=== PATIENT | female | born 1945 | race Caucasian/White ===

== ENCOUNTER → 2016-10-13 | Outpatient (CLI) | payer MEDICARE ==
[~2016-10-13] MED LIST: DENOSUMAB 60 MG/ML 1 ML SYRINGE SQ ONE
[2016-10-13 09:06] VITALS: BP 151/72; PULSE 72; RESP 16; TEMP 97.8
== END ==
LOC: PROCWHC3 08:51
PROVIDERS: ATTEND Family Medicine
DX: M81.0 Age-related osteoporosis without current pathological fracture (principal)
CPT/HCPCS: 96372; J0897

== ENCOUNTER → 2017-01-26 | Outpatient (CLI) | payer MEDICARE ==
--- NOTE | 2017-01-26 11:29 | US ---
EXAMINATION TYPE: US venous doppler duplex LE RT DATE OF EXAM: 01/26/2017 11:09 AM COMPARISON: Previous study dated 07/07/2016 CLINICAL HISTORY: M79.604 Pain. Pain lower anterior lower leg and swelling here after using stool for gardening; spinal stenosis per patient SIDE PERFORMED: Right TECHNIQUE: The lower extremity deep venous system is examined utilizing real time linear array sonog reanna with graded compression, Doppler sonography and color-flow sonography. VESSELS IMAGED: Common Femoral Vein Deep Femoral Vein Greater Saphenous Vein * Femoral Vein Popliteal Vein Small Saphenous Vein * Proximal Calf Veins (* superficial vessels) No popliteal fossa lesion is identified. Right Leg: Negative for acute DVT, however, wall echoes are noted at valves in one of two upper calf veins, but veins compress here. IMPRESSION: 1. THIS EXAMINATION IS NEGATIVE FOR ACUTE DVT WITHIN THE RIGHT LEG. 2. THERE IS EVIDENCE OF PREVIOUS THROMBUS.
== END | disposition home or self-care (01) ==
LOC: RADUSWWP 10:43
PROVIDERS: ATTEND Family Medicine
DX: M79.604 Pain in right leg (principal)

== ENCOUNTER → 2017-04-07 | Outpatient (CLI) | payer MEDICARE ==
--- NOTE | 2017-04-07 13:46 | BD ---
EXAMINATION TYPE: MG DEXA axial skeleton. DATE OF EXAM: 04/07/2017 COMPARISON: DEXA bone scan March 20, 2016. CLINICAL HISTORY: C50.919 BREAST CANCER, M85.8 OSTEOPENIA Height: 64 Weight: 198 FRAX RISK QUESTIONS: Alcohol (3 or more units per day): NO Family History (Parent hip fracture): YES Glucocorticoids (More than 3mos): NO (Ex: prednisone, prednisolone, methylprednisolone, dexamethasone, and hydrocortisone). History of Fracture in Adulthood: NO Secondary Osteoporosis: NO 1. Type 1 Diabetes: NO 2. Hyperthyroidism: NO 3. Menopause before 45: NO 4. Malnutrition: NO 5. Chronic liver disease: NO Rheumatoid Arthritis: NO Current Tobacco Use: NO RISK FACTORS HISTORY OF: Family History of Osteoporosis: YES, HER MOTHER, WITH BROKEN AND REPLACED HIPS Active: NOT MUCH ANYMORE Diet low in dairy products/other sources of calcium: NO Postmenopausal woman: LATE 40'S Take estrogen and/or progesterone medications: IN THE PAST.... How lon-7 YRS Lost more than 2 inches in height since high school: YES Hyperparathyroidism: NO Adrenal Insufficiency: NO MEDICATIONS: Osteoporosis Medications: FOSAMAX IN THE PAST....STOPPED 15 YRS Additional Medications: ANASTROZOLE, PAIN MEDS, VIT D, VIT A, MULTI VITAMIN, B12, HEART MEDS, MELOXIC AM, Additional History: HX OF RT BREAST CANCER, SPINAL STENOSIS, GALL BLADDER REMOVAL, IBD, A-FIB EXAM MEASUREMENTS: Bone mineral densitometry was performed using the RABBL System. Bone mineral density as measured about the Lumbar spine is: ----- L1-L4(G/cm2): 1.262 T Score Values are as follows: ----- L1: -0.8 ----- L2: -0.3 ----- L3: 1.2 ----- L4: 2.1 ----- L1-L4: 0.7 Bone mineral density has: Increased 0.1% since study of: 03.20.2016 Bone mineral density about the R hip (g/cm2): 0.878 Bone mineral density about the L hip (g/cm2): 0.858 T Score values are as follows: -----R Neck: -1.7 -----L Neck: -1.4 -----R Total: -1.0 -----L Total: -1.2 Bone mineral density has: Increased 2.5% since study of: 03.20.2016 FRAX %'S: THERE IS A 20.2% CHANCE OF A MAJOR OSTEOPOROTIC FX AND A 4.6% CHANCE OF A HIP FX.....PRO BABILITY IN 10 YRS TIME IMPRESSION: Osteopenia (T Score between -2.5 and -1 as noted by T score values remains present in both hips. Ther e remains slightly increased risk of fracture and the patient may be considered for treatment. Re-Scr een 2-5 years NOTE: T-SCORE=SD OF THE YOUNG ADULT MEAN.
== END | disposition home or self-care (01) ==
LOC: RADBDWWP 10:31
PROVIDERS: ATTEND Internal Medicine Hematology & Oncology
DX: C50.919 Malignant neoplasm of unspecified site of unspecified female breast (principal); M85.88 Other specified disorders of bone density and structure, other site
CPT/HCPCS: 77080

== ENCOUNTER 2017-07-15 16:27 | Inpatient (IN) | payer MEDICARE ==
[2017-07-15] MEDS ORDERED: MORPHINE SULFATE 2 MG/ML SYRINGE IV STA (17:09)
[2017-07-15] MEDS ORDERED: ONDANSETRON 4 MG/2 ML VIAL IVP STA (17:09)
[2017-07-15] MEDS ORDERED: SODIUM CHLORIDE 0.9% 1,000 ML IV STA ×2 (17:09)
[2017-07-15] MEDS ORDERED: ACETAMINOPHEN TAB 500 MG TAB PO STA (17:19)
--- NOTE | 2017-07-15 17:36 | ED ---
Abdominal Pain HPI <ParagStephane - Last Filed: 07/15/17 21:56> - General Source: patient, RN notes reviewed, old records reviewed Mode of arrival: ambulatory Limitations: no limitations <Varsha Ledesma - Last Filed: 07/15/17 22:08> - General Chief Complaint: Abdominal Pain Stated Complaint: Abd Pain Time Seen by Provider: 07/15/17 16:58 - History of Present Illness Initial Comments: Is a 72-year-old female presents emergency Department chief complaint of 2 days of upper respiratory congestion, severe nausea, and intractable hiccups. She reports that she thinks this is related to taking Benadryl due to an ALLERGIC reaction. She was treated for hives proximally 5 days ago and after she finished steroids her hives returned. She took Benadryl starting Thursday night into Thursday and thinks that these symptoms are related to her taking Benadryl. Patient states that she feels very chilled. Patient reports that whenever she moves, she feels like she has a spasm in her diaphragm which starts to cause her cups. She reports that the many cups will not cause her to feel he seems to vomit. Patient reports she's had a history of cholecystectomy and appendectomy, mastectomy. She states that she feels extremely nauseated. She states that she's not taking any Motrin Tylenol or any [id number] remedies. (Varsha Ledesma) - Related Data Home Medications Medication Instructions Recorded Confirmed Anastrozole [Anastrozole] 1 mg PO DAILY 07/21/14 07/15/17 Meloxicam [Mobic] 7.5 mg PO DAILY 07/21/14 07/15/17 Metoprolol Tartrate [Lopressor] 50 mg PO QAM 07/21/14 07/15/17 Aspirin EC [Ecotrin] 325 mg PO DAILY 06/22/17 07/15/17 Cholecalciferol [Vitamin D3] 1,000 unit PO DAILY 06/22/17 07/15/17 Cyanocobalamin (Vitamin B-12) 1,000 mcg PO Q48H 06/22/17 07/15/17 [Vitamin B-12] L.acidoph,Paracasei, B.lactis 1 cap PO DAILY 06/22/17 07/15/17 [Probiotic] Metoprolol Tartrate [Lopressor] 25 mg PO HS 06/22/17 07/15/17 Multivitamins, Thera [Multivitamin 1 tab PO DAILY 06/22/17 07/15/17 (formulary)] Vitamin A W/D3 1 tab PO DAILY 06/22/17 07/15/17 Allergies Allergy/AdvReac Type Severity Reaction Status Date / Time metronidazole [From Flagyl] Allergy Rash/Hives Verified 07/15/17 17:05 Penicillins Allergy Anaphylaxis Verified 07/15/17 17:05 Sulfa (Sulfonamide Allergy Unknown Verified 07/15/17 17:05 Antibiotics) Childhood acetaminophen AdvReac Elevates Verified 07/15/17 17:05 Liver Enzymes codeine AdvReac Nausea & Verified 07/15/17 17:05 Vomiting gluten AdvReac Inflames Verified 07/15/17 17:05 Colitis sulfamethoxazole AdvReac Diarrhea, Verified 07/15/17 17:05 [From Bactrim] C-Diff trimethoprim [From Bactrim] AdvReac Diarrhea, Verified 07/15/17 17:05 C-Diff Review of Systems ROS Other: All systems not noted in ROS Statement are negative. <Stephane Tuttle - Last Filed: 07/15/17 21:56> ROS Other: All systems not noted in ROS Statement are negative. <Varsha Ledesma - Last Filed: 07/15/17 22:08> ROS Statement: Those systems with pertinent positive or pertinent negative responses have been documented in the HPI. Past Medical History Past Medical History: Atrial Fibrillation, Cancer, Eye Disorder, Osteoarthritis (OA), Renal Disease Additional Past Medical History / Comment(s): DRY EYE, CORNEAL DYSTROPHY. HX RT BREAST CA. HYPOGLYCEMIA. N/T FEET, RT HAND. EDEMA LOWER LEGS OCC. History of Any Multi-Drug Resistant Organisms: C-DIFF Past Surgical History: Adenoidectomy, Breast Surgery, Cholecystectomy, Hernia Repair, Hysterectomy Additional Past Surgical History / Comment(s): RT BREAST MASTECTOMY, W/ TISSUE [employer]; RT BREAST BIOPSY. LT ING HERNIA REPAIR. FATTY TUMORE EXC LT ARM. NEPHROLITHOTOMY TUBE W/ STONE REMOVAL. Past Anesthesia/Blood Transfusion Reactions: Previous Problems w/ Anesthesia, Postoperative Nausea & Vomiting (PONV) Additional Past Anesthesia/Blood Transfusion Reaction / Comment(s): TOOK VERY LONG TIME TO AWAKEN AFTER SURGERY IN 2012. Past Psychological History: Depression Smoking Status: Former smoker Past Alcohol Use History: Occasional Past Drug Use History: None Reported - Past Family History Mother Family Medical History: Deep Vein Thrombosis (DVT) <Varsha Ledesma - Last Filed: 07/15/17 22:08> General Exam <Stephane Tuttle - Last Filed: 07/15/17 21:56> Limitations: no limitations General appearance: alert, in no apparent distress Head exam: Present: atraumatic, normocephalic, normal inspection Eye exam: Present: normal appearance, PERRL, EOMI. Absent: scleral icterus, conjunctival injection, periorbital swelling ENT exam: Present: normal exam, mucous membranes moist Neck exam: Present: normal inspection. Absent: tenderness, meningismus, lymphadenopathy Respiratory exam: Present: normal lung sounds bilaterally. Absent: respiratory distress, wheezes, rales, rhonchi, stridor Cardiovascular Exam: Present: regular rate, normal rhythm, normal heart sounds. Absent: systolic murmur, diastolic murmur, rubs, gallop, clicks GI/Abdominal exam: Present: soft, tenderness (epigastric tenderness, hiccupping ), normal bowel sounds. Absent: distended, guarding, rebound, rigid Extremities exam: Present: normal inspection, full ROM, normal capillary refill. Absent: tenderness, pedal edema, joint swelling, calf tenderness Back exam: Present: normal inspection Neurological exam: Present: alert, oriented X3, CN II-XII intact Psychiatric exam: Present: normal affect, normal mood Skin exam: Present: warm, dry, intact, normal color. Absent: rash <Varsha Ledesma - Last Filed: 07/15/17 22:08> - General Exam Comments Initial Comments: This is a 72-year-old female. Patient does appear to be in moderate discomfort. (Varsha Ledesma) Vital Signs 07/15/17 07/15/17 07/15/17 16:35 20:22 21:35 Temperature 98.2 F 97.0 F L Pulse Rate 85 75 69 Respiratory 20 16 18 Rate Blood Pressure 168/87 148/66 161/73 O2 Sat by Pulse 99 92 L 93 L Oximetry Medical Decision Making - Lab Data Result diagrams: 07/15/17 17:26 07/15/17 17:26 <Stephane Tuttle - Last Filed: 07/15/17 21:56> - Lab Data Result diagrams: 07/15/17 17:26 07/15/17 17:26 - Radiology Data Radiology results: report reviewed <BaltazarVarsha - Last Filed: 07/15/17 22:08> - Medical Decision Making Advised the patient at bedside with a history of nausea and vomiting for approximately 23 hours. Unable to keep any fluids down. The patient complains of epigastric area discomfort. Last bowel movement was earlier this afternoon pass gas earlier this afternoon. The patient's past medical problems are significant for breast cancer. She's also had a duodenal ulcer many years ago. Labs today showed elevated white count of 14.4 hemoglobin 13 hematocrit of 40. BNP is 400. Amylase lipase normal limits. Troponin less than 0.012 plasma lactic acid is 2.1. Patient's BUN 17 creatinine 0.7 GFR greater than 60. Glucose 3.6. Urine shows 60 range 6 whites. 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 Surgeries include appendectomy, hernia, breast surgery and cholecystectomy. She also the left angle hernia repair. CT of the abdomen pointed out gastric distention with collapsed duodenum suggestive of a duodenal ulcer. I discussed the case with Dr. Meier patient be admitted to his partner's service with consultation from Dr. Mcneil. Dr. Tuttle (Stephane Tuttle) 72-year-old female since medicine department with epigastric abdominal pain. Patient has had multiple episodes of vomiting while in the emergency department. Patient continues also have diaphragm spasms with hiccuping. Patient was given IV fluids and lab work was reviewed. Patient was have mildly elevated lactic acid 2.1. Repeat the lactic obtained. Patient was given 2 L of fluids, start on maintenance rate, the patient does not have a slightly elevated white blood cell count 14.1. Patient case discussed with Dr. Tuttle. [place] the patient for IV fluids, and Protonix. (Varsha Ledesma) - Lab Data Lab Results 07/15/17 07/15/17 07/15/17 Range/Units 17:26 17:26 17:26 WBC 14.4 H (3.8-10.6) k/uL RBC 4.70 (3.80-5.40) m/uL Hgb 13.3 (11.4-16.0) gm/dL Hct 40.7 (34.0-46.0) % MCV 86.6 (80.0-100.0) fL MCH 28.2 (25.0-35.0) pg MCHC 32.6 (31.0-37.0) g/dL RDW 14.3 (11.5-15.5) % Plt Count 283 (150-450) k/uL Neutrophils % 75 % Lymphocytes % 18 % Monocytes % 4 % Eosinophils % 1 % Basophils % 0 % Neutrophils # 10.8 H (1.3-7.7) k/uL Lymphocytes # 2.6 (1.0-4.8) k/uL Monocytes # 0.6 (0-1.0) k/uL Eosinophils # 0.2 (0-0.7) k/uL Basophils # 0.0 (0-0.2) k/uL PT (9.0-12.0) sec INR (<1.2) APTT (22.0-30.0) sec Sodium 139 (137-145) mmol/L Potassium 3.6 (3.5-5.1) mmol/L Chloride 102 (98-107) mmol/L Carbon Dioxide 23 (22-30) mmol/L Anion Gap 14 mmol/L BUN 17 (7-17) mg/dL Creatinine 0.70 (0.52-1.04) mg/dL Est GFR (MDRD) Af Amer >60 (>60 ml/min/1.73 sqM) Est GFR (MDRD) Non-Af >60 (>60 ml/min/1.73 sqM) Glucose 127 H (74-99) mg/dL Lactic Ac Sepsis Rflx Plasma Lactic Acid Maurilio 2.1 H* (0.7-2.0) mmol/L Calcium 9.6 (8.4-10.2) mg/dL Total Bilirubin 0.8 (0.2-1.3) mg/dL AST 28 (14-36) U/L ALT 44 (9-52) U/L Alkaline Phosphatase 95 (38-126) U/L Troponin I (0.000-0.034) ng/mL NT-Pro-B Natriuret Pep pg/mL Total Protein 7.4 (6.3-8.2) g/dL Albumin 4.3 (3.5-5.0) g/dL Amylase <30 L (30-110) U/L Lipase 88 (23-300) U/L Urine Color Urine Appearance (Clear) Urine pH (5.0-8.0) Ur Specific Brooks (1.001-1.035) Urine Protein (Negative) Urine Glucose (UA) (Negative) Urine Ketones (Negative) Urine Blood (Negative) Urine Nitrite (Negative) Urine Bilirubin (Negative) Urine Urobilinogen (<2.0) mg/dL Ur Leukocyte Esterase (Negative) Urine RBC (0-5) /hpf Urine WBC (0-5) /hpf Ur Squamous Epith Cells (0-4) /hpf Urine Bacteria (None) /hpf Influenza Type A RNA (Not Detectd) Influenza Type B (PCR) (Not Detectd) 07/15/17 07/15/17 07/15/17 Range/Units 17:26 17:26 17:26 WBC (3.8-10.6) k/uL RBC (3.80-5.40) m/uL Hgb (11.4-16.0) gm/dL Hct (34.0-46.0) % MCV (80.0-100.0) fL MCH (25.0-35.0) pg MCHC (31.0-37.0) g/dL RDW (11.5-15.5) % Plt Count (150-450) k/uL Neutrophils % % Lymphocytes % % Monocytes % % Eosinophils % % Basophils % % Neutrophils # (1.3-7.7) k/uL Lymphocytes # (1.0-4.8) k/uL Monocytes # (0-1.0) k/uL Eosinophils # (0-0.7) k/uL Basophils # (0-0.2) k/uL PT 10.7 (9.0-12.0) sec INR 1.1 (<1.2) APTT 22.3 (22.0-30.0) sec Sodium (137-145) mmol/L Potassium (3.5-5.1) mmol/L Chloride (98-107) mmol/L Carbon Dioxide (22-30) mmol/L Anion Gap mmol/L BUN (7-17) mg/dL Creatinine (0.52-1.04) mg/dL Est GFR (MDRD) Af Amer (>60 ml/min/1.73 sqM) Est GFR (MDRD) Non-Af (>60 ml/min/1.73 sqM) Glucose (74-99) mg/dL Lactic Ac Sepsis Rflx Plasma Lactic Acid Maurilio (0.7-2.0) mmol/L Calcium (8.4-10.2) mg/dL Total Bilirubin (0.2-1.3) mg/dL AST (14-36) U/L ALT (9-52) U/L Alkaline Phosphatase (38-126) U/L Troponin I <0.012 (0.000-0.034) ng/mL NT-Pro-B Natriuret Pep 400 pg/mL Total Protein (6.3-8.2) g/dL Albumin (3.5-5.0) g/dL Amylase (30-110) U/L Lipase (23-300) U/L Urine Color Urine Appearance (Clear) Urine pH (5.0-8.0) Ur Specific Brooks (1.001-1.035) Urine Protein (Negative) Urine Glucose (UA) (Negative) Urine Ketones (Negative) Urine Blood (Negative) Urine Nitrite (Negative) Urine Bilirubin (Negative) Urine Urobilinogen (<2.0) mg/dL Ur Leukocyte Esterase (Negative) Urine RBC (0-5) /hpf Urine WBC (0-5) /hpf Ur Squamous Epith Cells (0-4) /hpf Urine Bacteria (None) /hpf Influenza Type A RNA (Not Detectd) Influenza Type B (PCR) (Not Detectd) 07/15/17 07/15/17 07/15/17 Range/Units 17:45 18:02 18:35 WBC (3.8-10.6) k/uL RBC (3.80-5.40) m/uL Hgb (11.4-16.0) gm/dL Hct (34.0-46.0) % MCV (80.0-100.0) fL MCH (25.0-35.0) pg MCHC (31.0-37.0) g/dL RDW (11.5-15.5) % Plt Count (150-450) k/uL Neutrophils % % Lymphocytes % % Monocytes % % Eosinophils % % Basophils % % Neutrophils # (1.3-7.7) k/uL Lymphocytes # (1.0-4.8) k/uL Monocytes # (0-1.0) k/uL Eosinophils # (0-0.7) k/uL Basophils # (0-0.2) k/uL PT (9.0-12.0) sec INR (<1.2) APTT (22.0-30.0) sec Sodium (137-145) mmol/L Potassium (3.5-5.1) mmol/L Chloride (98-107) mmol/L Carbon Dioxide (22-30) mmol/L Anion Gap mmol/L BUN (7-17) mg/dL Creatinine (0.52-1.04) mg/dL Est GFR (MDRD) Af Amer (>60 ml/min/1.73 sqM) Est GFR (MDRD) Non-Af (>60 ml/min/1.73 sqM) Glucose (74-99) mg/dL Lactic Ac Sepsis Rflx Y Plasma Lactic Acid Maurilio (0.7-2.0) mmol/L Calcium (8.4-10.2) mg/dL Total Bilirubin (0.2-1.3) mg/dL AST (14-36) U/L ALT (9-52) U/L Alkaline Phosphatase (38-126) U/L Troponin I (0.000-0.034) ng/mL NT-Pro-B Natriuret Pep pg/mL Total Protein (6.3-8.2) g/dL Albumin (3.5-5.0) g/dL Amylase (30-110) U/L Lipase (23-300) U/L Urine Color Yellow Urine Appearance Clear (Clear) Urine pH 8.5 H (5.0-8.0) Ur Specific Brooks 1.008 (1.001-1.035) Urine Protein Trace H (Negative) Urine Glucose (UA) Negative (Negative) Urine Ketones 2+ H (Negative) Urine Blood Moderate H (Negative) Urine Nitrite Negative (Negative) Urine Bilirubin Negative (Negative) Urine Urobilinogen <2.0 (<2.0) mg/dL Ur Leukocyte Esterase Trace H (Negative) Urine RBC 60 H (0-5) /hpf Urine WBC 6 H (0-5) /hpf Ur Squamous Epith Cells 1 (0-4) /hpf Urine Bacteria Rare H (None) /hpf Influenza Type A RNA Not Detected (Not Detectd) Influenza Type B (PCR) Not Detected (Not Detectd) - Radiology Data KUB shows 1 cm subcu centimeter renal calcifications noted, similar to prior study. asians over her expected course of the ureters. Bowel gas pattern is normal. No ptosis. No pneumoperitoneum. No radiographic to correlate for patient's symptoms. Patient's chest x-ray shows mild pulmonary reticular pattern described, or clinical confirmation. This noted that there is 5 reticular pattern of increased density throughout the lung parenchyma bilaterally scaring the pulmonary vascular jerks symmetrically. The pattern is more prominent than the prior study, or did not see the pulmonary vessels. Pattern suggests mild interstitial face pulmonary edema versus chronic interstitial lung changes. No focal pulmonary consolidation. Spaces are negative. Cardiomediastinal silhouette bones are soft and unremarkable. Except for 1 cm calcific patient's in the left upper renal shadow. CT shows no definite acute process, abdominal pelvic CT however there is mild gastric distention as discussed above. Mild to moderate urinary bladder distention. There is a collapsed duodenum, there is nonspecific finding of one moment time they're persistent and peptic ulcer disease can be considered, there is no direct CT findings of peptic ulcer disease with CT is insensitive for 9, K to peptic ulcer disease. (Varsha Ledesma) Disposition <Stephane Tuttle - Last Filed: 07/15/17 21:56> Time of Disposition: 22:04 <Varsha Ledesma - Last Filed: 07/15/17 22:08> Clinical Impression: Gastric ulcer, Intractable abdominal pain, Intractable vomiting Disposition: ADMITTED IP TO THIS HOSP Condition: Stable Referrals: Shantel Thomas MD [Primary Care Provider] - 1-2 days
[2017-07-15 17:46] LABS: Basophils % (A) 0 %; CH 29.1; CHCM 33.8; Eosinophils # (A) 0.2 k/uL (0-0.7); Eosinophils % (A) 1 %; HCT 40.7 % (34.0-46.0); HDW 2.45; HGB 13.3 gm/dL (11.4-16.0); Luc # (Auto) 0.13; Luc % (Auto) 1; Lymphocytes # (A) 2.6 k/uL (1.0-4.8); Lymphocytes % (A) 18 %; MCH 28.2 pg (25.0-35.0); MCHC 32.6 g/dL (31.0-37.0); MCV 86.6 fL (80.0-100.0); Mean Platelet Volume 8.1; Monocytes # (A) 0.6 k/uL (0-1.0); Monocytes % (A) 4 %; Neutrophils # (A) 10.8 k/uL (1.3-7.7); Neutrophils % (A) 75 %; RDW 14.3 % (11.5-15.5); WBC 14.4 k/uL (3.8-10.6)
[2017-07-15 17:57] LABS: ALT 44 U/L (9-52); AST 28 U/L (14-36); Alkaline Phosphatase 95 U/L (38-126); Amylase <30 U/L (30-110); Anion Gap 14 mmol/L; Blood Urea Nitrogen 17 mg/dL (7-17); Calcium 9.6 mg/dL (8.4-10.2); Carbon Dioxide 23 mmol/L (22-30); Chloride 102 mmol/L (98-107); Glucose 127 mg/dL (74-99); Non-African American GFR(MDRD) >60 (>60 ml/min/1.73 sqM); Potassium 3.6 mmol/L (3.5-5.1); Sodium 139 mmol/L (137-145); Total Bilirubin 0.8 mg/dL (0.2-1.3); Total Protein 7.4 g/dL (6.3-8.2)
[2017-07-15 18:04] LABS: INR 1.1 (<1.2); Partial Thromboplastin Time 22.3 sec (22.0-30.0); Prothrombin Time 10.7 sec (9.0-12.0)
[2017-07-15 18:53] LABS: Appearance,Urine Clear (Clear); Bacteria,Urine Rare /hpf; Bilirubin,Urine Negative (Negative); Glucose,Urine (UA) Negative (Negative); Ketones,Urine 2+ (Negative); Leukocyte Esterase,Urine Trace (Negative); Nitrite,Urine Negative (Negative); PH, Urine 8.5 (5.0-8.0); Particle Count 4073; Protein,Urine Trace (Negative); RBC,Urine 60 /hpf (0-5); Specific Gravity,Urine 1.008 (1.001-1.035); Squamous Epithelial Cell,Urine 1 /hpf (0-4); UA Billing (MACRO vs. MICRO) MICRO; Urobilinogen,Urine <2.0 mg/dL (<2.0); WBC,Urine 6 /hpf (0-5)
--- NOTE | 2017-07-15 19:08 | XR ---
EXAMINATION TYPE: XR chest 2V DATE OF EXAM: 07/15/2017 COMPARISON: 08/12/2013 HISTORY: Nausea and vomiting since yesterday, abdominal pain TECHNIQUE: Frontal and lateral views of the chest are obtained. FINDINGS: Surgical clips are noted in the right axilla, and also in the expected position of the gall bladder fossa. There is a fine reticular pattern of increased density throughout the lung parenchyma bilaterally obs curing the pulmonary vasculature symmetrically. The pattern is more prominent than the prior study, w here it did not obscure the pulmonary vasculature. The pattern suggests mild interstitial phase pulmo nary edema versus chronic interstitial lung change. There is no focal pulmonary consolidation. Pleural spaces are negative. The cardiomediastinal silhouette and bones and soft tissues are unremark able - except for rounded 1 cm diameter calcifications over the visualized upper left renal shadow. IMPRESSION: MILD PULMONARY RETICULAR PATTERN DESCRIBED, REQUIRING CLINICAL CONFIRMATION.
--- NOTE | 2017-07-15 19:09 | XR ---
EXAMINATION TYPE: XR KUB DATE OF EXAM: 07/15/2017 COMPARISON: 12/16/2011 HISTORY: Pain, nausea and vomiting TECHNIQUE: 2 upright views FINDINGS: Bilateral 1 cm and subcentimeter renal calcifications are noted, similar to the prior study . No calcifications over the expected course of the ureters. The bowel gas pattern is normal. There is no pneumatosis and no pneumoperitoneum. IMPRESSION: NO RADIOGRAPHIC CORRELATE FOR THE PATIENT'S SYMPTOMS.
[2017-07-15] MEDS ORDERED: RX INFO: IV CONTRAST WAS GIVEN 1 EACH MISC MISCELLANE PRN (19:53)
[2017-07-15] MEDS ORDERED: HYDROmorphone 1 MG/ML 1 ML SYRINGE IVP STA (19:55)
--- NOTE | 2017-07-15 20:39 | CT ---
EXAMINATION TYPE: CT abdomen pelvis w con DATE OF EXAM: 07/15/2017 COMPARISON: NONE HISTORY: abdominal pain with nausea and vomiting CT DLP: 1048.2 mGycm Automated exposure control for dose reduction was used. TECHNIQUE: Helical acquisition of images was performed from the lung bases through the pelvis. CONTRAST: Performed without Oral Contrast and with IV Contrast, patient injected with 100 mL of Omnip aque 300. FINDINGS: LUNG BASES: No significant abnormality is appreciated. LIVER/GB: No significant abnormality is appreciated. PANCREAS: No significant abnormality is seen. SPLEEN: No significant abnormality is seen. ADRENALS: No significant abnormality is seen. KIDNEYS: There are bilateral staghorn type nonobstructing calcifications, mostly measuring 1 cm each, in the upper, mid and lower poles of both kidneys. FREE AIR: No free air is visualized. RETROPERITONEAL ADENOPATHY: None visualized REPRODUCTIVE ORGANS: No significant abnormality is seen URINARY BLADDER: The urinary bladder is mild moderately distended. PELVIC ADENOPATHY: None visualized. OSSEOUS STRUCTURES: No significant abnormality is seen. BOWEL: There is moderate gastric distention, with collapsed duodenum. This is a nonspecific finding at one moment in time. If persistent then peptic ulcer disease could be considered. There are no dire ct CT findings of peptic ulcer disease, but CT is insensitive for noncomplicated peptic ulcer disease . OTHER: The vasculature is unremarkable. IMPRESSION: 1. NO DEFINITE ACUTE PROCESS, ABDOMINOPELVIC CT. HOWEVER, MODERATE GASTRIC DISTENTION DISCUSSED ABOV E. 2. MILD/MODERATE URINARY BLADDER DISTENTION.
[2017-07-15] MEDS ORDERED: NALOXONE 0.4 MG/ML 1 ML VIAL IV PRN (22:04)
[2017-07-15] MEDS ORDERED: LORazepam 2 MG/ML INJ IV PRN (22:04)
[2017-07-15] MEDS ORDERED: ONDANSETRON 4 MG/2 ML VIAL IVP PRN (22:04)
[2017-07-15 23:16] VITALS: BMI 30.2
[2017-07-15] MEDS: SODIUM CHLORIDE 0.9% 1,000 ML IV SCH (23:45)
[2017-07-16] MEDS ORDERED: SCOPOLAMINE 1.5MG/72HR PATCH TRANSDERM STA (00:15)
[2017-07-16] MEDS: HYDROmorphone 1 MG/ML 1 ML SYRINGE IVP PRN ×3 (05:31→14:25)
[2017-07-16] MEDS ORDERED: PANTOPRAZOLE 40 MG/10 ML VIAL IV SCH (09:00)
[2017-07-16] MEDS: SODIUM CHLORIDE 0.9% 1,000 ML IV SCH (09:33)
[2017-07-16] MEDS ORDERED: MAG HYDROX/AL HYDROX/SIMETH 30 ML, HYOSCYAMINE ELIXIR 10 ML, CIMETIDINE HCL 300 MG, LID... PO PRN ×4 (09:56)
[2017-07-16] MEDS: METOCLOPRAMIDE 5 MG/ML 2 ML VIAL IVP SCH ×2 (11:17→17:46)
[2017-07-16] MEDS: DEXTROSE 5%-0.45% NACL 1,000 ML IV SCH ×2 (12:47→20:31)
--- NOTE | 2017-07-16 13:02 | P.HPIM ---
History of Present Illness H&P Date: 07/16/17 Chief Complaint: nausea and vomiting 72 year old female patient of Dr. Thomas, with past medical history of paroxysmal atrial fibrillation, history of breast cancer status post mastectomy in 2013, osteoarthritis presented to the emergency with chief complaints of 2 days of severe nausea associated with epigastric pain that started yesterday morning. Patient states that she has been feeling unwell for the past few months and is experiencing subtle abdominal pain which she ignored. Patient was seen few days ago in the emergency department for hives after she was treated for Flagyl for preventative treatment for C. diff while she was on antibiotic for a dog bite . She was treated with steroids, Benadryl and Pepcid for hives. She completed the steroid treatment on Thursday and started experiencing the symptoms on Thursday. She has a dull epigastric pain with intermittent crampy pain in the epigastric region. Patient endorses intractable vomiting multiple episodes in the day not associated with hematemesis and is majorly food particles and bile. Patient denies any shortness of breath but does experience some congestion. She denies any history of alcohol abuse, had cholecystectomy multiple years ago.patient denies undergoing EGD in the past but does have gastric ulcer which was treated medically 40 years ago. Patient is kept nothing by mouth, IV Protonix was given , and was started on fluid at 1 25 mL/h. Gastroenterology evaluation is pending Review of Systems Constitutional: Reports anorexia, Reports chills, Reports malaise, Denies fever , Denies weight gain, Denies weight loss Eyes: denies discharge, denies dry eye, denies irritation, denies itching, denies pain Ears: deny: decreased hearing Ears, nose, mouth and throat: Denies ant. neck pain, Denies headache, Denies hoarseness, Denies swelling in mouth, Denies sore throat, Denies vertigo Cardiovascular: Denies chest pain, Denies decreased exercise tolerance, Denies edema, Denies irregular heart beat, Denies leg edema, Denies syncope Respiratory: Denies cough, Denies cough with sputum, Denies dyspnea, Denies hemoptysis Gastrointestinal: Reports dyspepsia, Reports heartburn, Reports loss of appetite , Reports nausea, Reports vomiting, Denies BRBPR, Denies change in bowel habits , Denies constipation, Denies diarrhea, Denies early satiety, Denies hematemesis Genitourinary: Denies dysuria, Denies incomplete emptying, Denies urgency, Denies urinary frequency Musculoskeletal: Denies arm numbness/tingling, Denies leg numbness/tingling, Denies morning stiffness, Denies muscle cramps, Denies muscle weakness Musculoskeletal: absent: ankle stiffness, ankle swelling, elbow stiffness, elbow swelling, foot stiffness Integumentary: Denies pruritus, Denies rash, Denies sores Neurological: Denies change in speech, Denies confusion, Denies convulsions, Denies double vision, Denies gait dysfunction, Denies numbness, Denies paralysis , Denies paresthesias, Denies seizures, Denies transient paralysis, Denies vertigo, Denies weakness, Denies visual changes Psychiatric: Reports change in appetite, Denies change in sleep habits, Denies insomnia Endocrine: Reports fatigue, Reports recent glucocorticoid use, Denies heat intolerance, Denies high blood sugars Past Medical History Past Medical History: Atrial Fibrillation, Cancer, Eye Disorder, Osteoarthritis (OA), Renal Disease Additional Past Medical History / Comment(s): DRY EYE, CORNEAL DYSTROPHY. HX RT BREAST CA.no blood draws on righ side no blood pressures on right side HYPOGLYCEMIA. N/T FEET, RT HAND. EDEMA LOWER LEGS OCC. 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 LT ING HERNIA REPAIR. FATTY TUMORE EXC LT ARM. NEPHROLITHOTOMY TUBE W/ STONE REMOVAL. Past Anesthesia/Blood Transfusion Reactions: Previous Problems w/ Anesthesia, Postoperative Nausea & Vomiting (PONV) Additional Past Anesthesia/Blood Transfusion Reaction / Comment(s): TOOK VERY LONG TIME TO AWAKEN AFTER SURGERY IN 2013. Past Psychological History: Depression Additional Psychological History / Comment(s): IN EARLY 20'S Smoking Status: Former smoker (Quit in 1999, use 1 pack a day) Past Alcohol Use History: Occasional Past Drug Use History: None Reported Additional Drug Use History / Comment(s): Patient does not have any kids, - Past Family History Mother Family Medical History: AFIB, Deep Vein Thrombosis (DVT) Father Family Medical History: Congestive Heart Failure (CHF), Coronary Artery Disease (CAD), Diabetes Mellitus, Hypertension Sister(s) Family Medical History: Diabetes Mellitus Brother(s) Family Medical History: AFIB Medications and Allergies Home Medications Medication Instructions Recorded Confirmed Type Anastrozole [Anastrozole] 1 mg PO DAILY 07/21/14 07/15/17 History Meloxicam [Mobic] 7.5 mg PO DAILY 07/21/14 07/15/17 History Metoprolol Tartrate [Lopressor] 50 mg PO QAM 07/21/14 07/15/17 History Aspirin EC [Ecotrin] 325 mg PO DAILY 06/22/17 07/15/17 History Cholecalciferol [Vitamin D3] 1,000 unit PO DAILY 06/22/17 07/15/17 History Cyanocobalamin (Vitamin B-12) 1,000 mcg PO Q48H 06/22/17 07/15/17 History [Vitamin B-12] L.acidoph,Paracasei, B.lactis 1 cap PO DAILY 06/22/17 07/15/17 History [Probiotic] Metoprolol Tartrate [Lopressor] 25 mg PO HS 06/22/17 07/15/17 History Multivitamins, Thera [Multivitamin 1 tab PO DAILY 06/22/17 07/15/17 History (formulary)] Vitamin A W/D3 1 tab PO DAILY 06/22/17 07/15/17 History Allergies Allergy/AdvReac Type Severity Reaction Status Date / Time metronidazole [From Flagyl] Allergy Rash/Hives Verified 07/15/17 23:05 Penicillins Allergy Anaphylaxis Verified 07/15/17 23:05 Sulfa (Sulfonamide Allergy Unknown Verified 07/15/17 23:05 Antibiotics) Childhood acetaminophen AdvReac Elevates Verified 07/15/17 23:05 Liver Enzymes codeine AdvReac Nausea & Verified 07/15/17 23:05 Vomiting gluten AdvReac Inflames Verified 07/15/17 23:05 Colitis sulfamethoxazole AdvReac Diarrhea, Verified 07/15/17 23:05 [From Bactrim] C-Diff trimethoprim [From Bactrim] AdvReac Diarrhea, Verified 07/15/17 23:05 C-Diff Physical Exam Vitals: Vital Signs Temp Pulse Pulse Resp BP BP Pulse Ox 07/16/17 08:00 68 16 10/19/17 07:00 97.5 F L 68 16 121/58 89 L 07/15/17 23:00 158/76 07/15/17 22:58 97.3 F L 77 16 176/85 97 07/15/17 21:35 69 18 161/73 93 L 07/15/17 20:22 97.0 F L 75 16 148/66 92 L 07/15/17 16:35 98.2 F 85 20 168/87 99 Intake and Output 07/15/17 07/16/17 07/16/17 22:59 06:59 14:59 Intake Total 480 Balance 480 Intake: IV 480 Sodium Chloride 0.9% 1, 480 000 ml @ 120 mls/hr IV . Q8H20M [facility] Rx#:[id number] Other: Voiding Method Toilet Toilet # Voids 1 2 Weight 87.543 kg - Constitutional General appearance: cooperative, in acute distress, obese - EENT Eyes: anicteric sclerae, PERRLA, normal appearance ENT: hearing grossly normal - Neck Neck: no lymphadenopathy, normal ROM, no other, no rigidity, no stridor, no thyromegaly - Respiratory Respiratory: bilateral: CTA, negative: diminished, dullness, rales, rhonchi - Cardiovascular Rhythm: regular Heart sounds: normal: S1, S2 Abnormal Heart Sounds: no systolic murmur, no diastolic murmur, no rub, no S3 Gallop, no S4 Gallop, no click, no other - Gastrointestinal General gastrointestinal: normal bowel sounds, soft, nondistended diffuse tenderness, most prominent in the epigastric region, bowel sounds are sluggish - Integumentary Integumentary: no rash - Neurologic Neurologic: CNII-XII intact - Musculoskeletal Musculoskeletal: gait normal, strength equal bilaterally - Psychiatric Psychiatric: A&O x's 3, appropriate affect Results CBC & Chem 7: 07/15/17 17:26 07/15/17 17:26 Labs: Abnormal Lab Results - Last 24 Hours (Table) 07/15/17 07/15/17 07/15/17 Range/Units 17:26 17:26 17:26 WBC 14.4 H (3.8-10.6) k/uL Neutrophils # 10.8 H (1.3-7.7) k/uL Glucose 127 H (74-99) mg/dL Plasma Lactic Acid Maurilio 2.1 H* (0.7-2.0) mmol/L Amylase <30 L (30-110) U/L Urine pH (5.0-8.0) Urine Protein (Negative) Urine Ketones (Negative) Urine Blood (Negative) Ur Leukocyte Esterase (Negative) Urine RBC (0-5) /hpf Urine WBC (0-5) /hpf Urine Bacteria (None) /hpf 07/15/17 Range/Units 18:35 WBC (3.8-10.6) k/uL Neutrophils # (1.3-7.7) k/uL Glucose (74-99) mg/dL Plasma Lactic Acid Maurilio (0.7-2.0) mmol/L Amylase (30-110) U/L Urine pH 8.5 H (5.0-8.0) Urine Protein Trace H (Negative) Urine Ketones 2+ H (Negative) Urine Blood Moderate H (Negative) Ur Leukocyte Esterase Trace H (Negative) Urine RBC 60 H (0-5) /hpf Urine WBC 6 H (0-5) /hpf Urine Bacteria Rare H (None) /hpf Thrombosis Risk Factor Assmnt - Choose All That Apply Any of the Below Risk Factors Present?: Yes Each Factor Represents 1 point: Obesity (BMI >25) Other Risk Factors: Yes Each Risk Factor Represents 2 Points: Age 61-74 years, Malignancy Other congenital or acquired thrombophilia - If yes, enter type in comment: No Thrombosis Risk Factor Assessment Total Risk Factor Score: 5 Thrombosis Risk Factor Assessment Level: High Risk Assessment and Plan Plan: #1 intractable nausea vomiting associated with abdominal pain likely secondary to duodenal ulcer/stenosis - - Remote history of gastric ulcer present, aggravated by recent steroid use and meloxicam intake for his osteoarthritis likely - CT abdomen suggestive of gastric distention with collapsed duodenum - Continue protonix 40 mg IV twice a day - Keep patient nothing by mouth - Gastroenterology consulted - IV Reglan 10 mg 3 times a day - GI cocktail for symptom control - Dilaudid 1 mg every 3 hours as needed for pain with Zofran 4 mg every 6 hours and scopolamine patch for nausea control - Patient requires endoscopy to evaluate for duodenum ulcers or strictures #2 paroxysmal atrial fibrillation- continue metoprolol 25 mg at night and 50 mg in the morning, aspirin 325 mg held #3 history of breast cancer status post mastectomy, stable #4 osteoarthritis- hold meloxicam #5 lactic acidosis likely secondary to dehydration- continue D5 half NS 1 25 mL per hour, monitor every 6 hours #6 hematuria- patient has a history of hematuria, and was switched from Coumadin to aspirin for her atrial fibrillation. Likely secondary to nonobstructive bilateral staghorn type calcification in the kidneys, patient denies any abdominal pain, or signs of urinary tract infection #7 bacteriuria with leukocytosis. Patient denies any dysuria, urinary retention or urgency but does have intractable nausea vomiting associated with leukocytosis, we will start patient on levofloxacin 500 mg every 24 hours for 3 days, pending urine cultures #8 DVT prophylaxis- heparin 5000 every 12 with SCDs #9 GI prophylaxis continue Protonix 40 mg IV every 12 #10 full code Disposition- patient would need 1-2 days inpatient care until symptom improves
--- NOTE | 2017-07-16 13:47 | P.CONS ---
History of Present Illness - Reason for Consult Consult date: 07/16/17 Nausea vomiting Requesting physician: Tarsha Walton - History of Present Illness 72-year-old female PMH atrial fibrillation, breast carcinoma, Clostridium difficile colitis, depression, osteoarthritis, admitted with intractable nausea vomiting and midepigastric discomfort. Patient has been experiencing over the summer early satiety without weight loss. Intermittent nausea bloatedness mild midepigastric discomfort however on Thursday she developed nonbloody emesis. She has a history of remote peptic ulcer disease 40 years ago not requiring surgery. Denies excessive NSAID aspirin alcohol. Denies hematemesis hematochezia melena. Afebrile. Home medications include Mobic and full strength aspirin area no GI prophylaxis. CT abdomen reported moderate gastric distention with collapsed duodenum. Review of Systems Constitutional: Denies fever, chills, sweats, weight gain, or loss. HEENT: Negative for migraines, blurred vision or loss, earaches, drainage, tinnitus, oral mucosal lesions, dysphagia, or odynophagia. CARDIAC: Atrial fibrillation. Negative for chest pain, arrhythmias, or palpitation. RESPIRATORY: Negative for shortness of breath, hemoptysis, cough, or sputum production. GI: See HPI for pertinent findings. : Negative for hematuria, urgency, frequency, polyuria, or dysuria. GYNc: Breast carcinoma. Negative vaginal discharge. MUSCULOSKELETAL: Osteoarthritis. Negative for muscle aches, swelling, arthritis , and arthralgias. NEUROLOGIC: Negative for stroke or TIA. ENDOCRINE: Negative for thyroid problems. SKIN: Negative for rash or itching. PSYCHIATRIC: Negative history for depression and anxiety All systems: negative (See HPI) Past Medical History Past Medical History: Atrial Fibrillation, Cancer, Eye Disorder, Osteoarthritis (OA), Renal Disease Additional Past Medical History / Comment(s): DRY EYE, CORNEAL DYSTROPHY. HX RT BREAST CA.no blood draws on righ side no blood pressures on right side HYPOGLYCEMIA. N/T FEET, RT HAND. EDEMA LOWER LEGS OCC. 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 LT ING HERNIA REPAIR. FATTY TUMORE EXC LT ARM. NEPHROLITHOTOMY TUBE W/ STONE REMOVAL. Past Anesthesia/Blood Transfusion Reactions: Previous Problems w/ Anesthesia, Postoperative Nausea & Vomiting (PONV) Additional Past Anesthesia/Blood Transfusion Reaction / Comm: TOOK VERY LONG TIME TO AWAKEN AFTER SURGERY IN 2012. Past Psychological History: Depression Additional Psychological History / Comment(s): IN EARLY Smoking Status: Former smoker Past Alcohol Use History: Occasional Past Drug Use History: None Reported - Past Family History Mother Family Medical History: Deep Vein Thrombosis (DVT) Father Family Medical History: Congestive Heart Failure (CHF), Coronary Artery Disease (CAD), Diabetes Mellitus, Hypertension Sister(s) Family Medical History: Diabetes Mellitus Brother(s) Family Medical History: AFIB Medications and Allergies Home Medications Medication Instructions Recorded Confirmed Type Anastrozole [Anastrozole] 1 mg PO DAILY 07/21/14 07/15/17 History Meloxicam [Mobic] 7.5 mg PO DAILY 07/21/14 07/15/17 History Metoprolol Tartrate [Lopressor] 50 mg PO QAM 07/21/14 07/15/17 History Aspirin EC [Ecotrin] 325 mg PO DAILY 06/22/17 07/15/17 History Cholecalciferol [Vitamin D3] 1,000 unit PO DAILY 06/22/17 07/15/17 History Cyanocobalamin (Vitamin B-12) 1,000 mcg PO Q48H 06/22/17 07/15/17 History [Vitamin B-12] L.acidoph,Paracasei, B.lactis 1 cap PO DAILY 06/22/17 07/15/17 History [Probiotic] Metoprolol Tartrate [Lopressor] 25 mg PO HS 06/22/17 07/15/17 History Multivitamins, Thera [Multivitamin 1 tab PO DAILY 06/22/17 07/15/17 History (formulary)] Vitamin A W/D3 1 tab PO DAILY 06/22/17 07/15/17 History Allergies Allergy/AdvReac Type Severity Reaction Status Date / Time metronidazole [From Flagyl] Allergy Rash/Hives Verified 07/15/17 23:05 Penicillins Allergy Anaphylaxis Verified 07/15/17 23:05 Sulfa (Sulfonamide Allergy Unknown Verified 07/15/17 23:05 Antibiotics) Childhood acetaminophen AdvReac Elevates Verified 07/15/17 23:05 Liver Enzymes codeine AdvReac Nausea & Verified 07/15/17 23:05 Vomiting gluten AdvReac Inflames Verified 07/15/17 23:05 Colitis sulfamethoxazole AdvReac Diarrhea, Verified 07/15/17 23:05 [From Bactrim] C-Diff trimethoprim [From Bactrim] AdvReac Diarrhea, Verified 07/15/17 23:05 C-Diff Physical Exam Vitals: Vital Signs Temp Pulse Pulse Resp BP BP Pulse Ox 07/16/17 08:00 68 16 07/16/17 07:00 97.5 F L 68 16 121/58 89 L 07/15/17 23:00 158/76 07/15/17 22:58 97.3 F L 77 16 176/85 97 07/15/17 21:35 69 18 161/73 93 L 07/15/17 20:22 97.0 F L 75 16 148/66 92 L 07/15/17 16:35 98.2 F 85 20 168/87 99 Intake and Output 07/15/17 07/16/17 07/16/17 22:59 06:59 14:59 Intake Total 480 Balance 480 Intake: IV 480 Sodium Chloride 0.9% 1, 480 000 ml @ 120 mls/hr IV . Q8H20M [facility] Rx#:[id number] Other: Voiding Method Toilet Toilet # Voids 1 2 Weight 87.543 kg General appearance: The patient is alert, oriented, in no acute distress. HET: Head is normocephalic and atraumatic. Pupils are equal and reactive. Oropharynx is clear without lesions. Neck: Supple without lymphadenopathy. Trachea midline. Heart: S1 S2. Lungs: No crackles or wheezes are heard. Abdomen: Soft, mild tenderness midepigastrum, nondistended with bowel sounds. No peritoneal signs. No palpable organomegaly or masses. Extremities: Normal skin color and turgor. No cyanosis, rash, ulceration, clubbing, or edema. Radial and pedal pulses are 2/4 bilaterally. Neurological: No focal deficits. Strength and sensation are grossly intact. Results CBC & Chem 7: 07/15/17 17:26 07/15/17 17:26 Labs: Abnormal Lab Results - Last 24 Hours (Table) 07/15/17 07/15/17 07/15/17 Range/Units 17:26 17:26 17:26 WBC 14.4 H (3.8-10.6) k/uL Neutrophils # 10.8 H (1.3-7.7) k/uL Glucose 127 H (74-99) mg/dL Plasma Lactic Acid Maurilio 2.1 H* (0.7-2.0) mmol/L Amylase <30 L (30-110) U/L Urine pH (5.0-8.0) Urine Protein (Negative) Urine Ketones (Negative) Urine Blood (Negative) Ur Leukocyte Esterase (Negative) Urine RBC (0-5) /hpf Urine WBC (0-5) /hpf Urine Bacteria (None) /hpf 07/15/17 Range/Units 18:35 WBC (3.8-10.6) k/uL Neutrophils # (1.3-7.7) k/uL Glucose (74-99) mg/dL Plasma Lactic Acid Maurilio (0.7-2.0) mmol/L Amylase (30-110) U/L Urine pH 8.5 H (5.0-8.0) Urine Protein Trace H (Negative) Urine Ketones 2+ H (Negative) Urine Blood Moderate H (Negative) Ur Leukocyte Esterase Trace H (Negative) Urine RBC 60 H (0-5) /hpf Urine WBC 6 H (0-5) /hpf Urine Bacteria Rare H (None) /hpf CT scan - abdomen: report reviewed (See HPI) Assessment and Plan (1) Intractable abdominal pain Narrative/Plan: possible peptic ulcer disease collapsed duodenum with gastric distention per Ct possible stricture disease possible gastric outlet obstruction Current Visit: Yes Status: Acute Code(s): R10.9 - UNSPECIFIED ABDOMINAL PAIN SNOMED Code(s): 98222662 (2) Intractable vomiting Current Visit: Yes Status: Acute Code(s): R11.10 - VOMITING, UNSPECIFIED SNOMED Code(s): 408691089 Plan: 1. EGD. 2. PPI therapy Protonix 40 mg IV daily hold NSAIDs. The counterintelligence agent has discussed the risks, benefits and alternative therapies for the above-mentioned procedure and for both sedation/analgesia as well as necessary blood product administration, if indicated, as they pertain to this patient. The patient has indicated understanding and acceptance of the risks and procedures discussed. Thank you for this kind referral and the opportunity to participate in the care of your patient. This consultation was discussed with Dr. Hicks. The impression and plan of care have been directed as dictated.
--- NOTE | 2017-07-16 13:56 | XR ---
EXAMINATION TYPE: XR abdomen 1V DATE OF EXAM: 07/16/2017 COMPARISON: 07/15/2017 HISTORY: Abdominal pain TECHNIQUE: One view abdominal series FINDINGS: The osseous structures are intact. The bowel gas pattern is nonspecific. There are multiple bilatera l calcifications seen within both kidneys. The largest is on the left measures 1.2 cm and on the righ t measures 1 cm. At least 15 are noted on the left and at least 10 are noted on the right. Scoliosis and severe degenerative changes spine. Postoperative change right upper quadrant. Calcifica tions in the pelvis may be vascular. Arthropathy of the hips. IMPRESSION: 1. Nonspecific abdomen. No diagnostic evidence of obstruction. 2. Numerous bilateral renal calculi correlate for medullary sponge kidney.
[2017-07-16] MEDS: LEVOFLOXACIN 500MG-D5W PMX 500 MG in DEXTROSE/WATER 1 100ML.BAG IVPB SCH (14:16)
[2017-07-16] MEDS: CYANOCOBALAMIN 500 MCG TAB PO SCH (16:19)
[2017-07-16] MEDS ORDERED: PROPOFOL 10 MG/ML 20 ML VIAL IV ONE (16:22)
[2017-07-16] MEDS ORDERED: LIDOCAINE 1% INJ 10MG/ML (20 ML MDV) ONE (16:22)
[2017-07-16] MEDS ORDERED: IV FLUID CONTINUATION 1,000 ML IV ONE (16:34)
--- NOTE | 2017-07-16 17:15 | P.PCN ---
Date of Procedure: 07/16/17 Procedure(s) Performed: Procedure: Esophagogastro duodenoscopy with biopsy. Preoperative diagnosis: Nausea and vomiting. Postoperative diagnosis: 1. Pyloric channel/duodenal bulb ulcer with partial gastric outlet obstruction. 2. Esophagitis consistent with regurgitation of stomach contents and pointing to the chronicity of the gastric outlet issue. 3. Biopsies obtained from the antrum and pyloric channel. Preparation sedation: Was provided by anesthesia. Brief clinical history: The patient is a 72 year old female with past medical history of paroxysmal atrial fibrillation, history of breast cancer status post mastectomy in 2013 and osteoarthritis presented to the emergency with complaints of 2 days of severe nausea associated with epigastric pain. Patient states that she has not been feeling well for few months and has been experiencing nausea and abdominal pain. She was seen few days ago in the emergency department for hives after she was treated with Flagyl for preventative treatment for C. diff while she was on antibiotic for a dog bite . She was treated with steroids, Benadryl and Pepcid for hives. She completed the steroid treatment early this week and started experiencing the above symptoms a day later. She has a dull epigastric pain with intermittent crampy pain in the epigastric region. Patient reported vomiting multiple episodes in the day not associated with hematemesis. There is history of peptic ulcer disease more than [address] of the abdomen showed moderate distention of the stomach and collapsed duodenum. She has been started on IV fluids and IV Protonix. The details are summarized in the history and physical and dictated consultation. This evaluation is to assess for peptic ulcer disease or other pathology. Procedure: With the patient on her left lateral decubitus position and after informed consent and adequate sedation, I passed the Olympus-GIF 160 video upper endoscope through the cricopharyngeus down the esophagus. The esophagus showed broad erosions covered with white exudates consistent with regurgitation of stomach contents but no bleeding or strictures. The endoscope was then passed into the stomach which was insufflated with air and inspected in detail including the retroflex view in the cardia. There was some thick gastric secretions and partially digested gastric contents and some degree of mottling and erythema in the mucosa. The prepyloric area/pyloric channel was somewhat indurated and I was only able to pass the endoscope partially into the duodenal bulb. It appears that there is a large ulcer filling the bulb and stradling into the pyloric channel causing partial obstruction. There was no spontaneous bleeding. I made no attempt to pass the endoscope further and I felt this cannot be accomplished safely at this point. Instead, I obtained biopsies from the antrum and pyloric channel then the endoscope was withdrawn. The patient tolerated the procedure well and did not have any immediate complications. Plan: Will await biopsy results. The patient will be allowed clear liquids if tolerated. We will continue Protonix. Surgical evaluation to be considered.
[2017-07-16] MEDS: HEPARIN SODIUM,PORCINE 5,000 UNIT/ML 1 ML VIAL SQ SCH ×2 (20:26→20:31)
[2017-07-16] MEDS: PANTOPRAZOLE 40 MG/10 ML VIAL IVP SCH (20:26)
[2017-07-16] MEDS: METOPROLOL TARTRATE 25 MG TAB PO SCH (22:24)
[2017-07-17] MEDS: METOCLOPRAMIDE 5 MG/ML 2 ML VIAL IVP SCH ×4 (00:02→17:01)
[2017-07-17] MEDS: DEXTROSE 5%-0.45% NACL 1,000 ML IV SCH ×3 (05:56→17:06)
[2017-07-17 06:16] LABS: Glucose,Whole Blood 93 mg/dL (75-99)
[2017-07-17] MEDS: METOPROLOL TARTRATE 50 MG TAB PO SCH (08:04)
[2017-07-17] MEDS: HEPARIN SODIUM,PORCINE 5,000 UNIT/ML 1 ML VIAL SQ SCH ×3 (08:04→22:15)
[2017-07-17] MEDS: PANTOPRAZOLE 40 MG/10 ML VIAL IVP SCH ×2 (08:04→22:16)
[2017-07-17] MEDS: CHOLECALCIFEROL 1,000 UNIT TAB PO SCH (08:04)
[2017-07-17] MEDS: ANASTROZOLE 1 MG TAB PO SCH (08:04)
[2017-07-17] MEDS ORDERED: VITAMIN A PO SCH (09:00)
[2017-07-17] MEDS ORDERED: CHOLECALCIFEROL PO SCH (09:00)
[2017-07-17 10:10] LABS: Basophils % (A) 0 %; CHCM 31.8; Eosinophils # (A) 0.4 k/uL (0-0.7); Eosinophils % (A) 4 %; HCT 36.7 % (34.0-46.0); HDW 2.43; HGB 11.5 gm/dL (11.4-16.0); Luc # (Auto) 0.06; Luc % (Auto) 1; Lymphocytes % (A) 20 %; MCH 27.7 pg (25.0-35.0); MCHC 31.4 g/dL (31.0-37.0); MCV 88.5 fL (80.0-100.0); Mean Platelet Volume 8.3; Monocytes # (A) 0.6 k/uL (0-1.0); Monocytes % (A) 6 %; Neutrophils # (A) 7.1 k/uL (1.3-7.7); Neutrophils % (A) 70 %; RBC 4.15 m/uL (3.80-5.40); RDW 13.4 % (11.5-15.5); WBC 10.1 k/uL (3.8-10.6); WBC (Perox) 10.38
[2017-07-17] MEDS: MULTIVITAMINS, THERA 1 EACH TAB PO SCH (12:31)
[2017-07-17] MEDS: LEVOFLOXACIN 500MG-D5W PMX 500 MG in DEXTROSE/WATER 1 100ML.BAG IVPB SCH (12:35)
--- NOTE | 2017-07-17 12:44 | XR ---
EXAMINATION TYPE: XR chest 2V DATE OF EXAM: 07/17/2017 COMPARISON: Prior chest x-ray 07/15/2017 HISTORY: Aspiration, ulcer TECHNIQUE: Frontal and lateral views of the chest are obtained. FINDINGS: Minimal blunting of the posterior costophrenic angles is noted. Cardiac mediastinal silhou ette, pulmonary vascularity and cata are stable. Interstitium is mildly increased. Postop change note d to the right axilla, right upper quadrant. No pneumothorax. IMPRESSION: Correlate to exclude pulmonary venous hypertension and interstitial edema, there is inte rstitial lung disease. Similar findings to prior exam. Postop changes. Difficult to exclude small eff usion versus basilar atelectasis.
--- NOTE | 2017-07-17 13:14 | P.PN ---
Subjective Progress Note Date: 07/17/17 72 year old female patient of Dr. Thomas, with past medical history of paroxysmal atrial fibrillation, history of breast cancer status post mastectomy in 2012, osteoarthritis presented to the emergency with chief complaints of 2 days of severe nausea associated with epigastric pain that started yesterday morning. Patient states that she has been feeling unwell for the past few months and is experiencing subtle abdominal pain which she ignored. Patient was seen few days ago in the emergency department for hives after she was treated for Flagyl for preventative treatment for C. diff while she was on antibiotic for a dog bite . She was treated with steroids, Benadryl and Pepcid for hives. She completed the steroid treatment on Thursday and started experiencing the symptoms on Thursday. She has a dull epigastric pain with intermittent crampy pain in the epigastric region. Patient endorses intractable vomiting multiple episodes in the day not associated with hematemesis and is majorly food particles and bile. Patient denies any shortness of breath but does experience some congestion. She denies any history of alcohol abuse, had cholecystectomy multiple years ago.patient denies undergoing EGD in the past but does have gastric ulcer which was treated medically 40 years ago. Patient is kept nothing by mouth, IV Protonix was given , and was started on fluid at 1 25 mL/h. Gastroenterology evaluation is pending 07/17: Patient underwent EGD with biopsy that showed a pyloric channel/duodenal bulb ulcer with partial gastric outlet obstruction. Esophagitis consistent with regurgitation of stomach contents and planning to the chronicity of the gastric outlet issue. Biopsies obtained from the antrum and pyloric channel. Patient was started on a clear liquid diet and continue Protonix. Surgical evaluation may be considered. We have added in a consult for Dr. Johnson for Dr. Kramer. Abdominal x-ray showed nonspecific abdomen. No diagnostic evidence of obstruction. Numerous bilateral renal calculi correlate for medullary sponge kidney. Patient does have medullary sponge kidney. She denies having any dysuria. She is complaining of epigastric pain as well as pain in the left shoulder blade that's tender and increases with deep breathing. She is currently on Levaquin for possible UTI and aspiration. Patient encouraged to use Maalox. Nebulizer treatments scheduled, incentive spirometry added and chest x-ray requested. Patient is complaining of green sputum production. Objective - Vital Signs Vital signs: Vital Signs Temp 98.3 F 07/17/17 07:00 Pulse 62 07/17/17 08:00 Resp 16 07/17/17 08:00 BP 160/75 07/17/17 07:00 Pulse Ox 95 07/17/17 07:00 Intake & Output 07/16/17 07/17/17 07/17/17 18:59 06:59 18:59 Intake Total 250 1000 Balance 250 1000 Weight 87.543 kg Intake: IV 250 Intake, IV Titration 1000 Amount Dextrose 5%-0.45% NaCl 1, 1000 000 ml @ 125 mls/hr IV . Q8H [facility] Rx#:[id number] Oral 0 Other: Voiding Method Toilet Toilet Toilet # Voids 3 3 3 - Exam General appearance: cooperative, in acute distress, obese - EENT Eyes: anicteric sclerae, PERRLA, normal appearance ENT: hearing grossly normal - Neck Neck: no lymphadenopathy, normal ROM, no other, no rigidity, no stridor, no thyromegaly - Respiratory Respiratory: bilateral: CTA, negative: diminished, dullness, rales, rhonchi - Cardiovascular Rhythm: regular Heart sounds: normal: S1, S2 Abnormal Heart Sounds: no systolic murmur, no diastolic murmur, no rub, no S3 Gallop, no S4 Gallop, no click, no other - Gastrointestinal General gastrointestinal: normal bowel sounds, soft, nondistended diffuse tenderness, most prominent in the epigastric region, bowel sounds are sluggish - Integumentary Integumentary: no rash - Neurologic Neurologic: CNII-XII intact - Musculoskeletal Musculoskeletal: gait normal, strength equal bilaterally - Psychiatric Psychiatric: A&O x's 3, appropriate affect - Labs CBC & Chem 7: 07/17/17 09:07 07/15/17 17:26 Labs: Microbiology - Last 24 Hours (Table) 07/15/17 17:26 Blood Culture - Preliminary Blood No Growth after 24 hours Assessment and Plan Plan: #1 intractable nausea vomiting associated with abdominal pain likely secondary to duodenal ulcer/stenosis - - Remote history of gastric ulcer present, aggravated by recent steroid use and meloxicam intake for his osteoarthritis likely - CT abdomen suggestive of gastric distention with collapsed duodenum - Continue protonix 40 mg IV twice a day - Clear liquid diet - Gastroenterology status post EGD as above - IV Reglan 10 mg 3 times a day - GI cocktail for symptom control - Dilaudid 1 mg every 3 hours as needed for pain with Zofran 4 mg every 6 hours and scopolamine patch for nausea control #2 paroxysmal atrial fibrillation- continue metoprolol 25 mg at night and 50 mg in the morning, aspirin 325 mg held #3 history of breast cancer status post mastectomy, stable #4 osteoarthritis- hold meloxicam #5 lactic acidosis likely secondary to dehydration- continue D5 half NS 1 25 mL per hour, monitor every 6 hours #6 medullary sponge kidney with hematuria- patient has a history of hematuria, and was switched from Coumadin to aspirin for her atrial fibrillation. Likely secondary to nonobstructive bilateral staghorn type calcification in the kidneys , patient denies any abdominal pain, or signs of urinary tract infection #7 bacteriuria with leukocytosis. Patient denies any dysuria, urinary retention or urgency but does have intractable nausea vomiting associated with leukocytosis, we will start patient on levofloxacin 500 mg every 24 hours for 3 days, pending urine cultures #8 DVT prophylaxis- heparin 5000 every 12 with SCDs #9 GI prophylaxis continue Protonix 40 mg IV every 12 #10 full code Discharge plan: Return home Impression and plan of care have been directed as dictated by the signing physician. Kalyani Bowman nurse practitioner acting as scribe for signing physician.
[2017-07-17] MEDS: IPRATROPIUM-ALBUTEROL 3 ML NEB INHALATION SCH ×2 (13:24→20:09)
--- NOTE | 2017-07-17 16:22 | P.GSCN ---
History of Present Illness Consult date: 07/17/17 Reason for Consult: Gastric outlet obstruction History of present illness: 72-year-old female presented to the emergency department complaining of 1 day of nausea, bleeding and epigastric pain. She states that she was not able to tolerate any oral intake. She states that she has been having epigastric pain since January of this year. On workup, the GI team took the patient for an endoscopy and found a partially obstructing duodenal ulcer. This was not actively bleeding. The scope was unable to pass the site of the ulcer. She currently is on a clear liquid diet and states that she is able to tolerate it however she does feel fullness in her epigastrium with intake. She denies any fevers, chills, chest pain or shortness of breath. She denies any change in bowel function. Review of Systems - Constitutional Denies chills, Denies fever - EENT Ears, nose, mouth and throat: Denies ant. neck pain, Denies mouth pain - Cardiovascular Denies chest pain, Denies irregular heart beat, Denies lightheadedness, Denies palpitations - Respiratory Denies cough, Denies dyspnea - Gastrointestinal Reports abdominal pain, Reports nausea, Reports vomiting - Genitourinary Genitourinary: Reports dysuria, Denies flank pain, Denies hematuria - Musculoskeletal Denies atrophy, Denies frequent falls - Integumentary Denies pruritus, Denies unusual bruising, Denies wounds - Psychiatric Denies anxiety, Denies depression, Denies memory loss - Hematologic/Lymphatic Denies easy bleeding, Denies easy bruising Past Medical History Past Medical History: Atrial Fibrillation, Cancer, Eye Disorder, Osteoarthritis (OA), Renal Disease Additional Past Medical History / Comment(s): DRY EYE, CORNEAL DYSTROPHY. HX RT BREAST CA.no blood draws on righ side no blood pressures on right side HYPOGLYCEMIA. N/T FEET, RT HAND. EDEMA LOWER LEGS OCC. History of Any Multi-Drug Resistant Organisms: C-DIFF Year Discovered:: 2004 MDRO Source:: stool Past Surgical History: Adenoidectomy, Breast Surgery, Cholecystectomy, Hernia Repair, Hysterectomy Additional Past Surgical History / Comment(s): RT BREAST MASTECTOMY, W/ TISSUE HOSPITALIST; RT BREAST BIOPSY. LT ING HERNIA REPAIR. FATTY TUMORE EXC LT ARM. NEPHROLITHOTOMY TUBE W/ STONE REMOVAL. Past Anesthesia/Blood Transfusion Reactions: Previous Problems w/ Anesthesia, Postoperative Nausea & Vomiting (PONV) Additional Past Anesthesia/Blood Transfusion Reaction / Comm: TOOK VERY LONG TIME TO AWAKEN AFTER SURGERY IN 2012. Past Psychological History: Depression Additional Psychological History / Comment(s): IN EARLY Smoking Status: Former smoker Past Alcohol Use History: Occasional Past Drug Use History: None Reported - Past Family History Father Family Medical History: Congestive Heart Failure (CHF), Coronary Artery Disease (CAD), Diabetes Mellitus, Hypertension Sister(s) Family Medical History: Diabetes Mellitus Brother(s) Family Medical History: AFIB Mother Family Medical History: Deep Vein Thrombosis (DVT) Medications and Allergies Home Medications Medication Instructions Recorded Confirmed Type Anastrozole [Anastrozole] 1 mg PO DAILY 07/21/14 07/15/17 History Meloxicam [Mobic] 7.5 mg PO DAILY 07/21/14 07/15/17 History Metoprolol Tartrate [Lopressor] 50 mg PO QAM 07/21/14 07/15/17 History Aspirin EC [Ecotrin] 325 mg PO DAILY 06/22/17 07/15/17 History Cholecalciferol [Vitamin D3] 1,000 unit PO DAILY 06/22/17 07/15/17 History Cyanocobalamin (Vitamin B-12) 1,000 mcg PO Q48H 06/22/17 07/15/17 History [Vitamin B-12] L.acidoph,Paracasei, B.lactis 1 cap PO DAILY 06/22/17 07/15/17 History [Probiotic] Metoprolol Tartrate [Lopressor] 25 mg PO HS 06/22/17 07/15/17 History Multivitamins, Thera [Multivitamin 1 tab PO DAILY 06/22/17 07/15/17 History (formulary)] Vitamin A W/D3 1 tab PO DAILY 06/22/17 07/15/17 History Allergies Allergy/AdvReac Type Severity Reaction Status Date / Time metronidazole [From Flagyl] Allergy Rash/Hives Verified 07/15/17 23:05 Penicillins Allergy Anaphylaxis Verified 07/15/17 23:05 Sulfa (Sulfonamide Allergy Unknown Verified 07/15/17 23:05 Antibiotics) Childhood acetaminophen AdvReac Elevates Verified 07/15/17 23:05 Liver Enzymes codeine AdvReac Nausea & Verified 07/15/17 23:05 Vomiting gluten AdvReac Inflames Verified 07/15/17 23:05 Colitis sulfamethoxazole AdvReac Diarrhea, Verified 07/15/17 23:05 [From Bactrim] C-Diff trimethoprim [From Bactrim] AdvReac Diarrhea, Verified 07/15/17 23:05 C-Diff Surgical - Exam Osteopathic Statement: *. No significant issues noted on an osteopathic structural exam other than those noted in the History and Physical/Consult. Vital Signs Temp Pulse Resp BP Pulse Ox 98.2 F 85 20 168/87 99 07/15/17 16:35 07/15/17 16:35 07/15/17 16:35 07/15/17 16:35 07/15/17 16:35 - General well developed, well nourished, no distress - Eyes PERRL, normal ocular movement - Neck no masses, no bruits, no lymphadectomy - Respiratory No difficulty with respiration - Cardiovascular Rhythm: regular Heart Sounds: normal: S1, S2 - Abdomen Abdomen: soft, non tender, no guarding, no rigid, no rebound, no distended - Integumentary no rash, no growths, no abnormal pigmentation - Neurologic normal coordination, normal sensation - Psychiatric oriented to time, oriented to person, oriented to place, speech is normal Results - Labs 07/17/17 09:07 07/15/17 17:26 Microbiology - Last 24 Hours (Table) 07/15/17 17:26 Blood Culture - Preliminary Blood No Growth after 24 hours Assessment and Plan (1) Partial gastric outlet obstruction Current Visit: Yes Status: Acute Code(s): K31.1 - ADULT HYPERTROPHIC PYLORIC STENOSIS SNOMED Code(s): 545903551 Plan: 72-year-old female with partial gastric outlet obstruction Continue clear liquid diet as the patient tolerates Continue Protonix Continue antiemetics I had a discussion with the patient on possible surgical options, she would like to also consult with her previous surgeon who will see her on Thursday Further recommendations to follow
[2017-07-17] MEDS: METOPROLOL TARTRATE 25 MG TAB PO SCH (22:15)
[2017-07-18] MEDS: METOCLOPRAMIDE 5 MG/ML 2 ML VIAL IVP SCH ×4 (00:27→18:25)
[2017-07-18] MEDS: DEXTROSE 5%-0.45% NACL 1,000 ML IV SCH ×3 (04:53→19:50)
[2017-07-18] MEDS: IPRATROPIUM-ALBUTEROL 3 ML NEB INHALATION SCH ×3 (06:59→20:17)
[2017-07-18 07:24] LABS: ALT 33 U/L (9-52); AST 19 U/L (14-36); Alkaline Phosphatase 52 U/L (38-126); Anion Gap 9 mmol/L; Blood Urea Nitrogen 3 mg/dL (7-17); Calcium 8.6 mg/dL (8.4-10.2); Carbon Dioxide 23 mmol/L (22-30); Chloride 110 mmol/L (98-107); Glucose 100 mg/dL (74-99); Non-African American GFR(MDRD) >60 (>60 ml/min/1.73 sqM); Potassium 3.2 mmol/L (3.5-5.1); Sodium 142 mmol/L (137-145); Total Bilirubin 0.2 mg/dL (0.2-1.3); Total Protein 5.6 g/dL (6.3-8.2)
[2017-07-18 07:55] LABS: Basophils % (A) 0 %; CH 27.8; CHCM 31.7; Eosinophils # (A) 0.4 k/uL (0-0.7); Eosinophils % (A) 5 %; HCT 34.6 % (34.0-46.0); HDW 2.44; HGB 10.9 gm/dL (11.4-16.0); Luc # (Auto) 0.07; Luc % (Auto) 1; Lymphocytes # (A) 2.1 k/uL (1.0-4.8); Lymphocytes % (A) 26 %; MCH 27.9 pg (25.0-35.0); MCHC 31.6 g/dL (31.0-37.0); MCV 88.2 fL (80.0-100.0); Mean Platelet Volume 7.5; Monocytes # (A) 0.5 k/uL (0-1.0); Monocytes % (A) 7 %; Neutrophils % (A) 62 %; RBC 3.92 m/uL (3.80-5.40); RDW 13.3 % (11.5-15.5); WBC 8.1 k/uL (3.8-10.6); WBC (Perox) 8.16
[2017-07-18] MEDS: METOPROLOL TARTRATE 50 MG TAB PO SCH (09:19)
[2017-07-18] MEDS: ANASTROZOLE 1 MG TAB PO SCH (09:20)
[2017-07-18] MEDS: CHOLECALCIFEROL 1,000 UNIT TAB PO SCH (09:20)
[2017-07-18] MEDS: PANTOPRAZOLE 40 MG/10 ML VIAL IVP SCH ×2 (10:58→20:50)
[2017-07-18] MEDS: HEPARIN SODIUM,PORCINE 5,000 UNIT/ML 1 ML VIAL SQ SCH ×2 (11:01→20:50)
--- NOTE | 2017-07-18 12:19 | P.PN ---
Subjective Progress Note Date: 07/18/17 Patient seen and examined at bedside. She states that she is tolerating her clear liquid diet a little better today. She states she tried hot T and that irritated her epigastrium area. She states overall she feels better. She denies any emesis episodes. She denies any nausea. She states that she is having bowel function. Objective - Vital Signs Vital signs: Vital Signs Temp 98.4 F 07/18/17 08:26 Pulse 97 07/18/17 10:45 Resp 18 07/18/17 10:45 BP 141/68 07/18/17 08:26 Pulse Ox 98 07/17/17 20:58 Intake & Output 07/17/17 07/18/17 07/18/17 18:59 06:59 18:59 Intake Total 1350 1000 120 Balance 1350 1000 120 Weight 87.543 kg Intake: Intake, IV Titration 950 Amount Dextrose 5%-0.45% NaCl 1, 850 000 ml @ 125 mls/hr IV . Q8H [facility] Rx#:[id number] Levofloxacin 500Mg-D5w 100 Pmx 500 mg In Dextrose/ Water 1 100ml.bag @ 100 mls/hr IVPB Q24H [facility] Rx#: [id number] Oral 400 1000 120 Other: Voiding Method Toilet Toilet Toilet # Voids 3 2 2 - Constitutional General appearance: Present: average body habitus, cooperative, no acute distress - EENT Eyes: Present: EOMI, PERRLA ENT: Present: hearing grossly normal - Neck Neck: Present: normal ROM - Respiratory Details: No difficulty with respiration - Cardiovascular Rhythm: regular Heart sounds: normal: S1, S2 - Gastrointestinal Gastrointestinal Comment(s): Soft, nontender, nondistended, no rebound, no guarding - Integumentary Integumentary: Present: normal turgor - Musculoskeletal Musculoskeletal: Present: gait normal - Psychiatric Psychiatric: Present: A&O x's 3, appropriate affect, intact judgment & insight - Labs CBC & Chem 7: 07/18/17 06:04 07/18/17 06:04 Labs: Abnormal Lab Results - Last 24 Hours (Table) 07/18/17 07/18/17 Range/Units 06:04 06:04 Hgb 10.9 L (11.4-16.0) gm/dL Potassium 3.2 L (3.5-5.1) mmol/L Chloride 110 H (98-107) mmol/L BUN 3 L (7-17) mg/dL Glucose 100 H (74-99) mg/dL Total Protein 5.6 L (6.3-8.2) g/dL Albumin 3.0 L (3.5-5.0) g/dL Microbiology - Last 24 Hours (Table) 07/15/17 17:26 Blood Culture - Preliminary Blood No Growth after 48 hours Assessment and Plan (1) Partial gastric outlet obstruction Current Visit: Yes Status: Acute Code(s): K31.1 - ADULT HYPERTROPHIC PYLORIC STENOSIS SNOMED Code(s): 997485719 Plan: 72-year-old female with partial gastric outlet obstruction Continue clear liquid diet as the patient tolerates, I recommend no hot liquids - I discussed this with the patient Continue Protonix Continue antiemetics Plan for evaluation by Dr. Kramer on Thursday Patient is slowly progressing Further recommendations to follow
[2017-07-18] MEDS: MULTIVITAMINS, THERA 1 EACH TAB PO SCH (12:40)
[2017-07-18] MEDS: CYANOCOBALAMIN 500 MCG TAB PO SCH (12:40)
[2017-07-18] MEDS: cycloSPORINE 0.05% OPHTH 0.4 ML DROPERETTE BOTH EYES SCH ×2 (12:40→20:49)
[2017-07-18] MEDS: LEVOFLOXACIN 500MG-D5W PMX 500 MG in DEXTROSE/WATER 1 100ML.BAG IVPB SCH (15:30)
[2017-07-18] MEDS ORDERED: Potassium Replacement Protocol 1 EACH MISC MISCELLANE PRN (18:47)
[2017-07-18] MEDS: POTASSIUM CHLORIDE 10 MEQ, LIDOCAINE 2% INJ 10 MG in SODIUM CHLORIDE 0.9% 100 ML IV SCH ×2 (20:38→22:50)
[2017-07-18] MEDS: METOPROLOL TARTRATE 25 MG TAB PO SCH (20:50)
--- NOTE | 2017-07-18 21:34 | PN ---
PROGRESS NOTE INTERVAL HISTORY: Patient continued to be hemodynamically stable. No major events reported overnight. Patient was tolerating clear liquid diet this morning without difficulty. The patient states that she is still complaining of some epigastric pain with nausea, but no vomiting reported over the last 12 hours. Patient still waiting on Dr. Kramer evaluation. PHYSICAL EXAMINATION: Vital signs reviewed and stable over the last 24 hours. LUNGS: Clear to auscultation bilaterally. NECK: Supple Heart: S1, S2. ABDOMEN: Soft. Positive for mild tenderness and generalized abdomen. No guarding or rebound appreciated. Bowel sounds positive. Skin no rash. Psych: Alert and oriented times. IMAGING AND LABS: This morning, hemoglobin stable at 10.9, normal CBC. Otherwise, potassium slightly low at 3.2, normal kidney function. Liver function tests showed normal finding. ASSESSMENT AND PLAN: 1. Intractable nausea and vomiting. Seems to be resolving. Will continue as needed medication. Would continue current recommended clear liquid diet and await on Dr. Kramer's evaluation on Thursday. 2. Gastric outlet obstruction with history of peptic ulcer disease. We will follow up with General surgery recommendation. The patient was seen by Gastroenterology on prior days. 3. Paroxysmal atrial fibrillation. Heart rate is controlled. We will continue metoprolol. Aspirin was placed on hold until seen by surgery. 4. Osteoarthritis. Pain under fair control. We will continue pain medication. Hold any NSAIDs at this point. 5. Hypokalemia. We will replace and repeat electrolytes in the morning and repeat the magnesium. 6. Urinary tract infection. Will continue with Levaquin. 7. Deep vein thrombosis prophylaxis. Patient on heparin. 8. Discharge planning based on clinical progress. MMODL / IJN: [id number] /
[2017-07-19] MEDS: METOCLOPRAMIDE 5 MG/ML 2 ML VIAL IVP SCH ×5 (00:26→23:11)
[2017-07-19] MEDS: DEXTROSE 5%-0.45% NACL 1,000 ML IV SCH ×3 (04:15→17:53)
[2017-07-19] MEDS: IPRATROPIUM-ALBUTEROL 3 ML NEB INHALATION SCH ×3 (07:26→20:53)
[2017-07-19 07:29] LABS: Basophils # (A) 0.1 k/uL (0-0.2); Basophils % (A) 1 %; CHCM 31.7; Eosinophils # (A) 0.6 k/uL (0-0.7); Eosinophils % (A) 7 %; HCT 35.7 % (34.0-46.0); HDW 2.52; HGB 11.1 gm/dL (11.4-16.0); Luc # (Auto) 0.09; Luc % (Auto) 1; Lymphocytes # (A) 2.3 k/uL (1.0-4.8); Lymphocytes % (A) 29 %; MCH 27.6 pg (25.0-35.0); MCHC 31.2 g/dL (31.0-37.0); MCV 88.6 fL (80.0-100.0); Mean Platelet Volume 7.2; Monocytes # (A) 0.4 k/uL (0-1.0); Monocytes % (A) 6 %; Neutrophils # (A) 4.5 k/uL (1.3-7.7); Neutrophils % (A) 56 %; RBC 4.03 m/uL (3.80-5.40); RDW 13.6 % (11.5-15.5); WBC 7.9 k/uL (3.8-10.6); WBC (Perox) 7.82
[2017-07-19 07:47] LABS: ALT 34 U/L (9-52); AST 17 U/L (14-36); Alkaline Phosphatase 60 U/L (38-126); Anion Gap 9 mmol/L; Blood Urea Nitrogen <2 mg/dL (7-17); Calcium 8.7 mg/dL (8.4-10.2); Carbon Dioxide 25 mmol/L (22-30); Chloride 109 mmol/L (98-107); Glucose 83 mg/dL (74-99); Magnesium 1.7 mg/dL (1.6-2.3); Non-African American GFR(MDRD) >60 (>60 ml/min/1.73 sqM); Potassium 3.3 mmol/L (3.5-5.1); Sodium 143 mmol/L (137-145); Total Bilirubin 0.3 mg/dL (0.2-1.3); Total Protein 5.7 g/dL (6.3-8.2)
[2017-07-19] MEDS: PANTOPRAZOLE 40 MG/10 ML VIAL IVP SCH ×2 (08:58→20:07)
[2017-07-19] MEDS: cycloSPORINE 0.05% OPHTH 0.4 ML DROPERETTE BOTH EYES SCH ×2 (08:59→20:07)
[2017-07-19] MEDS: ANASTROZOLE 1 MG TAB PO SCH (08:59)
[2017-07-19] MEDS: CHOLECALCIFEROL 1,000 UNIT TAB PO SCH (09:00)
[2017-07-19] MEDS: METOPROLOL TARTRATE 50 MG TAB PO SCH (09:01)
[2017-07-19] MEDS: HEPARIN SODIUM,PORCINE 5,000 UNIT/ML 1 ML VIAL SQ SCH ×2 (09:02→20:07)
--- NOTE | 2017-07-19 10:12 | P.PN ---
Subjective Progress Note Date: 07/19/17 Patient continued to tolerate clear liquid diet without difficulty, still complaining of generalized abdominal tenderness stated that that's mild to moderate. Patient had frequent bowel movements C diet was loose to watery with the greenish material no blood. Patient reported history of C. diff colitis in the past back in 2005 after taking course of Bactrim for her tooth infection. Patient still interested then seen general surgery for evaluation for her current condition. Objective - Vital Signs Vital signs: Vital Signs Temp 96.3 F L 07/19/17 07:47 Pulse 98 07/19/17 08:00 Resp 18 07/19/17 08:00 BP 139/68 07/19/17 07:47 Pulse Ox 95 07/19/17 07:47 Intake & Output 07/18/17 07/19/17 07/19/17 18:59 06:59 18:59 Intake Total 120 360 Balance 120 360 Intake: Oral 120 360 Other: Voiding Method Toilet Toilet Toilet # Voids 2 3 - EENT Eyes: Present: PERRLA - Neck Neck: Present: normal ROM - Respiratory Respiratory: bilateral: CTA - Cardiovascular Rhythm: regular Heart sounds: normal: S1, S2 - Gastrointestinal General gastrointestinal: Present: distended, normal bowel sounds, soft Localized gastrointestinal: tender: diffuse (Course in the epigastric area and periumbilical) - Neurologic Neurologic: Present: CNII-XII intact - Psychiatric Psychiatric: Present: A&O x's 3 - Labs CBC & Chem 7: 07/19/17 06:27 07/19/17 06:27 Labs: Abnormal Lab Results - Last 24 Hours (Table) 07/19/17 07/19/17 Range/Units 06:27 06:27 Hgb 11.1 L (11.4-16.0) gm/dL Potassium 3.3 L (3.5-5.1) mmol/L Chloride 109 H (98-107) mmol/L BUN <2 L (7-17) mg/dL Total Protein 5.7 L (6.3-8.2) g/dL Albumin 3.1 L (3.5-5.0) g/dL Microbiology - Last 24 Hours (Table) 07/15/17 17:26 Blood Culture - Preliminary Blood No Growth after 72 hours Assessment and Plan Plan: 1. Gastric outlet obstruction. Awaiting on Dr. Kramer's evaluation. Will continue with clear liquid diet and repeat blood work in the morning. 2. Intractable nausea and vomiting. Seems to be controlled with current medication regimen. 3. Abdominal pain. Mild likely related to #1 patient would like to wait on general surgery for recommendation. 4. Hypokalemia. We'll replace and repeat blood work in the morning along with magnesium. 5. New onset diarrhea with history of C. diff. Patient currently on antibiotics for urinary tract infection I'd like to order stool for C. diff and place patient in isolation. 6. Urinary tract infection. Patient on Levaquin. 7. Atrial fibrillation. Patient used to be on aspirin 325 daily and currently off aspirin because of possibility of surgery. Heart rate is controlled. Discharge planning based on surgery recommendation in the morning.
--- NOTE | 2017-07-19 10:55 | P.PN ---
Subjective Progress Note Date: 07/19/17 Patient seen and examined at bedside. She states she is feeling better today. She is having liquid stool. She denies any nausea and denies any vomiting. She states that her clear liquid diet has been going smoothly. She has no additional complaints at this time. Objective - Vital Signs Vital signs: Vital Signs Temp 96.3 F L 07/19/17 07:47 Pulse 68 07/19/17 09:45 Resp 18 07/19/17 09:45 BP 139/68 07/19/17 07:47 Pulse Ox 95 07/19/17 07:47 Intake & Output 07/18/17 07/19/17 07/19/17 18:59 06:59 18:59 Intake Total 120 360 480 Balance 120 360 480 Intake: Oral 120 360 480 Other: Voiding Method Toilet Toilet Toilet # Voids 2 3 - Constitutional General appearance: Present: cooperative, no acute distress - EENT Eyes: Present: EOMI, PERRLA ENT: Present: hearing grossly normal - Neck Neck: Present: normal ROM. Absent: lymphadenopathy, stridor - Respiratory Details: No difficulty with respiration - Cardiovascular Rhythm: regular Heart sounds: normal: S1, S2 - Gastrointestinal Gastrointestinal Comment(s): Soft, nontender, nondistended, no rebound, no guarding - Integumentary Integumentary: Present: normal turgor - Psychiatric Psychiatric: Present: A&O x's 3, appropriate affect, intact judgment & insight - Labs CBC & Chem 7: 07/19/17 06:27 07/19/17 06:27 Labs: Abnormal Lab Results - Last 24 Hours (Table) 07/19/17 07/19/17 Range/Units 06:27 06:27 Hgb 11.1 L (11.4-16.0) gm/dL Potassium 3.3 L (3.5-5.1) mmol/L Chloride 109 H (98-107) mmol/L BUN <2 L (7-17) mg/dL Total Protein 5.7 L (6.3-8.2) g/dL Albumin 3.1 L (3.5-5.0) g/dL Microbiology - Last 24 Hours (Table) 07/15/17 17:26 Blood Culture - Preliminary Blood No Growth after 72 hours Assessment and Plan (1) Partial gastric outlet obstruction Current Visit: Yes Status: Acute Code(s): K31.1 - ADULT HYPERTROPHIC PYLORIC STENOSIS SNOMED Code(s): 514629589 Plan: 72-year-old female with partial gastric outlet obstruction Will attempt a trial of full liquid diet secondary to the patient having improved tolerance of a clear liquid diet Continue Protonix Continue antiemetics Plan for evaluation by Dr. Kramer on Thursday Patient is slowly progressing Further recommendations to follow
[2017-07-19] MEDS: MAG HYDROX/AL HYDROX/SIMETH 30 ML, LIDOCAINE VISCOUS 30 ML, diphenhydrAMINE ELIXIR 75 M... PO SCH ×16 (11:13→21:16)
[2017-07-19] MEDS: MULTIVITAMINS, THERA 1 EACH TAB PO SCH (12:14)
[2017-07-19] MEDS: LEVOFLOXACIN 500MG-D5W PMX 500 MG in DEXTROSE/WATER 1 100ML.BAG IVPB SCH (13:43)
[2017-07-19] MEDS ORDERED: Potassium Replacement Protocol 1 EACH MISC MISCELLANE PRN (16:19)
[2017-07-19] MEDS: POTASSIUM CHLORIDE 10 MEQ, LIDOCAINE 2% INJ 10 MG in SODIUM CHLORIDE 0.9% 100 ML IV SCH ×2 (17:14→19:23)
[2017-07-19] MEDS: METOPROLOL TARTRATE 25 MG TAB PO SCH (20:07)
[2017-07-19] MEDS ORDERED: POTASSIUM CHLORIDE ER 20 MEQ TAB.ER PO STA (23:54)
[2017-07-20] MEDS: DEXTROSE 5%-0.45% NACL 1,000 ML IV SCH ×2 (03:00→08:48)
[2017-07-20] MEDS: ACETAMINOPHEN TAB 325 MG TAB PO PRN ×2 (03:00→10:03)
[2017-07-20] MEDS: METOCLOPRAMIDE 5 MG/ML 2 ML VIAL IVP SCH ×2 (05:20→11:23)
[2017-07-20] MEDS: IPRATROPIUM-ALBUTEROL 3 ML NEB INHALATION SCH ×2 (07:14→14:03)
[2017-07-20 07:27] LABS: Basophils # (A) 0.1 k/uL (0-0.2); Basophils % (A) 1 %; CH 27.9; CHCM 32.3; Eosinophils # (A) 0.5 k/uL (0-0.7); Eosinophils % (A) 6 %; HCT 33.5 % (34.0-46.0); HDW 2.58; HGB 10.7 gm/dL (11.4-16.0); Luc # (Auto) 0.09; Luc % (Auto) 1; Lymphocytes # (A) 2.1 k/uL (1.0-4.8); Lymphocytes % (A) 25 %; MCH 27.8 pg (25.0-35.0); MCV 86.8 fL (80.0-100.0); Mean Platelet Volume 7.8; Monocytes # (A) 0.5 k/uL (0-1.0); Monocytes % (A) 6 %; Neutrophils # (A) 5.2 k/uL (1.3-7.7); Neutrophils % (A) 62 %; RBC 3.86 m/uL (3.80-5.40); RDW 13.4 % (11.5-15.5); WBC 8.3 k/uL (3.8-10.6); WBC (Perox) 8.38
[2017-07-20] MEDS: MAG HYDROX/AL HYDROX/SIMETH 30 ML, LIDOCAINE VISCOUS 30 ML, diphenhydrAMINE ELIXIR 75 M... PO SCH ×4 (07:41)
[2017-07-20] MEDS: ANASTROZOLE 1 MG TAB PO SCH (07:43)
[2017-07-20] MEDS: HEPARIN SODIUM,PORCINE 5,000 UNIT/ML 1 ML VIAL SQ SCH (07:44)
[2017-07-20] MEDS: METOPROLOL TARTRATE 50 MG TAB PO SCH (07:44)
[2017-07-20] MEDS: PANTOPRAZOLE 40 MG/10 ML VIAL IVP SCH (07:44)
[2017-07-20 07:45] VITALS: BP 138/71; PULSE 62; RESP 16; TEMP 98
[2017-07-20] MEDS: cycloSPORINE 0.05% OPHTH 0.4 ML DROPERETTE BOTH EYES SCH (07:45)
[2017-07-20 07:52] LABS: ALT 31 U/L (9-52); AST 17 U/L (14-36); Alkaline Phosphatase 52 U/L (38-126); Anion Gap 7 mmol/L; Blood Urea Nitrogen 2 mg/dL (7-17); Calcium 8.7 mg/dL (8.4-10.2); Carbon Dioxide 24 mmol/L (22-30); Chloride 111 mmol/L (98-107); Glucose 105 mg/dL (74-99); Non-African American GFR(MDRD) >60 (>60 ml/min/1.73 sqM); Potassium 3.9 mmol/L (3.5-5.1); Sodium 142 mmol/L (137-145); Total Bilirubin 0.3 mg/dL (0.2-1.3); Total Protein 5.3 g/dL (6.3-8.2)
[2017-07-20] MEDS: CHOLECALCIFEROL 1,000 UNIT TAB PO SCH (08:47)
[2017-07-20] MEDS ORDERED: LOPERAMIDE 2 MG CAP PO ONE (11:46)
[2017-07-20] MEDS: CYANOCOBALAMIN 500 MCG TAB PO SCH (13:24)
[2017-07-20] MEDS: MULTIVITAMINS, THERA 1 EACH TAB PO SCH (13:25)
--- NOTE | 2017-07-20 13:50 | P.PN ---
<Tangela Bailey Mikki - Last Filed: 07/20/17 13:38> Subjective Progress Note Date: 07/20/17 72-year-old female known to Dr. Kramer service seen and examined at bedside patient is denying any nausea vomiting. Currently is tolerating full liquid diet. Patient has been seen by GI service patient did undergo an EGD by Dr. Pardo did show a partially obstructive duodenal ulcer not actively bleeding. Patient has been initiated on a PPI protonix. There is no indication for an acute surgical intervention at this time. From a surgical perspective patient could be discharged and can follow-up with Dr. Kramer in the office this week Objective - Vital Signs Vital signs: Vital Signs Temp 98.0 F 07/20/17 07:00 Pulse 62 07/20/17 07:00 Resp 16 07/20/17 07:00 BP 138/71 07/20/17 07:00 Pulse Ox 98 07/20/17 07:12 Intake & Output 07/19/17 07/20/17 07/20/17 18:59 06:59 18:59 Intake Total 1648 590 480 Output Total 1 2 Balance 1647 588 480 Intake: Oral 1648 590 480 Output: Stool 1 2 Other: Voiding Method Toilet Toilet # Voids 1 2 - Exam Physical exam Pleasant 72-year-old female sitting up in bed taking a diet appears in no acute distress Lungs essentially clear with adequate air movement on room Heart S1-S2 audible and regular denying chest pain Abdomen soft nondistended nontender no reports of nausea vomiting patient does report that she did have a loose stool this morning epigastric pain resolved Extremities no edema noted - Labs CBC & Chem 7: 07/20/17 06:58 07/20/17 06:58 Labs: Abnormal Lab Results - Last 24 Hours (Table) 07/20/17 07/20/17 Range/Units 06:58 06:58 Hgb 10.7 L (11.4-16.0) gm/dL Hct 33.5 L (34.0-46.0) % Chloride 111 H (98-107) mmol/L BUN 2 L (7-17) mg/dL Glucose 105 H (74-99) mg/dL Total Protein 5.3 L (6.3-8.2) g/dL Albumin 2.7 L (3.5-5.0) g/dL Microbiology - Last 24 Hours (Table) 07/15/17 17:26 Blood Culture - Preliminary Blood No Growth after 96 hours Assessment and Plan Assessment: Impression Present on admission intractable nausea vomiting with abdominal pain suspect due to partial gastric outlet obstruction Status post EGD with biopsy done on 16 of July showed pyloric channel/ duodenal bulb ulcer with partial gastric outlet obstruction, with esophagitis History of right breast cancer 2012 Plan From a surgical perspective patient is felt to be appropriate to be discharged can follow-up in the outpatient setting with Dr. Kramer Defer to the timing of the discharge to the attending Follow-up with Dr. Pardo for biopsy report path pending Continue protonix 40mg daily The above impression and plan of care have been discussed and directed by signing physician. Tangela Bailey nurse practitioner acting as scribe for signing physician. <Aly Kramer - Last Filed: 07/20/17 18:14> Objective - Vital Signs Vital signs: Vital Signs Temp 98.0 F 07/20/17 07:00 Pulse 62 07/20/17 07:00 Resp 16 07/20/17 07:00 BP 138/71 07/20/17 07:00 Pulse Ox 98 07/20/17 07:12 Intake & Output 07/19/17 07/20/17 07/20/17 18:59 06:59 18:59 Intake Total 2255 270 4757 Output Total 1 2 Balance 9555 905 8601 Weight 87.543 kg Intake: Intake, IV Titration 975 Amount Dextrose 5%-0.45% NaCl 1, 875 000 ml @ 125 mls/hr IV . Q8H VAISHNAVI Rx#:[id number] Levofloxacin 500Mg-D5w 100 Pmx 500 mg In Dextrose/ Water 1 100ml.bag @ 100 mls/hr IVPB Q24H VAISHNAVI Rx#: [id number] Oral [id number] Output: Stool 1 2 Other: Voiding Method Toilet Toilet # Voids 1 2 2 - Labs CBC & Chem 7: 07/20/17 06:58 07/20/17 06:58 Labs: Abnormal Lab Results - Last 24 Hours (Table) 07/20/17 07/20/17 Range/Units 06:58 06:58 Hgb 10.7 L (11.4-16.0) gm/dL Hct 33.5 L (34.0-46.0) % Chloride 111 H (98-107) mmol/L BUN 2 L (7-17) mg/dL Glucose 105 H (74-99) mg/dL Total Protein 5.3 L (6.3-8.2) g/dL Albumin 2.7 L (3.5-5.0) g/dL Microbiology - Last 24 Hours (Table) 07/15/17 17:26 Blood Culture - Preliminary Blood No Growth after 96 hours Assessment and Plan Assessment: As above. Patient was discharged prior to my evaluation today. History was reviewed with the nursing staff and Tangela. Patient will follow-up with me post discharge.
--- NOTE | 2017-07-21 06:34 | DS ---
DISCHARGE SUMMARY ADMISSION DIAGNOSES: 1. Abdominal pain. 2. Intractable nausea and vomiting. DISCHARGE DIAGNOSES: Abdominal pain and nausea and vomiting, resolved. PROCEDURE: EGD. CONSULTATIONS: 1. Gastroenterology. 2. General surgery. HOSPITAL COURSE: This is a 72 -year-old female who presented to the hospital with abdominal pain, nausea and vomiting, which felt to be related to gastric outlet obstruction. Patient was evaluated by the GI and recommended General surgery evaluation. Dr. Kramer evaluated the patient and recommended increasing her diet slowly and gradually. Patient tolerated diet over the weekend for 3 days in a row without intractable nausea and vomiting. Abdominal pain subsided and decision was to monitor conservatively and consider further workup on outpatient basis. Patient discussed with her general surgeon and determined to proceed with outpatient follow up. The patient felt stable from the medical standpoint and was discharged in stable condition. MMODL / IJN: [id number] /
== END 2017-07-20 14:35 | disposition home or self-care (01) | DRG 381 ==
LOC: EC 16:27 → 5MS5E 21:59
PROVIDERS: ADMIT Internal Medicine; ATTEND Internal Medicine
PROC: 0DB78ZX Excision of Stomach, Pylorus, Via Natural or Artificial Opening Endoscopic, Diagnostic (ICD-10-PCS; 2017-07-16)
PROC: 0DB68ZX Excision of Stomach, Via Natural or Artificial Opening Endoscopic, Diagnostic (ICD-10-PCS; principal; 2017-07-16 07:55)
DX: K31.1 Adult hypertrophic pyloric stenosis (principal); E87.2 Acidosis; Q61.5 Medullary cystic kidney; N39.0 Urinary tract infection, site not specified; I48.0 Paroxysmal atrial fibrillation; K26.9 Duodenal ulcer, unspecified as acute or chronic, without hemorrhage or perforation; E86.0 Dehydration; K25.9 Gastric ulcer, unspecified as acute or chronic, without hemorrhage or perforation; F32.9 Major depressive disorder, single episode, unspecified; N20.0 Calculus of kidney; E87.6 Hypokalemia; M19.90 Unspecified osteoarthritis, unspecified site; R06.6 Hiccough; K21.0 Gastro-esophageal reflux disease with esophagitis; D72.829 Elevated white blood cell count, unspecified; R31.9 Hematuria, unspecified; E66.9 Obesity, unspecified; Z79.82 Long term (current) use of aspirin; Z79.899 Other long term (current) drug therapy; Z88.1 Allergy status to other antibiotic agents; Z88.5 Allergy status to narcotic agent; Z88.0 Allergy status to penicillin; Z88.2 Allergy status to sulfonamides; Z88.8 Allergy status to other drugs, medicaments and biological substances; Z85.3 Personal history of malignant neoplasm of breast; Z87.891 Personal history of nicotine dependence; Z82.49 Family history of ischemic heart disease and other diseases of the circulatory system
CPT/HCPCS: 36415; 43239; 71020; 74000; 74177; 80053; 81001; 82150; 83605; 83690; 83735; 83880; 84132; 84484; 85025; 85610; 85730; 87040; 87324; 87502; 88305; 88342; 94640; 94760; 96361; 96374; 96375; 99285

== ENCOUNTER 2017-11-19 09:10 | Day surgery (SDC) | payer MEDICARE ==
[2017-11-17 12:21] VITALS: BMI 28.5
[~2017-11-19 09:10] MED LIST changes: -DENOSUMAB 60 MG/ML 1 ML SYRINGE SQ ONE; +LACTATED RINGERS 1,000 ML IV SCH
[2017-11-19] MEDS ORDERED: LIDOCAINE 1% 20 ML VIAL (10MG/ML) FOR IV START INTRADERMA ONE (09:36)
[2017-11-19 09:49] VITALS: RESP 18; TEMP 97.1
[2017-11-19] MEDS ORDERED: PROPOFOL 10 MG/ML 20 ML VIAL IV ONE (10:18)
--- NOTE | 2017-11-19 10:52 | P.PCN ---
Date of Procedure: 11/19/17 Procedure(s) Performed: Procedure: Esophagogastro duodenoscopy and dilation of the pyloric channel up to 10 mm using pyloric channel balloon dilator. Preoperative diagnosis: History of peptic ulcer disease and gastric outlet obstruction. Postoperative diagnosis: 1. Sliding hiatal hernia with no obvious esophagitis or complicated reflux disease. 2. Pyloric channel shedilated using the Microvasive [id number] pyloric channel dilator size 8-10 mm. 3. Examination of the pyloric channel duodenum after dilation showed complete healing of the ulcer. Preparation and sedation: Was provided by anesthesia. Brief clinical history: The patient is a 72-year-old female who was hospitalized last June for abdominal pain, nausea and vomiting and was found to have pyloric channel and duodenal bulb ulcer with partial obstruction of the gastric outlet. H. pylori was negative. The patient has done well on medical therapy with occasional symptoms depending on what she eats. This evaluation is scheduled to assess for the healing of the ulcer and to possibly dilate the pyloric channel and to examine those areas which we could not examine back in June. Procedure: With the patient on her left lateral decubitus position and after informed consent and adequate sedation, I passed the Olympus-GIF 160 video upper endoscope through the cricopharyngeus down the esophagus. The esophagus appeared healthy with no obvious esophagitis or complicated reflux disease. There was a small sliding hiatal hernia area GE junction was around 38 cm from the incisors. The endoscope was then passed into the stomach which was insufflated with air and inspected in detail including the retroflex view in the cardia. No obvious abnormalities or retained food or phytobezoar was noted. The pyloric channel was stenotic and I could not pass the endoscope initially until after I dilated it. I used the Microvasive [id number]-dag-gepwa pyloric channel balloon dilator size 8-10 mm and advanced it over the guidewire and inflated it in a stepwise fashion up to 10 mm. I was able to pass the endoscope after that to examine the pyloric channel, duodenal bulb, post bulbar area and descending duodenum and those appeared normal. The patient tolerated the procedure well. Plan: The patient was reassured. Will continue to monitor clinically for symptoms of gastric outlet obstruction. She will continue a regular follow-up with you and I will keep you updated on her progress.
[2017-11-19 11:21] VITALS: BP 123/76; PULSE 66
== END 2017-11-19 11:44 | disposition home or self-care (01) ==
LOC: ORWHC2ENDO 09:10
DX: K21.9 Gastro-esophageal reflux disease without esophagitis (principal); K44.9 Diaphragmatic hernia without obstruction or gangrene; I48.91 Unspecified atrial fibrillation; M19.90 Unspecified osteoarthritis, unspecified site; I10 Essential (primary) hypertension; C50.919 Malignant neoplasm of unspecified site of unspecified female breast; Z79.811 Long term (current) use of aromatase inhibitors; Z79.82 Long term (current) use of aspirin; Z79.899 Other long term (current) drug therapy; Z88.6 Allergy status to analgesic agent; Z88.1 Allergy status to other antibiotic agents; Z88.5 Allergy status to narcotic agent; Z88.0 Allergy status to penicillin; Z88.2 Allergy status to sulfonamides
CPT/HCPCS: 43245; J2704; C1726

== ENCOUNTER → 2018-01-25 | Outpatient (CLI) | payer MEDICARE ==
[~2018-01-25] MED LIST changes: +DENOSUMAB 60 MG/ML 1 ML SYRINGE SQ NR; -LACTATED RINGERS 1,000 ML IV SCH
[2018-01-25 13:12] VITALS: BP 148/77; PULSE 57; RESP 18; TEMP 98.6
== END | disposition home or self-care (01) ==
LOC: PROCWHC3 12:30
PROVIDERS: ATTEND Family Medicine
DX: M81.0 Age-related osteoporosis without current pathological fracture (principal)
CPT/HCPCS: 96372; J0897

== ENCOUNTER → 2018-03-25 | Outpatient (CLI) | payer MEDICARE ==
--- NOTE | 2018-03-26 11:29 | ECHOF ---
Referral Reason:I48.0 Proximal Atrial Fibrilation MEASUREMENTS -------- HEIGHT: 170.2 cm WEIGHT: 88.9 kg BP: RVIDd: 2.9 cm (< 3.3) IVSd: 0.9 cm (0.6 - 1.1) LVIDd: 4.4 cm (3.9 - 5.3) LVPWd: 0.9 cm (0.6 - 1.1) IVSs: 1.3 cm LVIDs: 3.0 cm LVPWs: 1.4 cm LA Diam: 4.1 cm (2.7 - 3.8) Ao Diam: 2.6 cm (2.0 - 3.7) AV Cusp: 1.7 cm (1.5 - 2.6) LA Diam: 3.9 cm (2.7 - 3.8) MV EXCURSION: 15.271 mm (> 18.000) MV EF SLOPE: 79 mm/s (70 - 150) EPSS: 0.7 cm MV E Narciso: 0.70 m/s MV DecT: 199 ms MV A Narciso: 0.91 m/s MV E/A Ratio: 0.77 AR PHT: 430 ms RAP: 5.00 mmHg RVSP: 13.49 mmHg FINDINGS -------- Atrial fibrillation. This was a technically difficult study with suboptimal views. The left ventricular size is normal. Left ventricular wall thickness is normal. Overall left vent ricular systolic function is low-normal with, an EF between 50 - 55 %. The right ventricle is normal in size and function. The left atrium is mildly dilated. The right atrium is normal in size. There is mild aortic regurgitation. The mitral valve leaflets are mildly thickened. Mild mitral regurgitation is present. Mild tricuspid regurgitation present. The right ventricular systolic pressure, as measured by Doppl er, is 13.49mmHg. Pulmonic valve appears structurally normal. The aortic root size is normal. The pericardium is normal. CONCLUSIONS -------- 1. Atrial fibrillation. 2. This was a technically difficult study with suboptimal views. 3. The left ventricular size is normal. 4. Left ventricular wall thickness is normal. 5. Overall left ventricular systolic function is low-normal with, an EF between 50 - 55 %. 6. The right ventricle is normal in size and function. 7. The left atrium is mildly dilated. 8. The right atrium is normal in size. 9. There is mild aortic regurgitation. 10. The mitral valve leaflets are mildly thickened. 11. Mild mitral regurgitation is present. 12. Mild tricuspid regurgitation present. 13. The right ventricular systolic pressure, as measured by Doppler, is 13.49mmHg. 14. Pulmonic valve appears structurally normal. 15. The aortic root size is normal. 16. The pericardium is normal. PHYSICIAN GENERAL INTERNAL MEDICINE: Tere Rodríguez RDCS
== END | disposition home or self-care (01) ==
LOC: RADECHMAIN 15:33
PROVIDERS: ATTEND Family Medicine
DX: I08.3 Combined rheumatic disorders of mitral, aortic and tricuspid valves (principal); I48.91 Unspecified atrial fibrillation
CPT/HCPCS: 93306

== ENCOUNTER 2018-04-28 16:23 | Emergency (ER) | payer MEDICARE ==
[2018-04-28 16:44] VITALS: BP 151/68; PULSE 75; RESP 18; TEMP 97
--- NOTE | 2018-04-28 17:01 | ED ---
General Adult HPI - General Chief complaint: Recheck/Abnormal Lab/Rx Stated complaint: Poss Blood CLot Time Seen by Provider: 04/28/18 16:25 Source: patient, EMS, RN notes reviewed Mode of arrival: EMS Limitations: no limitations - History of Present Illness Initial comments: This is a 72-year-old female who presents emergency Department complaining that her graft site on her left wrist appears to be infected. Patient states she had a graft from the left wrist to her cheek on April 06 and it is been healing fairly well. Patient states as of yesterday the edges have become more erythematous and today the redness is spreading there is some swelling of the wound itself. Patient states the tenderness is also increased. Patient has not noticed any streaking of the redness or any recent fever or chills. Patient denies any increased numbness to the fingers or swelling of the hand. Patient denies any upper forearm pain or arm pain. - Related Data Home Medications Medication Instructions Recorded Confirmed Anastrozole 1 mg PO DAILY 07/21/14 04/28/18 Metoprolol Tartrate [Lopressor] 50 mg PO QAM 07/21/14 04/28/18 Cholecalciferol [Vitamin D3] 1,000 unit PO DAILY 06/22/17 04/28/18 Cyanocobalamin (Vitamin B-12) 1,000 mcg PO MOWEFR 06/22/17 04/28/18 [Vitamin B-12] Metoprolol Tartrate [Lopressor] 25 mg PO HS 06/22/17 04/28/18 Multivitamins, Thera [Multivitamin 1 tab PO DAILY 06/22/17 04/28/18 (formulary)] Aspirin [Adult Low Dose Aspirin EC] 81 mg PO DAILY 11/17/17 04/28/18 Acetaminophen Tab [Tylenol Tab] 325 mg PO TID PRN 04/28/18 04/28/18 Chlorhexidine Gluconate [Peridex] 10 ml PO BID 04/28/18 04/28/18 Clindamycin [Cleocin] 150 mg PO QID@00,06,,04/28/18 04/28/18 Docusate Oral Soln [Colace Oral 100 mg PO HS 04/28/18 04/28/18 Soln] Gabapentin [Neurontin] 100 mg PO TID@06,,04/28/18 04/28/18 HYDROcodone/APAP 5-325MG [[place] 1 tab PO Q4HR PRN 04/28/18 04/28/18 5-325] Mylanta 30 ml PO Q4H PRN 04/28/18 04/28/18 Omeprazole [PriLOSEC] 20 mg PO DAILY@0600 04/28/18 04/28/18 Vitamin A 2400 Mcg 2,400 mcg PO DAILY 04/28/18 04/28/18 cycloSPORINE 0.05% OPHTH SOLN 1 drop BOTH EYES Q12H 04/28/18 04/28/18 [Restasis] Previous Rx's Medication Instructions Recorded Doxycycline Hyclate 100 mg PO BID #20 tab 04/28/18 Allergies Allergy/AdvReac Type Severity Reaction Status Date / Time metronidazole [From Flagyl] Allergy Rash/Hives Verified 04/28/18 16:46 Penicillins Allergy Anaphylaxis Verified 04/28/18 16:46 Sulfa (Sulfonamide Allergy Unknown Verified 04/28/18 16:46 Antibiotics) Childhood acetaminophen AdvReac Elevates Verified 04/28/18 16:46 Liver Enzymes codeine AdvReac Nausea & Verified 04/28/18 16:46 Vomiting gluten AdvReac Inflames Verified 04/28/18 16:46 Colitis sulfamethoxazole AdvReac Diarrhea, Verified 04/28/18 16:46 [From Bactrim] C-Diff trimethoprim [From Bactrim] AdvReac Diarrhea, Verified 04/28/18 16:46 C-Diff Review of Systems ROS Statement: Those systems with pertinent positive or pertinent negative responses have been documented in the HPI. ROS Other: All systems not noted in ROS Statement are negative. Past Medical History Past Medical History: Atrial Fibrillation, Cancer, Eye Disorder, Osteoarthritis (OA), Renal Disease Additional Past Medical History / Comment(s): DRY EYE, CORNEAL DYSTROPHY. HX RT BREAST CA.no blood draws on righ side no blood pressures on right side HYPOGLYCEMIA. N/T FEET, RT HAND. EDEMA LOWER LEGS OCC., STOMACH ULCER History of Any Multi-Drug Resistant Organisms: C-DIFF Date of last positivie culture/infection: 2004 MDRO Source:: stool Past Surgical History: Adenoidectomy, Breast Surgery, Cholecystectomy, Hernia Repair, Hysterectomy Additional Past Surgical History / Comment(s): RT BREAST MASTECTOMY, W/ TISSUE HEEL LIFT GOUGER; RT BREAST BIOPSY. LT ING HERNIA REPAIR. FATTY TUMORE EXC LT ARM. NEPHROLITHOTOMY TUBE W/ STONE REMOVAL. EGD, COLONOSCOPY Past Anesthesia/Blood Transfusion Reactions: Previous Problems w/ Anesthesia, Postoperative Nausea & Vomiting (PONV) Additional Past Anesthesia/Blood Transfusion Reaction / Comment(s): TOOK VERY LONG TIME TO AWAKEN AFTER SURGERY IN 2012. Past Psychological History: Depression Smoking Status: Former smoker Past Alcohol Use History: None Reported Past Drug Use History: None Reported - Past Family History Father Family Medical History: Congestive Heart Failure (CHF), Coronary Artery Disease (CAD), Diabetes Mellitus, Hypertension Sister(s) Family Medical History: Diabetes Mellitus Brother(s) Family Medical History: AFIB Mother Family Medical History: Deep Vein Thrombosis (DVT) General Exam - General Exam Comments Initial Comments: GENERAL Patient is well-developed and well-nourished. Patient is in mild distress. EYES Patient's pupils are equal and round. Extraocular motion is intact SKIN Unremarkable NEURO The patient is alert and oriented 3 PYSCH Patient has normal interpersonal interactions. MUSCULOSKELETAL Left wrist has surgical site where her graft was taken and the edges of that site still has stitches but are erythematous and extending approximately half an inch in from the wound site on about a third of the wound. Wound is very tender to touch. There is a small part of the wound it is also swollen Limitations: no limitations Course Vital Signs 04/28/18 16:24 Temperature 97.0 F L Pulse Rate 75 Respiratory 18 Rate Blood Pressure 151/68 O2 Sat by Pulse 99 Oximetry Medical Decision Making - Medical Decision Making Dr. Servin recalled wanted the patient to be sent home on doxycycline and she would follow patient up in the half-way. - Lab Data Result diagrams: 04/28/18 17:10 04/28/18 17:10 Lab Results 04/28/18 04/28/18 04/28/18 Range/Units 17:10 17:10 17:10 WBC 8.1 (3.8-10.6) k/uL RBC 3.92 (3.80-5.40) m/uL Hgb 10.9 L (11.4-16.0) gm/dL Hct 33.5 L (34.0-46.0) % MCV 85.3 (80.0-100.0) fL MCH 27.8 (25.0-35.0) pg MCHC 32.6 (31.0-37.0) g/dL RDW 13.5 (11.5-15.5) % Plt Count 306 (150-450) k/uL Neutrophils % 65 % Lymphocytes % 21 % Monocytes % 7 % Eosinophils % 5 % Basophils % 0 % Neutrophils # 5.2 (1.3-7.7) k/uL Lymphocytes # 1.7 (1.0-4.8) k/uL Monocytes # 0.5 (0-1.0) k/uL Eosinophils # 0.4 (0-0.7) k/uL Basophils # 0.0 (0-0.2) k/uL Sodium 136 L (137-145) mmol/L Potassium 5.4 H (3.5-5.1) mmol/L Chloride 105 (98-107) mmol/L Carbon Dioxide 22 (22-30) mmol/L Anion Gap 9 mmol/L BUN 13 (7-17) mg/dL Creatinine 0.60 (0.52-1.04) mg/dL Est GFR (CKD-EPI)AfAm >90 (>60 ml/min/1.73 sqM) Est GFR (CKD-EPI)NonAf >90 (>60 ml/min/1.73 sqM) Glucose 92 (74-99) mg/dL Plasma Lactic Acid Maurilio 1.4 (0.7-2.0) mmol/L Calcium 9.1 (8.4-10.2) mg/dL Total Bilirubin 0.5 (0.2-1.3) mg/dL AST 31 (14-36) U/L ALT 35 (9-52) U/L Alkaline Phosphatase 104 (38-126) U/L Total Protein 6.3 (6.3-8.2) g/dL Albumin 3.5 (3.5-5.0) g/dL Disposition Clinical Impression: Wound infection Disposition: HOME SELF-CARE Condition: Good Instructions: Cellulitis (ED) Prescriptions: Doxycycline Hyclate 100 mg PO BID #20 tab Is patient prescribed a controlled substance at d/c from ED?: No Referrals: Shantel Thomas MD [Primary Care Provider] - 1-2 days Time of Disposition: 17:52
[2018-04-28 17:37] LABS: Basophils % (A) 0 %; Eosinophils # (A) 0.4 k/uL (0-0.7); Eosinophils % (A) 5 %; HCT 33.5 % (34.0-46.0); HGB 10.9 gm/dL (11.4-16.0); Lymphocytes # (A) 1.7 k/uL (1.0-4.8); Lymphocytes % (A) 21 %; MCH 27.8 pg (25.0-35.0); MCHC 32.6 g/dL (31.0-37.0); MCV 85.3 fL (80.0-100.0); Mean Platelet Volume 6.9; Monocytes # (A) 0.5 k/uL (0-1.0); Monocytes % (A) 7 %; Neutrophils # (A) 5.2 k/uL (1.3-7.7); Neutrophils % (A) 65 %; Platelet Count 306 k/uL (150-450); RBC 3.92 m/uL (3.80-5.40); RDW 13.5 % (11.5-15.5); WBC 8.1 k/uL (3.8-10.6)
[2018-04-28 17:42] LABS: ALT 35 U/L (9-52); AST 31 U/L (14-36); Albumin 3.5 g/dL (3.5-5.0); Alkaline Phosphatase 104 U/L (38-126); Anion Gap 9 mmol/L; Blood Urea Nitrogen 13 mg/dL (7-17); Calcium 9.1 mg/dL (8.4-10.2); Carbon Dioxide 22 mmol/L (22-30); Chloride 105 mmol/L (98-107); Glucose 92 mg/dL (74-99); Sodium 136 mmol/L (137-145); Total Bilirubin 0.5 mg/dL (0.2-1.3); Total Protein 6.3 g/dL (6.3-8.2)
[2018-04-28 17:43] LABS: Potassium 5.4 mmol/L (3.5-5.1)
[2018-04-28] MEDS ORDERED: DOXYCYCLINE MONOHYDRATE 100 MG CAPSULE PO STA (17:55)
== END 2018-04-28 19:02 | disposition home or self-care (01) ==
LOC: EC 16:23
DX: T86.822 Skin graft (allograft) (autograft) infection (principal); I48.91 Unspecified atrial fibrillation; Z85.3 Personal history of malignant neoplasm of breast; Z87.891 Personal history of nicotine dependence; Z79.82 Long term (current) use of aspirin; Z79.899 Other long term (current) drug therapy; Z88.1 Allergy status to other antibiotic agents; Z88.0 Allergy status to penicillin; Z88.2 Allergy status to sulfonamides; Z88.6 Allergy status to analgesic agent; Z88.5 Allergy status to narcotic agent; Z91.018 Allergy to other foods; Y83.2 Surgical operation with anastomosis, bypass or graft as the cause of abnormal reaction of the patient, or of later complication, without mention of misadventure at the time of the procedure
CPT/HCPCS: 36415; 80053; 83605; 85025; 87040; 87070; 87205; 99283

== ENCOUNTER → 2018-06-11 | Outpatient (CLI) | payer MEDICARE ==
--- NOTE | 2018-06-11 15:47 | US ---
EXAMINATION TYPE: US kidneys/renal and bladder DATE OF EXAM: 06/11/2018 COMPARISON: NONE CLINICAL HISTORY: N39.0 UTI. UTI, medullary sponge kidney, history of kidney stones. EXAM MEASUREMENTS: Right Kidney: 11.7 x 4.6 x 4.4 cm Left Kidney: 10.0 x 5.5 x 4.8 cm Right Kidney: multiple stones noted Left Kidney: multiple stones noted, probable parapelvic cystic area = 2.6 x 3.3 x 2.8cm Bladder: appears wnl IMPRESSION: 1. Suspected bilateral nonobstructing renal stones.
== END ==
LOC: RADUSWWP 13:58
PROVIDERS: ATTEND Family Medicine
DX: N39.0 Urinary tract infection, site not specified (principal)
CPT/HCPCS: 76770

== ENCOUNTER → 2018-07-01 | Outpatient (CLI) | payer MEDICARE ==
--- NOTE | 2018-07-01 11:28 | XR ---
EXAMINATION TYPE: XR chest 2V DATE OF EXAM: 07/01/2018 COMPARISON: 07/17/2017 TECHNIQUE: PA and lateral views submitted. HISTORY: Shortness of breath FINDINGS: The lungs are clear and there is no pneumothorax, pleural effusion, or focal pneumonia. Surgical cl ips overlying the right axilla. Slightly coarsened interstitium. Atherosclerotic change of aorta. Hyp ertrophic and degenerative change of the spine. Surgical clips in the right upper quadrant noted. IMPRESSION: 1. Stable appearing interstitial changes could been the basis of chronic interstitial lung disease or pneumonitis. High-resolution CT scan of the chest could be obtained.
== END ==
LOC: RADXRMAIN 11:06
PROVIDERS: ATTEND Family Medicine
DX: J84.10 Pulmonary fibrosis, unspecified (principal)
CPT/HCPCS: 71046

== ENCOUNTER → 2018-07-15 | Outpatient (CLI) | payer MEDICARE ==
--- NOTE | 2018-07-15 09:00 | CT ---
EXAMINATION TYPE: CT chest wo con DATE OF EXAM: 07/15/2018 COMPARISON: Chest radiograph dated 07/01/2018. HISTORY: Interstitial Lung disease CT DLP: 182 mGycm. Automated Exposure Control for Dose Reduction was Utilized. TECHNIQUE: CT scan of the thorax is performed without IV contrast per high-resolution protocol. Ther efore there is limitation in evaluation of urinary nodules given noncontiguous slices. FINDINGS: LUNGS: There is a punctate calcified right basilar granuloma, benign, on series 7 image 39. There is a noncalcified 3 mm pulmonary nodule within the left lung apex on series 7 image 12. Few areas of sub pleural reticulation are dependent seen within the lingula and right middle lobe on the prone images and to a lesser degree within the dependent upper lobes and seen at the lung bases on the supine imag es. No interlobular septal thickening is seen. Solitary bleb is noted in the right upper lobe on imag e 24 of series 8. No fibrotic change or honeycombing is appreciated. No focal consolidation, pleural effusion or pneumothorax. The tracheobronchial tree is patent. MEDIASTINUM: Lack of IV contrast is noted to limit evaluation for mediastinal and especially hilar ad enopathy. There are no definitive greater than 1 cm hilar or mediastinal lymph nodes. No cardiomega ly or pericardial effusion is seen. OTHER: Gallbladder is surgically absent. There is a geographic area of hypoattenuation in segment LANCE and IVb of the liver on series 6 image 50 through 53. Retropectoral right breast implant is seen wit h right axillary node dissection and therefore this hepatic lesion could be on the basis of metastasi s given this patient's presumed history of right breast cancer or could relate to focal hepatic steat osis, a common location. Further evaluation is recommended. Multilevel degenerative change of the spi ne is seen. Prominent but nonenlarged right axillary lymph nodes are seen along the site of helio dis section. IMPRESSION: 1. No evidence of interstitial lung disease or focal consolidation to suggest pneumonia. Shifting dep endent subsegmental atelectasis is present in supine and prone imaging. 2. Indeterminant hepatic lesion that requires further evaluation for better characterization with thr ee-phase enhanced CT abdomen or MR. Given the patient's right axillary node dissection and breast imp lant with presumed history of breast carcinoma metastasis or focal fatty infiltration are of primary differential considerations. 3. Noncalcified left apical pulmonary nodule and calcified benign right basilar pulmonary nodule. Fol low-up CT thorax in 12 months could be performed to evaluate for stability of the left apical pulmona ry nodule.
== END | disposition home or self-care (01) ==
LOC: RADCTMAIN 08:05
PROVIDERS: ATTEND Family Medicine
DX: J98.11 Atelectasis (principal); R91.1 Solitary pulmonary nodule
CPT/HCPCS: 71250

== ENCOUNTER → 2018-07-28 | Outpatient (CLI) | payer MEDICARE ==
--- NOTE | 2018-07-29 09:49 | MM ---
Reason for exam: additional evaluation requested from prior study. Last mammogram was performed 1 year ago. History: Patient is postmenopausal, has history of breast cancer at age 68, history of other cancer, and is nulliparous. Family history of premenopausal breast cancer in paternal cousin at age 38 and premenopausal breast cancer in paternal cousin at age 40. Saline implant in the right breast, 2013. Reconstruction of the right breast, 2013. Malignant right mammotome panel of the right breast, August 05, 2013. Malignant US RT VAD breast biopsy of the right breast, August 05, 2013. Mastectomy of the right breast, 2012. Benign US right guided mammotome of the right breast, October 27, 2008. Cyst aspiration of the right breast. 2 excisional biopsies of the right breast. Took hormonal contraceptives for 2 years beginning at age 20. Took estrogen for 2 years. Took progesterone for 2 years. Taking antineoplastic for 4 years. Physical Findings: Nurse did not find any significant physical abnormalities on exam. MG 3D Diag Mammo W/Cad LT CC and MLO view(s) were taken of the left breast. Prior study comparison: July 27, 2017, left breast MG 3d diag mammo w/cad LT. July 21, 2016, left breast MG 3d diag mammo w/cad LT. The breast tissue is heterogeneously dense. This may lower the sensitivity of mammography. Stable benign calcifications. There is no discrete abnormality. No significant new findings when compared with previous films. These results were verbally communicated with the patient and result sheet given to the patient on 07/28/18. ASSESSMENT: Benign, BI-RAD 2 RECOMMENDATION: Follow-up diagnostic mammogram of the left breast in 1 year.
== END | disposition home or self-care (01) ==
LOC: RADMAMWWP 12:50
PROVIDERS: ATTEND Internal Medicine Hematology & Oncology
DX: Z08 Encounter for follow-up examination after completed treatment for malignant neoplasm (principal); Z85.3 Personal history of malignant neoplasm of breast; Z90.11 Acquired absence of right breast and nipple
CPT/HCPCS: 77065; G0279; 77061

== ENCOUNTER → 2018-07-29 | Outpatient (CLI) | payer MEDICARE ==
[~2018-07-29] MED LIST changes: -DENOSUMAB 60 MG/ML 1 ML SYRINGE SQ NR; +DENOSUMAB 60 MG/ML 1 ML SYRINGE SQ ONE
[2018-07-29 12:29] VITALS: BP 133/70; PULSE 74; RESP 16; TEMP 98.1
== END ==
LOC: PROCWHC3 12:16
PROVIDERS: ATTEND Family Medicine
DX: M81.0 Age-related osteoporosis without current pathological fracture (principal)
CPT/HCPCS: 96372; J0897

== ENCOUNTER → 2018-09-03 | Day surgery (SDC) | payer MEDICARE ==
[2018-09-03 14:44] VITALS: BP 136/65; PULSE 65; RESP 18; TEMP 98.1
== END ==
LOC: CATHCVL 14:09
DX: N39.0 Urinary tract infection, site not specified (principal); B96.20 Unspecified Escherichia coli [E. coli] as the cause of diseases classified elsewhere; Z87.440 Personal history of urinary (tract) infections; N20.0 Calculus of kidney; M19.90 Unspecified osteoarthritis, unspecified site; Z88.1 Allergy status to other antibiotic agents; Z88.5 Allergy status to narcotic agent; Z88.0 Allergy status to penicillin; Z88.2 Allergy status to sulfonamides; Z88.8 Allergy status to other drugs, medicaments and biological substances; Z79.82 Long term (current) use of aspirin; Z79.899 Other long term (current) drug therapy
CPT/HCPCS: 36569; C1751

== ENCOUNTER → 2018-09-10 | Outpatient (CLI) | payer MEDICARE ==
--- NOTE | 2018-09-13 09:50 | CT ---
EXAMINATION TYPE: CT abdomen pelvis wo con DATE OF EXAM: 09/10/2018 COMPARISON: 07/15/2017 HISTORY: renal stones, hematuria CT DLP: 612.6 mGycm Automated exposure control for dose reduction was used. TECHNIQUE: Helical acquisition of images was performed from the lung bases through the pelvis. FINDINGS: LUNG BASES: No significant abnormality is appreciated. LIVER/GB: Previous gallbladder surgery noted. PANCREAS: No significant abnormality is seen. SPLEEN: No significant abnormality is seen. ADRENALS: No significant abnormality is seen. KIDNEYS: Left kidney: There is mild left hydronephrosis and there is a 1 cm renal pelvic calyces patient. Ther e are large calcifications filling the calyces of the left kidney the largest measuring approximately 1.7 cm. At least 7 calcifications are noted. Renal cortical cysts are stable. Right kidney: There are least 15 calcifications the largest measuring 1 cm. No overt hydronephrosis. Cortical loss involving the right kidney suggest chronic medical renal disease. ADENOPATHY: None visualized. OSSEOUS STRUCTURES: No significant abnormality is seen. BOWEL: No significant abnormality is seen. OTHER: Curvature of the spine seen with multilevel degenerative disc disease. Small fat-containing pe riumbilical hernia noted. Atherosclerotic changes aorta with no evidence of aneurysm. Additional seco nd anterior abdominal wall fat-containing hernia noted. Sclerotic focus involving the proximal left f emur stable may be related to a chondroid lesion or possibly previous bone infarct. IMPRESSION: 1. Bilateral nephrolithiasis with mild left hydronephrosis. No ureteral calculi are seen. Correlate f or medullary sponge kidney. 2. There are 2 anterior abdominal wall hernias containing peritoneal fat
== END | disposition home or self-care (01) ==
LOC: RADCTMAIN 16:24
PROVIDERS: ATTEND Family Medicine
DX: N20.0 Calculus of kidney (principal); N13.30 Unspecified hydronephrosis; K43.9 Ventral hernia without obstruction or gangrene
CPT/HCPCS: 74176

== ENCOUNTER → 2018-11-16 | Outpatient (CLI) | payer MEDICARE ==
[2018-10-20 16:23] VITALS: BMI 28.6
[2018-11-16 12:12] VITALS: BP 140/70; PULSE 73; RESP 16; TEMP 98.1
--- NOTE | 2018-11-16 13:34 | P.PAINCN ---
History of Present Illness - Reason for Consult Consult date: 11/16/18 - Chief Complaint Low back pain - History of Present Illness Bisi is a 73-year-old female presents today as a new patient consult for low back pain. She reports she's had back pain for many years in his head problems with her low back as well as numbness in bilateral feet. She reports both feet are chronically numb mostly over the medial toes but sometimes into the lateral toes. She reports denies any radicular symptoms shooting down her legs into the feet. She complains of low back pain going across her low back which is worse with sitting for prolonged periods or walking for prolonged periods. She is able to bend over fine but has difficulty coming back up from a bent over position. 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 She has alto medical problems and has multiple renal issues. She has a chronic history of kidney stones has multiple surgeries since then. She is not on any blood thinning medications at this point. She is looking for nonsurgical approach and opioid sparing approach. Patient has tried, over-the- counter. She is unable to tolerate NSAIDs due to her gastric ulcer. She has been in physical therapy for at least 6 weeks over the last 6 months without much success Past Medical History Past Medical History: Atrial Fibrillation, Cancer, Eye Disorder, Musculoskeletal Disorder, Osteoarthritis (OA), Renal Disease Additional Past Medical History / Comment(s): BACK PAIN, DRY EYE, CORNEAL DYSTROPHY. HX RT BREAST CA. No blood draw, OR blood pressure on RT side. HYPOGLYCEMIA. EDEMA LOWER LEGS OCC. STOMACH ULCER 04-06-18. 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 BORN W/ MEDULLARY SPONGE KIDNEY. LOWER BACK PAIN; NT TOES FOR SEV YEARS. History of Any Multi-Drug Resistant Organisms: ESBL, MRSA Year Discovered:: 04/2018 MRSA/URINE; 08/26/18 MDRO Source:: ESBL URINE Past Surgical History: Adenoidectomy, Appendectomy, Breast Surgery, Cholecystectomy, Hernia Repair, Hysterectomy, Tonsillectomy Additional Past Surgical History / Comment(s): RT BREAST MASTECTOMY, W/ RECONSTRUCTION; RT BREAST BIOPSY. LT ING HERNIA REPAIR. FATTY TUMOR EXC LT ARM. NEPHROLITHOTOMY TUBE W/ STONE REMOVAL. EGD, COLONOSCOPY. EXC RT OVARY/ TUBE. CA EXC RT BUCAL MUCOSA W/ TISSUE TRANSPLANT FROM LT WRIST. Past Anesthesia/Blood Transfusion Reactions: Previous Problems w/ Anesthesia, Postoperative Nausea & Vomiting (PONV) Additional Past Anesthesia/Blood Transfusion Reaction / Comm: TOOK VERY LONG TIME TO AWAKEN AFTER SURGERY IN 2012. Smoking Status: Former smoker - Past Family History Father Family Medical History: Congestive Heart Failure (CHF), Coronary Artery Disease (CAD), Diabetes Mellitus, Deep Vein Thrombosis (DVT), Hypertension Additional Family Medical History / Comment(s): PHLEBITIS LEG Sister(s) Family Medical History: Diabetes Mellitus Brother(s) Family Medical History: AFIB Mother Family Medical History: Deep Vein Thrombosis (DVT) Additional Family Medical History / Comment(s): PHLEBITIS IN LEG Medications and Allergies Home Medications Medication Instructions Recorded Confirmed Type Anastrozole 1 mg PO DAILY 07/21/14 11/16/18 History Metoprolol Tartrate [Lopressor] 50 mg PO QAM 07/21/14 11/16/18 History Cyanocobalamin (Vitamin B-12) 1,000 mcg PO MOWEFR 06/22/17 11/16/18 History [Vitamin B-12] Metoprolol Tartrate [Lopressor] 25 mg PO HS 06/22/17 11/16/18 History Multivitamins, Thera [Multivitamin 1 tab PO DAILY 06/22/17 11/16/18 History (formulary)] Aspirin [Adult Low Dose Aspirin EC] 81 mg PO DAILY 11/17/17 11/16/18 History Vitamin A 2400 Mcg 2,400 mcg PO DAILY 04/28/18 11/16/18 History Dry Eye Relief 1 - 2 drops BOTH EYES BID PRN 10/20/18 11/16/18 History L.acidoph,Paracasei, B.lactis 1 each PO DAILY 10/20/18 11/16/18 History [Probiotic] Omeprazole Magnesium [PriLOSEC OTC] 20 mg PO DAILY PRN 10/20/18 11/16/18 History Vitamin D3 (Unknown Dose) 1 tab PO DAILY 10/20/18 11/16/18 History Lansoprazole 30 mg PO DAILY 11/15/18 11/16/18 History Monurol 1 pack PO LAMB 11/15/18 11/16/18 History Ondansetron [Zofran] 8 mg PO Q12HR 11/15/18 11/16/18 History Sodium Citrate 1 applic PO DIRECTED 11/15/18 11/16/18 History Anastrozole [Arimidex] 1 mg PO DAILY 11/16/18 11/16/18 History Aspirin [Adult Low Dose Aspirin EC] 81 mg PO DAILY 11/16/18 11/16/18 History Allergies Allergy/AdvReac Type Severity Reaction Status Date / Time metronidazole [From Flagyl] Allergy Rash/Hives Verified 11/16/18 12:06 Penicillins Allergy Anaphylaxis Verified 11/16/18 12:06 Sulfa (Sulfonamide Allergy Unknown Verified 11/16/18 12:06 Antibiotics) Childhood acetaminophen AdvReac Elevates Verified 11/16/18 12:06 Liver Enzymes codeine AdvReac Nausea & Verified 11/16/18 12:06 Vomiting NSAIDS (Non-Steroidal AdvReac Unknown Verified 11/16/18 12:07 Anti-Inflamma sulfamethoxazole AdvReac Diarrhea, Verified 11/16/18 12:06 [From Bactrim] C-Diff trimethoprim [From Bactrim] AdvReac Diarrhea, Verified 11/16/18 12:06 C-Diff Physical Exam Vitals: Vital Signs Temp Pulse Resp BP 11/16/18 12:07 98.1 F 73 16 140/70 General: Awake and alert oriented 3 no distress Respiratory exam: No audible wheezing no accessory muscle usage Cardiovascular exam: regular rate, palpable bilateral pulses, no lower extremity edema Abdominal exam: No distention nontender to palpation Cervical spine: Normal alignment, Spurling's negative, facet loading negative Lumbar spine: Loss of lumbar lordosis, dextroscoliosis, tender to palpation over bilateral paraspinal muscles, facet loading is positive bilaterally. Straight leg raise is negative. Tender to palpation over the right trochanteric bursa as well as a left hip joint. Patient is able to flex at the spine beyond 90 but is very slow to extend spine coming up and she can extend to 0. Sacroiliac joints: Nontender to palpation, KENNY is negative, Ga[place]elon negative Neuro exam: Normal sensation in bilateral upper extremities, deep tendon reflexes are 2+ bilateral upper extremities. Normal sensation in bilateral lower extremities. Deep tendon reflexes are 1+ in lower extremities Psych exam: Cooperative, appropriate mood Assessment and Plan Assessment: #1 Lumbar spondylosis without myelopathy #2 scoliosis #3 chronic back pain Plan: After examination and discussion with the patient I reviewed her medical records as well as her imaging. I discussed with her potential treatments which are nonsurgical nature. I discussed with her the medial branch block may be the best alternative for her at this point. I discussed with the risks benefits and alternatives of the procedure is well as though chance that the procedure may not offer her benefit. I advised her that we will trial a medial branch block with local anesthetic only and see how she feels. I advised against this three-step process if we move forward to radiofrequency ablation. The patient is going to move forward and we will set her up to do that as soon as possible. PQRS Measure Charge Sheet PQRS Narrative: Smoking Status Former smoker Blood Pressure 140/70 Pain Intensity [Bilateral 4 Lower Back] Scale Used Numeric (1 - 10) Home Medications: Ambulatory Orders Anastrozole 1 mg PO DAILY 07/21/14 Metoprolol Tartrate [Lopressor] 50 mg PO QAM 07/21/14 Cyanocobalamin (Vitamin B-12) [Vitamin B-12] 1,000 mcg PO MOWEFR 06/22/17 Metoprolol Tartrate [Lopressor] 25 mg PO HS 06/22/17 Multivitamins, Thera [Multivitamin (formulary)] 1 tab PO DAILY 06/22/17 Aspirin [Adult Low Dose Aspirin EC] 81 mg PO DAILY 11/17/17 Vitamin A 2400 Mcg 2,400 mcg PO DAILY 04/28/18 Dry Eye Relief 1 - 2 drops BOTH EYES BID PRN 10/20/18 L.acidoph,Paracasei, B.lactis [Probiotic] 1 each PO DAILY 10/20/18 Omeprazole Magnesium [PriLOSEC OTC] 20 mg PO DAILY PRN 10/20/18 Vitamin D3 (Unknown Dose) 1 tab PO DAILY 10/20/18 Lansoprazole 30 mg PO DAILY 11/15/18 Monurol 1 pack PO LAMB 11/15/18 Ondansetron [Zofran] 8 mg PO Q12HR 11/15/18 Sodium Citrate 1 applic PO DIRECTED 11/15/18 Anastrozole [Arimidex] 1 mg PO DAILY 11/16/18 Aspirin [Adult Low Dose Aspirin EC] 81 mg PO DAILY 11/16/18
== END | disposition home or self-care (01) ==
LOC: PNWHC3 11:55
PROVIDERS: ATTEND Hospitalist
DX: G89.29 Other chronic pain (principal); M54.5 Low back pain; M47.816 Spondylosis without myelopathy or radiculopathy, lumbar region; M41.9 Scoliosis, unspecified; M19.90 Unspecified osteoarthritis, unspecified site; Z85.3 Personal history of malignant neoplasm of breast; Z87.891 Personal history of nicotine dependence; Z90.89 Acquired absence of other organs; Z90.49 Acquired absence of other specified parts of digestive tract; Z90.710 Acquired absence of both cervix and uterus; Z90.11 Acquired absence of right breast and nipple; Z98.890 Other specified postprocedural states; Z79.899 Other long term (current) drug therapy; Z79.82 Long term (current) use of aspirin; Z79.811 Long term (current) use of aromatase inhibitors; Z88.1 Allergy status to other antibiotic agents; Z88.0 Allergy status to penicillin; Z88.2 Allergy status to sulfonamides; Z88.6 Allergy status to analgesic agent; Z88.5 Allergy status to narcotic agent
CPT/HCPCS: 99211

== ENCOUNTER 2018-11-22 06:21 | Day surgery (SDC) | payer MEDICARE ==
[2018-11-18 13:13] VITALS: BMI 29.0
[2018-11-22 06:44] VITALS: PULSE 68; RESP 16; TEMP 98.4
[2018-11-22 06:59] VITALS: BP 127/62
[2018-11-22 07:00] LABS: Glucose,Whole Blood 90 mg/dL (75-99)
--- NOTE | 2018-11-22 07:14 | P.PN ---
Progress Note - Text Progress Note Date: 11/22/18 The patient was scheduled for diagnostic lumbar medial branch block however she felt a sudden dizziness starting this morning. Her vital signs in the preop area were stable and her blood sugar was 90 mg/dL she was also in sinus rhythm. The patient states that is the first time she feels this dizziness however she does have history of chronic tinnitus. The procedure was postponed due to this new issue. The patient is encouraged to see her primary care physician or go to the ER. The patient would rather go home as she states and of this gets worse and then she will go to the ER . The patient takes only aspirin for her history of atrial fibrillation. The patient does not have to hold her aspirin for these procedures.
== END 2018-11-22 07:15 | disposition home or self-care (01) ==
LOC: ORPAIN 06:21
PROVIDERS: ATTEND Anesthesiology
DX: M47.816 Spondylosis without myelopathy or radiculopathy, lumbar region (principal); M41.9 Scoliosis, unspecified; G89.29 Other chronic pain; Z53.8 Procedure and treatment not carried out for other reasons; H93.19 Tinnitus, unspecified ear; I48.91 Unspecified atrial fibrillation; M19.90 Unspecified osteoarthritis, unspecified site; Z85.3 Personal history of malignant neoplasm of breast; Z86.14 Personal history of Methicillin resistant Staphylococcus aureus infection; Z87.891 Personal history of nicotine dependence; Z82.49 Family history of ischemic heart disease and other diseases of the circulatory system; Z83.3 Family history of diabetes mellitus; Z79.811 Long term (current) use of aromatase inhibitors; Z79.82 Long term (current) use of aspirin; Z79.899 Other long term (current) drug therapy; Z79.2 Long term (current) use of antibiotics; Z88.0 Allergy status to penicillin; Z88.2 Allergy status to sulfonamides; Z88.5 Allergy status to narcotic agent; Z88.6 Allergy status to analgesic agent; Z88.1 Allergy status to other antibiotic agents; Z88.8 Allergy status to other drugs, medicaments and biological substances

== ENCOUNTER 2018-12-02 09:00 | Day surgery (SDC) | payer MEDICARE ==
[2018-11-29 12:37] VITALS: BMI 28.5
[2018-12-02 07:30] VITALS: RESP 16; TEMP 97
[2018-12-02 08:50] VITALS: BP 124/76; PULSE 57
--- NOTE | 2018-12-02 08:57 | FL ---
EXAMINATION TYPE: FL guided pain mgmt statistic DATE OF EXAM: 12/02/2018 HISTORY: Flouroscopy time 1 seconds of fluoroscopy provided. IMPRESSION: 1. Fluoroscopy time.
--- NOTE | 2018-12-02 10:37 | P.PCN ---
Date of Procedure: 12/02/18 Surgeon: Mark Toledo Description of Procedure: PREOPERATIVE DIAGNOSIS : Lumbar spondylosis with Facet Arthropathy without myelopathy POSTOPERATIVE DIAGNOSIS: same PROCEDURE: Diagnostic lumbar medial branch block with fluoroscopy at bilateral L4, L5, sacral ala ANESTHESIA: Local anesthetic; Surgeon: Mark Toledo MD PROCEDURE INDICATION: This is a very pleasant 73-year-old woman with a history of intractable low back pain who presents today for bilateral lumbar medial branch nerve blocks. PROCEDURE DESCRIPTION: the patient was seen and identified in the preop holding area , risks and benefits and possible complications of the procedure and alternative were discussed with the patient, and the patient agreed to proceed with the procedure and signed the consent IV was started and vital signs monitored during the procedure and fluoroscopy was used to maximize the benefit and accuracy of the needle placement, and sedation was given to decrease patient anxiety, patient was taken to the procedure room and placed in prone position vital signs monitored in the back prepped. Under strict sterile technique using a right oblique fluoroscopy ,the junction of the transverse process and the superior articulating process of the right L3- 4 , L4- 5, and L5-S1 vertebra which corresponding to the fluoroscopy image of the eye of the Farshad dog on the block side for the medial branches and subsequently , after local infiltration of skin and subcutaneous tissues with lidocaine 1% one mL at each level ,then one 25-gauge Quincke-type needles was placed at the junction of the base of the transverse process and the superior articular process at the appropriate level, and the needle was advanced until the periosteum contacted, needle placement confirmed with AP oblique and lateral view and after appropriate needle placement confirmed, and after negative aspiration, 0.5 mL of Marcaine 0.5% mixed with 40 mg depomedrol in divided doses was injected at each level and the needle subsequently removed this procedure was then repeated on the left side with an additional 3 mL of 0.5% Marcaine and 40 mg of Depo-Medrol. At the end of the procedure and the needles removed and a bandage applied after the skin was cleaned the cleaning solution patient taken to recovery room in stable condition and monitors in the recovery room for 20-30 minutes and discharged home in stable condition after discharge criteria met and patient will follow up with the pain clinic in 2-4 weeks EBL: Minimal COMPLICATION: None.
== END 2018-12-02 09:01 | disposition home or self-care (01) ==
LOC: ORPAIN 09:00
PROVIDERS: ATTEND Pain Medicine Pain Medicine
DX: M47.816 Spondylosis without myelopathy or radiculopathy, lumbar region (principal); Z88.0 Allergy status to penicillin; Z88.2 Allergy status to sulfonamides; Z88.5 Allergy status to narcotic agent; Z88.1 Allergy status to other antibiotic agents
CPT/HCPCS: 64493; 64494; 64495; J1030

== ENCOUNTER → 2019-01-06 | Outpatient (CLI) | payer MEDICARE ==
[2019-01-06 12:31] VITALS: BP 130/79; PULSE 67; RESP 16
--- NOTE | 2019-01-06 12:47 | P.PN ---
Subjective Progress Note Date: 01/06/19 This is a follow visit for this 73 years old female with a chronic history of severe low back pain, she is diagnosed with lumbar spondylosis with done diagnostic medial branch block lumbar area, x2 ,and she is here today to discuss the results of the diagnostic medial branch block, she reported that her pain was 7/10 before the first diagnostic block Drop it to 3/10, and she reported that the second diagnostic medial branch block in the pain dropped from 3/10- 0/10, patient denies any motor or sensory deficit she denies any change in bowel movement or urination no fever or night sweats Objective - Vital Signs Vital signs: Vital Signs Temp Pulse 67 01/06/19 12:16 Resp 16 01/06/19 12:16 BP 130/79 01/06/19 12:16 Pulse Ox Intake & Output 01/05/19 01/06/19 01/06/19 18:59 06:59 18:59 Weight 81.647 kg - Exam Physical Examinations : -Constitutiona : Cooperative , not in acute distress . -HEENT : nech ; supple , no Lymphadenopathy , normal thyroid size . eyes : no ptosis , no icterus, no photophobia . - neurologic : Cranial nerve II to XII intact , no focal neurological deffecit . -psychatric : alert , oriented X 3 , appropriate affect , intact judgment and insight . -Lymphatic : no Lymphadenopathy . - musculoskeltal : Lumber spine moter stegnth lower extremities ,thigh and legs 5/5 Right side , 5/5 Left side deep tendon reflexes : normal Knee Jerk , normal ankle Jerk positive lumber facet Loading Test Range of motion of the lumbar spine Flexion 30 degrees, extension 10 degrees Assessment and Plan Plan: Assessment and plan= chronic low back pain secondary to lumbar spondylosis Patient had positive results after the diagnostic medial branch block lumbar area She will be good candidate to have radiofrequency ablation of median [id number]. - PQRS measures = - Patient's medications are documented in the chart. -Tobacco use is negative and counseling.Given. -Patient's has not received pneumococcal vaccine. -Advanced care planning discussed, patient not eligible. -Opiate contract not signed. -Pain positive and follow-up visit/procedure is scheduled. -Patient's blood pressure measured [ 130/79 ] , and documented in the record ,and patient will follow up with the primary care. -Patient's weight was measured and body mass index [ 28.2 ] above the, and patient instructed to follow-up with the primary care physician. -Patient was not identified as an unhealthy alcohol user Time with Patient: Less than 30
== END | disposition home or self-care (01) ==
LOC: PNWHC3 12:03
PROVIDERS: ATTEND Specialist
DX: G89.29 Other chronic pain (principal); M54.5 Low back pain; M47.816 Spondylosis without myelopathy or radiculopathy, lumbar region
CPT/HCPCS: 99211

== ENCOUNTER 2019-01-17 08:55 | Day surgery (SDC) | payer MEDICARE ==
[2019-01-12 15:03] VITALS: BMI 28.1
[~2019-01-17 08:55] MED LIST changes: -DENOSUMAB 60 MG/ML 1 ML SYRINGE SQ ONE; +LACTATED RINGERS 1,000 ML IV SCH
[2019-01-17 09:18] VITALS: TEMP 97.7
[2019-01-17 09:53] VITALS: RESP 16
[2019-01-17 10:10] VITALS: PULSE 62
[2019-01-17 10:11] VITALS: BP 133/66
[2019-01-17] MEDS ORDERED: IV FLUID CONTINUATION 1,000 ML IV ONE (10:27)
--- NOTE | 2019-01-17 10:45 | FL ---
Fluoroscopy HISTORY: Pain 23 seconds fluoroscopy time supplied to the referring clinician. 3 intraoperative C-arm images docum ent the procedure. See dictated report from anesthesia.
--- NOTE | 2019-01-17 10:50 | P.PCN ---
Date of Procedure: 01/17/19 Procedure(s) Performed: PREOPERATIVE DIAGNOSIS: 1-Lumbar Spondylosis with Facet Arthropathy without myelopathy. 2- Lumber degenerative disc disease POSTOPERATIVE DIAGNOSIS: 1- Lumbar Spondylosis with Facet Arthropathy without myelopathy. 2- Lumber degenerative disc disease PROCEDURES : Left Radiofrequency thermocoagulation, L3-L4, L4-L5, and L5-S1 medial branch, with fluoroscopic guidance ANESTHESIA: Moderate sedation with intravenous versed 2 mg and fentaneyl 50 mcg, and local infiltration with Ropivacaine 0.5 % . EBL: Minimal PROCEDURE INDICATION: The patient with low back pain secondary to lumbar facet arthropathy who had more than 50% relief of her pain with previous diagnostic lumbar medial branch block with bupivacaine. PROCEDURE DESCRIPTION / TECHNIQUE: The patient was seen and identified in the preoperative area. Risks, benefits, complications, including but not limited to risk of infection ,bleeding , allergic reactions to the medications and no complete pain releife , and alternatives were discussed with the patient, the patient agreed to proceed with the procedure and signed the consent. IV was started. Vital signs remained stable throughout the procedure. Patient was taken to the OR and time out was completed. The patient was placed in the prone position on the procedure table. The lumber area was prepped and draped in the usual sterile fashion. . Vital signs were closely monitored during the procedure .IV sedation was used during the procedure to decrease patients anxiety. Using AP and then oblique fluoroscopy, the ``eye of the Farshad dog corresponding to the connection between the superior and transverse articular processes of left L3, L4, and L5 were identified, marked, and localized with 1% lidocaine. Subsequently, a 18 -dp radiofrequency cannula with a 10- mm active tip was advanced guided by fluoroscopy to each of the``eyes of the Farshad dog at left L3, L4, and L5. Each site then underwent sensory testing at 50 Hz and 0 to 1 volt and motor testing at 2.5 Hz and 0 to 3 volt with local stimulation, but no radicular symptoms down the legs. Thereafter the left L3-4, L4-5, and L5-S1 sites underwent radiofrequency thermocoagulation at 80 degrees celsius for 90 seconds after injecting 0.5 ml of PF Ropivacaine 1ml, then after the thermocoagulation done , 1 ml of the block solution containing Depo-Medrol 40 mg and 3 ml of Ropivacaine 0.5% was injected at the left L3-4 , L4-5 , and L5-S1, levels after negative aspiration of CSF and blood and with no paresthesias. Cannulas were retracted while injecting lidocaine 1% until the needle is out. At the end of the procedure, the skin was cleansed and bandages were applied. COMPLICATIONS: No acute complications. DISPOSITION / PLANS: The patient was placed in a supine position and transferred to the recovery area in a stable condition for observation and was discharged from the recovery room after meeting discharge criteria. Home discharge instructions given to the patient by the staff. The patient was reexamined prior to discharge. The patient will schedule a follow up in the clinic in 2-4 weeks.
== END 2019-01-17 10:31 | disposition home or self-care (01) ==
LOC: ORPAIN 08:55
PROVIDERS: ATTEND Specialist
DX: M47.816 Spondylosis without myelopathy or radiculopathy, lumbar region (principal); M51.36 Other intervertebral disc degeneration, lumbar region; I48.91 Unspecified atrial fibrillation; Z88.0 Allergy status to penicillin; Z88.2 Allergy status to sulfonamides; Z88.5 Allergy status to narcotic agent; Z88.6 Allergy status to analgesic agent
CPT/HCPCS: 64635; 64636 ×2; J2250; J1030; J3010; 99152

== ENCOUNTER → 2019-01-18 | Outpatient (CLI) | payer MEDICARE ==
--- NOTE | 2019-01-19 16:16 | MR ---
EXAMINATION TYPE: MR brain wo con DATE OF EXAM: 01/18/2019 COMPARISON: NONE HISTORY: 73-year-old female Pre syncope TECHNIQUE: Multiplanar, multisequence images of the brain and brainstem were acquired without IV con trast. Diffusion weighted imaging is performed. FINDINGS: No evidence for acute infarction, hemorrhage, mass, mass effect, midline shift, herniation, effacemen t of basal cisterns, or extra-axial fluid collection. The ventricles and sulci are age-appropriate with mild to moderate generalized supratentorial volume loss. Major intracranial flow voids are intact. T2/FLAIR weighted sequences show moderate to severe scattered burden of bright white matter change pr imarily in the subcortical and deep white matter regions of both cerebral hemispheres with greater th an 75 foci on each side. Midline structures demonstrate normal morphology. The craniocervical junction is normal. Mild mucosal thickening in the ethmoid air cells. Globes appear intact. IMPRESSION: 1. No acute intracranial abnormality seen. 2. Mild to moderate generalized cerebral atrophy. 3. Moderate to severe scattered burden of bright white matter change primarily within the subcortical and deep white matter regions. This is nonspecific but generally relates to changes of chronic small vessel ischemic disease. Chronic migraines, Lyme's disease, and demyelinating disease are some other differential considerations. .
== END ==
LOC: RADMRIMAIN 13:00
PROVIDERS: ATTEND Psychiatry & Neurology Neurology
DX: G31.9 Degenerative disease of nervous system, unspecified (principal); I67.82 Cerebral ischemia; R90.89 Other abnormal findings on diagnostic imaging of central nervous system
CPT/HCPCS: 70551

== ENCOUNTER 2019-02-07 08:10 | Day surgery (SDC) | payer MEDICARE ==
[2019-02-07 08:31] VITALS: TEMP 98.5
[2019-02-07] MEDS ORDERED: LIDOCAINE 1% 20 ML VIAL (10MG/ML) FOR IV START INTRADERMA ONE (08:48)
--- NOTE | 2019-02-07 09:10 | P.PCN ---
Date of Procedure: 02/07/19 Description of Procedure: PREOPERATIVE DIAGNOSIS: 1-Lumbar Spondylosis with Facet Arthropathy without myelopathy. 2- Lumber degenerative disc disease POSTOPERATIVE DIAGNOSIS: 1- Lumbar Spondylosis with Facet Arthropathy without myelopathy. 2- Lumber degenerative disc disease PROCEDURES : Right Radiofrequency thermocoagulation, L3-L4, L4-L5, and L5-S1 medial branch, with fluoroscopic guidance ANESTHESIA: Moderate sedation with intravenous versed 2 mg and fentaneyl 100 mcg, and local infiltration with Ropivacaine 0.5 % . EBL: Minimal PROCEDURE INDICATION: The patient with low back pain secondary to lumbar facet arthropathy who had more than 50% relief of her pain with previous diagnostic lumbar medial branch block with bupivacaine. PROCEDURE DESCRIPTION / TECHNIQUE: The patient was seen and identified in the preoperative area. Risks, benefits, complications, including but not limited to risk of infection ,bleeding , allergic reactions to the medications and no complete pain releife , and alternatives were discussed with the patient, the patient agreed to proceed with the procedure and signed the consent. IV was started. Vital signs remained stable throughout the procedure. Patient was taken to the OR and time out was completed. The patient was placed in the prone position on the procedure table. The lumber area was prepped and draped in the usual sterile fashion. . Vital signs were closely monitored during the procedure .IV sedation was used during the procedure to decrease patients anxiety. Using AP and then oblique fluoroscopy, the ``eye of the Farshad dog corresponding to the connection between the superior and transverse articular processes of right L3, L4, and L5 were identified, marked, and localized with 1% lidocaine. Subsequently, a 18 [id number] radiofrequency cannula with a 10-mm active tip was advanced guided by fluoroscopy to each of the``eyes of the Farshad dog at right L3, L4, and L5. Each site then underwent sensory testing at 50 Hz and 0 to 1 volt and motor testing at 2.5 Hz and 0 to 3 volt with local stimulation, but no radicular symptoms down the legs. Thereafter the right L3-4, L4-5, and L5-S1 sites underwent radiofrequency thermocoagulation at 80 degrees celsius for 90 seconds after injecting 0.5 ml of PF Ropivacaine 1ml, then after the thermocoagulation done , 1 ml of the block solution containing Depo-Medrol 40 mg and 3 ml of Ropivacaine 0.5% was injected at the right L3-4 , L4-5 , and L5-S1, levels after negative aspiration of CSF and blood and with no paresthesias. Cannulas were retracted while injecting lidocaine 1% until the needle is out. At the end of the procedure, the skin was cleansed and bandages were applied. COMPLICATIONS: No acute complications. DISPOSITION / PLANS: The patient was placed in a supine position and transferred to the recovery area in a stable condition for observation and was discharged from the recovery room after meeting discharge criteria. Home discharge instructions given to the patient by the staff. The patient was reexamined prior to discharge. The patient will schedule a follow up in the clinic in 2-4 weeks.
--- NOTE | 2019-02-07 09:11 | P.GSHP ---
History of Present Illness H&P Date: 02/07/19 [age] female presented for radio frequency ablation of right L3-L4, L4-L5, L5- S1. Physical exam: Cardiovascular: Regular rate and rhythm, no edema Pulmonary: Nonlabored breathing, no wheezing Plan: Proceed with right radiofrequency ablation L3-L4, L4-L5, L5-S1 area patient will follow up in clinic in 4 weeks time. Past Medical History Past Medical History: Atrial Fibrillation, Cancer, Eye Disorder, Musculoskeletal Disorder, Osteoarthritis (OA), Renal Disease Additional Past Medical History / Comment(s): DRY EYE, CORNEAL DYSTROPHY. HX RT BREAST CA. No blood draw or blood pressure on RT side. HYPOGLYCEMIA. EDEMA LOWER LEGS OCC. STOMACH ULCER 04-06-18. 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 LOWER BACK PAIN; NT TOES FOR SEV YEARS, frequent headaches recently & new lump right jaw area-sees maxillo-facial dr jhoan History of Any Multi-Drug Resistant Organisms: ESBL, MRSA Date of last positivie culture/infection: 04/2018 MRSA/URINE; 08/26/18 MDRO Source:: ESBL URINE Past Surgical History: Adenoidectomy, Appendectomy, Breast Surgery, Cholecystectomy, Hernia Repair, Hysterectomy, Tonsillectomy Additional Past Surgical History / Comment(s): RT BREAST MASTECTOMY W/ RECONSTRUCTION; FATTY TUMOR EXC LT ARM. NEPHROLITHOTOMY TUBE W/ STONE REMOVAL. EGD, COLONOSCOPY. EXC RT OVARY/TUBE. CANCER EXC. RT BUCCAL MUCOSA W/ TISSUE TRANSPLANT FROM LT WRIST & several cervical lymph nodes removed Past Anesthesia/Blood Transfusion Reactions: Previous Problems w/ Anesthesia, Postoperative Nausea & Vomiting (PONV) Additional Past Anesthesia/Blood Transfusion Reaction / Comment(s): TOOK VERY LONG TIME TO AWAKEN AFTER SURGERY IN 2012. Past Psychological History: No Psychological Hx Reported Additional Psychological History / Comment(s): DENIES Smoking Status: Former smoker Past Alcohol Use History: Rare Additional Past Alcohol Use History / Comment(s): SMOKED ON/OFF STARTING @ AGE 16, QUIT SMOKING 11/27/1999, SMOKED 1/2- Past Drug Use History: None Reported Additional Drug Use History / Comment(s): . - Past Family History Father Family Medical History: Congestive Heart Failure (CHF), Coronary Artery Disease (CAD), Diabetes Mellitus, Deep Vein Thrombosis (DVT), Hypertension Additional Family Medical History / Comment(s): PHLEBITIS LEG Sister(s) Family Medical History: Diabetes Mellitus Brother(s) Family Medical History: AFIB Mother Family Medical History: AFIB, Deep Vein Thrombosis (DVT) Additional Family Medical History / Comment(s): PHLEBITIS IN LEG Medications and Allergies Home Medications Medication Instructions Recorded Confirmed Type Metoprolol Tartrate [Lopressor] 50 mg PO QAM 07/21/14 02/07/19 History Cyanocobalamin (Vitamin B-12) 1,000 mcg PO MOWEFR 06/22/17 02/07/19 History [Vitamin B-12] Metoprolol Tartrate [Lopressor] 25 mg PO HS 06/22/17 02/07/19 History Multivitamins, Thera [Multivitamin 1 tab PO DAILY 06/22/17 02/07/19 History (formulary)] Aspirin [Adult Low Dose Aspirin EC] 81 mg PO DAILY 11/17/17 02/07/19 History Vitamin A 2,400 mcg PO DAILY 04/28/18 02/07/19 History Cholecalciferol [Vitamin D3] 1,000 unit PO DAILY 10/20/18 02/07/19 History L.acidoph,Paracasei, B.lactis 1 each PO DAILY 10/20/18 02/07/19 History [Probiotic] Monurol 1 packet PO LAMB 11/15/18 02/07/19 History Sodium Citrate 10 ml PO TID 11/15/18 02/07/19 History Anastrozole [Arimidex] 1 mg PO QAM 11/16/18 02/07/19 History Artificial Tears-Hypromellose 1 drops BOTH EYES TID PRN 01/12/19 02/07/19 History [Artificial Tear Drops] Allergies Allergy/AdvReac Type Severity Reaction Status Date / Time Penicillins Allergy Anaphylaxis Verified 02/07/19 08:20 Sulfa (Sulfonamide Allergy Unknown Verified 02/07/19 08:20 Antibiotics) Childhood acetaminophen AdvReac Elevates Verified 02/07/19 08:20 Liver Enzymes codeine AdvReac Nausea & Verified 02/07/19 08:20 Vomiting NSAIDS (Non-Steroidal AdvReac ULCER- Verified 02/07/19 08:20 Anti-Inflamma HISTORY sulfamethoxazole AdvReac Diarrhea, Verified 02/07/19 08:20 [From Bactrim] C-Diff trimethoprim [From Bactrim] AdvReac Diarrhea, Verified 02/07/19 08:20 C-Diff Surgical - Exam Vital Signs Temp Pulse Resp BP Pulse Ox 98.5 F 65 18 123/64 96 02/07/19 08:29 02/07/19 08:29 02/07/19 08:29 02/07/19 08:29 02/07/19 08:29
[2019-02-07] MEDS ORDERED: IV FLUID CONTINUATION 1,000 ML IV ONE (09:54)
[2019-02-07 10:12] VITALS: BP 128/74; PULSE 61; RESP 16
--- NOTE | 2019-02-07 11:36 | FL ---
EXAMINATION TYPE: FL guided pain mgmt statistic DATE OF EXAM: 02/07/2019 HISTORY: Flouroscopy time 56 seconds of fluoroscopy provided. IMPRESSION: 1. Fluoroscopy time.
== END 2019-02-07 11:05 | disposition home or self-care (01) ==
LOC: ORPAIN 08:10
PROVIDERS: ATTEND Anesthesiology
DX: M47.816 Spondylosis without myelopathy or radiculopathy, lumbar region (principal); I48.91 Unspecified atrial fibrillation; M19.90 Unspecified osteoarthritis, unspecified site; Q61.5 Medullary cystic kidney; Z79.82 Long term (current) use of aspirin; Z82.49 Family history of ischemic heart disease and other diseases of the circulatory system; Z85.3 Personal history of malignant neoplasm of breast; Z87.19 Personal history of other diseases of the digestive system; Z87.891 Personal history of nicotine dependence; Z88.0 Allergy status to penicillin; Z88.1 Allergy status to other antibiotic agents; Z88.2 Allergy status to sulfonamides; Z88.5 Allergy status to narcotic agent; Z88.6 Allergy status to analgesic agent; Z90.11 Acquired absence of right breast and nipple; Z86.14 Personal history of Methicillin resistant Staphylococcus aureus infection; Z79.811 Long term (current) use of aromatase inhibitors
CPT/HCPCS: 64635; 64636 ×2; J2250; J3301; J2001; J3010; 99152; 99153

== ENCOUNTER → 2019-02-25 | Outpatient (CLI) | payer MEDICARE ==
--- NOTE | 2019-02-25 09:17 | MR ---
EXAMINATION TYPE: MR angio neck wo/w con DATE OF EXAM: 02/25/2019 COMPARISON: None. HISTORY: Lightheadness CONTRAST: Standard multiplanar, multisequence MRI departmental protocol utilizing 8 mL intravenous Gadavist selina olinium contrast. 2-D and 3-D reconstructed images are created on MRI scanner and reviewed. FINDINGS: There is normal 3 vessel origins from the aortic arch. No significant stenosis is present. There is artifact degradation at level of the upper thorax noted. The right common carotid artery maik ws normal origin from the right brachiocephalic artery. There is some tortuous course to the proximal right common carotid artery shortly after its origin. No significant focal stenosis is seen. Right i nternal carotid artery shows no significant focal stenosis. There is susceptibility artifact along th e anterior aspect of the right external carotid artery with additional artifact from numerous clips e xtending laterally and posteriorly making evaluation at this level suboptimal. Remainder of right ext ernal carotid artery shows no significant stenosis. Left common carotid artery shows marked tortuosity and proximal segment. No significant stenosis is s een. There is no significant stenosis in the left internal carotid artery which has tortuous course. Left external carotid artery is patent without significant stenosis. There are some tortuous course to the vertebral arteries. Vertebral arteries are patent to basilar ju nction. IMPRESSION: No significant stenosis in common or internal carotid arteries bilaterally.
== END | disposition home or self-care (01) ==
LOC: RADMRIMAIN 08:10
PROVIDERS: ATTEND Family Medicine
DX: R42 Dizziness and giddiness (principal)
CPT/HCPCS: 70549; A9585

== ENCOUNTER → 2019-03-08 | Outpatient (CLI) | payer MEDICARE ==
[2019-03-08 12:06] VITALS: BP 140/80; PULSE 64; RESP 18
--- NOTE | 2019-03-08 12:39 | P.PAINPG ---
Subjective Progress Note Date: 03/08/19 Principal diagnosis: Lumbar spondylosis, lumbar spinal stenosis This is a very pleasant 73 old woman with a history of intractable low back pain. She is undergone previous diagnostic medial branch nerve blocks as well as recently completed bilateral radio frequency ablations. She continues to have significant pain which radiates into her buttocks and legs. This is much worse with walking and is much relieved with sitting. She denies any bowel or bladder dysfunction. She denies significant pain shooting all the way down her legs into her feet. She denies numbness in her legs. Objective - Vital Signs Vital signs: Vital Signs Temp Pulse 64 03/08/19 11:58 Resp 18 03/08/19 11:58 BP 140/80 03/08/19 11:58 Pulse Ox 98 03/08/19 11:58 Intake & Output 03/07/19 03/08/19 03/08/19 18:59 06:59 18:59 Weight 83.461 kg - Exam General: The patient is alert and oriented. Patient is not sedated Patient answers all question appropriately. Cardiac: Heart is regular in rate and rhythm Respiratory: Clear to auscultation. No audible wheezes. Abdomen: Soft nontender nondistended. Musculoskeletal: Strength is normal bilaterally. Sensation is normal bilaterally. Straight leg raise is negative bilaterally. She walks with a hunched over gait. She is tender to palpation over her trochanteric bursa bilaterally. She has significant difficulty assuming an erect position while standing. Neurological: Reflexes are preserved and symmetric bilaterally. Assessment and Plan (1) Lumbar spondylosis Narrative/Plan: The patient has had previous treatment for her lumbar facet mediated pain components. She reports that these treatments have been helpful reducing her sy mptoms. Most of her symptoms now appear to be consistent with her diagnosis of lumbar spinal stenosis. Her MRI of her spine dated March 2016 reveals moderate to severe broad-based disc bulges at L3 4 as well as L4 5 with significant nerve root impingement. There is also some nerve root impingement seen at L5-S1. Current Visit: Yes Status: Acute Code(s): M47.816 - SPONDYLOSIS W/O MYELOPATHY OR RADICULOPATHY, LUMBAR REGION SNOMED Code(s): 681648853 (2) Degenerative lumbar spinal stenosis Current Visit: Yes Status: Acute Code(s): M48.061 - SPINAL STENOSIS, LUMBAR REGION WITHOUT NEUROGENIC MARKO SNOMED Code(s): 401662997 Plan: Plan of Care 1. Medications: Patient will continue to manage her medications with conservative choices such as Tylenol. 2. Interventions: We will schedule patient for lumbar epidural steroid injection be performed at the L4 5 interspace. I'm hopeful this will help with her stenotic components of her pain 3. Referrals: Once the patient has completed her epidural treatments, I would recommend referring her to physical therapy. 4. Testing: Patient has a previous diagnosis of breast cancer however she does still follow-up with an oncologist and primary care physician to evaluate for metastatic disease. 5. Follow-up: Lumbar epidural steroid tension L4 5 PQRS Measure Charge Sheet Measure #130: Documentation of Current Meds in Medical Chart: Patient's medications documented in chart Measure #226: Tobacco Use: Screen & Cessation Intervention: Pt not a tobacco user Measure #111: Pneumonia Vaccination: Pneumococcal vaccine NOT administered or previously given Measure #47: Advance Care Plan: Advance care planning discussed & documented, pt chose/unable to give Measure #412: Opioid Treatment Agreement: No documentation of signed opioid treatment agreement Measure #408: Opioid Therapy Follow-up Evaluation: Patient had NO f/u eval minimum every 3 months during opioid therapy Measure #317: Preventitive Care & Scrn High Bld Press & F/U: Normal blood pressure, f/u not required Measure #128: Body Mass Index (BMI) Screening & Follow-up: BMI documented ABOVE normal parameters - f/u documented Measure #131: Pain Assessment & Follow-up: Pain positive & plan documented Measure #431: Unhealthy Alcohol Use Preventative Care & Scrn: Patient not identified as an unhealthy alcohol user PQRS Narrative: Smoking Status Former smoker Blood Pressure 140/80 Pain Intensity [Lower Back] 4 Scale Used Numeric (1 - 10) Hx Alcohol Use (MH) No Home Medications: Ambulatory Orders Metoprolol Tartrate [Lopressor] 50 mg PO QAM 07/21/14 Cyanocobalamin (Vitamin B-12) [Vitamin B-12] 1,000 mcg PO MOWEFR 06/22/17 Metoprolol Tartrate [Lopressor] 25 mg PO HS 06/22/17 Multivitamins, Thera [Multivitamin (formulary)] 1 tab PO DAILY 06/22/17 Aspirin [Adult Low Dose Aspirin EC] 81 mg PO DAILY 11/17/17 Vitamin A 2,400 mcg PO DAILY 04/28/18 Cholecalciferol [Vitamin D3] 1,000 unit PO DAILY 10/20/18 L.acidoph,Paracasei, B.lactis [Probiotic] 1 each PO DAILY 10/20/18 Monurol 1 packet PO LAMB 11/15/18 Sodium Citrate 10 ml PO TID 11/15/18 Anastrozole [Arimidex] 1 mg PO QAM 11/16/18 Artificial Tears-Hypromellose [Artificial Tear Drops] 1 drops BOTH EYES TID PRN 01/12/19 Controlled Substance Measures - Controlled Substance Measures Is patient prescribed a controlled substance at discharge?: No
== END | disposition home or self-care (01) ==
LOC: PNWHC3 11:51
PROVIDERS: ATTEND Pain Medicine Pain Medicine
DX: M48.061 Spinal stenosis, lumbar region without neurogenic claudication (principal); M47.816 Spondylosis without myelopathy or radiculopathy, lumbar region; Z87.891 Personal history of nicotine dependence; Z98.890 Other specified postprocedural states
CPT/HCPCS: 99211

== ENCOUNTER → 2019-03-18 | Outpatient (CLI) | payer MEDICARE ==
[2019-03-18 13:54] LABS: HCT 39.4 % (34.0-46.0); HGB 12.5 gm/dL (11.4-16.0); MCH 27.7 pg (25.0-35.0); MCHC 31.7 g/dL (31.0-37.0); MCV 87.4 fL (80.0-100.0); Mean Platelet Volume 7.5; Platelet Count 241 k/uL (150-450); RDW 14.1 % (11.5-15.5); WBC 5.9 k/uL (3.8-10.6)
[2019-03-18 13:59] LABS: Partial Thromboplastin Time 24.9 sec (22.0-30.0); Prothrombin Time 10.3 sec (9.0-12.0)
== END | disposition home or self-care (01) ==
LOC: LABWHC1 12:59
PROVIDERS: ATTEND Pain Medicine Pain Medicine
DX: M48.061 Spinal stenosis, lumbar region without neurogenic claudication (principal); M47.816 Spondylosis without myelopathy or radiculopathy, lumbar region
CPT/HCPCS: 36415; 85027; 85610; 85730

== ENCOUNTER 2019-03-21 09:12 | Day surgery (SDC) | payer MEDICARE ==
[2019-03-16 09:11] VITALS: BMI 28.3
[2019-03-21 09:49] VITALS: RESP 16; TEMP 98.3
[2019-03-21] MEDS ORDERED: LIDOCAINE 1%-EPI 1:100,000 20 ML VIAL SQ ONE (09:50)
--- NOTE | 2019-03-21 10:25 | P.PCN ---
Date of Procedure: 03/21/19 Procedure(s) Performed: PREOPERATIVE DIAGNOSIS: 1- Lumbar Degenerative Disc Diseases 2-Lumbar spondylosis with Facet arthropathy without myelopathy 3-lumbar spinal stenosis POSTOPERATIVE DIAGNOSIS: Same as preop diagnosis. PROCEDURE 1. Lumbar epidural steroid injection under fluoroscopic guidance at the L4-5 level. 2. Lumbar epidurogram. ANESTHESIA: Local with 1% lidocaine 3 ml and , moderate sedation with intravenous Versed 2 mg ,and fentanyle 100 Mcg EBL: Minimal PROCEDURE INDICATION: The patient with low back pain and radiculitis symptoms unresponsive to conservative treatment. Fluoroscopy was used to optimize visualization of the needle placement and to maximize safety. PROCEDURE DESCRIPTION / TECHNIQUE: The patient was seen and identified in the preoperative area. Risks, benefits, complications including but not limited to infections ,bleeding ,allergic reaction to the medications ,nerve damage and not complete pain releife , and alternatives were discussed with the patient. The patient agreed to proceed with the procedure and signed the consent. IV was started, and vital signs were stable. Patient was taken to the OR and time out was completed. The patient was placed in the prone position on procedure table and a pillow was placed under the abdomen to reduce lumbar lordosis. The lumbosacral area was prepped and draped in the usual sterile fashion.ere closely monitored during the procedure. Conscious sedation was used during the procedure to decrease patients anxiety. Vital signs was monitered during the entire procedure. Using anterior-posterior fluoroscopy, the L4-5 interlaminar space was identified and the skin over this site was marked and then infiltrated with 1% lidocaine subcutaneously. Subsequently, a 20-gauge Tuohy epidural needle was inserted and advanced toward the epidural space using the ``Loss of resistance technique and guided by AP and lateral fluoroscopy. The correct needle position in the epidural space was verified with the injection of 2 mL of the water soluble contrast dye Isovue 200 contrast and observing an excellent epidurogram with the epidural spread of the dye, after negative aspiration for blood and CSF and in the absence of paresthesias. Again after negative aspiration, a 6 ml mixture containing 40 mg of Depo-medrol , and 2 ml of preservative free Normal Saline, and 2 ml of preservative free lidocaine 1% solution was injected and a washout of epidurogram was seen. Needle was withdrawn intact, skin was cleansed, and bandages were applied. COMPLICATIONS: None DISPOSITION / PLANS: The patient was placed in a supine position and transferred to the recovery area in a stable condition for observation. There was no evidence of lower extremity motor or sensory deficit after the procedure. Patient was discharged from the recovery room after meeting discharge criteria. Home discharge instructions were given to the patient by the staff. The patient was reexamined prior to discharge. The patient will schedule a follow up in the clinic in 2-4 weeks.
[2019-03-21] MEDS ORDERED: IV FLUID CONTINUATION 1,000 ML IV ONE (10:29)
[2019-03-21 11:25] VITALS: BP 118/58; PULSE 61
--- NOTE | 2019-03-21 14:15 | FL ---
Fluoroscopy HISTORY: Pain 1 seconds fluoroscopy time supplied to the referring clinician. 1 intraoperative C-arm images docume nt the procedure. See dictated report from anesthesia.
== END 2019-03-21 11:28 | disposition home or self-care (01) ==
LOC: ORPAIN 09:12
PROVIDERS: ATTEND Specialist
DX: M47.26 Other spondylosis with radiculopathy, lumbar region (principal); M51.06 Intervertebral disc disorders with myelopathy, lumbar region; M48.061 Spinal stenosis, lumbar region without neurogenic claudication; Z88.6 Allergy status to analgesic agent; Z88.0 Allergy status to penicillin; Z88.2 Allergy status to sulfonamides
CPT/HCPCS: 62323; J2250; J1030; J3010; Q9966; 99152

== ENCOUNTER → 2019-04-15 | Outpatient (CLI) | payer MEDICARE ==
--- NOTE | 2019-04-15 13:20 | EEG ---
ELECTROENCEPHALOGRAM REPORT DATE OF PROCEDURE: 04/15/2019 ELECTROENCEPHALOGRAM (EEG) REPORT: TECHNIQUE: A routine 18 channel EEG was performed with video using the 10/20 international electrode placement system. HISTORY: Dizziness and near syncope. MEDICATIONS: Unknown. STUDY DURATION: 25 minutes. FINDINGS: BACKGROUND: The background activity consisted of 9 to 10 hertz rhythmic waveforms symmetrically distributed over both posterior quadrants. ACTIVATION: Hyperventilation: Not performed. Photic stimulation: Symmetric driving seen. Sleep: Stages I and II sleep noted. ABNORMALITIES: None. Please note that 1 channel of this EEG was dedicated to EKG. It demonstrated a sinus rhythm. IMPRESSION: Normal EEG. No epileptiform activity was present. No seizures were recorded. MMODL / IJN: [id number] /
== END | disposition home or self-care (01) ==
LOC: NEUROMAIN 09:43
PROVIDERS: ATTEND Family Medicine
DX: R55 Syncope and collapse (principal); R42 Dizziness and giddiness
CPT/HCPCS: 95819

== ENCOUNTER 2019-04-18 07:42 | Day surgery (SDC) | payer MEDICARE ==
[2019-04-14 11:37] VITALS: BMI 29.2
[2019-04-18 08:45] VITALS: RESP 16; TEMP 98
[2019-04-18] MEDS ORDERED: LIDOCAINE 1% 20 ML VIAL (10MG/ML) FOR IV START INTRADERMA ONE (08:45)
--- NOTE | 2019-04-18 09:33 | P.PCN ---
Date of Procedure: 04/18/19 Procedure(s) Performed: PREOPERATIVE DIAGNOSIS: 1- Lumbar radiculopathy, Lumbar Degenerative Disc Diseases 2-Lumbar spondylosis with Facet arthropathy without myelopathy POSTOPERATIVE DIAGNOSIS: 1-Lumber Degenerative Disc Diseases 2-Lumbar spondylosis with Facet arthropathy without myelopathy PROCEDURE 1. Lumbar epidural steroid injection under fluoroscopic guidance at the L4-L5 level using a left paramedian approach 2. Lumbar epidurogram. ANESTHESIA: Local with 1% lidocaine 3 ml, moderate sedation with intravenous Versed and fentanyl Fluoroscopy was used for the procedure and images were saved in the radiology portion of the chart. EBL: Minimal PROCEDURE INDICATION: The patient with low back pain and radiculitis symptoms unresponsive to conservative treatment. Fluoroscopy was used to optimize visualization of the needle placement and to maximize safety. PROCEDURE DESCRIPTION / TECHNIQUE: The patient was seen and identified in the preoperative area. Risks, benefits, complications including but not limited to infections ,bleeding ,allergic reaction to the medications ,nerve damage and incomplete pain releif , and alternatives were discussed with the patient. The patient agreed to proceed with the procedure and signed the consent. IV was started, and vital signs were stable. Patient was taken to the OR and time out was completed. The patient was placed in the prone position on procedure table and a pillow was placed under the abdomen to reduce lumbar lordosis. The lumbosacral area was prepped and draped in the usual sterile fashion. Vitals were closely monitored during the procedure. Conscious sedation was used during the procedure to decrease patients anxiety. Using anterior-posterior fluoroscopy, the L4-L5 interlaminar space was identified and the skin over this site was marked and then infiltrated with 1% lidocaine subcutaneously. Subsequently, a 20-gauge 3.5" Tuohy epidural needle was inserted and advanced toward the epidural space using the loss of resistance technique and guided by AP and lateral/ oblique fluoroscopy. The correct needle position in the epidural space was verified with the injection of 2 mL of the water soluble contrast dye Isovue 200 contrast under live fluoroscopy, observing an excellent epidurogram. Then, after negative aspiration for blood and CSF and in the absence of paresthesias, a 5 ml mixture containing 80 mg of Depo-medrol , 3 ml of preservative free Normal Saline, and 1 ml of preservative free lidocaine 1% solution was injected and a washout of epidurogram was seen. Needle was withdrawn intact, skin was cleansed, and bandages were applied. COMPLICATIONS: None DISPOSITION / PLANS: The patient was placed in a supine position and transferred to the recovery area in a stable condition for observation. There was no evidence of lower extremity motor or sensory deficit after the procedure. Patient was discharged from the recovery room after meeting discharge criteria. Home discharge instructions were given to the patient by the staff. The patient will schedule a follow up in the clinic in 2-4 weeks.
[2019-04-18] MEDS ORDERED: LACTATED RINGERS 1,000 ML IV ONE (09:39)
[2019-04-18 10:03] VITALS: BP 115/67; PULSE 72
--- NOTE | 2019-04-18 17:35 | FL ---
Fluoroscopy HISTORY: Pain 9 seconds fluoroscopy time supplied to the referring clinician. 4 intraoperative C-arm images docume nt the procedure. See dictated report from anesthesia.
== END 2019-04-18 10:21 | disposition home or self-care (01) ==
LOC: ORPAIN 07:42
PROVIDERS: ATTEND Anesthesiology
DX: M47.26 Other spondylosis with radiculopathy, lumbar region (principal); M51.16 Intervertebral disc disorders with radiculopathy, lumbar region; Z78.0 Asymptomatic menopausal state
CPT/HCPCS: 62323; J2250; J1030; Q9966; 99152

== ENCOUNTER → 2019-05-16 | Outpatient (CLI) | payer MEDICARE ==
[2019-05-16 14:09] VITALS: BP 136/60; PULSE 63; RESP 16
--- NOTE | 2019-05-16 15:49 | P.PAINPG ---
Subjective Progress Note Date: 05/16/19 The patient is a 74-year-old female with intractable low back pain. She presents for follow-up after her lumbar interlaminar epidural steroid injection at L4-L5. Pain scores at rest have improved in fact she has very little pain. However she continues to have significant pain on the left side when she is active which limits her mobility. Thus she is happy with her epidural, however she is looking for even better pain control. Objective - Vital Signs Vital signs: Vital Signs Temp Pulse 63 05/16/19 13:52 Resp 16 05/16/19 13:52 BP 136/60 05/16/19 13:52 Pulse Ox 99 05/16/19 13:52 Intake & Output 05/15/19 05/16/19 05/16/19 18:59 06:59 18:59 Weight 84.822 kg - Exam Vital Signs: Reviewed in EMR GENERAL: Well appearing, in no acute distress, PSYCH: Mood and affect is appropriate. Awake, alert, and oriented SKIN: Skin color, texture, turgor normal, no rashes or lesions HEENT: Normocephalic, atraumatic. EOM intact CV: No pedal edema RESP: Respirations are unlabored, no audible wheezing GI: Abdomen non-distended MUSCULOSKELETAL: Bilateral upper and lower extremity strength is normal and symmetric. No atrophy or tone abnormalities are noted. Lumbar spine: Positive pain to palpation over the lumbar spine and paraspinous muscles. Buttocks: No pain to palpation over the PSIS, Renetta test is negative bilaterally Extremities: Peripheral joint ROM is full and pain free without obvious instability or laxity in all four extremities. No edema or skin discolorations noted. Gait: Gait is anantalgic NEUR: No loss of sensation is noted. Cranial nerves are grossly intact. Assessment and Plan Assessment: Assessment: 1. Lumbar spondylosis 2. Myofascial pain Plan: 1. Explanation: I spoke to her about the causes of low back pain, she has already had RF without excellent benefit 2. Opioid agreement: None 3. Counseling: Spoke to her about being active 4. Procedures: I offered her trigger point injections for her left lower lumbar area, however she would like to try the lidocaine patch first 5. Consultations: None 6. Investigations: None 7. Medications: I have prescribed her lidocaine patch 5% to the affected area, to possibly treat the myofascial component of her pain 8. Disposition: 4 weeks for follow-up , PQRS Measure Charge Sheet Measure #226: Tobacco Use: Screen & Cessation Intervention: Pt screened for tobacco use AND intervention given Measure #111: Pneumonia Vaccination: Pneumococcal vaccine administered or previously received Measure #47: Advance Care Plan: Advance care planning discussed & documented, pt chose/unable to give Measure #412: Opioid Treatment Agreement: No documentation of signed opioid treatment agreement Measure #131: Pain Assessment & Follow-up: Pain positive & plan documented, Follow-up scheduled Measure #431: Unhealthy Alcohol Use Preventative Care & Scrn: Patient not identified as an unhealthy alcohol user PQRS Narrative: Smoking Status Former smoker Blood Pressure 136/60 Pain Intensity [Left Lower 2 Back] Scale Used Numeric (1 - 10) Hx Alcohol Use (MH) No Home Medications: Ambulatory Orders Metoprolol Tartrate [Lopressor] 50 mg PO QAM 07/21/14 Cyanocobalamin (Vitamin B-12) [Vitamin B-12] 1,000 mcg PO MOWEFR 06/22/17 Metoprolol Tartrate [Lopressor] 25 mg PO HS 06/22/17 Multivitamins, Thera [Multivitamin (formulary)] 1 tab PO DAILY 06/22/17 Aspirin [Adult Low Dose Aspirin EC] 81 mg PO DAILY 11/17/17 Vitamin A 2,400 mcg PO DAILY 04/28/18 Cholecalciferol [Vitamin D3] 1,000 unit PO DAILY 10/20/18 L.acidoph,Paracasei, B.lactis [Probiotic] 1 each PO DAILY 10/20/18 Artificial Tears-Hypromellose [Artificial Tear Drops] 1 drops BOTH EYES TID PRN 01/12/19 Controlled Substance Measures - Controlled Substance Measures Is patient prescribed a controlled substance at discharge?: No
== END | disposition home or self-care (01) ==
LOC: PNWHC3 13:07
PROVIDERS: ATTEND Student in an Organized Health Care Education/Training Program
DX: M47.816 Spondylosis without myelopathy or radiculopathy, lumbar region (principal); M79.18 Myalgia, other site; Z87.891 Personal history of nicotine dependence; Z79.82 Long term (current) use of aspirin; Z79.899 Other long term (current) drug therapy
CPT/HCPCS: 99211

== ENCOUNTER 2019-05-26 16:36 | Observation (INO) | payer MEDICARE ==
--- NOTE | 2019-05-26 17:12 | ED ---
Chest Pain HPI - General Chief Complaint: Chest Pain Stated Complaint: Chest pain Time Seen by Provider: 05/26/19 16:56 Source: patient, RN notes reviewed, old records reviewed Mode of arrival: ambulatory Limitations: no limitations - History of Present Illness Initial Comments: This is a 74-year-old female the ER today. She presents today for ER for e valuation of chest pain chest pain started about 4 AM this morning persistent dull today. Chest pain did wake her up. Chest pains anterior tightness substernal. She thought it may be reflux she has a history of reflux but the persistence is made her nauseous inability to eat and pain is been persistent. Again no shortness of breath no diaphoresis. No history of heart disease she has had history of atrial fibrillation she feels like it may be similar to that which she has atrial fibrillation. She has no symptoms of palpitations. No change in medications as of late. No blood thinners MD Complaint: chest pain -: hour(s) Onset: during rest Pain Location: substernal Pain Radiation: none Severity: moderate Severity scale (1-10): 5 Quality: tightness, aching Consistency: constant Improves With: nothing Worsens With: nothing Treatments Prior to Arrival: none - Related Data Home Medications Medication Instructions Recorded Confirmed Metoprolol Tartrate [Lopressor] 50 mg PO QAM 07/21/14 05/26/19 Cyanocobalamin (Vitamin B-12) 1,000 mcg PO MOWEFR 06/22/17 05/26/19 [Vitamin B-12] Metoprolol Tartrate [Lopressor] 25 mg PO HS 06/22/17 05/26/19 Multivitamins, Thera [Multivitamin 1 tab PO DAILY 06/22/17 05/26/19 (formulary)] Aspirin [Adult Low Dose Aspirin EC] 81 mg PO DAILY 11/17/17 05/26/19 Vitamin A 2,400 mcg PO DAILY 04/28/18 05/26/19 Cholecalciferol [Vitamin D3] 1,000 unit PO DAILY 10/20/18 05/26/19 L.acidoph,Paracasei, B.lactis 1 cap PO DAILY 10/20/18 05/26/19 [Probiotic] Artificial Tears-Hypromellose 1 drops BOTH EYES TID PRN 01/12/19 05/26/19 [Artificial Tear Drops] Allergies Allergy/AdvReac Type Severity Reaction Status Date / Time Penicillins Allergy Anaphylaxis Verified 05/26/19 16:50 Sulfa (Sulfonamide Allergy Unknown Verified 05/26/19 16:50 Antibiotics) Childhood acetaminophen AdvReac Elevates Verified 05/26/19 16:50 Liver Enzymes codeine AdvReac Nausea & Verified 05/26/19 16:50 Vomiting NSAIDS (Non-Steroidal AdvReac ULCER- Verified 05/26/19 16:50 Anti-Inflamma HISTORY sulfamethoxazole AdvReac Diarrhea, Verified 05/26/19 16:50 [From Bactrim] C-Diff trimethoprim [From Bactrim] AdvReac Diarrhea, Verified 05/26/19 16:50 C-Diff Review of Systems ROS Statement: Those systems with pertinent positive or pertinent negative responses have been documented in the HPI. ROS Other: All systems not noted in ROS Statement are negative. EKG Findings - EKG Comments: EKG Findings:: EKG shows sinus rhythm at 67, W[place] 126, QRS 70, QTc 416 Past Medical History Past Medical History: Atrial Fibrillation, Cancer, Eye Disorder, Musculoskeletal Disorder, Osteoarthritis (OA), Renal Disease Additional Past Medical History / Comment(s): DRY EYE, CORNEAL DYSTROPHY. HX RT BREAST CA. No blood draw or blood pressure on RT side. HYPOGLYCEMIA. EDEMA LOWER LEGS OCC. STOMACH ULCER 04-06-18. 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 LOWER BACK PAIN; NT TOES FOR SEV YEARS, frequent headaches recently & new lump right jaw area-sees maxillo-facial dr jhoan History of Any Multi-Drug Resistant Organisms: ESBL, MRSA Date of last positivie culture/infection: 04/2018 MRSA/URINE; 08/26/18 MDRO Source:: ESBL URINE Past Surgical History: Adenoidectomy, Appendectomy, Breast Surgery, Cholecystectomy, Hernia Repair, Hysterectomy, Tonsillectomy Additional Past Surgical History / Comment(s): RT BREAST MASTECTOMY W/ RECONSTRUCTION; FATTY TUMOR EXC LT ARM. NEPHROLITHOTOMY TUBE W/ STONE REMOVAL. EGD, COLONOSCOPY. EXC RT OVARY/TUBE. CANCER EXC. RT BUCCAL MUCOSA W/ TISSUE TRANSPLANT FROM LT WRIST & several cervical lymph nodes removed Past Anesthesia/Blood Transfusion Reactions: Previous Problems w/ Anesthesia, Postoperative Nausea & Vomiting (PONV) Additional Past Anesthesia/Blood Transfusion Reaction / Comment(s): TOOK VERY LONG TIME TO AWAKEN AFTER SURGERY IN 2012. Past Psychological History: No Psychological Hx Reported Smoking Status: Former smoker Past Alcohol Use History: Rare Past Drug Use History: None Reported - Past Family History Father Family Medical History: Congestive Heart Failure (CHF), Coronary Artery Disease (CAD), Diabetes Mellitus, Deep Vein Thrombosis (DVT), Hypertension Additional Family Medical History / Comment(s): PHLEBITIS LEG Sister(s) Family Medical History: Diabetes Mellitus Brother(s) Family Medical History: AFIB Mother Family Medical History: AFIB, Deep Vein Thrombosis (DVT) Additional Family Medical History / Comment(s): PHLEBITIS IN LEG General Exam Limitations: no limitations General appearance: alert, in no apparent distress Head exam: Present: atraumatic, normocephalic, normal inspection Eye exam: Present: normal appearance, PERRL, EOMI. Absent: scleral icterus, conjunctival injection, periorbital swelling ENT exam: Present: normal exam, mucous membranes moist Neck exam: Present: normal inspection. Absent: tenderness, meningismus, lymphadenopathy Respiratory exam: Present: normal lung sounds bilaterally. Absent: respiratory distress, wheezes, rales, rhonchi, stridor Cardiovascular Exam: Present: regular rate, normal rhythm, normal heart sounds. Absent: systolic murmur, diastolic murmur, rubs, gallop, clicks GI/Abdominal exam: Present: soft, normal bowel sounds. Absent: distended, tenderness, guarding, rebound, rigid Extremities exam: Present: normal inspection, full ROM, normal capillary refill. Absent: tenderness, pedal edema, joint swelling, calf tenderness Back exam: Present: normal inspection Neurological exam: Present: alert, oriented X3, CN II-XII intact Psychiatric exam: Present: normal affect, normal mood Skin exam: Present: warm, dry, intact, normal color. Absent: rash Course Vital Signs 05/26/19 16:37 Temperature 98.8 F Pulse Rate 70 Respiratory 18 Rate Blood Pressure 140/85 O2 Sat by Pulse 95 Oximetry - Reevaluation(s) Reevaluation #1: 05/26/19 18:43 Medical records reviewed Reevaluation #2: 05/26/19 18:43 Chest pain is unchanged. Patient still with pain mild elevated blood pressure Chest Pain MDM - MDM 74 female the ER with chest pain although atypical patient has history of high blood pressure is hypertensive currently. She will be admitted for evaluation of chest pain and cardiology consult. Critical Care Time Critical Care Time: Yes Total Critical Care Time: 31 Disposition Clinical Impression: Chest pain Disposition: ADMITTED IP TO THIS HOSP Condition: Undetermined Is patient prescribed a controlled substance at d/c from ED?: No Referrals: Shantel Thomas MD [Primary Care Provider] - 1-2 days
[2019-05-26 17:29] LABS: Basophils % (A) 1 %; Eosinophils # (A) 0.1 k/uL (0-0.7); Eosinophils % (A) 2 %; HGB 13.4 gm/dL (11.4-16.0); Lymphocytes # (A) 1.7 k/uL (1.0-4.8); Lymphocytes % (A) 29 %; MCH 28.4 pg (25.0-35.0); MCHC 32.8 g/dL (31.0-37.0); MCV 86.7 fL (80.0-100.0); Mean Platelet Volume 6.9; Monocytes # (A) 0.3 k/uL (0-1.0); Monocytes % (A) 5 %; Neutrophils # (A) 3.6 k/uL (1.3-7.7); Neutrophils % (A) 62 %; Platelet Count 232 k/uL (150-450); RBC 4.72 m/uL (3.80-5.40); RDW 13.8 % (11.5-15.5); WBC 5.9 k/uL (3.8-10.6)
[2019-05-26 17:39] LABS: ALT 28 U/L (9-52); AST 27 U/L (14-36); African American GFR (CKD) >90 (>60 ml/min/1.73 sqM); Alkaline Phosphatase 86 U/L (38-126); Anion Gap 6 mmol/L; Blood Urea Nitrogen 18 mg/dL (7-17); Calcium 9.5 mg/dL (8.4-10.2); Carbon Dioxide 26 mmol/L (22-30); Chloride 110 mmol/L (98-107); Glucose 96 mg/dL (74-99); Magnesium 1.9 mg/dL (1.6-2.3); Partial Thromboplastin Time 24.5 sec (22.0-30.0); Potassium 4.1 mmol/L (3.5-5.1); Prothrombin Time 10.5 sec (9.0-12.0); Sodium 142 mmol/L (137-145); Total Bilirubin 0.5 mg/dL (0.2-1.3); Total Protein 6.9 g/dL (6.3-8.2)
--- NOTE | 2019-05-26 17:41 | XR ---
EXAMINATION TYPE: XR chest 2V DATE OF EXAM: 05/26/2019 COMPARISON: 07/01/2018 HISTORY: Chest pain TECHNIQUE: Frontal and lateral views of the chest are obtained. FINDINGS: Heart and mediastinum are normal. Lungs are clear of infiltrate. There are no hilar masses . Diaphragm is normal. There is right side breast implant. Bony thorax is intact. IMPRESSION: No active cardiopulmonary disease. No change.
[2019-05-26] MEDS ORDERED: ASPIRIN 81 MG PO STA (18:43)
[2019-05-26] MEDS ORDERED: LABETALOL 5 MG/ML VIAL MDV IVP STA (18:43)
[2019-05-26] MEDS ORDERED: NITROGLYCERIN SL TABS 0.4 MG TAB SUBLINGUAL PRN (18:43)
[2019-05-26] MEDS ORDERED: MAG HYDROX/AL HYDROX/SIMETH 30 ML, HYOSCYAMINE ELIXIR 10 ML, CIMETIDINE HCL 300 MG PO STA ×3 (18:44)
[2019-05-26] MEDS ORDERED: PANTOPRAZOLE 40 MG/10 ML VIAL IVP STA (18:44)
--- NOTE | 2019-05-26 19:36 | CT ---
EXAMINATION TYPE: CT angio chest DATE OF EXAM: 05/26/2019 7:28 PM COMPARISON: None HISTORY: Chest pain. CT DLP: 335.5 mGycm Automated exposure control for dose reduction was used. CONTRAST: CTA scan of the thorax is performed with IV Contrast, patient injected with 71ml mL of Isovue 370, pu lmonary embolism protocol. There are 3-D post processed images.. FINDINGS: The lungs are clear of consolidation. There is no pleural effusion. There is no mediastinal adenopath y. Thoracic aorta shows some atheromatous change. There is no aneurysm or dissection. The ascending a rocky measures 3.3 cm. There is normal contrast opacification of the pulmonary arteries. There are no filling defects. There is right breast implant. There are no hilar masses. There is spurring in the thoracic spine. There are numerous calculi in the kidneys. There is a 4.3 cm cyst on the anterior left kidney. IMPRESSION: NO EVIDENCE OF PULMONARY EMBOLISM.
[2019-05-26] MEDS ORDERED: METOPROLOL TARTRATE 25 MG TAB PO SCH (21:00)
[2019-05-26 21:54] LABS: Appearance,Urine Clear (Clear); Bacteria,Urine Rare /hpf; Bilirubin,Urine Negative (Negative); Blood,Urine Small (Negative); Color,Urine Light Yellow; Glucose,Urine (UA) Negative (Negative); Ketones,Urine Negative (Negative); Leukocyte Esterase,Urine Large (Negative); Mucus,Urine Rare /hpf; Nitrite,Urine Negative (Negative); PH, Urine 5.5 (5.0-8.0); Protein,Urine Trace (Negative); RBC,Urine 37 /hpf (0-5); Squamous Epithelial Cell,Urine 1 /hpf (0-4); Urobilinogen,Urine <2.0 mg/dL (<2.0)
[2019-05-26 21:55] LABS: Specific Gravity,Urine >1.050 (1.001-1.035)
[2019-05-26] MEDS ORDERED: ARTIFICIAL TEARS-HYPROMELLOSE DROPS 15 ML BTL BOTH EYES PRN (22:24)
[2019-05-26] MEDS: MAG HYDROX/AL HYDROX/SIMETH 30 ML CUP PO PRN (22:29)
[2019-05-27 06:15] LABS: Basophils % (A) 0 %; Eosinophils # (A) 0.1 k/uL (0-0.7); Eosinophils % (A) 2 %; HCT 37.8 % (34.0-46.0); HGB 12.4 gm/dL (11.4-16.0); Lymphocytes # (A) 2.3 k/uL (1.0-4.8); Lymphocytes % (A) 43 %; MCH 28.6 pg (25.0-35.0); MCHC 32.9 g/dL (31.0-37.0); Mean Platelet Volume 7.3; Monocytes # (A) 0.4 k/uL (0-1.0); Monocytes % (A) 7 %; Neutrophils # (A) 2.4 k/uL (1.3-7.7); Neutrophils % (A) 46 %; Platelet Count 218 k/uL (150-450); RBC 4.34 m/uL (3.80-5.40); RDW 13.9 % (11.5-15.5); WBC 5.3 k/uL (3.8-10.6)
[2019-05-27 06:23] LABS: Albumin 3.4 g/dL (3.5-5.0); Calcium 9.2 mg/dL (8.4-10.2); Potassium 3.8 mmol/L (3.5-5.1); Total Bilirubin 0.3 mg/dL (0.2-1.3)
[2019-05-27] MEDS ORDERED: ASPIRIN 325 MG TAB PO SCH (09:00)
[2019-05-27] MEDS ORDERED: ATORVASTATIN 80 MG TAB PO SCH (09:00)
[2019-05-27] MEDS ORDERED: CHOLECALCIFEROL 1,000 UNIT TAB PO SCH (09:00)
[2019-05-27] MEDS ORDERED: CYANOCOBALAMIN 500 MCG TAB PO SCH (09:00)
[2019-05-27] MEDS ORDERED: NON-FORMULARY DRUG (L.Acidoph,Paracasei, B.Lactis [Probiotic] 1 CAP) PO SCH (09:00)
[2019-05-27] MEDS ORDERED: METOPROLOL TARTRATE 50 MG TAB PO SCH ×2 (09:00→21:00)
[2019-05-27] MEDS ORDERED: VITAMIN A 2400 MCG PO SCH (09:00)
[2019-05-27] MEDS ORDERED: ASPIRIN 81 MG PO SCH (09:00)
[2019-05-27] MEDS ORDERED: MULTIVITAMINS, THERA 1 EACH TAB PO SCH (09:00)
--- NOTE | 2019-05-27 09:33 | ECHOF ---
Referral Reason:Chest pain MEASUREMENTS -------- HEIGHT: 170.2 cm WEIGHT: 84.8 kg BP: 103/66 RVIDd: 3.2 cm (< 3.3) IVSd: 1.3 cm (0.6 - 1.1) LVIDd: 4.4 cm (3.9 - 5.3) LVPWd: 1.3 cm (0.6 - 1.1) IVSs: 1.8 cm LVIDs: 2.7 cm LVPWs: 2.0 cm LA Diam: 3.9 cm (2.7 - 3.8) LAESV Index (A-L): 23.99 ml/m Ao Diam: 3.3 cm (2.0 - 3.7) AV Cusp: 2.1 cm (1.5 - 2.6) MV EXCURSION: 14.317 mm (> 18.000) MV EF SLOPE: 90 mm/s (70 - 150) EPSS: 0.5 cm MV E Narciso: 0.99 m/s MV DecT: 208 ms MV A Narciso: 0.78 m/s MV E/A Ratio: 1.28 AR PHT: 679 ms RAP: 5.00 mmHg RVSP: 36.83 mmHg FINDINGS -------- Sinus rhythm. This was a technically adequate study. The left ventricular size is normal. There is mild concentric left ventricular hypertrophy. Overa ll left ventricular systolic function is normal with, an EF between 60 - 65 %. The right ventricle is normal in size. Normal LA size by volume 22+/-6 ml/m2. The right atrium is normal in size. Interatrial and interventricular septum intact. The aortic valve is trileaflet and appears structurally normal. There is moderate aortic regurgitat ion. The aortic pressure half-time by doppler is 679ms. There is trace mitral regurgitation. Trace tricuspid regurgitation present. There is mild pulmonary hypertension. The right ventricula r systolic pressure, as measured by Doppler, is 36.83mmHg. Trace/mild (physiologic) pulmonic regurgitation. The aortic root size is normal. Normal inferior vena cava with normal inspiratory collapse consistent with estimated right atrial pre ssure of 5 mmHg. There is no pericardial effusion. CONCLUSIONS -------- 1. Sinus rhythm. 2. This was a technically adequate study. 3. The left ventricular size is normal. 4. There is mild concentric left ventricular hypertrophy. 5. Overall left ventricular systolic function is normal with, an EF between 60 - 65 %. 6. The right ventricle is normal in size. 7. Normal LA size by volume 22+/-6 ml/m2. 8. The right atrium is normal in size. 9. Interatrial and interventricular septum intact. 10. The aortic valve is trileaflet and appears structurally normal. 11. There is moderate aortic regurgitation. 12. The aortic pressure half-time by doppler is 679ms. 13. There is trace mitral regurgitation. 14. Trace tricuspid regurgitation present. 15. There is mild pulmonary hypertension. 16. The right ventricular systolic pressure, as measured by Doppler, is 36.83mmHg. 17. Trace/mild (physiologic) pulmonic regurgitation. 18. The aortic root size is normal. 19. Normal inferior vena cava with normal inspiratory collapse consistent with estimated right atrial pressure of 5 mmHg. 20. There is no pericardial effusion. [employer] SANITARIAN: Jazmyne Helms RDCS
--- NOTE | 2019-05-27 10:57 | P.CRDCN ---
History of Present Illness History of present illness: This is a pleasant 74-year-old female past medical history significant for paroxysmal atrial fibrillation not on mcfp anticoagulation secondary to significant hematuria in the past, history of ulcer in the past, right breast cancer and hypertension. We've asked to see her in consultation secondary to chest discomfort. She follows in the office with Dr. Corazon Verde. She states she started having discomfort in the epigastric region around 4:00 in the morning on . The pain is described as a stabbing pain in the midsternal region that radiates through to the back and sometimes into the lower abdomen mostly on the left side. Her symptoms are associated with nausea and overall generalized fatigue. She has not vomited. She denies any symptoms of precordial chest discomfort, shortness of breath, dizziness or palpitations. She is seen and examined sitting up in bed in no acute distress. She is significantly tender in the epigastric region as well as left upper quadrant of the abdomen. EKG reveals sinus mechanism with no acute ST or T wave abnormalities noted. Chest x-ray is negative for an acute cardiopulmonary process. CTA of the chest is negative for pulmonary embolism. Current cardiac medications include aspirin 81 mg daily and Lopressor 25 mg at bedtime and 50 mg in the morning. Laboratory data reviewed, WBC 5.3, hemoglobin 12.4, platelets 218, sodium 141, potassium 3.8, creatinine 0.79, magnesium 1.9, cardiac enzymes negative 3, proBNP 522, LDL 120, HDL 44 total cholesterol 182. At the time of my exam: CONSTITUTIONAL: Denies fever. Denies chills. EYES: Denies blurred vision. Denies vision changes. Denies eye pain. EARS, NOSE, MOUTH & THROAT: Denies headache. Denies sore throat. Denies ear pain. CARDIOVASCULAR: Denies chest pain. Denies shortness of breath. Denies orthopnea. Denies PND. Denies palpitations. RESPIRATORY: Denies cough. GASTROINTESTINAL: Denies abdominal pain. Denies diarrhea. Denies constipation. Denies nausea. Denies vomiting. MUSCULOSKELETAL: Denies myalgias. INTEGUMENTARY: Denies pruitis. Denies rash. NEUROLOGIC: Denies numbness. Denies tingling. Denies weakness. PSYCHIATRIC: Denies anxiety. Denies depression. ENDOCRINE: Denies fatigue. Denies weight change. Denies polydipsia. Denies polyurina. GENITOURINARY: Denies burning, hematuria or urgency with micturation. HEMATOLOGIC: Denies history of anemia. Denies bleeding. Blood pressure 104/60 heart rate 59 afebrile maintaining oxygen saturation on room air GENERAL: This is a 74-year-old female in no apparent distress at the time of my examination. HEENT: Head is atraumatic, normocephalic. Pupils are equal, round. Sclerae anicteric. Conjunctivae are clear. Mucous membranes of the mouth are moist. Neck is supple. There is no jugular venous distention. No carotid bruit is heard. LUNGS: Clear to auscultation no wheezes, rales or rhonchi. No chest wall tenderness is noted on palpation or with deep breathing. HEART: Regular rate and rhythm with murmur at the base, no rubs or gallops. S1 and S2 heard. ABDOMEN: Soft, significant epigastric tenderness and mild left upper quadrant tenderness on palpation. Bowel sounds are heard. No organomegaly noted. EXTREMITIES: No evidence of peripheral edema and no calf tenderness noted. VASCULAR: Radial and dorsalis pedis pulses palpated, no evidence of clubbing. NEUROLOGIC: Patient is awake, alert and oriented x3. ASSESSMENT Epigastric pain/tenderness. An acute coronary event has been ruled out. Patient has a history of ulcer in the past. Paroxysmal atrial fibrillation on long-term anticoagulation secondary to significant hematuria Hypertension History of breast cancer History of ulcer PLAN An acute coronary event has been ruled out. Obtain 2-D echocardiogram and Doppler study to assess cardiac structure and function. Recommend GI evaluation. Stable from a cardiac perspective, we will continue to follow as needed. Follow-up with Dr. Romeo upon discharge. Thank you kindly for this consultation. Nurse Practitioner note has been reviewed, I agree with a documented findings and plan of care. Patient was seen and examined. Past Medical History Past Medical History: Atrial Fibrillation, Cancer, Eye Disorder, Musculoskeletal Disorder, Osteoarthritis (OA), Renal Disease Additional Past Medical History / Comment(s): DRY EYE, CORNEAL DYSTROPHY. HX RT BREAST CA. No blood draw or blood pressure on LT side. HYPOGLYCEMIA. EDEMA LOWER LEGS OCC. STOMACH ULCER 04-06-17. 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 LOWER BACK PAIN; NT TOES FOR SEV YEARS, frequent headaches recently & new lump right jaw area-sees maxillo-facial dr staples History of Any Multi-Drug Resistant Organisms: ESBL, MRSA Date of last positivie culture/infection: 04/2018 MRSA/URINE; 08/26/18 MDRO Source:: ESBL URINE Past Surgical History: Adenoidectomy, Appendectomy, Breast Surgery, Cholecystectomy, Hernia Repair, Hysterectomy, Tonsillectomy Additional Past Surgical History / Comment(s): RT BREAST MASTECTOMY W/ RECONSTRUCTION; FATTY TUMOR EXC LT ARM. NEPHROLITHOTOMY TUBE W/ STONE REMOVAL. EGD, COLONOSCOPY. EXC RT OVARY/TUBE. CANCER EXC. RT BUCCAL MUCOSA W/ TISSUE TRANSPLANT FROM LT WRIST & several cervical lymph nodes removed Past Anesthesia/Blood Transfusion Reactions: Previous Problems w/ Anesthesia, Postoperative Nausea & Vomiting (PONV) Additional Past Anesthesia/Blood Transfusion Reaction / Comment(s): TOOK VERY LONG TIME TO AWAKEN AFTER SURGERY IN 2012. Past Psychological History: No Psychological Hx Reported Additional Psychological History / Comment(s): DENIES Smoking Status: Never smoker Past Alcohol Use History: Rare Additional Past Alcohol Use History / Comment(s): SMOKED ON/OFF STARTING @ AGE 16, QUIT SMOKING 11/27/1999, SMOKED 1/2- 1 Past Drug Use History: None Reported Additional Drug Use History / Comment(s): . - Past Family History Father Family Medical History: Congestive Heart Failure (CHF), Coronary Artery Disease (CAD), Diabetes Mellitus, Deep Vein Thrombosis (DVT), Hypertension Additional Family Medical History / Comment(s): PHLEBITIS LEG Sister(s) Family Medical History: Diabetes Mellitus Brother(s) Family Medical History: AFIB Mother Family Medical History: AFIB, Deep Vein Thrombosis (DVT) Additional Family Medical History / Comment(s): PHLEBITIS IN LEG Medications and Allergies Home Medications Medication Instructions Recorded Confirmed Type Metoprolol Tartrate [Lopressor] 50 mg PO QAM 07/21/14 05/26/19 History Cyanocobalamin (Vitamin B-12) 1,000 mcg PO MOWEFR 06/22/17 05/26/19 History [Vitamin B-12] Metoprolol Tartrate [Lopressor] 25 mg PO HS 06/22/17 05/26/19 History Multivitamins, Thera [Multivitamin 1 tab PO DAILY 06/22/17 05/26/19 History (formulary)] Aspirin [Adult Low Dose Aspirin EC] 81 mg PO DAILY 11/17/17 05/26/19 History Vitamin A 2,400 mcg PO DAILY 04/28/18 05/26/19 History Cholecalciferol [Vitamin D3 (25 1,000 unit PO DAILY 10/20/18 05/26/19 History Mcg = 1000 Iu)] L.acidoph,Paracasei, B.lactis 1 cap PO DAILY 10/20/18 05/26/19 History [Probiotic] Artificial Tears-Hypromellose 1 drops BOTH EYES TID PRN 01/12/19 05/26/19 History [Artificial Tear Drops] Lansoprazole [Prevacid] 30 mg PO DAILY #30 cap 05/27/19 Rx Mag Hydrox/Al Hydrox/Simeth 15 ml PO QID #60 ml 05/27/19 Rx [Maalox] Allergies Allergy/AdvReac Type Severity Reaction Status Date / Time Penicillins Allergy Anaphylaxis Verified 05/26/19 16:50 Sulfa (Sulfonamide Allergy Unknown Verified 05/26/19 16:50 Antibiotics) Childhood acetaminophen AdvReac Elevates Verified 05/26/19 16:50 Liver Enzymes codeine AdvReac Nausea & Verified 05/26/19 16:50 Vomiting NSAIDS (Non-Steroidal AdvReac ULCER- Verified 05/26/19 16:50 Anti-Inflamma HISTORY sulfamethoxazole AdvReac Diarrhea, Verified 05/26/19 16:50 [From Bactrim] C-Diff trimethoprim [From Bactrim] AdvReac Diarrhea, Verified 05/26/19 16:50 C-Diff Physical Exam Vitals: Vital Signs Temp Pulse Pulse Resp BP BP Pulse Ox 05/27/19 07:05 97.8 F 59 L 16 104/60 97 05/27/19 04:00 97.4 F L 57 L 16 103/66 96 05/27/19 00:00 97.7 F 62 18 99/63 96 05/26/19 21:30 97.6 F 64 18 132/83 98 05/26/19 20:42 97.9 F 65 18 137/89 98 05/26/19 19:53 73 18 142/51 98 05/26/19 18:43 64 16 132/57 95 05/26/19 16:37 98.8 F 70 18 140/85 95 Intake and Output 05/26/19 05/27/19 05/27/19 22:59 06:59 14:59 Other: # Voids 1 1 Weight 84.822 kg Results 05/27/19 06:03 05/27/19 06:03 Cardiac Enzymes 05/26/19 05/26/19 05/26/19 Range/Units 00:01 17:10 17:10 AST 27 (14-36) U/L Troponin I <0.012 <0.012 (0.000-0.034) ng/mL 05/27/19 05/27/19 Range/Units 06:03 06:03 AST 23 (14-36) U/L Troponin I <0.012 (0.000-0.034) ng/mL Coagulation 05/26/19 Range/Units 17:10 PT 10.5 (9.0-12.0) sec APTT 24.5 (22.0-30.0) sec Lipids 05/27/19 Range/Units 06:03 Triglycerides 90 (<150) mg/dL Cholesterol 182 (<200) mg/dL HDL Cholesterol 44 (40-60) mg/dL CBC 05/26/19 05/27/19 Range/Units 17:10 06:03 WBC 5.9 5.3 (3.8-10.6) k/uL RBC 4.72 4.34 (3.80-5.40) m/uL Hgb 13.4 12.4 (11.4-16.0) gm/dL Hct 41.0 37.8 (34.0-46.0) % Plt Count 232 218 (150-450) k/uL Comprehensive Metabolic Panel 05/26/19 05/27/19 Range/Units 17:10 06:03 Sodium 142 141 (137-145) mmol/L Potassium 4.1 3.8 (3.5-5.1) mmol/L Chloride 110 H 109 H (98-107) mmol/L Carbon Dioxide 26 27 (22-30) mmol/L BUN 18 H 19 H (7-17) mg/dL Creatinine 0.73 0.79 (0.52-1.04) mg/dL Glucose 96 94 (74-99) mg/dL Calcium 9.5 9.2 (8.4-10.2) mg/dL AST 27 23 (14-36) U/L ALT 28 28 (9-52) U/L Alkaline Phosphatase 86 68 (38-126) U/L Total Protein 6.9 6.0 L (6.3-8.2) g/dL Albumin 4.0 3.4 L (3.5-5.0) g/dL Current Medications Generic Name Dose Route Start Last Admin Trade Name Freq PRN Reason Stop Dose Admin Al Hydroxide/Mg Hydroxide 30 ml 05/26/19 22:23 05/26/19 22:29 Maalox PO 30 ml Q4HR PRN Administration GI Upset Artificial Tears 1 drops 05/26/19 22:24 Artificial Tear Drops BOTH EYES TID PRN dry eyes Aspirin 325 mg 05/27/19 09:00 Aspirin PO DAILY [facility] Atorvastatin Calcium 80 mg 05/27/19 09:00 Lipitor PO DAILY [facility] Cholecalciferol 1,000 unit 05/27/19 09:00 Vitamin D3 (25 Mcg = 1000 Iu) PO DAILY [facility] Cyanocobalamin 1,000 mcg 05/27/19 09:00 Vitamin B-12 PO MOWEFR [facility] Metoprolol Tartrate 50 mg 05/27/19 09:00 Lopressor PO QAM [facility] Metoprolol Tartrate 25 mg 05/27/19 21:00 Lopressor PO HS [facility] Multivitamins 1 each 05/27/19 09:00 Theragran PO DAILY [facility] Nitroglycerin 0.4 mg 05/26/19 18:43 Nitrostat SUBLINGUAL Q5M PRN Chest Pain Intake and Output 05/26/19 05/27/19 05/27/19 22:59 06:59 14:59 Other: # Voids 1 1 Weight 84.822 kg 05/27/19 06:03 05/27/19 06:03
[2019-05-27] MEDS: MAG HYDROX/AL HYDROX/SIMETH 30 ML CUP PO PRN (11:00)
--- NOTE | 2019-05-27 12:11 | P.CONS ---
<Mary KateSukumareleuterio Sheikh - Last Filed: 05/27/19 12:05> History of Present Illness - Reason for Consult Consult date: 05/27/19 epigastric pain Requesting physician: Shantel Thomas - Chief Complaint Chest pain - History of Present Illness 74-year-old female admitted with acute chest pain severe epigastric pain since 4 AM yesterday. 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 Recent surveillance EGD October 2017 sliding hiatal hernia no obvious esophagitis or coffee reflux disease. Pyloric channel dilated using 8-10 mm dilator. Pyloric channel duodenum after dilation show complete healing of the ulcer. Patient takes a baby aspirin no NSAIDs. No GI prophylaxis. She has been seen by cardiology no further workup at this point in time. Denies hematemesis but acute melena. Increased nausea. No weight loss. White count 5.3. Hemoglobin 12.4. BUN 19. Creatinine 0.7. INR 1.0. CT chest no evidence of PE. Review of Systems Constitutional: Denies fever, chills, sweats, weight gain, or loss. HEENT: Negative for migraines, blurred vision or loss, earaches, drainage, tinnitus, oral mucosal lesions, dysphagia, or odynophagia. CARDIAC: Negative for chest pain, arrhythmias, or palpitation. RESPIRATORY: Negative for shortness of breath, hemoptysis, cough, or sputum production. GI: See HPI for pertinent findings. : Negative for hematuria, urgency, frequency, polyuria, or dysuria. GYNc: Negative vaginal discharge. MUSCULOSKELETAL: Negative for muscle aches, swelling, arthritis, and arthralgias. NEUROLOGIC: Negative for stroke or TIA. ENDOCRINE: Negative for thyroid problems. SKIN: Negative for rash or itching. PSYCHIATRIC: Negative history for depression and anxiety Past Medical History Past Medical History: Atrial Fibrillation, Cancer, Eye Disorder, Musculoskeletal Disorder, Osteoarthritis (OA), Renal Disease Additional Past Medical History / Comment(s): DRY EYE, CORNEAL DYSTROPHY. HX RT BREAST CA. No blood draw or blood pressure on LT side. HYPOGLYCEMIA. EDEMA LOWER LEGS OCC. STOMACH ULCER 17. 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 NEPHROLITHOTOMY TUBE W/ STONE REMOVAL. EGD, COLONOSCOPY. EXC RT OVARY/TUBE. CANCER EXC. RT BUCCAL MUCOSA W/ TISSUE TRANSPLANT FROM LT WRIST & several cervical lymph nodes removed Past Anesthesia/Blood Transfusion Reactions: Previous Problems w/ Anesthesia, Postoperative Nausea & Vomiting (PONV) Additional Past Anesthesia/Blood Transfusion Reaction / Comm: TOOK VERY LONG TIME TO AWAKEN AFTER SURGERY IN 2012. Past Psychological History: No Psychological Hx Reported Additional Psychological History / Comment(s): DENIES Smoking Status: Never smoker Past Alcohol Use History: Rare Additional Past Alcohol Use History / Comment(s): SMOKED ON/OFF STARTING @ AGE 16, QUIT SMOKING 11/27/1999, SMOKED 11- Past Drug Use History: None Reported Additional Drug Use History / Comment(s): . - Past Family History Father Family Medical History: Congestive Heart Failure (CHF), Coronary Artery Disease (CAD), Diabetes Mellitus, Deep Vein Thrombosis (DVT), Hypertension Additional Family Medical History / Comment(s): PHLEBITIS LEG Sister(s) Family Medical History: Diabetes Mellitus Brother(s) Family Medical History: AFIB Mother Family Medical History: AFIB, Deep Vein Thrombosis (DVT) Additional Family Medical History / Comment(s): PHLEBITIS IN LEG Medications and Allergies Home Medications Medication Instructions Recorded Confirmed Type Metoprolol Tartrate [Lopressor] 50 mg PO QAM 07/21/14 05/26/19 History Cyanocobalamin (Vitamin B-12) 1,000 mcg PO MOWEFR 06/22/17 05/26/19 History [Vitamin B-12] Metoprolol Tartrate [Lopressor] 25 mg PO HS 06/22/17 05/26/19 History Multivitamins, Thera [Multivitamin 1 tab PO DAILY 06/22/17 05/26/19 History (formulary)] Aspirin [Adult Low Dose Aspirin EC] 81 mg PO DAILY 11/17/17 05/26/19 History Vitamin A 2,400 mcg PO DAILY 04/28/18 05/26/19 History Cholecalciferol [Vitamin D3 (25 1,000 unit PO DAILY 10/20/18 05/26/19 History Mcg = 1000 Iu)] L.acidoph,Paracasei, B.lactis 1 cap PO DAILY 10/20/18 05/26/19 History [Probiotic] Artificial Tears-Hypromellose 1 drops BOTH EYES TID PRN 01/12/19 05/26/19 History [Artificial Tear Drops] Lansoprazole [Prevacid] 30 mg PO DAILY #30 cap 05/27/19 Rx Mag Hydrox/Al Hydrox/Simeth 15 ml PO QID #60 ml 05/27/19 Rx [Maalox] Allergies Allergy/AdvReac Type Severity Reaction Status Date / Time Penicillins Allergy Anaphylaxis Verified 05/26/19 16:50 Sulfa (Sulfonamide Allergy Unknown Verified 05/26/19 16:50 Antibiotics) Childhood acetaminophen AdvReac Elevates Verified 05/26/19 16:50 Liver Enzymes codeine AdvReac Nausea & Verified 05/26/19 16:50 Vomiting NSAIDS (Non-Steroidal AdvReac ULCER- Verified 05/26/19 16:50 Anti-Inflamma HISTORY sulfamethoxazole AdvReac Diarrhea, Verified 05/26/19 16:50 [From Bactrim] C-Diff trimethoprim [From Bactrim] AdvReac Diarrhea, Verified 05/26/19 16:50 C-Diff Physical Exam Vitals: Vital Signs Temp Pulse Pulse Resp BP BP Pulse Ox 05/27/19 11:24 97.7 F 70 18 125/79 93 L 05/27/19 07:05 97.8 F 59 L 16 104/60 97 05/27/19 04:00 97.4 F L 57 L 16 103/66 96 05/27/19 00:00 97.7 F 62 18 99/63 96 05/26/19 21:30 97.6 F 64 18 132/83 98 05/26/19 20:42 97.9 F 65 18 137/89 98 05/26/19 19:53 73 18 142/51 98 05/26/19 18:43 64 16 132/57 95 05/26/19 16:37 98.8 F 70 18 140/85 95 Intake and Output 05/26/19 05/27/19 05/27/19 22:59 06:59 14:59 Other: # Voids 1 1 Weight 84.822 kg General appearance: The patient is alert, oriented, in no acute distress. HET: Head is normocephalic and atraumatic. Pupils are equal and reactive. Oropharynx is clear without lesions. Neck: Supple without lymphadenopathy. Trachea midline. Heart: S1 S2. Regular rate and rhythm. Lungs: No crackles or wheezes are heard. Abdomen: Soft, epigastric tenderness, nondistended with bowel sounds. No peritoneal signs. No palpable organomegaly or masses. Extremities: Normal skin color and turgor. No cyanosis, rash, ulceration, clubbing, or edema. Radial and pedal pulses are 2/4 bilaterally. Neurological: No focal deficits. Strength and sensation are grossly intact. Results CBC & Chem 7: 05/27/19 06:03 05/27/19 06:03 Labs: Abnormal Lab Results - Last 24 Hours (Table) 05/26/19 05/26/19 05/27/19 Range/Units 17:10 21:30 06:03 Chloride 110 H 109 H (98-107) mmol/L BUN 18 H 19 H (7-17) mg/dL Total Protein 6.0 L (6.3-8.2) g/dL Albumin 3.4 L (3.5-5.0) g/dL LDL Cholesterol, Calc 120 H (0-99) mg/dL Ur Specific [place] >1.050 H (1.001-1.035) Urine Protein Trace H (Negative) Urine Blood Small H (Negative) Ur Leukocyte Esterase Large H (Negative) Urine RBC 37 H (0-5) /hpf Urine WBC 43 H (0-5) /hpf Urine Bacteria Rare H (None) /hpf Urine Mucus Rare H (None) /hpf Microbiology - Last 24 Hours (Table) 05/26/19 21:30 Urine Culture - Preliminary Urine,Voided CT scan - chest: report reviewed (Dr. Castaneda) Assessment and Plan (1) Epigastric abdominal pain Narrative/Plan: Acute severe epigastric abdominal pain with a history of nonbleeding duodenal ulcer possible recurrent peptic ulcer disease. Current Visit: Yes Status: Acute Code(s): R10.13 - EPIGASTRIC PAIN SNOMED Code(s): 14592841 (2) History of duodenal ulcer Current Visit: Yes Status: Acute Code(s): Z87.19 - PERSONAL HISTORY OF OTHER DISEASES OF THE DIGESTIVE SYSTEM SNOMED Code(s): 734656692 Plan: 1. EGD. Nothing by mouth except meds. 2. Protonix 40 mg IV twice daily. 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 The patient has indicated understanding and acceptance of the risks and procedures discussed. Thank you for this kind referral and the opportunity to participate in the care of your patient. This consultation was discussed with Dr. Castaneda. The impression and plan of care have been directed as dictated. <Shantel Thomas - Last Filed: 05/27/19 13:22> Review of Systems Constitutional: Reports as per HPI, Reports chills, Denies anorexia, Denies chronic headaches, Denies chronic pain, Denies daytime sleepiness, Denies fatigue, Denies fever, Denies lethargy, Denies malaise, Denies night sweats, Denies poor appetite, Denies sweats, Denies weakness, Denies weight gain, Denies weight loss Ears, nose, mouth and throat: Reports as per HPI, Denies ant. neck pain, Denies bleeding gums, Denies dental pain, Denies dysphagia, Denies epistaxis, Denies headache, Denies hoarseness, Denies mouth pain, Denies nasal congestion, Denies nasal discharge, Denies neck fullness/pressure, Denies neck lump, Denies nose pain, Denies odynophagia, Denies post-nasal drip, Denies sinus pain, Denies sinus pressure, Denies swelling in mouth, Denies swelling in throat, Denies sore throat, Denies vertigo, Denies voice changes Breasts: Reports as per HPI Cardiovascular: Reports as per HPI, Reports chest pain, Denies claudication, Denies decreased exercise tolerance, Denies dyspnea on exertion, Denies edema, Denies high blood pressure, Denies irregular heart beat, Denies leg edema, Denies lightheadedness, Denies orthopnea, Denies palpitations, Denies paroxysmal nocturnal dyspnea, Denies phlebitis, Denies rapid heart beat, Denies shortness of breath, Denies syncope Respiratory: Reports as per HPI, Denies congestion, Denies cough, Denies cough with sputum, Denies dyspnea, Denies excessive sputum, Denies hemoptysis, Denies home oxygen, Denies pain, Denies pain on inspiration, Denies pleurisy, Denies respiratory infections, Denies sleep apnea, Denies snoring, Denies wheezing Gastrointestinal: Reports as per HPI, Reports dyspepsia, Reports indigestion, Denies abdominal pain, Denies belching, Denies bloating, Denies BRBPR, Denies change in bowel habits, Denies coffee ground emesis, Denies constipation, Denies diarrhea, Denies early satiety, Denies excessive gas, Denies heartburn, Denies hematemesis, Denies hematochezia, Denies jaundice, Denies lactose intolerance, Denies loss of appetite, Denies melena, Denies nausea, Denies vomiting Genitourinary: Reports as per HPI, Denies abnormal vaginal bleeding, Denies decreased libido, Denies difficulty conceiving, Denies difficulty voiding, Denies dysmenorrhea, Denies dyspareunia, Denies dysuria, Denies flank pain, Wood es genital sores, Denies hematuria, Denies hot flashes, Denies incomplete emptying, Denies kidney stones, Denies menorrhagia, Denies mixed incontinence, Denies nocturia, Denies pelvic pain, Denies post void dribbling, Denies , Denies prolapse symptoms, Denies stress incontinence, Denies urge incontinence, Denies urgency, Denies urinary frequency, Denies vaginal discharge, Denies vaginal dryness, Denies vaginal itching, Denies vaginal odor Menstruation: Reports as per HPI Musculoskeletal: Reports as per HPI, Denies arm numbness/tingling, Denies atrophy, Denies fractures, Denies frequent falls, Denies gait dysfunction, Denies hot joints, Denies leg numbness/tingling, Denies limitation of motion, Denies loss of height, Denies low back pain, Denies morning stiffness, Denies muscle cramps, Denies muscle weakness, Denies myalgias, Denies neck pain, Denies neck stiffness, Denies prior amputations, Denies redness of joints, Denies shoot ing arm pain, Denies shooting leg pain Integumentary: Reports as per HPI, Denies acne, Denies boils, Denies brittle nails, Denies change in hair/nails, Denies color changes, Denies darkening of skin, Denies depigmentation, Denies dryness, Denies foot/leg ulcers, Denies growths, Denies hirsutism, Denies lesions, Denies onychomycosis, Denies pruritus, Denies rash, Denies sores, Denies striae, Denies unusual bruising, Denies wounds Neurological: Reports as per HPI Psychiatric: Reports as per HPI Endocrine: Reports as per HPI, Denies cold intolerance, Denies deepening of the voice, Denies excessive sweating, Denies excessive thirst, Denies fatigue, Denies flushing, Denies heat intolerance, Denies high blood sugars, Denies increase in ring/shoe/hat size, Denies low blood sugars, Denies nocturia, Denies palpitations, Denies polydipsia, Denies polyphagia, Denies polyuria, Denies proptosis, Denies recent glucocorticoid use, Denies thyroid mass, Denies weight change Hematologic/Lymphatic: Reports as per HPI Allergic/Immunologic: Reports as per HPI, Denies allergic rhinitis, Denies anaphylaxis, Denies angioedema, Denies gluten intolerance, Denies persistent infections, Denies seasonal allergies, Denies urticaria, Denies wheezing Physical Exam Vitals: Vital Signs Temp Pulse Pulse Resp BP BP Pulse Ox 05/27/19 11:24 97.7 F 70 18 125/79 93 L 05/27/19 07:05 97.8 F 59 L 16 104/60 97 05/27/19 04:00 97.4 F L 57 L 16 103/66 96 05/27/19 00:00 97.7 F 62 18 99/63 96 05/26/19 21:30 97.6 F 64 18 132/83 98 05/26/19 20:42 97.9 F 65 18 137/89 98 05/26/19 19:53 73 18 142/51 98 05/26/19 18:43 64 16 132/57 95 05/26/19 16:37 98.8 F 70 18 140/85 95 Intake and Output 05/26/19 05/27/19 05/27/19 22:59 06:59 14:59 Other: # Voids 1 1 Weight 84.822 kg - Constitutional General appearance: average body habitus, cooperative, no acute distress - EENT Eyes: anicteric sclerae ENT: NA/AT - Neck Neck: normal ROM - Respiratory Respiratory: bilateral: CTA, negative: diminished, dullness, rales - Cardiovascular Rhythm: regular Heart sounds: normal: S1, S2 Abnormal Heart Sounds: no systolic murmur, no diastolic murmur, no rub, no S3 Gallop, no S4 Gallop, no click, no other - Gastrointestinal General gastrointestinal: normal bowel sounds, soft - Integumentary Integumentary: decreased turgor, normal - Musculoskeletal Musculoskeletal: gait normal - Psychiatric Psychiatric: A&O x's 3, appropriate affect, intact judgment & insight Results CBC & Chem 7: 05/27/19 06:03 05/27/19 06:03 Labs: Abnormal Lab Results - Last 24 Hours (Table) 05/26/19 05/26/19 05/27/19 Range/Units 17:10 21:30 06:03 Chloride 110 H 109 H (98-107) mmol/L BUN 18 H 19 H (7-17) mg/dL Total Protein 6.0 L (6.3-8.2) g/dL Albumin 3.4 L (3.5-5.0) g/dL LDL Cholesterol, Calc 120 H (0-99) mg/dL Ur Specific [place] >1.050 H (1.001-1.035) Urine Protein Trace H (Negative) Urine Blood Small H (Negative) Ur Leukocyte Esterase Large H (Negative) Urine RBC 37 H (0-5) /hpf Urine WBC 43 H (0-5) /hpf Urine Bacteria Rare H (None) /hpf Urine Mucus Rare H (None) /hpf Microbiology - Last 24 Hours (Table) 05/26/19 21:30 Urine Culture - Preliminary Urine,Voided
[2019-05-27] MEDS ORDERED: PANTOPRAZOLE 40 MG/10 ML VIAL IVP SCH (12:15)
[2019-05-27] MEDS ORDERED: ACETAMINOPHEN TAB 325 MG TAB PO STA (13:59)
[2019-05-27] MEDS ORDERED: PROPOFOL 10 MG/ML 20 ML VIAL IV ONE (14:18)
[2019-05-27] MEDS ORDERED: SODIUM CHLORIDE 0.9% 500 ML 500 ML IV ONE (14:24)
--- NOTE | 2019-05-27 14:34 | P.PCN ---
Date of Procedure: 05/27/19 Procedure(s) Performed: BRIEF HISTORY: Patient is a 74-year-old, pleasant, female admitted hospital with acute onset of severe epigastric pain that started yesterday morning. She has prior history of duodenal ulcer diagnosed in 2017. She has since been on Prilosec 20 mg daily. Denies any NSAID use. Denies any nausea vomiting. In view of the severe epigastric pain she is scheduled for an upper endoscopy to evaluate for recurrent peptic ulcer disease. PROCEDURE PERFORMED: Esophagogastroduodenoscopy with biopsy. PREOPERATIVE DIAGNOSIS: Acute onset of epigastric pain IV sedation per anesthesia. PROCEDURE: After informed consent was obtained, the patient was brought into the endoscopy unit. IV sedation was administered by Anesthesia under continuous monitoring. Initially the Olympus GIF-140 video endoscope was inserted into the mouth. Esophagus intubated without any difficulty. It was gradually advanced into the stomach and duodenum and carefully examined. The bulb and the second part of the duodenum appeared normal. The scope at this time was withdrawn to the stomach, adequately insufflated with air, and upon careful examination, mucosa of the antrum, had mild gastritis and biopsies were done from this area. Pylorus appeared slightly deformed. The body, cardia and the fundus appeared normal. The scope was then withdrawn into the esophagus. The GE junction was located at 39 cm from the incisors. The esophagus appeared normal. There were no erosions or ulcerations seen and the patient tolerated the procedure well. IMPRESSION: 1. Mild antral gastritis. 2. Deformed pylorus 3. No evidence of recurrent peptic ulcer disease. RECOMMENDATIONS: The findings of this examination were discussed with the patient. She was advised to follow with the biopsy results She'll be started on regular diet. She will continue with Prilosec 20 mg daily and follow antireflux measures.
[2019-05-27 14:56] VITALS: RESP 16; TEMP 98.4
[2019-05-27 15:52] VITALS: PULSE 57
[2019-05-27 15:53] VITALS: BP 139/71
--- NOTE | 2019-05-27 16:23 | P.HPIM ---
History of Present Illness H&P Date: 05/27/19 Chief Complaint: chest pain This will serve both h&p and discharge summar this is a 74 year old female patient of Dr. 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 she also has prepyloric stenosis with ballon dilatation dr Caban 10/2017. She presented to the emergency with chief complaint of dull epigastric pain with intermittent crampy pain in between her breast area at 4 am when she awoke from her sleep. no relief with aspirin and tried low fat cottage cheeze, prilosec and then took her metoprolol. she denies dysphagia, no cough no fever no chills, she ,has no hemopytisis and no recent weight loss, her last stress test was done this year, no reports seen, but follows with dr Huynh. Review of Systems Constitutional: Reports as per HPI, Reports chills, Denies anorexia, Denies chronic headaches, Denies chronic pain, Denies daytime sleepiness, Denies fatigue, Denies fever, Denies lethargy, Denies malaise, Denies night sweats, Denies poor appetite, Denies sweats, Denies weakness, Denies weight gain, Denies weight loss Ears, nose, mouth and throat: Reports as per HPI, Denies ant. neck pain, Denies bleeding gums, Denies dental pain, Denies dysphagia, Denies epistaxis, Denies headache, Denies hoarseness, Denies mouth pain, Denies nasal congestion, Denies nasal discharge, Denies neck fullness/pressure, Denies neck lump, Denies nose pain, Denies odynophagia, Denies post-nasal drip, Denies sinus pain, Denies sinus pressure, Denies swelling in mouth, Denies swelling in throat, Denies sore throat, Denies vertigo, Denies voice changes Cardiovascular: Reports as per HPI, Reports chest pain, Denies claudication, Denies decreased exercise tolerance, Denies dyspnea on exertion, Denies edema, Denies high blood pressure, Denies irregular heart beat, Denies leg edema, Denies lightheadedness, Denies orthopnea, Denies palpitations, Denies paroxysmal nocturnal dyspnea, Denies phlebitis, Denies rapid heart beat, Denies shortness of breath, Denies syncope Respiratory: Reports as per HPI, Denies congestion, Denies cough, Denies cough with sputum, Denies dyspnea, Denies excessive sputum, Denies hemoptysis, Denies home oxygen, Denies pain, Denies pain on inspiration, Denies pleurisy, Denies respiratory infections, Denies sleep apnea, Denies snoring, Denies wheezing Gastrointestinal: Reports as per HPI, Denies abdominal pain, Denies belching, Denies bloating, Denies BRBPR, Denies change in bowel habits, Denies coffee ground emesis, Denies constipation, Denies diarrhea, Denies dyspepsia, Denies early satiety, Denies excessive gas, Denies heartburn, Denies hematemesis, Denies hematochezia, Denies indigestion, Denies jaundice, Denies lactose intolerance, Denies loss of appetite, Denies melena, Denies nausea, Denies vomiting Genitourinary: Reports as per HPI, Denies abnormal vaginal bleeding, Denies decreased libido, Denies difficulty conceiving, Denies difficulty voiding, Denies dysmenorrhea, Denies dyspareunia, Denies dysuria, Denies flank pain, Denies genital sores, Denies hematuria, Denies hot flashes, Denies incomplete emptying, Denies kidney stones, Denies menorrhagia, Denies mixed incontinence, Denies nocturia, Denies pelvic pain, Denies post void dribbling, Denies , Denies prolapse symptoms, Denies stress incontinence, Denies urge incontinence, Denies urgency, Denies urinary frequency, Denies vaginal discharge, Denies vaginal dryness, Denies vaginal itching, Denies vaginal odor Menstruation: Reports as per HPI, Denies amenorrhea, Denies amenorrhea on BC, D enies currently menstrual, Denies cycle < 21 days, Denies cycle > 35 days, Denies cycle variable, Denies menses 1-7 days, Denies menses 8 or > days, Denies menses variable, Denies period heavy, Denies period light, Denies period normal, Denies period spotting, Denies post hysterectomy, Denies postmenopausal, Denies premenarcheal Musculoskeletal: Reports as per HPI, Denies arm numbness/tingling, Denies atrophy, Denies fractures, Denies frequent falls, Denies gait dysfunction, Denies hot joints, Denies leg numbness/tingling, Denies limitation of motion, Denies loss of height, Denies low back pain, Denies morning stiffness, Denies muscle cramps, Denies muscle weakness, Denies myalgias, Denies neck pain, Denies neck stiffness, Denies prior amputations, Denies redness of joints, Denies shooting arm pain, Denies shooting leg pain Integumentary: Reports as per HPI Neurological: Reports as per HPI, Denies aphasia, Denies ataxia, Denies balance difficulties, Denies change in mentation, Denies change in smell/taste, Denies change in speech, Denies confusion, Denies convulsions, Denies double vision, Denies gait dysfunction, Denies head injury, Denies headaches, Denies hearing difficulties, Denies lack of coordination, Denies loss of vision, Denies memory loss, Denies migraines, Denies motor disturbance, Denies numbness, Denies paralysis, Denies paresthesias, Denies seizures, Denies sensory deficit, Denies spasticity, Denies syncope, Denies tic, Denies tingling, Denies transient paralysis, Denies tremors, Denies vertigo, Denies weakness, Denies visual changes Psychiatric: Reports as per HPI Endocrine: Reports as per HPI, Reports cold intolerance Hematologic/Lymphatic: Reports as per HPI, Denies easy bleeding, Denies easy bruising, Denies lymphadenopathy, Denies lymphedema, Denies thrombophilia Allergic/Immunologic: Reports as per HPI Past Medical History Past Medical History: Atrial Fibrillation, Cancer, Eye Disorder, Musculoskeletal Disorder, Osteoarthritis (OA), Renal Disease Additional Past Medical History / Comment(s): DRY EYE, CORNEAL DYSTROPHY. HX RT BREAST CA. No blood draw or blood pressure on LT side. HYPOGLYCEMIA. EDEMA LOWER LEGS OCC. STOMACH ULCER 04-06-17. 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 LOWER BACK PAIN; NT TOES FOR SEV YEARS, frequent headaches recently & new lump right jaw area-sees maxillo-facial dr soon History of Any Multi-Drug Resistant Organisms: ESBL, MRSA Date of last positivie culture/infection: 04/2018 MRSA/URINE; 08/26/18 MDRO Source:: ESBL URINE Past Surgical History: Adenoidectomy, Appendectomy, Breast Surgery, Cholecystectomy, Hernia Repair, Hysterectomy, Tonsillectomy Additional Past Surgical History / Comment(s): RT BREAST MASTECTOMY W/ RECONSTRUCTION; FATTY TUMOR EXC LT ARM. NEPHROLITHOTOMY TUBE W/ STONE REMOVAL. EGD, COLONOSCOPY. EXC RT OVARY/TUBE. CANCER EXC. RT BUCCAL MUCOSA W/ TISSUE TRANSPLANT FROM LT WRIST & several cervical lymph nodes removed Past Anesthesia/Blood Transfusion Reactions: Previous Problems w/ Anesthesia, Postoperative Nausea & Vomiting (PONV) Additional Past Anesthesia/Blood Transfusion Reaction / Comment(s): TOOK VERY LO NG TIME TO AWAKEN AFTER SURGERY IN 2012. Past Psychological History: No Psychological Hx Reported Additional Psychological History / Comment(s): DENIES Smoking Status: Never smoker Past Alcohol Use History: Rare Additional Past Alcohol Use History / Comment(s): SMOKED ON/OFF STARTING @ AGE 16, QUIT SMOKING 11/27/1999, SMOKED 1/2- Past Drug Use History: None Reported Additional Drug Use History / Comment(s): . - Past Family History Father Family Medical History: Congestive Heart Failure (CHF), Coronary Artery Disease (CAD), Diabetes Mellitus, Deep Vein Thrombosis (DVT), Hypertension Additional Family Medical History / Comment(s): PHLEBITIS LEG Sister(s) Family Medical History: Diabetes Mellitus Brother(s) Family Medical History: AFIB Mother Family Medical History: AFIB, Deep Vein Thrombosis (DVT) Additional Family Medical History / Comment(s): PHLEBITIS IN LEG Medications and Allergies Home Medications Medication Instructions Recorded Confirmed Type Metoprolol Tartrate [Lopressor] 50 mg PO QAM 07/21/14 05/26/19 History Cyanocobalamin (Vitamin B-12) 1,000 mcg PO MOWEFR 06/22/17 05/26/19 History [Vitamin B-12] Metoprolol Tartrate [Lopressor] 25 mg PO HS 06/22/17 05/26/19 History Multivitamins, Thera [Multivitamin 1 tab PO DAILY 06/22/17 05/26/19 History (formulary)] Aspirin [Adult Low Dose Aspirin EC] 81 mg PO DAILY 11/17/17 05/26/19 History Vitamin A 2,400 mcg PO DAILY 04/28/18 05/26/19 History Cholecalciferol [Vitamin D3 (25 1,000 unit PO DAILY 10/20/18 05/26/19 History Mcg = 1000 Iu)] L.acidoph,Paracasei, B.lactis 1 cap PO DAILY 10/20/18 05/26/19 History [Probiotic] Artificial Tears-Hypromellose 1 drops BOTH EYES TID PRN 01/12/19 05/26/19 History [Artificial Tear Drops] Lansoprazole [Prevacid] 30 mg PO DAILY #30 cap 05/27/19 Rx Mag Hydrox/Al Hydrox/Simeth 15 ml PO QID #60 ml 05/27/19 Rx [Maalox] Allergies Allergy/AdvReac Type Severity Reaction Status Date / Time Penicillins Allergy Anaphylaxis Verified 05/26/19 16:50 Sulfa (Sulfonamide Allergy Unknown Verified 05/26/19 16:50 Antibiotics) Childhood acetaminophen AdvReac Elevates Verified 05/26/19 16:50 Liver Enzymes codeine AdvReac Nausea & Verified 05/26/19 16:50 Vomiting NSAIDS (Non-Steroidal AdvReac ULCER- Verified 05/26/19 16:50 Anti-Inflamma HISTORY sulfamethoxazole AdvReac Diarrhea, Verified 05/26/19 16:50 [From Bactrim] C-Diff trimethoprim [From Bactrim] AdvReac Diarrhea, Verified 05/26/19 16:50 C-Diff Physical Exam Vitals: Vital Signs Temp Pulse Pulse Resp BP BP Pulse Ox 05/27/19 07:05 97.8 F 59 L 16 104/60 97 05/27/19 04:00 97.4 F L 57 L 16 103/66 96 05/27/19 00:00 97.7 F 62 18 99/63 96 05/26/19 21:30 97.6 F 64 18 132/83 98 05/26/19 20:42 97.9 F 65 18 137/89 98 05/26/19 19:53 73 18 142/51 98 05/26/19 18:43 64 16 132/57 95 05/26/19 16:37 98.8 F 70 18 140/85 95 Intake and Output 05/26/19 05/27/19 05/27/19 22:59 06:59 14:59 Other: # Voids 1 1 Weight 84.822 kg - Constitutional General appearance: cooperative, no acute distress - EENT Eyes: anicteric sclerae, PERRLA, dentition normal ENT: NA/AT - Neck Neck: normal ROM - Respiratory Respiratory: bilateral: CTA, negative: diminished, dullness, rales, rhonchi, wheezing - Cardiovascular Rhythm: regular Heart sounds: normal: S1, S2 - Gastrointestinal General gastrointestinal: normal bowel sounds, soft, tenderness (generalized without localizing symptoms, no guarding) - Integumentary Integumentary: normal, normal turgor - Neurologic Neurologic: CNII-XII intact - Musculoskeletal Musculoskeletal: strength equal bilaterally - Psychiatric Psychiatric: A&O x's 3, appropriate affect, intact judgment & insight Results CBC & Chem 7: 05/27/19 06:03 05/27/19 06:03 Labs: Abnormal Lab Results - Last 24 Hours (Table) 05/26/19 05/26/19 05/27/19 Range/Units 17:10 21:30 06:03 Chloride 110 H 109 H (98-107) mmol/L BUN 18 H 19 H (7-17) mg/dL Total Protein 6.0 L (6.3-8.2) g/dL Albumin 3.4 L (3.5-5.0) g/dL LDL Cholesterol, Calc 120 H (0-99) mg/dL Ur Specific [place] >1.050 H (1.001-1.035) Urine Protein Trace H (Negative) Urine Blood Small H (Negative) Ur Leukocyte Esterase Large H (Negative) Urine RBC 37 H (0-5) /hpf Urine WBC 43 H (0-5) /hpf Urine Bacteria Rare H (None) /hpf Urine Mucus Rare H (None) /hpf Microbiology - Last 24 Hours (Table) 05/26/19 21:30 Urine Culture - Preliminary Urine,Voided Laboratory Results WBC 5.3 k/uL (3.8-10.6) 05/27/19 06:03 RBC 4.34 m/uL (3.80-5.40) 05/27/19 06:03 Hgb 12.4 gm/dL (11.4-16.0) 05/27/19 06:03 Hct 37.8 % (34.0-46.0) 05/27/19 06:03 MCV 87.0 fL (80.0-100.0) 05/27/19 06:03 MCH 28.6 pg (25.0-35.0) 05/27/19 06:03 MCHC 32.9 g/dL (31.0-37.0) 05/27/19 06:03 RDW 13.9 % (11.5-15.5) 05/27/19 06:03 Plt Count 218 k/uL (150-450) 05/27/19 06:03 Neutrophils % 46 % 05/27/19 06:03 Lymphocytes % 43 % 05/27/19 06:03 Monocytes % 7 % 05/27/19 06:03 Eosinophils % 2 % 05/27/19 06:03 Basophils % 0 % 05/27/19 06:03 Neutrophils # 2.4 k/uL (1.3-7.7) 05/27/19 06:03 Lymphocytes # 2.3 k/uL (1.0-4.8) 05/27/19 06:03 Monocytes # 0.4 k/uL (0-1.0) 05/27/19 06:03 Eosinophils # 0.1 k/uL (0-0.7) 05/27/19 06:03 Basophils # 0.0 k/uL (0-0.2) 05/27/19 06:03 PT 10.5 sec (9.0-12.0) 05/26/19 17:10 INR 1.0 (<1.2) 05/26/19 17:10 APTT 24.5 sec (22.0-30.0) 05/26/19 17:10 Sodium 141 mmol/L (137-145) 05/27/19 06:03 Potassium 3.8 mmol/L (3.5-5.1) 05/27/19 06:03 Chloride 109 mmol/L (98-107) H 05/27/19 06:03 Carbon Dioxide 27 mmol/L (22-30) 05/27/19 06:03 Anion Gap 5 mmol/L 05/27/19 06:03 BUN 19 mg/dL (7-17) H 05/27/19 06:03 Creatinine 0.79 mg/dL (0.52-1.04) 05/27/19 06:03 Est GFR (CKD-EPI)AfAm 85 (>60 ml/min/1.73 sqM) 05/27/19 06:03 Est GFR (CKD-EPI)NonAf 74 (>60 ml/min/1.73 sqM) 05/27/19 06:03 Glucose 94 mg/dL (74-99) 05/27/19 06:03 Calcium 9.2 mg/dL (8.4-10.2) 05/27/19 06:03 Magnesium 1.9 mg/dL (1.6-2.3) 05/26/19 17:10 Total Bilirubin 0.3 mg/dL (0.2-1.3) 05/27/19 06:03 AST 23 U/L (14-36) 05/27/19 06:03 ALT 28 U/L (9-52) 05/27/19 06:03 Alkaline Phosphatase 68 U/L (38-126) 05/27/19 06:03 Troponin I <0.012 ng/mL (0.000-0.034) 05/27/19 06:03 NT-Pro-B Natriuret Pep 522 pg/mL 05/26/19 17:10 Total Protein 6.0 g/dL (6.3-8.2) L 05/27/19 06:03 Albumin 3.4 g/dL (3.5-5.0) L 05/27/19 06:03 Triglycerides 90 mg/dL (<150) 05/27/19 06:03 Cholesterol 182 mg/dL (<200) 05/27/19 06:03 LDL Cholesterol, Calc 120 mg/dL (0-99) H 05/27/19 06:03 HDL Cholesterol 44 mg/dL (40-60) 05/27/19 06:03 Lipase 166 U/L (23-300) 05/26/19 17:10 Urine Color Light Yellow 05/26/19 21:30 Urine Appearance Clear (Clear) 05/26/19 21:30 Urine pH 5.5 (5.0-8.0) 05/26/19 21:30 Ur Specific [place] >1.050 (1.001-1.035) H 05/26/19 21:30 Urine Protein Trace (Negative) H 05/26/19 21:30 Urine Glucose (UA) Negative (Negative) 05/26/19 21:30 Urine Ketones Negative (Negative) 05/26/19 21:30 Urine Blood Small (Negative) H 05/26/19 21:30 Urine Nitrite Negative (Negative) 05/26/19 21:30 Urine Bilirubin Negative (Negative) 05/26/19 21:30 Urine Urobilinogen <2.0 mg/dL (<2.0) 05/26/19 21:30 Ur Leukocyte Esterase Large (Negative) H 05/26/19 21:30 Urine RBC 37 /hpf (0-5) H 05/26/19 21:30 Urine WBC 43 /hpf (0-5) H 05/26/19 21:30 Ur Squamous Epith Cells 1 /hpf (0-4) 05/26/19 21:30 Urine Bacteria Rare /hpf (None) H 05/26/19 21:30 Urine Mucus Rare /hpf (None) H 05/26/19 21:30 Thrombosis Risk Factor Assmnt - DVT/VTE Prophylaxis DVT/VTE Prophylaxis: Low risk, early ambulation encouraged - Choose All That Apply Each Factor Represents 1 point: Obesity (BMI >25) Each Risk Factor Represents 3 Points: Age 75 years or older Thrombosis Risk Factor Assessment Total Risk Factor Score: 4 Thrombosis Risk Factor Assessment Level: Moderate Risk Assessment and Plan Plan: #1 atypical chest pain wtih indigestion type symtpoms, will provide maaox plus, and monitor her abominal pain, urine has pyuria but no symptoms of urinary tract infection, she is seen by cardiology with echocardiogram that showed negative for aortic stenosis, has normal ef no pulmonary hypertension, no significant valvular problems, she will be seen in consutation by gastroenterology today with plans for egd, beofre discharge. lipase normal, chest ct shows no aortic dissection, no mass no pulmonary emboli. she was cleared by cardiology service for discharge today 2. history of pyloric stenosis with baloon dilatation 2016 dr caban, no signs of dysphagia, egd to be done by dr Castaneda today. 3 paroxysmal atrial fibrillation- continue metoprolol 25 mg at night and 50 mg in the morning, aspirin 81 mg coated 4 history of breast cancer status post mastectomy, left uptodate with mammo stable 5. 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 history of recurrent UTI, no current symtoms bu has generalzied abdominal tenderness, cultures to be done, will montior for culture report upon discharge, and will see the paient in the office within 1 wk., she is to call if symtpoms start or worsen discharge condition stable, follup with cardio gi and myself as scheduled Discharge Medication List Metoprolol Tartrate [Lopressor] 50 mg PO QAM 07/21/14 [History] Cyanocobalamin (Vitamin B-12) [Vitamin B-12] 1,000 mcg PO MOWEFR 06/22/17 [History] Metoprolol Tartrate [Lopressor] 25 mg PO HS 06/22/17 [History] Multivitamins, Thera [Multivitamin (formulary)] 1 tab PO DAILY 06/22/17 [History] Aspirin [Adult Low Dose Aspirin EC] 81 mg PO DAILY 11/17/17 [History] Vitamin A 2,400 mcg PO DAILY 04/28/18 [History] Cholecalciferol [Vitamin D3 (25 Mcg = 1000 Iu)] 1,000 unit PO DAILY 10/20/18 [History] L.acidoph,Paracasei, B.lactis [Probiotic] 1 cap PO DAILY 10/20/18 [History] Artificial Tears-Hypromellose [Artificial Tear Drops] 1 drops BOTH EYES TID PRN 01/12/19 [History] Lansoprazole [Prevacid] 30 mg PO DAILY #30 cap 05/27/19 [Rx] Mag Hydrox/Al Hydrox/Simeth [Maalox] 15 ml PO QID #60 ml 05/27/19 [Rx]
[2019-05-27] MEDS ORDERED: ONDANSETRON 4 MG/2 ML VIAL IVP PRN (17:34)
== END 2019-05-27 19:13 | disposition home or self-care (01) ==
LOC: EC 16:36 → 1SOBS 18:43
PROVIDERS: ADMIT Family Medicine; ATTEND Family Medicine
DX: R07.89 Other chest pain (principal); K29.70 Gastritis, unspecified, without bleeding; K31.89 Other diseases of stomach and duodenum; I48.0 Paroxysmal atrial fibrillation; M19.90 Unspecified osteoarthritis, unspecified site; Q61.5 Medullary cystic kidney; H18.50 Unspecified hereditary corneal dystrophies; I10 Essential (primary) hypertension; E66.9 Obesity, unspecified; Z68.29 Body mass index [BMI] 29.0-29.9, adult; K44.9 Diaphragmatic hernia without obstruction or gangrene; Z79.82 Long term (current) use of aspirin; Z79.899 Other long term (current) drug therapy; Z88.0 Allergy status to penicillin; Z88.1 Allergy status to other antibiotic agents; Z88.2 Allergy status to sulfonamides; Z88.5 Allergy status to narcotic agent; Z88.6 Allergy status to analgesic agent; Z86.14 Personal history of Methicillin resistant Staphylococcus aureus infection; Z16.12 Extended spectrum beta lactamase (ESBL) resistance; Z90.49 Acquired absence of other specified parts of digestive tract; Z90.11 Acquired absence of right breast and nipple; Z87.891 Personal history of nicotine dependence; Z87.11 Personal history of peptic ulcer disease; Z90.710 Acquired absence of both cervix and uterus; Z98.82 Breast implant status; Z85.3 Personal history of malignant neoplasm of breast; Z85.818 Personal history of malignant neoplasm of other sites of lip, oral cavity, and pharynx; Z87.19 Personal history of other diseases of the digestive system; Z87.440 Personal history of urinary (tract) infections; Z83.3 Family history of diabetes mellitus; Z82.49 Family history of ischemic heart disease and other diseases of the circulatory system; Z83.2 Family history of diseases of the blood and blood-forming organs and certain disorders involving the immune mechanism
CPT/HCPCS: 96376; 96374; 96375; 99291; 36415; 93005; 93306; 88305; 83880; 80061; 80053 ×2; 83690; 83735; 84484 ×2; 85025 ×2; 85610; 85730; 81001; 87086; 71046; 71275; 43239; G0378 ×2; J2405; J2704; C9113 ×2; Q9967

== ENCOUNTER → 2019-06-13 | Outpatient (CLI) | payer MEDICARE ==
[2019-06-13 13:02] VITALS: BP 124/74; PULSE 64; RESP 18
--- NOTE | 2019-06-13 13:18 | P.PAINPG ---
Subjective Progress Note Date: 06/13/19 This is a follow-up visit for this 74 years old female with a chronic history of severe low back pain she is diagnosed with lumbar degenerative disc disease, lumbar spinal stenosis, status post lumbar epidural steroid injection at L4-L5 2, she reported that her low back pain improved significantly she has minimal low back pain, and she is having some mid back pain radiated to the left side thoracic area, she denies any motor or sensory deficit she denies any fever or night sweats, and no change in the bowel movement or urination Objective - Vital Signs Vital signs: Vital Signs Temp Pulse 64 06/13/19 12:54 Resp 18 06/13/19 12:54 BP 124/74 06/13/19 12:54 Pulse Ox 64 L 06/13/19 12:54 Intake & Output 06/12/19 06/13/19 06/13/19 18:59 06:59 18:59 Weight 83.461 kg - Exam Physical Examinations : -Constitutiona : Cooperative , not in acute distress . -HEENT : nech : supple , no Lymphadenopathy , normal thyroid size . eyes : no ptosis , no icterus, no photophobia . - neurologic : Cranial nerve II to XII intact , no focal neurological deffecit . -psychatric : alert , oriented X 3 , appropriate affect , intact judgment and insight . -Lymphatic : no Lymphadenopathy . - musculoskeltal : Thoracic spine= trigger point on the left side thoracic paravertebral muscles Lumber spine moter stegnth lower extremities ,thigh and legs 5/5 Right side , 5/5 Left side Assessment and Plan Plan: Assessment and plan= chronic severe low back pain secondary to lumbar degenerative disc disease and lumbar stenosis Pain improved after lumbar epidural steroid injection. Myofascial pain syndrome left side thoracic area, patient reported that she went to a massage at home she was consulted about the benefit of physical therapy she declined She will follow up with the pain clinic when necessary PQRS Measure Charge Sheet Measure #130: Documentation of Current Meds in Medical Chart: Patient's medications documented in chart Measure #226: Tobacco Use: Screen & Cessation Intervention: Pt not a tobacco user Measure #111: Pneumonia Vaccination: Pneumococcal vaccine administered or previously received Measure #47: Advance Care Plan: Advance care planning discussed & documented, pt chose/unable to give Measure #412: Opioid Treatment Agreement: No documentation of signed opioid treatment agreement Measure #408: Opioid Therapy Follow-up Evaluation: Patient had NO f/u eval minimum every 3 months during opioid therapy Measure #317: Preventitive Care & Scrn High Bld Press & F/U: Normal blood pressure, f/u not required Measure #128: Body Mass Index (BMI) Screening & Follow-up: BMI documented ABOVE normal parameters - f/u documented Measure #131: Pain Assessment & Follow-up: Pain positive & plan documented, Follow-up PRN Measure #431: Unhealthy Alcohol Use Preventative Care & Scrn: Patient not identified as an unhealthy alcohol user PQRS Narrative: Smoking Status Never smoker Blood Pressure 124/74 Pain Intensity [Lower Back] 5 Scale Used Numeric (1 - 10) Hx Alcohol Use (MH) No Home Medications: Ambulatory Orders Metoprolol Tartrate [Lopressor] 50 mg PO QAM 07/21/14 Cyanocobalamin (Vitamin B-12) [Vitamin B-12] 1,000 mcg PO MOWEFR 06/22/17 Metoprolol Tartrate [Lopressor] 25 mg PO HS 06/22/17 Multivitamins, Thera [Multivitamin (formulary)] 1 tab PO DAILY 06/22/17 Aspirin [Adult Low Dose Aspirin EC] 81 mg PO DAILY 11/17/17 Vitamin A 2,400 mcg PO DAILY 04/28/18 Cholecalciferol [Vitamin D3 (25 Mcg = 1000 Iu)] 1,000 unit PO DAILY 10/20/18 L.acidoph,Paracasei, B.lactis [Probiotic] 1 cap PO DAILY 10/20/18 Artificial Tears-Hypromellose [Artificial Tear Drops] 1 drops BOTH EYES TID PRN 01/12/19 Lansoprazole [Prevacid] 30 mg PO DAILY #30 cap 05/27/19 Mag Hydrox/Al Hydrox/Simeth [Maalox] 15 ml PO QID #60 ml 05/27/19 Stomach Med 1 tab PO QID 06/13/19 Controlled Substance Measures - Controlled Substance Measures Is patient prescribed a controlled substance at discharge?: No
== END | disposition home or self-care (01) ==
LOC: PNWHC3 12:36
PROVIDERS: ATTEND Specialist
DX: G89.29 Other chronic pain (principal); M48.061 Spinal stenosis, lumbar region without neurogenic claudication; M51.36 Other intervertebral disc degeneration, lumbar region; M79.18 Myalgia, other site; Z79.82 Long term (current) use of aspirin; Z79.899 Other long term (current) drug therapy
CPT/HCPCS: 99211

== ENCOUNTER → 2019-08-24 | Outpatient (CLI) | payer MEDICARE ==
--- NOTE | 2019-08-24 13:57 | MM ---
Reason for exam: additional evaluation requested from prior study. Last mammogram was performed 1 year and 1 month ago. History: Patient is postmenopausal, has history of breast cancer at age 68, history of other cancer, and is nulliparous. Family history of premenopausal breast cancer in paternal cousin at age 38 and premenopausal breast cancer in paternal cousin at age 40. Saline implant in the right breast, 2013. Reconstruction of the right breast, 2013. Malignant right mammotome panel of the right breast, August 05, 2013. Malignant US RT VAD breast biopsy of the right breast, August 05, 2013. Mastectomy of the right breast, 2012. Benign US right guided mammotome of the right breast, October 27, 2008. Cyst aspiration of the right breast. 2 excisional biopsies of the right breast. Took hormonal contraceptives for 2 years beginning at age 20. Took estrogen for 2 years. Took progesterone for 2 years. Taking antineoplastic for 4 years. Physical Findings: Nurse did not find any significant physical abnormalities on exam. MG 3D Diag Mammo W/Cad LT CC and MLO view(s) were taken of the left breast. Prior study comparison: July 28, 2018, left breast MG 3d diag mammo w/cad LT. July 27, 2017, left breast MG 3d diag mammo w/cad LT. The breast tissue is heterogeneously dense. This may lower the sensitivity of mammography. There are benign appearing round calcifications bilaterally. There is no discrete abnormality. These results were verbally communicated with the patient and result sheet given to the patient on 08/24/19. ASSESSMENT: Benign, BI-RAD 2 RECOMMENDATION: Follow-up diagnostic mammogram of the left breast in 1 year.
== END | disposition home or self-care (01) ==
LOC: RADMAMWWP 12:40
PROVIDERS: ATTEND Internal Medicine Hematology & Oncology
DX: Z08 Encounter for follow-up examination after completed treatment for malignant neoplasm (principal); Z85.3 Personal history of malignant neoplasm of breast
CPT/HCPCS: 77065; G0279; 77061

== ENCOUNTER → 2020-04-18 | Outpatient (CLI) | payer MEDICARE ==
[2020-04-18 10:29] VITALS: BP 126/72; PULSE 68; RESP 16
--- NOTE | 2020-04-18 10:52 | P.PAINPG ---
Subjective Progress Note Date: 04/18/20 This is a follow-up visit for this 74 years old female with a chronic history of severe low back pain she is diagnosed with lumbar degenerative disc disease, lumbar spinal stenosis, she underwent lumbar epidural steroid injection at L4-L5 2, one year ago with excellent relief. She returns today for follow-up. She reports that in February her pain has gradually started to return, pain is located in the low back radiating to left hip, rated as 9/10. Pain is described as stabbing, constant, sharp, aching. Pain is worse with walking, standing and stairs and better with heat, injections. She has had PT in the past which worsened her pain. She is also complaining of bilateral knee pain that has worsened over the last few months, she has had to take care of her sister and live with her in her three-story house and climbing several flights of stairs has significantly worse than this. Review of systems is negative for chest pain, shortness of breath, new onset weakness, numbness/tingling, abdominal pain, malaise, fever, night sweats, chills, homicidal or suicidal ideation, or bowel or bladder incontinence. She does report feeling more depressed with the current pandemic and her sister's health issues. 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 Objective Physical exam: Vitals: Reviewed in EMR GENERAL: Well appearing, in no acute distress PSYCH: Mood and affect is appropriate. Awake, alert, and oriented SKIN: Skin color, texture, turgor normal, no rashes or lesions HEENT: Normocephalic, atraumatic. EOM intact CV: No pedal edema RESP: Respirations are unlabored, no audible wheezing GI: Abdomen non-distended MUSCULOSKELETAL: Bilateral lower extremity strength is normal and symmetric. No atrophy or tone abnormalities are noted. Lumbar spine: Straight leg raising in the sitting position is negative for radicular pain. Tenderness to palpation over the lumbar spine and paraspinous muscles bilaterally. Positive for pain with facet loading and back extension/rotation. Extremities: Bilateral kneestenderness to palpation along medial joint line. NEUR: Bilateral lower extremity coordination and muscle stretch reflexes are physiologic and symmetric. Loss of sensation noted to light touch in bilateral feet up to ankles Assessment and Plan Plan: Assessment and plan= chronic severe low back pain secondary to lumbar degenerative disc disease and lumbar stenosis Pain improved after lumbar epidural steroid injection, last done one year ago. She will likely benefit from repeat lumbar epidural steroid injection at L4-5, left paramedian approach. We will schedule this Bilateral knee x-rays ordered today, she will likely benefit from bilateral knee steroid injections in the future. PQRS Measure Charge Sheet Measure #130: Documentation of Current Meds in Medical Chart: Patient's medications documented in chart Measure #226: Tobacco Use: Screen & Cessation Intervention: Pt not a tobacco user Measure #111: Pneumonia Vaccination: Pneumococcal vaccine administered or previously received Measure #47: Advance Care Plan: Advance care planning discussed & documented, pt chose/unable to give Measure #412: Opioid Treatment Agreement: No documentation of signed opioid neri tment agreement Measure #408: Opioid Therapy Follow-up Evaluation: Patient had NO f/u eval minimum every 3 months during opioid therapy Measure #317: Preventitive Care & Scrn High Bld Press & F/U: Normal blood pressure, f/u not required Measure #128: Body Mass Index (BMI) Screening & Follow-up: BMI documented ABOVE normal parameters - f/u documented Measure #131: Pain Assessment & Follow-up: Pain positive & plan documented, Follow-up scheduled Measure #431: Unhealthy Alcohol Use Preventative Care & Scrn: Patient not identified as an unhealthy alcohol user PQRS Measure Charge Sheet PQRS Narrative: Smoking Status Never smoker Pain Intensity [Back] 3 Scale Used Numeric (1 - 10) Hx Alcohol Use (MH) No Home Medications: Ambulatory Orders Metoprolol Tartrate [Lopressor] 50 mg PO QAM 07/21/14 Cyanocobalamin (Vitamin B-12) [Vitamin B-12] 1,000 mcg PO MOWEFR 06/22/17 Metoprolol Tartrate [Lopressor] 25 mg PO HS 06/22/17 Multivitamins, Thera [Multivitamin (formulary)] 1 tab PO DAILY 06/22/17 Aspirin [Adult Low Dose Aspirin EC] 81 mg PO DAILY 11/17/17 L.acidoph,Paracasei, B.lactis [Probiotic] 1 cap PO DAILY 10/20/18 Artificial Tears-Hypromellose [Artificial Tear Drops] 1 drops BOTH EYES TID PRN 01/12/19 Mag Hydrox/Al Hydrox/Simeth [Maalox] 15 ml PO QID PRN 04/13/20 Controlled Substance Measures - Controlled Substance Measures Is patient prescribed a controlled substance at discharge?: No
--- NOTE | 2020-04-18 11:35 | XR ---
EXAMINATION TYPE: XR knee limited bilateral DATE OF EXAM: 04/18/2020 CLINICAL HISTORY: Bilateral chronic knee pain. No known injury. Osteoarthritis. TECHNIQUE: AP and lateral views of the bilateral knees obtained. COMPARISON: None. FINDINGS: There is no acute fracture/dislocation evident in the bilateral knees. Right knee demonstr ates tricompartmental degenerative spurring, and no joint effusion. Left knee demonstrates patellofem oral degenerative spurring, and small suprapatellar joint effusion. There is normal osseous mineraliz ation. IMPRESSION: 1. Tricompartmental degenerative spurring of the right knee. 2. Patellofemoral degenerative spurring of the left knee with small suprapatellar joint effusion.
== END | disposition home or self-care (01) ==
LOC: PNWHC3 09:57
PROVIDERS: ATTEND Anesthesiology
DX: G89.29 Other chronic pain (principal); M48.061 Spinal stenosis, lumbar region without neurogenic claudication; M51.36 Other intervertebral disc degeneration, lumbar region; M17.0 Bilateral primary osteoarthritis of knee; Z79.82 Long term (current) use of aspirin; Z79.899 Other long term (current) drug therapy
CPT/HCPCS: 73560; G0463; 99211

== ENCOUNTER 2020-05-10 08:40 | Day surgery (SDC) | payer MEDICARE ==
[2020-05-04 12:44] VITALS: BMI 28.6
[2020-05-10 09:21] VITALS: RESP 16; TEMP 98.1
[2020-05-10 09:36] LABS: Glucose,Whole Blood 92 mg/dL (75-99)
[2020-05-10] MEDS ORDERED: MIDAZOLAM 2 MG/2 ML VIAL ONE (09:54)
[2020-05-10] MEDS ORDERED: methylPREDNISolone ACETATE 40 MG/ML 1 ML VIAL ONE (09:54)
[2020-05-10] MEDS ORDERED: fentaNYL (PF) 50 MCG/ML 2 ML AMP ONE (09:54)
[2020-05-10] MEDS ORDERED: IOPAMIDOL M200 10 ML VIAL ONE (09:54)
--- NOTE | 2020-05-10 10:05 | P.PCN ---
Date of Procedure: 05/10/20 Procedure(s) Performed: PREOPERATIVE DIAGNOSIS: 1- Lumbar Degenerative Disc Diseases 2-Lumbar spondylosis with Facet arthropathy without myelopathy 3-lumbar spinal stenosis. POSTOPERATIVE DIAGNOSIS: Same as preop diagnosis. PROCEDURE 1. Lumbar epidural steroid injection under fluoroscopic guidance at the L4-5 level. 2. Lumbar epidurogram. ANESTHESIA: Local with 1% lidocaine 3 ml and , moderate sedation with intravenous Versed 2 mg ,and fentanyle 100 Mcg EBL: Minimal PROCEDURE INDICATION: The patient with low back pain and radiculitis symptoms unresponsive to conservative treatment. Fluoroscopy was used to optimize visualization of the needle placement and to maximize safety. PROCEDURE DESCRIPTION / TECHNIQUE: The patient was seen and identified in the preoperative area. Risks, benefits, complications including but not limited to infections ,bleeding ,allergic reaction to the medications ,nerve damage and not complete pain releife , and alternatives were discussed with the patient. The patient agreed to proceed with the procedure and signed the consent. IV was started, and vital signs were stable. Patient was taken to the OR and time out was completed. The patient was placed in the prone position on procedure table and a pillow was placed under the abdomen to reduce lumbar lordosis. The lumbosacral area was prepped and draped in the usual sterile fashion.ere closely monitored during the procedure. Conscious sedation was used during the procedure to decrease patients anxiety. Vital signs was monitered during the entire procedure. Using anterior-posterior fluoroscopy, the L4-5 interlaminar space was identified and the skin over this site was marked and then infiltrated with 1% lidocaine subcutaneously. Subsequently, a 20-gauge Tuohy epidural needle was inserted and advanced toward the epidural space using the ``Loss of resistance technique and guided by AP and lateral fluoroscopy. The correct needle position in the epidural space was verified with the injection of 2 mL of the water soluble contrast dye Isovue 200 contrast and observing an excellent epidurogram with the epidural spread of the dye, after negative aspiration for blood and CSF and in the absence of paresthesias. Again after negative aspiration, a 6 ml mixture containing 40 mg of Depo-medrol , and 2 ml of preservative free Normal Saline, and 2 ml of preservative free lidocaine 1% solution was injected and a washout of epidurogram was seen. Needle was withdrawn intact, skin was cleansed, and bandages were applied. COMPLICATIONS: None DISPOSITION / PLANS: The patient was placed in a supine position and transferred to the recovery area in a stable condition for observation. There was no evidence of lower extremity motor or sensory deficit after the procedure. Patient was discharged from the recovery room after meeting discharge criteria. Home discharge instructions were given to the patient by the staff. The patient was reexamined prior to discharge. The patient will schedule a follow up in the clinic in 2-4 weeks.
[2020-05-10] MEDS ORDERED: IV FLUID CONTINUATION 1,000 ML IV ONE (10:09)
[2020-05-10] MEDS ORDERED: LACTATED RINGERS 1,000 ML IV ONE (10:13)
[2020-05-10] MEDS ORDERED: ONDANSETRON 4 MG/2 ML VIAL ONE (10:19)
[2020-05-10] MEDS ORDERED: ONDANSETRON 4 MG/2 ML VIAL IVP ONE (10:20)
[2020-05-10 10:33] VITALS: BP 118/78; PULSE 53
--- NOTE | 2020-05-10 16:45 | FL ---
EXAMINATION TYPE: FL guided pain mgmt statistic DATE OF EXAM: 05/10/2020 CLINICAL HISTORY: Low back pain. TECHNIQUE: Fluoroscopy. COMPARISON: None. FINDINGS: Fluoroscopic guidance was provided during pain relief procedure performed by Dr. Lewis . A total of 4 seconds of fluoroscopic time was utilized during the procedure and single spot fluoro scopic intraoperative image is acquired. Single image acquired shows needle localization at L4-L5 di sc space level. IMPRESSION: As Above.
== END 2020-05-10 11:05 | disposition home or self-care (01) ==
LOC: ORPAIN 08:40
PROVIDERS: ATTEND Specialist
DX: M51.16 Intervertebral disc disorders with radiculopathy, lumbar region (principal); M47.26 Other spondylosis with radiculopathy, lumbar region; M48.061 Spinal stenosis, lumbar region without neurogenic claudication; Z79.82 Long term (current) use of aspirin; Z88.2 Allergy status to sulfonamides; Z88.0 Allergy status to penicillin; Z88.5 Allergy status to narcotic agent
CPT/HCPCS: 62323; J2250; J1030; J2405; J3010; Q9966

== ENCOUNTER 2020-06-07 07:15 | Day surgery (SDC) | payer MEDICARE ==
[2020-06-05 11:28] VITALS: BMI 28.6
[2020-06-07 07:32] VITALS: RESP 16; TEMP 98.5
[2020-06-07] MEDS: LACTATED RINGERS 1,000 ML IV SCH ×2 (07:44→08:03)
[2020-06-07] MEDS ORDERED: LIDOCAINE 1% (10MG/ML) FOR IV START INTRADERMA ONE (07:44)
[2020-06-07 07:48] LABS: Glucose,Whole Blood 93 mg/dL (75-99)
[2020-06-07] MEDS ORDERED: methylPREDNISolone ACETATE 40 MG/ML 1 ML VIAL ONE (07:59)
[2020-06-07] MEDS ORDERED: fentaNYL (PF) 50 MCG/ML 2 ML AMP ONE (07:59)
[2020-06-07] MEDS ORDERED: MIDAZOLAM 2 MG/2 ML VIAL ONE (07:59)
[2020-06-07] MEDS ORDERED: IOPAMIDOL M200 10 ML VIAL ONE (07:59)
[2020-06-07] MEDS ORDERED: ONDANSETRON 4 MG/2 ML VIAL ONE (08:01)
[2020-06-07] MEDS ORDERED: ONDANSETRON 4 MG/2 ML VIAL IVP ONE (08:02)
--- NOTE | 2020-06-07 08:18 | P.PCN ---
Date of Procedure: 06/07/20 Procedure(s) Performed: PREOPERATIVE DIAGNOSIS: 1- Lumbar Degenerative Disc Diseases 2-Lumbar spondylosis with Facet arthropathy without myelopathy 3-lumbar spinal stenosis. POSTOPERATIVE DIAGNOSIS: Same as preop diagnosis. PROCEDURE 1. Lumbar epidural steroid injection under fluoroscopic guidance at the L4-5 level. 2. Lumbar epidurogram. ANESTHESIA: Local with 1% lidocaine 3 ml and , moderate sedation with intravenous Versed 2 mg ,and fentanyle 50 Mcg EBL: Minimal PROCEDURE INDICATION: The patient with low back pain and radiculitis symptoms unresponsive to conservative treatment. Fluoroscopy was used to optimize visualization of the needle placement and to maximize safety. PROCEDURE DESCRIPTION / TECHNIQUE: The patient was seen and identified in the preoperative area. Risks, benefits, complications including but not limited to infections ,bleeding ,allergic reaction to the medications ,nerve damage and not complete pain releife , and alternatives were discussed with the patient. The patient agreed to proceed with the procedure and signed the consent. IV was started, and vital signs were stable. Patient was taken to the OR and time out was completed. The patient was placed in the prone position on procedure table and a pillow was placed under the abdomen to reduce lumbar lordosis. The lumbosacral area was prepped and draped in the usual sterile fashion.ere closely monitored during the procedure. Conscious sedation was used during the procedure to decrease patients anxiety. Vital signs was monitered during the entire procedure. Using anterior-posterior fluoroscopy, the L4-5 interlaminar space was identified and the skin over this site was marked and then infiltrated with 1% lidocaine subcutaneously. Subsequently, a 20-gauge Tuohy epidural needle was inserted and advanced toward the epidural space using the ``Loss of resistance technique and guided by AP and lateral fluoroscopy. The correct needle position in the epidural space was verified with the injection of 2 mL of the water soluble contrast dye Isovue 200 contrast and observing an excellent epidurogram with the epidural spread of the dye, after negative aspiration for blood and CSF and in the absence of paresthesias. Again after negative aspiration, a 6 ml mixture containing 40 mg of Depo-medrol , and 2 ml of preservative free Normal Saline, and 2 ml of preservative free lidocaine 1% solution was injected and a washout of epidurogram was seen. Needle was withdrawn intact, skin was cleansed, and bandages were applied. COMPLICATIONS: None DISPOSITION / PLANS: The patient was placed in a supine position and transferred to the recovery area in a stable condition for observation. There was no evidence of lower extremity motor or sensory deficit after the procedure. Patient was discharged from the recovery room after meeting discharge criteria. Home discharge instructions were given to the patient by the staff. The patient was reexamined prior to discharge. The patient will schedule a follow up in the clinic in 2-4 weeks.
[2020-06-07 08:44] VITALS: BP 115/74; PULSE 62
[2020-06-07] MEDS ORDERED: IV FLUID CONTINUATION 1,000 ML IV ONE (08:44)
--- NOTE | 2020-06-07 10:39 | FL ---
EXAMINATION TYPE: FL guided pain mgmt statistic DATE OF EXAM: 06/07/2020 HISTORY: Fluoroscopy time 3 seconds of fluoroscopy provided. IMPRESSION: 1. Fluoroscopy time.
== END 2020-06-07 09:13 | disposition home or self-care (01) ==
LOC: ORPAIN 07:15
PROVIDERS: ATTEND Specialist
DX: M51.16 Intervertebral disc disorders with radiculopathy, lumbar region (principal); M47.26 Other spondylosis with radiculopathy, lumbar region; M48.061 Spinal stenosis, lumbar region without neurogenic claudication; Z78.0 Asymptomatic menopausal state; Z88.0 Allergy status to penicillin; Z88.2 Allergy status to sulfonamides; Z88.5 Allergy status to narcotic agent; Z88.6 Allergy status to analgesic agent
CPT/HCPCS: 62323; J2250; J1030; J2405; J3010; Q9966; 99152

== ENCOUNTER → 2020-07-23 | Outpatient (CLI) | payer MEDICARE ==
[2020-07-23 13:14] LABS: Appearance,Urine Clear (Clear); Bacteria,Urine Rare /hpf; Bilirubin,Urine Negative (Negative); Blood,Urine Small (Negative); Color,Urine Light Yellow; Glucose,Urine (UA) Negative (Negative); Ketones,Urine Negative (Negative); Leukocyte Esterase,Urine Moderate (Negative); Mucus,Urine Rare /hpf; Nitrite,Urine Negative (Negative); Protein,Urine Negative (Negative); RBC,Urine 27 /hpf (0-5); Specific Gravity,Urine 1.014 (1.001-1.035); Squamous Epithelial Cell,Urine <1 /hpf (0-4); Urobilinogen,Urine <2.0 mg/dL (<2.0); WBC,Urine 25 /hpf (0-5)
== END | disposition home or self-care (01) ==
LOC: LABPAT 10:21
PROVIDERS: ATTEND Urology
DX: Z01.818 Encounter for other preprocedural examination (principal); N20.2 Calculus of kidney with calculus of ureter; R31.29 Other microscopic hematuria; R53.83 Other fatigue
CPT/HCPCS: 36415; 81001; 86850; 86900; 86901; 87086; 93005

== ENCOUNTER 2020-07-30 10:56 | Inpatient (IN) | payer MEDICARE ==
[2020-07-24 17:47] VITALS: BMI 29.9
--- NOTE | 2020-07-29 18:19 | P.GSHP ---
History of Present Illness H&P Date: 07/29/20 75 yo female with a history of stones who presented with an 8mm highly obstructing left ureteral stone, severe hydronpehrosis and a large volume of stone in the llp seen on a ct scan at [facility] She comes for a lt pcnl SHe understands that there has been damage to the kidney due to the long standing l eft ureteral obstruction. We will however remove the stones and try to preserve the left kidney. The risks complications and alternatives including damage to adjacent organs, kidney, infection ,bleeding have been explained understood and accepted - Constitutional Constitutional: Denies chills, Denies fever - EENT Eyes: denies blurred vision, denies pain Ears, nose, mouth and throat: Denies headache, Denies sore throat - Cardiovascular Cardiovascular: Denies chest pain, Denies shortness of breath - Respiratory Respiratory: Denies cough, Denies 7 - Gastrointestinal Gastrointestinal: Denies abdominal pain, Denies diarrhea, Denies nausea, Denies vomiting - Genitourinary (Female) Genitourinary: Denies dysuria, Denies hematuria - Genitourinary (Male) Genitourinary: Denies dysuria, Denies hematuria - Musculoskeletal Musculoskeletal: Denies myalgias - Integumentary Integumentary: Denies pruritus, Denies rash - Neurological Neurological: Denies numbness, Denies weakness - Psychiatric Psychiatric: Denies anxiety, Denies depression - Endocrine Endocrine: Denies fatigue, Denies weight change Past Medical History Past Medical History: Atrial Fibrillation, Cancer, Eye Disorder, Musculoskeletal Disorder, Osteoarthritis (OA), Renal Disease, Skin Disorder Additional Past Medical History / Comment(s): Dry eyes, Corneal Dystrophy. Hx Rt Breast cancer; oral cancer 2018. No blood draw or blood pressure on Rt side. Hypoglycemia. Occ Edema BLE. Hx duodenal ulcer 2017. Born w/ Medullary Sponge kidney, kidney stones. Spinal stenosis, scoliosis, lower back pain, NT toes. headaches , CAT Scan shows incisional hernia. Kidney stones in bladder, ureter. Skin scars from skin graft tissues. History of Any Multi-Drug Resistant Organisms: ESBL, MRSA Date of last positivie culture/infection: 04/2018 MRSA/URINE; 08/26/18 MDRO Source:: ESBL URINE Past Surgical History: Adenoidectomy, Appendectomy, Breast Surgery, Cholecystectomy, Hernia Repair, Tonsillectomy Additional Past Surgical History / Comment(s): Rt Breast Mastectomy w/ Reconstruction; Fatty tumor exc Lt arm. Nephrolithotomy tube w/ Rt kidney stone exc. EGD, COLONOSCOPY. Exc RT Ovary/Tube. Cancer exc EXC. Rt Buccal mucosa w/ tissue transplant from Lt wrist, & several cervical lymph nodes removed. Tube & Ovary removed. Lt inguinal hernia. Pain procedures Past Anesthesia/Blood Transfusion Reactions: Previous Problems w/ Anesthesia, Family History of Problems w/ Anesthesia, Motion Sickness, Postoperative Nausea & Vomiting (PONV) Additional Past Anesthesia/Blood Transfusion Reaction / Comment(s): TOOK VERY LONG TIME TO AWAKEN AFTER SURGERY IN 2012. Father allergic to sodium pentothal. Smoking Status: Former smoker - Past Family History Father Family Medical History: Congestive Heart Failure (CHF), Coronary Artery Disease (CAD), Diabetes Mellitus, Deep Vein Thrombosis (DVT), Hypertension Additional Family Medical History / Comment(s): PHLEBITIS LEG Sister(s) Family Medical History: Diabetes Mellitus Brother(s) Family Medical History: AFIB Mother Family Medical History: AFIB, Deep Vein Thrombosis (DVT) Additional Family Medical History / Comment(s): PHLEBITIS IN LEG Medications and Allergies Home Medications Medication Instructions Recorded Confirmed Type Metoprolol Tartrate [Lopressor] 50 mg PO QAM 07/21/14 07/24/20 History Cyanocobalamin (Vitamin B-12) 1,000 mcg PO MOFR 06/22/17 07/24/20 History [Vitamin B-12] Metoprolol Tartrate [Lopressor] 25 mg PO HS 06/22/17 07/24/20 History Multivitamins, Thera [Multivitamin 1 tab PO DAILY 06/22/17 07/24/20 History (formulary)] Aspirin [Adult Low Dose Aspirin EC] 81 mg PO DAILY 11/17/17 07/24/20 History L.acidoph,Paracasei, B.lactis 1 cap PO DAILY 10/20/18 07/24/20 History [Probiotic] Artificial Tears-Hypromellose 1 drops BOTH EYES TID PRN 01/12/19 07/24/20 History [Artificial Tear Drops] Mag Hydrox/Al Hydrox/Simeth 15 ml PO QID PRN 04/13/20 07/24/20 History [Maalox] Tamsulosin HCl [Flomax] 0.4 mg PO DAILY 06/07/20 07/24/20 History Acetaminophen [Tylenol Extra 1,000 mg PO Q6H PRN 07/24/20 07/24/20 History Strength] Blue Emu 1 applic PO DIRECTED PRN 07/24/20 History Allergies Allergy/AdvReac Type Severity Reaction Status Date / Time Penicillins Allergy Anaphylaxis Verified 07/24/20 17:03 Sulfa (Sulfonamide Allergy Unknown Verified 07/24/20 17:03 Antibiotics) Childhood acetaminophen AdvReac Elevates Verified 07/24/20 17:03 Liver Enzymes codeine AdvReac Nausea & Verified 07/24/20 17:03 Vomiting NSAIDS (Non-Steroidal AdvReac ULCER- Verified 07/24/20 17:03 Anti-Inflamma HISTORY sulfamethoxazole AdvReac Diarrhea, Verified 07/24/20 17:03 [From Bactrim] C-Diff trimethoprim [From Bactrim] AdvReac Diarrhea, Verified 07/24/20 17:03 C-Diff Surgical - Exam - General well developed, well nourished, no distress - Eyes PERRL - ENT no hearing loss - Neck trachea midline - Respiratory normal expansion, normal respiratory effort - Cardiovascular Rhythm: regular - Abdomen Abdomen: soft, non tender - Integumentary no growths - Neurologic normal coordination, normal sensation - Musculoskeletal normal posture - Psychiatric oriented to time, oriented to person, oriented to place, speech is normal, memory intact Results - Imaging CT scan - abdomen: report reviewed, image reviewed CT scan - pelvis: report reviewed, image reviewed Assessment and Plan Assessment: Impression: Left ureteral obstruction, lt renal stones, large. Chronic left hydronephrosis Plan: Pcnl left
[~2020-07-30 10:56] MED LIST changes: +GENTAMICIN 100 MG in SODIUM CHLORIDE 0.9% 100 ML IVPB ONE; -LACTATED RINGERS 1,000 ML IV SCH; +LIDOCAINE 1% (10MG/ML) FOR IV START INTRADERMA PRN; +ONDANSETRON 4 MG/2 ML VIAL IVP ONE
--- NOTE | 2020-07-30 11:31 | XR ---
EXAMINATION TYPE: XR KUB DATE OF EXAM: 07/30/2020 COMPARISON: NONE HISTORY: Preop renal calcifications TECHNIQUE: One view abdominal series FINDINGS: The osseous structures are intact. The bowel gas pattern is nonspecific. Scoliosis with severe degen erative change. There are numerous calcifications overlying both kidneys measuring at least 30 in the left and 20 in the right. The largest on the left measures approximately 9 mm. The largest on the ri ght measures approximately 1.1 cm. Numerous calcifications are seen lining the distal left ureter ure ter. The largest diameter measures approximately 6 mm. Surgical clips are seen in the gallbladder fos sa. IMPRESSION: 1. Nonspecific abdomen. Bilateral nephrolithiasis with numerous left ureteral distal calculus.
[2020-07-30] MEDS ORDERED: LACTATED RINGERS 1,000 ML IV ONE ×2 (11:51→15:55)
[2020-07-30 12:03] LABS: Glucose,Whole Blood 86 mg/dL (75-99)
[2020-07-30] MEDS ORDERED: MIDAZOLAM 2 MG/2 ML VIAL ONE (13:21)
[2020-07-30] MEDS ORDERED: fentaNYL (PF) 50 MCG/ML 2 ML AMP ONE (13:21)
[2020-07-30] MEDS ORDERED: ONDANSETRON 4 MG/2 ML VIAL ONE (13:21)
[2020-07-30] MEDS ORDERED: LIDOCAINE 1% INJ 10MG/ML (20 ML MDV) ONE (13:21)
[2020-07-30] MEDS ORDERED: SUCCINYLCHOLINE CHLORIDE VIAL 200 MG/10 ML VIAL IV ONE (13:21)
[2020-07-30] MEDS ORDERED: ePHEDrine SULFATE/0.9% NACL/PF 50 MG/5 ML SYRINGE IV ONE (13:21)
[2020-07-30] MEDS ORDERED: PROPOFOL 10 MG/ML 20 ML VIAL IV ONE (13:21)
[2020-07-30] MEDS ORDERED: IOPAMIDOL-370 50ML BTL MISCELLANE ONE (13:52)
[2020-07-30] MEDS ORDERED: ARTIFICIAL TEARS-HYPROMELLOSE DROPS 15 ML BTL BOTH EYES PRN (16:17)
[2020-07-30] MEDS ORDERED: ACETAMINOPHEN TAB 500 MG TAB PO PRN (16:17)
[2020-07-30] MEDS ORDERED: MAG HYDROX/AL HYDROX/SIMETH 30 ML CUP PO PRN ×2 (16:18→16:19)
[2020-07-30] MEDS ORDERED: ACETAMINOPHEN TAB 325 MG TAB PO PRN (16:19)
[2020-07-30] MEDS ORDERED: ONDANSETRON 4 MG/2 ML VIAL IVP PRN (16:19)
[2020-07-30] MEDS: HYDROmorphone 0.5 MG/0.5 ML SYRINGE IVP PRN ×2 (16:20→16:43)
[2020-07-30] MEDS ORDERED: NALOXONE 0.4 MG/ML 1 ML VIAL IV PRN (16:20)
--- NOTE | 2020-07-30 16:27 | P.OP ---
Date of Procedure: 07/30/20 Preoperative Diagnosis: Left renal and ureteral stones with high-grade obstruction and chronic renal insufficiency to left kidney Postoperative Diagnosis: Same Procedure(s) Performed: Cystoscopy, placement of ureteral catheter left, percutaneous nephrostomy (Dr. robledo), percutaneous nephrostolithotomy (large) (laser lithotripsy) placement of 20-Persian reentry nephrostomy Anesthesia: LOAN Surgeon: Vishnu Medina Estimated Blood Loss (ml): 50 Pathology: other (Stone) Condition: stable Disposition: PACU Indications for Procedure: The patient is 75. She presented with severe left-sided flank pain. She has been having intermittent flank pain for over a year. She was identified to have a large volume of tubular and renal calyceal stones. She has a blown out collecting system. She has a 15 mm proximal ureteral stone and then she has distal ureteral stones. The distal ureteral stone seemed to be more prominent on today's KUB. She comes for percutaneous nephrostolithotomy and ureteroscopy laser lithotripsy. I explained to her that I may have to to stage this due to the sheer large volume of stone covers the whole collecting system. Description of Procedure: Patient brought to the operating suite. She's given general anesthesia. She's placed lithotomy position and sterile prep and drape. Cystoscopy Foroblique lens identifies a normal bladder there is no stone in the bladder. Both ureteral orifices identified. An 025 wires passed through the ureter unfortunately by the collection of ureteral calculi in the distal ureter that extended from the leg vessels down to the bladder. Pass by the proximal ureteral stone but eventually do so. I then pass a 5-Persian open-ended catheter but cannot get it beyond the ureteral stone. I thus secure this to a 16-Persian Go. Patient placed in prone position. Dr. Robledo enters the procedure and performed percutaneous access to the left upper pole calyx between 11 and 12th ribs. I dilate the tract to 30-Persian. I remove everything visible immediately and the UPJ and in the lower pole calyces. There are multiple stones well over 2 cm. I then moved into the proximal ureter and with laser lithotripsy of the flexible nephroscope remove the very large UPJ stone. I then tediously go through each plate calyx and remove stone. She has a lot of tubular stones but due to the hydronephrosis with thinned parenchyma and the papilla I'm able to break these open open and removed the bulk of the renal tubular stones. At the end of the procedure there is very minimal renal tubular stone left. The proximal ureter stone is gone. I will approach the distal ureteral stones at a second sitting. We will leave the nephrostomy tube in place until I removed the distal ureteral stones which I'll try to do from below. A 20-Persian reentry nephrostomy tube was placed over the working wire. It is secured to the skin with 2-0 silk. Patient awake and returned recovery in good condition. She tolerated procedure well. Blood loss was approximately 50 mL. Operating time was close to 3 hours.
[2020-07-30] MEDS: DEXTROSE 5%-0.45% NACL 1,000 ML IV SCH (18:11)
[2020-07-30] MEDS: LACTATED RINGERS 1,000 ML IV SCH (18:12)
[2020-07-30] MEDS: HYDROmorphone PCA 10 MG/50 ML BAG IV PRN (18:22)
[2020-07-30] MEDS: METOPROLOL TARTRATE 25 MG TAB PO SCH (21:05)
[2020-07-31] MEDS: DEXTROSE 5%-0.45% NACL 1,000 ML IV SCH ×3 (02:33→23:39)
[2020-07-31] MEDS: LACTATED RINGERS 1,000 ML IV SCH (06:27)
--- NOTE | 2020-07-31 07:30 | P.PN ---
Subjective Progress Note Date: 07/31/20 first post op day from a left pcnl to a large amount of renal and ureteral stone. SHe is feeling well Pain is minimal We had a long discussion about another surgery to remove the multiple distal ureteral stones on the left. DUe to the large volume this will take a couple of hours. I will look for some time to do this, SHe will also need a pcnl on the right. Her vss and she is afebrile Objective - Vital Signs Vital signs: Vital Signs Temp 97.9 F 07/31/20 02:25 Pulse 70 07/31/20 02:37 Resp 16 07/31/20 02:37 BP 120/64 07/31/20 02:25 Pulse Ox 99 07/31/20 02:25 Intake & Output 07/30/20 07/31/20 07/31/20 18:59 06:59 18:59 Intake Total 1100 250 Output Total 301 1050 Balance 799 -800 Weight 85.4 kg Intake: IV 1100 Oral 250 Output: Drainage 150 Back 150 Urine 250 900 Emesis 1 Estimated Blood Loss 50 Other: Voiding Method Indwelling Catheter
[2020-07-31] MEDS: METOPROLOL TARTRATE 50 MG TAB PO SCH (08:17)
[2020-07-31] MEDS: TAMSULOSIN 0.4 MG CAP.ER.24H PO SCH (08:17)
[2020-07-31] MEDS: ASPIRIN 81 MG PO SCH (08:17)
[2020-07-31] MEDS: METOPROLOL TARTRATE 25 MG TAB PO SCH (21:58)
[2020-08-01] MEDS: LACTATED RINGERS 1,000 ML IV SCH ×2 (06:13→07:34)
--- NOTE | 2020-08-01 07:34 | FL ---
EXAMINATION TYPE: FL Perc Nephrostomy New Access DATE OF EXAM: 07/30/2020 COMPARISON: NONE HISTORY: Left intraoperative nephrolithotomy Procedure had been discussed with the patient by Dr. Medina, risks, benefits, alternatives, were dis cussed and any questions were answered. Informed consent was obtained. The patient was in a semipro ne position prepped and draped on the OR table in the usual sterile fashion. Utilizing a 15 cm lengt h Chiba needle a single pass was made into a lower pole posterior calyx under fluoroscopic guidance. An 0.018 guidewire is passed through the needle and there was placement of a 6-Telugu catheter sheat h system. There was conversion to a 0.035 system was performed with passage of a guidewire into the ureter utilizing a directional catheter. A second safety wire was placed. Remaining portion of pro cedure performed by . Approximately 7 minutes and 50 of fluoroscopy was provided. IMPRESSION: 1. Successful intraoperative left nephrostomy prior to nephrolithotomy.
[2020-08-01] MEDS: TAMSULOSIN 0.4 MG CAP.ER.24H PO SCH (07:35)
[2020-08-01] MEDS: METOPROLOL TARTRATE 50 MG TAB PO SCH (07:35)
[2020-08-01] MEDS: DEXTROSE 5%-0.45% NACL 1,000 ML IV SCH ×2 (07:35→14:26)
[2020-08-01] MEDS: ASPIRIN 81 MG PO SCH (07:35)
--- NOTE | 2020-08-01 09:29 | P.PN ---
Subjective Progress Note Date: 08/01/20 Principal diagnosis: the patient i in her 2nd pod from a left pcnl She still has pain She had some bleeding due to an obstructed ntube It was irrigated. SHe feels better this am SHe will need a left ureteroscopy and laser litho to remove 6 ureteral stones This will be done next week as I want the kidney to settle down a bit before doing this. Hopefully she can go home tomorrow with the n tube and then have the ureteral stones removed as an outpatient Objective - Vital Signs Vital signs: Vital Signs Temp 98.4 F 08/01/20 07:48 Pulse 71 08/01/20 07:48 Resp 14 08/01/20 07:48 BP 168/77 08/01/20 07:48 Pulse Ox 93 L 08/01/20 07:48 Intake & Output 07/31/20 08/01/20 08/01/20 18:59 06:59 18:59 Output Total 1240 1989 Balance -0 -1989 Output: Drainage 140 240 Back 140 240 Urine 1100 1750 Uretheral (Go) 550 Other: Voiding Method Indwelling Catheter Indwelling Catheter Indwelling Catheter
[2020-08-01 20:05] VITALS: RESP 16
[2020-08-01] MEDS: METOPROLOL TARTRATE 25 MG TAB PO SCH (21:08)
[2020-08-02] MEDS: DEXTROSE 5%-0.45% NACL 1,000 ML IV SCH (02:08)
[2020-08-02] MEDS: HYDROmorphone PCA 10 MG/50 ML BAG IV PRN (04:41)
[2020-08-02] MEDS: LACTATED RINGERS 1,000 ML IV SCH (04:47)
--- NOTE | 2020-08-02 06:47 | P.DS ---
Providers Date of admission: 08/01/20 09:12 Attending physician: Vishnu Medina Primary care physician: [facility] Course: The patient was admitted to the hospital 3 days ago for percutaneous nephrostolithotomy. She underwent this on the left side to a large amount of left renal and a large left ureteral stone. She also has 6 distal ureteral stones that need to be treated but I did not do the same time due to the sheer difficulty of the initial operation. She has recuperated slowly. Her urine is clearing. She has had some postoperative bleeding that has subsided. Wound looks good. Her vital signs are stable. She is ready for discharge home. She will be discharged home today with a nephrostomy tube. She'll be set up for early next week for a ureteroscopy laser lithotripsy to the left ureteral stones. Medicines on discharge are the same plus Tinnie. She'll follow-up in the office tomorrow. She's been given instructions on how to change the dressing and drain the tube. Any problems arise she should contact us. Her condition is good. Plan - Discharge Summary Discharge Rx Participant: Yes New Discharge Prescriptions: New HYDROcodone/APAP 5-325MG [Tinnie 5-325] 1 tab PO Q4HR PRN #20 tab PRN Reason: Pain Control No Action Metoprolol Tartrate [Lopressor] 50 mg PO QAM Metoprolol Tartrate [Lopressor] 25 mg PO HS Multivitamins, Thera [Multivitamin (formulary)] 1 tab PO DAILY Cyanocobalamin (Vitamin B-12) [Vitamin B-12] 1,000 mcg PO MOFR Aspirin [Adult Low Dose Aspirin EC] 81 mg PO DAILY L.acidoph,Paracasei, B.lactis [Probiotic] 1 cap PO DAILY Artificial Tears-Hypromellose [Artificial Tear Drops] 1 drops BOTH EYES TID PRN PRN Reason: dry eyes Mag Hydrox/Al Hydrox/Simeth [Maalox] 15 ml PO QID PRN PRN Reason: ABD PAIN Tamsulosin HCl [Flomax] 0.4 mg PO DAILY Acetaminophen [Tylenol Extra Strength] 1,000 mg PO Q6H PRN PRN Reason: Pain Blue Emu 1 applic PO DIRECTED PRN PRN Reason: Pain Discharge Medication List Metoprolol Tartrate [Lopressor] 50 mg PO QAM 10/24/14 [History] Cyanocobalamin (Vitamin B-12) [Vitamin B-12] 1,000 mcg PO MOFR 06/22/17 [History] Metoprolol Tartrate [Lopressor] 25 mg PO HS 06/22/17 [History] Multivitamins, Thera [Multivitamin (formulary)] 1 tab PO DAILY 06/22/17 [History] Aspirin [Adult Low Dose Aspirin EC] 81 mg PO DAILY 11/17/17 [History] L.acidoph,Paracasei, B.lactis [Probiotic] 1 cap PO DAILY 10/20/18 [History] Artificial Tears-Hypromellose [Artificial Tear Drops] 1 drops BOTH EYES TID PRN 01/12/19 [History] Mag Hydrox/Al Hydrox/Simeth [Maalox] 15 ml PO QID PRN 04/13/20 [History] Tamsulosin HCl [Flomax] 0.4 mg PO DAILY 06/07/20 [History] Acetaminophen [Tylenol Extra Strength] 1,000 mg PO Q6H PRN 07/24/20 [History] Blue Emu 1 applic PO DIRECTED PRN 07/24/20 [History] HYDROcodone/APAP 5-325MG [Tinnie 5-325] 1 tab PO Q4HR PRN #20 tab 08/02/20 [Rx] Follow up Appointment(s)/Referral(s): Vishnu Medina MD [STAFF PHYSICIAN] - 08/03/20 Discharge Disposition: HOME SELF-CARE
[2020-08-02] MEDS: ASPIRIN 81 MG PO SCH (07:56)
[2020-08-02] MEDS: METOPROLOL TARTRATE 50 MG TAB PO SCH (07:56)
[2020-08-02] MEDS: TAMSULOSIN 0.4 MG CAP.ER.24H PO SCH (07:57)
[2020-08-02 08:42] VITALS: BP 137/72; PULSE 75; TEMP 98.7
== END 2020-08-02 12:05 | disposition home health service (06) | DRG 660 ==
LOC: OR 10:56 → 1SOBS 16:08 → OR 07-31 12:53 → OBSVTOIN 08-01 09:12
PROVIDERS: ADMIT Urology; ATTEND Urology
PROC: 0TC13ZZ Extirpation of Matter from Left Kidney, Percutaneous Approach (ICD-10-PCS; principal; 2020-07-30 13:00)
PROC: 0T9130Z Drainage of Left Kidney with Drainage Device, Percutaneous Approach (ICD-10-PCS; principal; 2020-07-30 13:00)
PROC: 0TC73ZZ Extirpation of Matter from Left Ureter, Percutaneous Approach (ICD-10-PCS; principal; 2020-07-30 13:00)
PROC: 0T778DZ Dilation of Left Ureter with Intraluminal Device, Via Natural or Artificial Opening Endoscopic (ICD-10-PCS; principal; 2020-07-30 13:00)
PROC: 0TC78ZZ Extirpation of Matter from Left Ureter, Via Natural or Artificial Opening Endoscopic (ICD-10-PCS; principal; 2020-07-30 13:00)
DX: N13.2 Hydronephrosis with renal and ureteral calculous obstruction (principal); Q61.5 Medullary cystic kidney; I48.91 Unspecified atrial fibrillation; M41.9 Scoliosis, unspecified; I12.9 Hypertensive chronic kidney disease with stage 1 through stage 4 chronic kidney disease, or unspecified chronic kidney disease; H18.509 Unspecified hereditary corneal dystrophies, unspecified eye; M19.90 Unspecified osteoarthritis, unspecified site; M48.00 Spinal stenosis, site unspecified; N18.9 Chronic kidney disease, unspecified; Z79.82 Long term (current) use of aspirin; Z79.899 Other long term (current) drug therapy; Z88.6 Allergy status to analgesic agent; Z88.1 Allergy status to other antibiotic agents; Z88.5 Allergy status to narcotic agent; Z88.0 Allergy status to penicillin; Z88.2 Allergy status to sulfonamides; Z86.14 Personal history of Methicillin resistant Staphylococcus aureus infection; Z86.19 Personal history of other infectious and parasitic diseases; Z90.11 Acquired absence of right breast and nipple; Z87.891 Personal history of nicotine dependence; Z87.442 Personal history of urinary calculi; Z87.11 Personal history of peptic ulcer disease; Z85.819 Personal history of malignant neoplasm of unspecified site of lip, oral cavity, and pharynx; Z85.3 Personal history of malignant neoplasm of breast; Z87.19 Personal history of other diseases of the digestive system; Z87.898 Personal history of other specified conditions; Z87.42 Personal history of other diseases of the female genital tract; Z90.49 Acquired absence of other specified parts of digestive tract; Z90.89 Acquired absence of other organs; Z98.890 Other specified postprocedural states; Z90.79 Acquired absence of other genital organ(s); Z90.721 Acquired absence of ovaries, unilateral; Z82.49 Family history of ischemic heart disease and other diseases of the circulatory system; Z83.3 Family history of diabetes mellitus
CPT/HCPCS: 36415; 50432; 74018; 82365; 86850; 86900; 86901

== ENCOUNTER 2020-08-08 13:48 | Day surgery (SDC) | payer MEDICARE ==
[2020-08-07 09:11] VITALS: BMI 30.2
--- NOTE | 2020-08-07 19:17 | P.GSHP ---
History of Present Illness H&P Date: 08/07/20 75 yo female with a history of stones. recently underwent a left pcnl to remove large left renal and proximal ureteral stones. SHe has 6 distal left utreteral stones and comes for left ureteroscopy and laser lithotrispy to remove these stones. She eventuay will need a right pcnl to remove large right renal stones. - Constitutional Constitutional: Denies chills, Denies fever - EENT Eyes: denies blurred vision, denies pain Ears, nose, mouth and throat: Denies headache, Denies sore throat - Cardiovascular Cardiovascular: Denies chest pain, Denies shortness of breath - Respiratory Respiratory: Denies cough, Denies 7 - Gastrointestinal Gastrointestinal: Denies abdominal pain, Denies diarrhea, Denies nausea, Denies vomiting - Genitourinary (Female) Genitourinary: Denies dysuria, Denies hematuria - Genitourinary (Male) Genitourinary: Denies dysuria, Denies hematuria - Musculoskeletal Musculoskeletal: Denies myalgias - Integumentary Integumentary: Denies pruritus, Denies rash - Neurological Neurological: Denies numbness, Denies weakness - Psychiatric Psychiatric: Denies anxiety, Denies depression - Endocrine Endocrine: Denies fatigue, Denies weight change Past Medical History Past Medical History: Atrial Fibrillation, Cancer, Eye Disorder, Musculoskeletal Disorder, Osteoarthritis (OA), Renal Disease Additional Past Medical History / Comment(s): DRY EYE, CORNEAL DYSTROPHY. HX RT BREAST CA. No blood draw or blood pressure on LT side. HYPOGLYCEMIA. EDEMA LOWER LEGS OCC. STOMACH ULCER 04-06-17. 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, BORN W/ MEDULLARY SPONGE KIDNEY and HX OF KIDNEY STONES., LOWER BACK PAIN; NT TOES FOR YEARS, headaches , STATES RECENT CAT SCAN WHICH SHOWED INCISIONAL HERNIS, AND KIDNEY STONES IN BLADDER AND URETER-PATIENT TO CONTACT DR RIDER., RECENT BURN LEFT INNER ARM., uti with tx cipro History of Any Multi-Drug Resistant Organisms: ESBL Date of last positivie culture/infection: 08/03/20 ESBL E.Coli MDRO Source:: Urine Past Surgical History: Adenoidectomy, Appendectomy, Breast Surgery, Cholecystectomy, Hernia Repair, Tonsillectomy Additional Past Surgical History / Comment(s): RT BREAST MASTECTOMY W/ RECONSTRUCTION; FATTY TUMOR EXC LT ARM. NEPHROLITHOTOMY TUBE W/ STONE REMOVAL. EGD, COLONOSCOPY. EXC RT OVARY/TUBE. CANCER EXC. RT BUCCAL MUCOSA W/ TISSUE TRANSPLANT FROM LT WRIST & several cervical lymph nodes removed, A TUBE AND OVARY WAS REMOVED Past Anesthesia/Blood Transfusion Reactions: Previous Problems w/ Anesthesia, Postoperative Nausea & Vomiting (PONV) Additional Past Anesthesia/Blood Transfusion Reaction / Comment(s): TOOK VERY LONG TIME TO AWAKEN AFTER SURGERY IN 2012. Smoking Status: Never smoker - Past Family History Father Family Medical History: Congestive Heart Failure (CHF), Coronary Artery Disease (CAD), Diabetes Mellitus, Deep Vein Thrombosis (DVT), Hypertension Additional Family Medical History / Comment(s): PHLEBITIS LEG Sister(s) Family Medical History: Diabetes Mellitus Brother(s) Family Medical History: AFIB Mother Family Medical History: AFIB, Deep Vein Thrombosis (DVT) Additional Family Medical History / Comment(s): PHLEBITIS IN LEG Medications and Allergies Home Medications Medication Instructions Recorded Confirmed Type Metoprolol Tartrate [Lopressor] 50 mg PO QAM 07/21/14 08/07/20 History Cyanocobalamin (Vitamin B-12) 1,000 mcg PO MOFR 06/22/17 08/07/20 History [Vitamin B-12] Metoprolol Tartrate [Lopressor] 25 mg PO HS 06/22/17 08/07/20 History Multivitamins, Thera [Multivitamin 1 tab PO DAILY 06/22/17 08/07/20 History (formulary)] Aspirin [Adult Low Dose Aspirin EC] 81 mg PO DAILY 11/17/17 08/07/20 History L.acidoph,Paracasei, B.lactis 1 cap PO DAILY 10/20/18 08/07/20 History [Probiotic] Artificial Tears-Hypromellose 1 drops BOTH EYES TID PRN 01/12/19 08/07/20 History [Artificial Tear Drops] Mag Hydrox/Al Hydrox/Simeth 15 ml PO QID PRN 04/13/20 08/07/20 History [Maalox] Tamsulosin HCl [Flomax] 0.4 mg PO DAILY 06/07/20 08/07/20 History Acetaminophen [Tylenol Extra 1,000 mg PO Q6H PRN 07/24/20 08/07/20 History Strength] Blue Emu 1 applic PO DIRECTED PRN 07/24/20 08/07/20 History Cipro (Unk. Dose) 1 tab PO BID 08/07/20 08/07/20 History Allergies Allergy/AdvReac Type Severity Reaction Status Date / Time Penicillins Allergy Anaphylaxis Verified 08/07/20 08:56 Sulfa (Sulfonamide Allergy Unknown Verified 08/07/20 08:56 Antibiotics) Childhood acetaminophen AdvReac Elevates Verified 08/07/20 08:56 Liver Enzymes codeine AdvReac Nausea & Verified 08/07/20 08:56 Vomiting NSAIDS (Non-Steroidal AdvReac ULCER- Verified 08/07/20 08:56 Anti-Inflamma HISTORY sulfamethoxazole AdvReac Diarrhea, Verified 08/07/20 08:56 [From Bactrim] C-Diff trimethoprim [From Bactrim] AdvReac Diarrhea, Verified 08/07/20 08:56 C-Diff Surgical - Exam - General well developed, well nourished, no distress - Eyes PERRL - ENT no hearing loss - Neck trachea midline - Respiratory normal expansion, normal respiratory effort - Cardiovascular Rhythm: regular - Abdomen left nephrostomy tube - Integumentary no rash, no growths - Neurologic normal coordination, normal sensation - Musculoskeletal normal gait, normal posture - Psychiatric oriented to time, oriented to person, oriented to place, speech is normal, memory intact Results - Imaging Abdominal x-ray: report reviewed, image reviewed CT scan - abdomen: report reviewed, image reviewed CT scan - pelvis: report reviewed, image reviewed Assessment and Plan Assessment: Impression: Left ureteral stones. Plan: left ureteroscopy withlaser lithotripsy. placement of double j catheter left, removal of nephrostomy tube left
[~2020-08-08 13:48] MED LIST changes: +CLINDAMYCIN 900 MG in DEXTROSE 5% IN WATER 50 ML IVPB ONE; +LACTATED RINGERS 1,000 ML IV SCH; -ONDANSETRON 4 MG/2 ML VIAL IVP ONE
--- NOTE | 2020-08-08 14:15 | XR ---
KUB HISTORY: Kidney stones, preop Frontal KUB and 2 images correlated prior exam 07/30/2020 Nephrostomy tube with Malecot ureteral extension on the left. Multiple calcifications present along t he mid to distal left ureter. Multiple calcifications present in the bilateral kidneys. There is scle rotic focus in the greater trochanter on the right. Scoliosis and degenerative disc changes are prese nt in the visualized spine. Surgical clips present right upper quadrant. IMPRESSION: Ureteral calcifications, bilateral nephrolithiasis. Scoliosis.
[2020-08-08 14:54] LABS: Glucose,Whole Blood 84 mg/dL (75-99)
[2020-08-08] MEDS ORDERED: ONDANSETRON 4 MG/2 ML VIAL ONE (14:58)
[2020-08-08] MEDS ORDERED: DEXAMETHASONE SOD PHOSPHATE 4 MG/ML 1 ML VIAL IV ONE (14:59)
[2020-08-08] MEDS ORDERED: ONDANSETRON 4 MG/2 ML VIAL IVP ONE (14:59)
[2020-08-08] MEDS ORDERED: GLYCOPYRROLATE 0.2 MG/ML 2 ML VIAL ONE (16:34)
[2020-08-08] MEDS ORDERED: SUCCINYLCHOLINE CHLORIDE 100 MG/5 ML SYR IV ONE (16:34)
[2020-08-08] MEDS ORDERED: PROPOFOL 10 MG/ML 20 ML VIAL IV ONE (16:34)
[2020-08-08] MEDS ORDERED: MIDAZOLAM 2 MG/2 ML VIAL ONE (16:34)
[2020-08-08] MEDS ORDERED: ROCURONIUM 10 MG/ML (10 ML VIAL) IV ONE (16:34)
[2020-08-08] MEDS ORDERED: fentaNYL (PF) 50 MCG/ML 2 ML AMP ONE (16:34)
[2020-08-08] MEDS ORDERED: LIDOCAINE 1% INJ 10MG/ML (20 ML MDV) ONE (16:34)
[2020-08-08] MEDS ORDERED: NEOSTIGMINE 1 MG/ML 10 ML VIAL ONE (16:34)
--- NOTE | 2020-08-08 18:11 | P.OP ---
Date of Procedure: 08/08/20 Preoperative Diagnosis: Left ureteral stones, large Postoperative Diagnosis: Same Procedure(s) Performed: Left ureteroscopy with laser lithotripsy, placement of 624 J stent Anesthesia: LOAN Surgeon: Vishnu Medina Pathology: other Condition: stable Disposition: PACU (Down) Indications for Procedure: Patient is 75. one week ago she underwent a percutaneous nephrostolithotomy to a large upper ureteral stone and multiple large left renal stones. The kidney was cleaned out other than renal tubular stones. The evaluation preoperatively to the percutaneous nephrostolithotomy identified 7 rather large distal ureteral stones. The plan is now to do ureteroscopy and placement of stent and removal of nephrostomy tube. Description of Procedure: Patient is brought to the operating suite. She's given general endotracheal anesthesia. She's placed lithotomy position. Prep and drape. Cystoscopy Foroblique lens and 21-Turkish sheath identifies a large stone at the ureteral meatus on the left side. It is teased out of the ureter with the grasping forceps. The pass an 035 wire up the ureter into the renal pelvis. I then pass a semirigid ureteroscope up to the most distal stones. The 270 laser probe I break the stones into tiny fragments. I'm able to flush or basket the fragments there are at least 7 stones that I fracture and remove. Event of the procedure only a small Ragnell into dust remaining. These are too mall to grab with the stone basket. Thus elected terminate the procedure I removed the ureteroscope up. I drained the bladder stones out of the bladder. Over the wires and passed a 6 x 24 double-J catheter that coils in the renal pelvis and the bladder. The pain the patient's awake and returned recovery in good condition. The nephrostomy tube has been removed and the wound is dressed. The patient will be discharged home upon recovery and found the office in 2 weeks for stent removal. End of dictation
[2020-08-08 18:22] VITALS: RESP 16; TEMP 97
[2020-08-08 19:31] VITALS: BP 135/70; PULSE 62
--- NOTE | 2020-08-09 08:20 | FL ---
EXAMINATION TYPE: FL guidance operating room DATE OF EXAM: 08/08/2020 CLINICAL HISTORY: Kidney stones. TECHNIQUE: Fluoroscopy. COMPARISON: None. FINDINGS: Fluoroscopic guidance was provided during cystoscopy with lithotripsy procedure performed by Dr. Medina. A total of 24 seconds of fluoroscopic time was utilized during the procedure and singl e spot intraoperative image is acquired. Single images acquired show portion of proximal ureter stent . IMPRESSION: As Above.
== END 2020-08-08 19:45 | disposition home or self-care (01) ==
LOC: OR 13:48
PROVIDERS: ATTEND Urology
DX: N20.2 Calculus of kidney with calculus of ureter (principal); I48.91 Unspecified atrial fibrillation; H04.129 Dry eye syndrome of unspecified lacrimal gland; H18.509 Unspecified hereditary corneal dystrophies, unspecified eye; M19.90 Unspecified osteoarthritis, unspecified site; E16.2 Hypoglycemia, unspecified; Q61.5 Medullary cystic kidney; N39.0 Urinary tract infection, site not specified; Z93.6 Other artificial openings of urinary tract status; Z88.2 Allergy status to sulfonamides; Z88.0 Allergy status to penicillin; Z88.1 Allergy status to other antibiotic agents; Z88.6 Allergy status to analgesic agent; Z88.5 Allergy status to narcotic agent; Z87.442 Personal history of urinary calculi; Z85.3 Personal history of malignant neoplasm of breast; Z87.11 Personal history of peptic ulcer disease; Z85.818 Personal history of malignant neoplasm of other sites of lip, oral cavity, and pharynx; Z87.828 Personal history of other (healed) physical injury and trauma; Z86.19 Personal history of other infectious and parasitic diseases; Z90.89 Acquired absence of other organs; Z90.49 Acquired absence of other specified parts of digestive tract; Z98.890 Other specified postprocedural states; Z87.19 Personal history of other diseases of the digestive system; Z42.1 Encounter for breast reconstruction following mastectomy; Z90.79 Acquired absence of other genital organ(s); Z90.721 Acquired absence of ovaries, unilateral; Z91.89 Other specified personal risk factors, not elsewhere classified; Z87.898 Personal history of other specified conditions; Z79.899 Other long term (current) drug therapy; Z79.82 Long term (current) use of aspirin; Z82.49 Family history of ischemic heart disease and other diseases of the circulatory system; Z83.3 Family history of diabetes mellitus
CPT/HCPCS: 82365; 74018; 52356; C2625; C1769; J2250; J1100; J2710; J2405; J2001; J3010; J1580; J0330; J2704

== ENCOUNTER → 2020-10-17 | Outpatient (CLI) | payer MEDICARE ==
[2020-10-17 10:58] LABS: Basophils % (A) 1 %; Eosinophils # (A) 0.1 k/uL (0-0.7); Eosinophils % (A) 2 %; HCT 38.3 % (34.0-46.0); HGB 12.3 gm/dL (11.4-16.0); Hypochromasia Slight; Lymphocytes # (A) 1.5 k/uL (1.0-4.8); Lymphocytes % (A) 29 %; MCH 27.8 pg (25.0-35.0); MCHC 32.2 g/dL (31.0-37.0); MCV 86.4 fL (80.0-100.0); Mean Platelet Volume 6.9; Monocytes # (A) 0.3 k/uL (0-1.0); Monocytes % (A) 6 %; Neutrophils # (A) 3.2 k/uL (1.3-7.7); Neutrophils % (A) 61 %; Platelet Count 231 k/uL (150-450); RBC 4.43 m/uL (3.80-5.40); RDW 14.1 % (11.5-15.5); WBC 5.2 k/uL (3.8-10.6)
[2020-10-17 11:20] LABS: Appearance,Urine Clear (Clear); Bilirubin,Urine Negative (Negative); Blood,Urine Negative (Negative); Color,Urine Light Yellow; Glucose,Urine (UA) Negative (Negative); Ketones,Urine Negative (Negative); Leukocyte Esterase,Urine Negative (Negative); Nitrite,Urine Negative (Negative); Protein,Urine Negative (Negative); Specific Gravity,Urine 1.011 (1.001-1.035); Urobilinogen,Urine <2.0 mg/dL (<2.0)
[2020-10-17 15:52] LABS: African American GFR (CKD) 56.5 (60.0-200.0); Albumin 4.3 g/dL (3.80-4.90); Albumin/Globulin Ratio 1.87 (1.60-3.17); Anion Gap 5.8 mmol/L (4.00-12.00); Calcium 9.4 mg/dL (8.7-10.3); Carbon Dioxide 26.2 mmol/L (21.6-31.8); Globulin 2.3 g/dL (1.6-3.3); Non-African American GFR(CKD) 48.7 (60.0-200.0); Total Bilirubin 0.3 mg/dL (0.2-1.2); Total Protein 6.6 g/dL (6.2-8.2)
== END | disposition home or self-care (01) ==
LOC: LABWHC1 10:09
PROVIDERS: ATTEND Urology
DX: Z01.818 Encounter for other preprocedural examination (principal); N20.0 Calculus of kidney; R31.29 Other microscopic hematuria
CPT/HCPCS: 36415; 80053; 81003; 85025; 87086

== ENCOUNTER → 2020-10-19 | Outpatient (CLI) | payer MEDICARE ==
--- NOTE | 2020-10-19 11:58 | MM ---
Reason for exam: additional evaluation requested from prior study. Last mammogram was performed 1 year and 2 months ago. History: Patient is postmenopausal, has history of other cancer at age 73, has history of breast cancer at age 68, and is nulliparous. Family history of premenopausal breast cancer in paternal cousin at age 38 and premenopausal breast cancer in paternal cousin at age 40. Saline implant in the right breast, 2013. Reconstruction of the right breast, 2013. Malignant right mammotome panel of the right breast, August 05, 2013. Malignant US RT VAD breast biopsy of the right breast, August 05, 2013. Mastectomy of the right breast, 2012. Benign US right guided mammotome of the right breast, October 27, 2008. Cyst aspiration of the right breast. 2 excisional biopsies of the right breast. Took hormonal contraceptives for 2 years beginning at age 20. Took estrogen for 2 years. Took progesterone for 2 years. Took antineoplastic for 6 years beginning at age 68. Physical Findings: Nurse did not find any significant physical abnormalities on exam. MG 3D Diag Mammo W/Cad LT CC, MLO, and ID view(s) were taken of the left breast. Prior study comparison: August 24, 2019, left breast MG 3d diag mammo w/cad LT. July 28, 2018, left breast MG 3d diag mammo w/cad LT. The breast tissue is heterogeneously dense. This may lower the sensitivity of mammography. Benign appearing calcifications in the left breast. No significant new findings when compared with previous films. These results were verbally communicated with the patient and result sheet given to the patient on 10/19/20. ASSESSMENT: Benign, BI-RAD 2 RECOMMENDATION: Follow-up diagnostic mammogram of the left breast in 1 year.
== END | disposition home or self-care (01) ==
LOC: RADMAMWWP 10:54
PROVIDERS: ATTEND Internal Medicine Hematology & Oncology
DX: Z08 Encounter for follow-up examination after completed treatment for malignant neoplasm (principal); Z85.3 Personal history of malignant neoplasm of breast
CPT/HCPCS: 77065; G0279; 77061

== ENCOUNTER 2020-10-24 06:13 | Observation (INO) | payer MEDICARE ==
[2020-10-19 16:19] VITALS: BMI 29.5
--- NOTE | 2020-10-23 12:35 | P.GSHP ---
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 who comes for pcnl right to remove as much possible of this large volume[>3cm] of stone, She had a left sided pcnl and ureteroscopy recently - Constitutional Constitutional: Denies chills, Denies fever - EENT Eyes: denies blurred vision, denies pain Ears, nose, mouth and throat: Denies headache, Denies sore throat - Cardiovascular Cardiovascular: Denies chest pain, Denies shortness of breath - Respiratory Respiratory: Denies cough, Denies 7 - Gastrointestinal Gastrointestinal: Denies abdominal pain, Denies diarrhea, Denies nausea, Denies vomiting - Genitourinary (Female) Genitourinary: Denies dysuria, Denies hematuria - Genitourinary (Male) Genitourinary: Denies dysuria, Denies hematuria - Musculoskeletal Musculoskeletal: Denies myalgias - Integumentary Integumentary: Denies pruritus, Denies rash - Neurological Neurological: Denies numbness, Denies weakness - Psychiatric Psychiatric: Denies anxiety, Denies depression - Endocrine Endocrine: Denies fatigue, Denies weight change Past Medical History Past Medical History: Atrial Fibrillation, Cancer, Eye Disorder, Musculoskeletal Disorder, Osteoarthritis (OA), Renal Disease Additional Past Medical History / Comment(s): DRY EYE, CORNEAL DYSTROPHY. HX RT BREAST CA. HYPOGLYCEMIA. EDEMA LOWER LEGS OCC. DUODENAL ULCER 04-06-17. 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 2018, BORN W/ MEDULLARY SPONGE KIDNEY and HX OF KIDNEY STONES., LOWER BACK PAIN; NT TOES FOR YEARS, headaches , INCISIONAL HERNIA, scoliosis & spinal stenosis, metoprolol for hx. of a-fib History of Any Multi-Drug Resistant Organisms: ESBL, MRSA Date of last positivie culture/infection: 08/03/20 ESBL E.coli MDRO Source:: URINE Past Surgical History: Adenoidectomy, Appendectomy, Breast Surgery, Cholecystectomy, Hernia Repair, Tonsillectomy Additional Past Surgical History / Comment(s): RT BREAST MASTECTOMY W/ RECONSTRUCTION; FATTY TUMOR EXC LT ARM. NEPHROLITHOTOMY TUBE W/ STONE REMOVAL. EGD, COLONOSCOPY. EXC RT OVARY/TUBE. CANCER EXC. RT BUCCAL MUCOSA W/ TISSUE TRANSPLANT FROM LT WRIST & several cervical lymph nodes removed, pain procedures Past Anesthesia/Blood Transfusion Reactions: Previous Problems w/ Anesthesia, Postoperative Nausea & Vomiting (PONV) Additional Past Anesthesia/Blood Transfusion Reaction / Comment(s): takes a while to wake up after surg., dad a problem sodium pentothal Smoking Status: Former smoker - Past Family History Father Family Medical History: Congestive Heart Failure (CHF), Coronary Artery Disease (CAD), Diabetes Mellitus, Deep Vein Thrombosis (DVT), Hypertension Additional Family Medical History / Comment(s): PHLEBITIS LEG Sister(s) Family Medical History: Diabetes Mellitus Brother(s) Family Medical History: AFIB Mother Family Medical History: AFIB, Deep Vein Thrombosis (DVT) Additional Family Medical History / Comment(s): PHLEBITIS IN LEG Medications and Allergies Home Medications Medication Instructions Recorded Confirmed Type Metoprolol Tartrate [Lopressor] 50 mg PO QAM 07/21/14 10/19/20 History Cyanocobalamin (Vitamin B-12) 1,000 mcg PO MOFR 06/22/17 10/19/20 History [Vitamin B-12] Metoprolol Tartrate [Lopressor] 25 mg PO HS 06/22/17 10/19/20 History Multivitamins, Thera [Multivitamin 1 tab PO DAILY 06/22/17 10/19/20 History (formulary)] Aspirin [Adult Low Dose Aspirin EC] 81 mg PO DAILY 11/17/17 10/19/20 History L.acidoph,Paracasei, B.lactis 1 cap PO DAILY 10/20/18 10/19/20 History [Probiotic] Artificial Tears-Hypromellose 1 drops BOTH EYES TID PRN 01/12/19 10/19/20 History [Artificial Tear Drops] Tamsulosin HCl [Flomax] 0.4 mg PO DAILY 06/07/20 10/19/20 History Acetaminophen [Tylenol Extra 1,000 mg PO BID 07/24/20 10/19/20 History Strength] Blue Emu 1 applic TOPICAL DIRECTED PRN 07/24/20 10/22/20 History Mag Hydrox/Aluminum Hyd/Simeth 0 ml PO DIRECTED PRN 10/19/20 10/19/20 History [Mylanta Maximum Strength Liq] Allergies Allergy/AdvReac Type Severity Reaction Status Date / Time Penicillins Allergy Anaphylaxis Verified 10/19/20 15:09 Sulfa (Sulfonamide Allergy Unknown Verified 10/19/20 15:09 Antibiotics) Childhood acetaminophen AdvReac Elevates Verified 10/19/20 15:09 Liver Enzymes codeine AdvReac Nausea & Verified 10/19/20 15:09 Vomiting NSAIDS (Non-Steroidal AdvReac ULCER- Verified 10/19/20 15:09 Anti-Inflamma HISTORY sulfamethoxazole AdvReac Diarrhea, Verified 10/19/20 15:09 [From Bactrim] C-Diff trimethoprim [From Bactrim] AdvReac Diarrhea, Verified 10/19/20 15:09 C-Diff Surgical - Exam - General well developed, well nourished, no distress - Eyes PERRL - ENT no hearing loss - Neck no masses, trachea midline - Respiratory normal expansion, normal respiratory effort - Cardiovascular Rhythm: regular - Abdomen Abdomen: soft, non tender - Integumentary no rash, no growths - Neurologic normal coordination, normal sensation - Musculoskeletal normal gait, normal posture - Psychiatric oriented to time, oriented to person, oriented to place, speech is normal, memory intact Results - Imaging Abdominal x-ray: report reviewed, image reviewed CT scan - abdomen: report reviewed, image reviewed CT scan - pelvis: report reviewed, image reviewed Assessment and Plan Assessment: Impression, Large right renal stones Plan: PCNL right
[~2020-10-24 06:13] MED LIST changes: -CLINDAMYCIN 900 MG in DEXTROSE 5% IN WATER 50 ML IVPB ONE; +DEXAMETHASONE SOD PHOSPHATE 4 MG/ML 1 ML VIAL IV ONE; -GENTAMICIN 100 MG in SODIUM CHLORIDE 0.9% 100 ML IVPB ONE; +GENTAMICIN 100 MG in SODIUM CHLORIDE 0.9% 100 ML IVPB PRN; -LACTATED RINGERS 1,000 ML IV SCH; +MIDAZOLAM 2 MG/2 ML VIAL IV PRN
[2020-10-24] MEDS ORDERED: ONDANSETRON 4 MG/2 ML VIAL ONE (06:49)
[2020-10-24] MEDS ORDERED: fentaNYL (PF) 50 MCG/ML 2 ML AMP IV PRN (07:00)
--- NOTE | 2020-10-24 07:06 | XR ---
EXAMINATION TYPE: XR KUB DATE OF EXAM: 10/24/2020 6:31 AM CLINICAL HISTORY: Right-sided kidney stones. TECHNIQUE: Two supine KUB images of the abdomen are obtained. COMPARISON: CT abdomen and pelvis September 10, 2018 was recent abdominal x-ray August 08, 2020 FINDINGS: Multiple bilateral renal calculi are redemonstrated. There are larger calculi on the right. At least 20 calculi are felt present bilaterally. No significant change from most recent x-ray. Underlying scoliosis with prominent spurring and disc space narrowing right lower lumbar spine. Kami cystectomy clips. Overall nonobstructive bowel gas pattern. IMPRESSION: As above.
[2020-10-24 07:11] LABS: Glucose,Whole Blood 100 mg/dL (75-99)
[2020-10-24] MEDS: LACTATED RINGERS 1,000 ML IV SCH ×2 (07:14→14:09)
[2020-10-24] MEDS ORDERED: SUCCINYLCHOLINE CHLORIDE 100 MG/5 ML SYR IV ONE (07:22)
[2020-10-24] MEDS ORDERED: HYDROmorphone (PF) 1 MG/ML ONE (07:22)
[2020-10-24] MEDS ORDERED: NEOSTIGMINE 1 MG/ML 10 ML VIAL ONE (07:22)
[2020-10-24] MEDS ORDERED: fentaNYL (PF) 50 MCG/ML 2 ML AMP ONE (07:22)
[2020-10-24] MEDS ORDERED: GLYCOPYRROLATE 0.2 MG/ML 2 ML VIAL ONE (07:22)
[2020-10-24] MEDS ORDERED: ROCURONIUM 10 MG/ML (10 ML VIAL) IV ONE (07:22)
[2020-10-24] MEDS ORDERED: LIDOCAINE 1% INJ 10MG/ML (20 ML MDV) ONE (07:22)
[2020-10-24] MEDS ORDERED: WATER FOR INJECTION, STERILE 10 ML VIAL IV ONE (07:22)
[2020-10-24] MEDS ORDERED: diphenhydrAMINE 50 MG/ML 1 ML VIAL ONE (07:22)
[2020-10-24] MEDS ORDERED: ePHEDrine SULFATE/0.9% NACL/PF 50 MG/5 ML SYRINGE IV ONE (07:22)
[2020-10-24] MEDS ORDERED: PROPOFOL 10 MG/ML 20 ML VIAL IV ONE (07:22)
[2020-10-24] MEDS ORDERED: IOPAMIDOL-370 50ML BTL IRRIGATION ONE ×2 (07:45)
[2020-10-24] MEDS ORDERED: ARTIFICIAL TEARS-HYPROMELLOSE DROPS 15 ML BTL BOTH EYES PRN (09:30)
[2020-10-24] MEDS ORDERED: MAG HYDROX/AL HYDROX/SIMETH 30 ML CUP PO PRN ×2 (09:30→09:33)
[2020-10-24] MEDS ORDERED: ONDANSETRON 4 MG/2 ML VIAL IVP PRN ×2 (09:30→09:33)
[2020-10-24] MEDS ORDERED: ACETAMINOPHEN TAB 325 MG TAB PO PRN (09:33)
[2020-10-24] MEDS ORDERED: NALOXONE 0.4 MG/ML 1 ML VIAL IV PRN ×2 (09:33→09:35)
[2020-10-24] MEDS ORDERED: HYDROmorphone PCA 10 MG/50 ML BAG IV PRN (09:35)
--- NOTE | 2020-10-24 09:39 | FL ---
EXAMINATION TYPE: FL Perc Nephrostomy New Access DATE OF EXAM: 10/24/2020 COMPARISON: CT from outside institution dated March 2020 HISTORY: Nephrolithiasis, right-sided kidney stones. PROCEDURE: Maximal barrier technique was utilized, hand hygiene obtained with alcohol-based hand rub. The skin overlying the right kidney was localized using fluoroscopy and the overlying skin prepped and draped. Skin brain was made with a scalpel. Access was gained under fluoroscopy, following placement of a ur eteral occlusion balloon by the referring clinician and instillation of air in the renal collecting s ystem with a 21-gauge needle to the {left/right} kidney. A suitable posterior calyx was chosen. A 0.018 inch wire was advanced. The access site was dilated , access site was upsized, safety wire dep loyed and subsequently a sheath was advanced into the renal pelvis following dilation with balloon al wayne the tract. The patient underwent nephrolithotomy by the referring clinician. The patient remain ed in stable condition without complication. The patient was discharged to observation in the care o f anesthesia. 1 minute 25 seconds fluoroscopy time. Single intraoperative C-arm image documents the procedure. IMPRESSION: STATUS POST NEPHROSTOMY PLACEMENT FOR NEPHROLITHOTOMY WITH FLUOROSCOPIC GUIDANCE. THIS PROCEDURE PER FORMED BY THE UNDERSIGNED.
--- NOTE | 2020-10-24 09:44 | P.OP ---
Date of Procedure: 10/24/20 Preoperative Diagnosis: Right renal stones large Postoperative Diagnosis: Same Procedure(s) Performed: Cystoscopy, placement of right ureteral occluding balloon catheter, right percutaneous nephrostomy (Dr. Chowdhury) right percutaneous nephrostolithotomy with laser lithotripsy, laser infundibulotomy, laser papillotomy, placement of 12- Honduran J nephrostomy Anesthesia: LOAN Surgeon: Vishnu Medina Estimated Blood Loss (ml): 50 Pathology: other (Stone) Condition: stable Disposition: PACU Indications for Procedure: The patient is 75. 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 The large stones in her right kidney some of which are calyceal some which are tubular. She comes for a right percutaneous nephrostolithotomy Description of Procedure: The patient is brought to the operating suite. She is given a general endotracheal anesthesia. She's placed lithotomy position with a sterile prep and drape. Cystoscopy Foroblique lens. The right ureteral orifice is identified and a five. Honduran occluding balloon catheters passed up into the proximal ureter. It is secured to a 16-Honduran Go after the cystoscope was removed The patient is placed in a prone position with care to airways and extremities. Dr. Chowdhury of radiology performed percutaneous access to a right upper pole calyx, posterior. I dilate the tract to 30-Honduran and introduced the rigid scope into the collecting system. Immediately pulled some large stones out of the renal pelvis. I then pass the rigid scope into the upper pole calyx. I see several stones and remove them with the grasping forceps. I then pass in the lower pole calyx. There is a large stone that is identified and broken with the laser and the 2 fragments. It is 2 cm. I removed the fragments with the rigid scope. I then identify several stones behind the lower pole papilla and with the laser I incised the papilla to expose the stones and remove them with the grasping forceps. I then moved to an anterior portion of the lower pole calyx again identify some stone which are removed with the grasping forceps and then do another papillotomy to remove more stones out of anterior portion of the lower pole calyx. I then looked throughout the collecting system with the flexible scope do some small papillotomy is to remove more stone. At the end of the procedure however there are 2 larger stones in the lower pole renal tubules that are not easily accessed with papillotomy and therefore I elect to leave them as they renal tubular stones. I looked throughout the collecting system and remove any remaining stony debris. A 12- Honduran J nephrostomy tube was placed over the working wire and coils in the renal pelvis confirmed fluoroscopically and with contrast. It is secured to the skin with 2-0 silk. The wires and ureteral catheter removed. The patient's awake and returned recovery room good condition. Blood loss is approximately 50 mL Patient tolerated the procedure well. She obviously is renal tubular stones that shy of an anatrophic nephrolithotomy they will remain. If they have road in the collecting system we may have to deal for those at a later date.
[2020-10-24] MEDS ORDERED: DEXTROSE 5%-0.45% NACL 1,000 ML IV SCH (09:45)
[2020-10-24] MEDS: HYDROmorphone 0.5 MG/0.5 ML SYRINGE IVP PRN ×4 (09:49→10:13)
[2020-10-24] MEDS ORDERED: diphenhydrAMINE 50 MG/ML 1 ML VIAL IVP ONE (10:16)
[2020-10-24] MEDS: DEXTROSE 5%-0.45% NACL 1,000 ML IV SCH ×2 (14:08→19:50)
[2020-10-24] MEDS: ACETAMINOPHEN TAB 500 MG TAB PO SCH (21:37)
[2020-10-24] MEDS: METOPROLOL TARTRATE 25 MG TAB PO SCH (21:39)
[2020-10-25] MEDS: DEXTROSE 5%-0.45% NACL 1,000 ML IV SCH ×2 (06:47→16:36)
--- NOTE | 2020-10-25 07:12 | P.PN ---
Subjective Progress Note Date: 10/25/20 The patient underwent a right percutaneous nephrostolithotomy yesterday for a large renal calculi volume. He did well postoperatively. She had some chest pain due to lying in a prone position. It was associated with respiration. It is better this morning that. Her urine output is great from the nephrostomy tube. Voided urine is diminished probably due to a poorly functioning left kidney due to chronic obstruction. She is starting to ambulate. She has too much pain and immobility go home initially was planning herself up. I will decrease her IV fluids. Her Go and see how she does. She'll be discharged home later today or tomorrow with the nephrostomy tube. The nephrostomy tube will come out next week. Vital signs are stable. Objective - Vital Signs Vital signs: Vital Signs Temp 97.8 F 10/25/20 04:10 Pulse 56 L 10/25/20 04:10 Resp 16 10/25/20 04:10 BP 107/59 10/25/20 04:10 Pulse Ox 97 10/25/20 04:10 Intake & Output 10/24/20 10/25/20 10/25/20 18:59 06:59 18:59 Intake Total 1942.5 1350 Output Total 1600 1125 Balance 342.5 225 Weight 84 kg Intake: IV 952.5 Intake, IV Titration 600 1000 Amount Dextrose 5%-0.45% NaCl 1, 600 1000 000 ml @ 100 mls/hr IV . Q10H [facility] Rx#:[id number] Oral 390 350 Output: Drainage 400 1075 Right 400 1075 Urine 1100 50 Uretheral (Go) 100 Emesis 50 Estimated Blood Loss 50 Other: Voiding Method Indwelling Catheter Indwelling Catheter - Labs Labs: Abnormal Lab Results - Last 24 Hours (Table) 10/24/20 Range/Units 07:10 POC Glucose (mg/dL) 100 H (75-99) mg/dL
[2020-10-25] MEDS: METOPROLOL TARTRATE 50 MG TAB PO SCH (08:24)
[2020-10-25] MEDS: ACETAMINOPHEN TAB 500 MG TAB PO SCH ×2 (08:24→20:47)
[2020-10-25] MEDS: HYDROcodone/APAP 5-325MG 1 EACH TAB PO PRN ×2 (16:35→20:40)
[2020-10-25] MEDS: METOPROLOL TARTRATE 25 MG TAB PO SCH (20:19)
[2020-10-26] MEDS: ACETAMINOPHEN TAB 500 MG TAB PO SCH ×2 (00:17→08:47)
[2020-10-26] MEDS: HYDROcodone/APAP 5-325MG 1 EACH TAB PO PRN (05:14)
--- NOTE | 2020-10-26 07:47 | P.DS ---
Providers Attending physician: Vishnu Medina Primary care physician: [facility] Course: The patient was admitted 10/24/2020 for a right percutaneous nephrostolithotomy. A large volume of kidney stones removed. Postoperatively she did well. She was in too much pain the first 24 hours to be discharged home. Her pain is much more controlled at this point in time. She is ambulating and urinating. Her abdomen was soft. Her urine is clear. She'll be discharged home. She'll f jr Thursday in the office for nephrostomy tube removal. Postoperative instructions of been given. Her condition is good. She will undergo a metabolic evaluation as an outpatient. Patient Condition at Discharge: Good Plan - Discharge Summary Discharge Rx Participant: Yes New Discharge Prescriptions: New HYDROcodone/APAP 5-325MG [Remington 5-325] 1 tab PO Q4HR PRN #14 tab PRN Reason: Pain HYDROcodone/APAP 5-325MG [Remington 5-325] 1 tab PO Q4HR PRN #14 tab PRN Reason: Pain No Action Metoprolol Tartrate [Lopressor] 50 mg PO QAM Metoprolol Tartrate [Lopressor] 25 mg PO HS Multivitamins, Thera [Multivitamin (formulary)] 1 tab PO DAILY Cyanocobalamin (Vitamin B-12) [Vitamin B-12] 1,000 mcg PO MOFR Aspirin [Adult Low Dose Aspirin EC] 81 mg PO DAILY L.acidoph,Paracasei, B.lactis [Probiotic] 1 cap PO DAILY Artificial Tears-Hypromellose [Artificial Tear Drops] 1 drops BOTH EYES TID PRN PRN Reason: dry eyes Tamsulosin HCl [Flomax] 0.4 mg PO DAILY Acetaminophen [Tylenol Extra Strength] 1,000 mg PO BID Blue Emu 1 applic TOPICAL DIRECTED PRN PRN Reason: Pain Mag Hydrox/Aluminum Hyd/Simeth [Mylanta Maximum Strength Liq] 0 ml PO DIRECTED PRN PRN Reason: Heartburn Discharge Medication List Metoprolol Tartrate [Lopressor] 50 mg PO QAM 07/21/14 [History] Cyanocobalamin (Vitamin B-12) [Vitamin B-12] 1,000 mcg PO MOFR 06/22/17 [History] Metoprolol Tartrate [Lopressor] 25 mg PO HS 06/22/17 [History] Multivitamins, Thera [Multivitamin (formulary)] 1 tab PO DAILY 06/22/17 [History] Aspirin [Adult Low Dose Aspirin EC] 81 mg PO DAILY 11/17/17 [History] L.acidoph,Paracasei, B.lactis [Probiotic] 1 cap PO DAILY 10/20/18 [History] Artificial Tears-Hypromellose [Artificial Tear Drops] 1 drops BOTH EYES TID PRN 01/12/19 [History] Tamsulosin HCl [Flomax] 0.4 mg PO DAILY 06/07/20 [History] Acetaminophen [Tylenol Extra Strength] 1,000 mg PO BID 07/24/20 [History] Blue Emu 1 applic TOPICAL DIRECTED PRN 07/24/20 [History] Mag Hydrox/Aluminum Hyd/Simeth [Mylanta Maximum Strength Liq] 0 ml PO DIRECTED PRN 10/19/20 [History] HYDROcodone/APAP 5-325MG [Remington 5-325] 1 tab PO Q4HR PRN #14 tab 10/25/20 [Rx] HYDROcodone/APAP 5-325MG [Remington 5-325] 1 tab PO Q4HR PRN #14 tab 10/26/20 [Rx] Follow up Appointment(s)/Referral(s): Vishnu Medina MD [STAFF PHYSICIAN] - 10/30/20 Activity/Diet/Wound Care/Special Instructions: home with nephrostomy tube Discharge Disposition: HOME SELF-CARE
[2020-10-26] MEDS: METOPROLOL TARTRATE 50 MG TAB PO SCH (08:47)
[2020-10-26 08:51] VITALS: BP 139/80; PULSE 69; RESP 18; TEMP 98
== END 2020-10-26 11:26 ==
LOC: OR 06:13 → 6PED 09:35 → OR 10-25 10:50 → 6PED 10-25 10:50 → OR 10-26 11:33 → 6PED 10-26 19:01
PROVIDERS: ADMIT Urology; ATTEND Urology
DX: N20.0 Calculus of kidney (principal); Q61.5 Medullary cystic kidney; I48.91 Unspecified atrial fibrillation; M19.90 Unspecified osteoarthritis, unspecified site; H18.509 Unspecified hereditary corneal dystrophies, unspecified eye; M41.9 Scoliosis, unspecified; M48.00 Spinal stenosis, site unspecified; M54.5 Low back pain; E16.2 Hypoglycemia, unspecified; H04.129 Dry eye syndrome of unspecified lacrimal gland; I10 Essential (primary) hypertension; Z79.82 Long term (current) use of aspirin; Z79.899 Other long term (current) drug therapy; Z88.6 Allergy status to analgesic agent; Z88.1 Allergy status to other antibiotic agents; Z88.5 Allergy status to narcotic agent; Z88.0 Allergy status to penicillin; Z88.2 Allergy status to sulfonamides; Z87.442 Personal history of urinary calculi; Z87.11 Personal history of peptic ulcer disease; Z85.3 Personal history of malignant neoplasm of breast; Z16.24 Resistance to multiple antibiotics; Z86.14 Personal history of Methicillin resistant Staphylococcus aureus infection; Z90.11 Acquired absence of right breast and nipple; Z90.49 Acquired absence of other specified parts of digestive tract; Z94.89 Other transplanted organ and tissue status; Z87.891 Personal history of nicotine dependence; Z86.19 Personal history of other infectious and parasitic diseases; Z87.440 Personal history of urinary (tract) infections; Z83.3 Family history of diabetes mellitus; Z82.49 Family history of ischemic heart disease and other diseases of the circulatory system; Z84.89 Family history of other specified conditions
CPT/HCPCS: 82365; 50432; 74018; 50080; G0378 ×2; C2628; C1769 ×2; C1894; C1729 ×2; J1200; J1100; J2710; J2405; J2001; J3010; J1580; J1170 ×3; J0330; J2704; Q9967; 86850; 86900; 86901

== ENCOUNTER → 2021-05-01 | Outpatient (CLI) | payer MEDICARE ==
[2021-05-01 09:29] VITALS: BP 128/83; PULSE 75; RESP 18; TEMP 97.9
--- NOTE | 2021-05-01 09:36 | P.PAINPG ---
Subjective Progress Note Date: 05/01/21 This is a follow-up visit for this 75 years old female with a chronic history of severe low back pain she is diagnosed with lumbar degenerative disc disease, lumbar spinal stenosis, she underwent lumbar epidural steroid injection at L4-L5 2(05/10, 06/07/2020). We have not seen her since May. In that visit she had described pain in the low back with some radiation into the flanks. She also recently had cystoscopy with stent placement with urology. Our plan at the time was to do an L3-4 and L4-L5 and L5-S1 RFA on the left side she has had that in the past which was helpful. He turns today noting that overall her health as well. She had recent surgical management with urology and that is doing okay right now. Pain is mostly located over the left low back with some radiation into the buttock. She would like to have her radiofrequency ablations repeated on the left side. Review of systems is negative for chest pain, shortness of breath, new onset weakness, numbness/tingling, abdominal pain, malaise, fever, night sweats, chills, homicidal or suicidal ideation, or bowel or bladder incontinence. She does report feeling more depressed with the current pandemic and her sister's health issues. 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 Objective Physical exam: Vitals: Reviewed in EMR GENERAL: Well appearing, in no acute distress PSYCH: Mood and affect is appropriate. Awake, alert, and oriented SKIN: Skin color, texture, turgor normal, no rashes or lesions HEENT: Normocephalic, atraumatic. EOM intact CV: No pedal edema RESP: Respirations are unlabored, no audible wheezing GI: Abdomen non-distended MUSCULOSKELETAL: Bilateral lower extremity strength is normal and symmetric. No atrophy or tone abnormalities are noted. Lumbar spine: Straight leg raising in the sitting position is negative for radicular pain. Tenderness to palpation over the lumbar spine and paraspinous muscles bilaterally. Positive for pain with facet loading and back extension/rotation. Extremities: Bilateral kneestenderness to palpation along medial joint line. NEUR: Bilateral lower extremity coordination and muscle stretch reflexes are physiologic and symmetric. Loss of sensation noted to light touch in bilateral feet up to ankles Assessment and Plan Plan: Assessment and plan= chronic severe low back pain secondary to lumbar degenerative disc disease and lumbar stenosis - Repeat L3-4 L4-5 and L5-S1 RFA on the left side. If this is not helpful we can repeat her L4-5 STEPHAN. - In regards to her knee pain she has mild arthritis in we can explore knee injections in the future if needed I have spent 31 minutes on review of the records, review of the imaging available, [id number] interaction with the patient, medication management, follow-up care coordination and record creation. PQRS Measure Charge Sheet Measure #130: Documentation of Current Meds in Medical Chart: Patient's medications documented in chart Measure #226: Tobacco Use: Screen & Cessation Intervention: Pt not a tobacco user Measure #111: Pneumonia Vaccination: Pneumococcal vaccine administered or previously received Measure #47: Advance Care Plan: Advance care planning discussed & documented, pt chose/unable to give Measure #412: Opioid Treatment Agreement: No documentation of signed opioid treatment agreement Measure #408: Opioid Therapy Follow-up Evaluation: Patient had NO f/u eval minimum every 3 months during opioid therapy Measure #317: Preventitive Care & Scrn High Bld Press & F/U: Normal blood pressure, f/u not required Measure #128: Body Mass Index (BMI) Screening & Follow-up: BMI documented ABOVE normal parameters - f/u documented Measure #131: Pain Assessment & Follow-up: Pain positive & plan documented, Follow-up scheduled Measure #431: Unhealthy Alcohol Use Preventative Care & Scrn: Patient not identified as an unhealthy alcohol user PQRS Measure Charge Sheet PQRS Narrative: Smoking Status Never smoker Pain Intensity [Back] 3 Scale Used Numeric (1 - 10) Hx Alcohol Use (MH) No PQRS Measure Charge Sheet PQRS Narrative: Smoking Status Never smoker Scale Used Numeric (1 - 10) Hx Alcohol Use (MH) No Home Medications: Ambulatory Orders Metoprolol Tartrate [Lopressor] 50 mg PO QAM 07/21/14 Cyanocobalamin (Vitamin B-12) [Vitamin B-12] 1,000 mcg PO MOFR 06/22/17 Metoprolol Tartrate [Lopressor] 25 mg PO HS 06/22/17 Multivitamins, Thera [Multivitamin (formulary)] 1 tab PO DAILY 06/22/17 Aspirin [Adult Low Dose Aspirin EC] 81 mg PO DAILY 11/17/17 L.acidoph,Paracasei, B.lactis [Probiotic] 1 cap PO DAILY 10/20/18 Artificial Tears-Hypromellose [Artificial Tear Drops] 1 drops BOTH EYES TID PRN 01/12/19 Tamsulosin HCl [Flomax] 0.4 mg PO DAILY 06/07/20 Acetaminophen [Tylenol Extra Strength] 1,000 mg PO BID 07/24/20 Cbd Max 1 dose TOPICAL DAILY 04/26/21 Cholecalciferol [Vitamin D3 (25 Mcg = 1000 Iu)] 50 mcg PO DAILY 04/26/21 Controlled Substance Measures - Controlled Substance Measures Is patient prescribed a controlled substance at discharge?: No
== END | disposition home or self-care (01) ==
LOC: PNWHC3 09:18
PROVIDERS: ATTEND Anesthesiology
DX: M51.36 Other intervertebral disc degeneration, lumbar region (principal); M13.869 Other specified arthritis, unspecified knee
CPT/HCPCS: 99211

== ENCOUNTER 2021-06-21 07:56 | Day surgery (SDC) | payer MEDICARE ==
[2021-06-21 08:20] VITALS: TEMP 98.8
[2021-06-21] MEDS ORDERED: LACTATED RINGERS 1,000 ML IV ONE (08:28)
[2021-06-21] MEDS ORDERED: ONDANSETRON 4 MG/2 ML VIAL IVP ONE (08:39)
[2021-06-21] MEDS ORDERED: ONDANSETRON 4 MG/2 ML VIAL ONE (08:39)
[2021-06-21] MEDS ORDERED: fentaNYL (PF) 50 MCG/ML 2 ML AMP ONE (08:43)
[2021-06-21] MEDS ORDERED: diphenhydrAMINE 50 MG/ML 1 ML VIAL ONE (08:43)
[2021-06-21] MEDS ORDERED: methylPREDNISolone ACETATE 40 MG/ML 1 ML VIAL ONE (08:43)
[2021-06-21] MEDS ORDERED: ROPIVACAINE 5MG/ML 20ML VIAL ONE (08:43)
[2021-06-21] MEDS ORDERED: DEXAMETHASONE SOD PHOSPHATE 4 MG/ML 1 ML VIAL ONE (08:43)
[2021-06-21] MEDS ORDERED: MIDAZOLAM 2 MG/2 ML VIAL ONE (08:43)
--- NOTE | 2021-06-21 09:09 | P.PCN ---
Date of Procedure: 06/21/21 Procedure(s) Performed: PREOPERATIVE DIAGNOSIS: 1-Lumbar Spondylosis with Facet Arthropathy without myelopathy. 2- Lumber degenerative disc disease POSTOPERATIVE DIAGNOSIS: 1- Lumbar Spondylosis with Facet Arthropathy without myelopathy. 2- Lumber degenerative disc disease PROCEDURES : Left Radiofrequency thermocoagulation, L2 L3 , L4 , and L5 medial branch, with fluoroscopic guidance (fluoroscopy images available in the radiology department) ( to denervate the facet joint at Left L3-4 , L4-5 ,and L5-S1 levels ) ANESTHESIA: Monitered anesthesia care. EBL: Minimal PROCEDURE INDICATION: The patient with low back pain secondary to lumbar facet arthropathy who had more than 50% relief of her pain with previous diagnostic lumbar medial branch block with bupivacaine. PROCEDURE DESCRIPTION / TECHNIQUE: The patient was seen and identified in the preoperative area. Risks, benefits, complications, including but not limited to risk of infection ,bleeding , allergic reactions to the medications and no complete pain releife , and alternatives were discussed with the patient, the patient agreed to proceed with the procedure and signed the consent. IV was started. Vital signs remained stable throughout the procedure. Patient was taken to the OR and time out was completed. The patient was placed in the prone position on the procedure table. The lumber area was prepped and draped in the usual sterile fashion. . Vital signs were closely monitored during the procedure .IV sedation was used during the procedure to decrease patients anxiety. Using AP and then oblique fluoroscopy, the ``eye of the Farshad dog corresponding to the connection between the superior and transverse articular processes of Left L2 , L3, L4, and L5 were identified, marked, and localized with 1% lidocaine. Subsequently, a [id number] radiofrequency cannula with a 10-mm active tip was advanced guided by fluoroscopy to each of the``eyes of the Farshad dog at Left L2 ,L3, L4, and L5. Each site then underwent sensory testing at 50 Hz and 0 to 1 volt and motor testing at 2.5 Hz and 0 to 3 volt with local stimulation, but no radicular symptoms down the legs. Thereafter each sites underwent radiofrequency thermocoagulation at 80 degrees celsius for 90 seconds after injecting 0.5 ml of PF Ropivacaine 1ml, then after the thermocoagulation done , 1 ml of the block solution containing Depo-Medrol 40 mg and 4 ml of Ropivacaine 0.5% was injected at the Left L2 ,L3 , L4 , and L5 , levels after negative aspiration of CSF and blood and with no paresthesias. Cannulas were retracted while injecting lidocaine 1% until the needle is out. At the end of the procedure, the skin was cleansed and bandages were applied. COMPLICATIONS: No acute complications. DISPOSITION / PLANS: The patient was placed in a supine position and transferred to the recovery area in a stable condition for observation and was discharged from the recovery room after meeting discharge criteria. Home discharge instructions given to the patient by the staff. The patient was ree xamined prior to discharge. The patient will schedule a follow up in the clinic in 2-4 weeks.
[2021-06-21] MEDS ORDERED: IV FLUID CONTINUATION 1,000 ML IV ONE (09:10)
--- NOTE | 2021-06-21 09:17 | FL ---
Fluoroscopy HISTORY: Pain 14 seconds fluoroscopy time supplied to the referring clinician. 3 intraoperative C-arm images docum ent the procedure. See dictated report from anesthesia.
[2021-06-21 09:26] VITALS: BP 131/82; PULSE 53; RESP 14
[2021-06-21] MEDS ORDERED: LACTATED RINGERS 1,000 ML IV SCH (09:31)
== END 2021-06-21 09:48 | disposition home or self-care (01) ==
LOC: ORPAIN 07:56
PROVIDERS: ATTEND Specialist
DX: M47.816 Spondylosis without myelopathy or radiculopathy, lumbar region (principal); M51.36 Other intervertebral disc degeneration, lumbar region; Z79.899 Other long term (current) drug therapy; Z88.6 Allergy status to analgesic agent; Z88.0 Allergy status to penicillin; Z88.2 Allergy status to sulfonamides
CPT/HCPCS: 64635; 64636 ×2; J2250; J1200; J1030; J1100; J2405; J3010; J2795

== ENCOUNTER → 2021-07-10 | Outpatient (CLI) | payer MEDICARE ==
[2021-07-10 10:30] VITALS: BP 132/83; PULSE 65; RESP 18
--- NOTE | 2021-07-10 10:43 | P.PN ---
Subjective Progress Note Date: 07/10/21 This is a follow-up visit for this 76 years old female with a chronic history of severe low back pain she is diagnosed with lumbar spondylosis with lumbar facet arthropathy, and lumbar degenerative disc disease, recently we have done RFA of the left-sided medial branch lumbar area, he reported that she continued to have severe low back pain which is localized in the left buttock area with radiation to the left hip, she denies any fever or night sweats she denies any change in the bowel movement or urination, had no motor or sensory deficit, pain is constant severe interfering with her quality of life, increased with any movement or changing position Objective - Vital Signs Vital signs: Vital Signs Temp Pulse 65 07/10/21 10:07 Resp 18 07/10/21 10:07 BP 132/83 07/10/21 10:07 Pulse Ox - Exam Physical Examinations : -Constitutiona : Cooperative , not in acute distress . -HEENT : nech : supple , no Lymphadenopathy , normal thyroid size . : eyes : no ptosis , no icterus, no photophobia . - neurologic : Cranial nerve II to XII intact , no focal neurological deffecit . -psychatric : alert , oriented X 3 , appropriate affect , intact judgment and insight . -Lymphatic : no Lymphadenopathy . - musculoskeltal : Lumber spine moter stegnth lower extremities ,thigh and legs 5/5 Right side , 5/5 Left side deep tendon reflexes : normal Knee Jerk , normal ankle Jerk lumber facet Loading Test =positive Right , positive Left Range of motion of the lumbar spine Flexion 30 degrees, extension 10 degrees strait leg raising test = negative bilaterally Fabere test= negative bilaterally . Sever tenderness over the Sacroiliac joint on the Left side Gaenslen test= positive left . Seated flexion test= positive Left . Distraction test= positive left Sacroiliac compression test= positive left sever tenderness over the left trochanteric bu rsa. Assessment and Plan Plan: Assessment and plan=1-left sacroiliitis. 2-left trochanteric bursitis. 3-Lumbar spondylosis with lumbar facet arthropathy. 4-lumbar degenerative disc disease. Patient could benefit from left sacroiliac joint steroid injection under fluoroscopy guidance and she could benefit from left trochanteric bursa steroid injection under fluoroscopy guidance. - PQRS measures = - Patient's medications are documented in the chart. -Tobacco use is negative and counseling.Given. -Patient's has not received pneumococcal vaccine. -Advanced care planning discussed, patient not eligible. -Opiate contract not signed. -Pain positive and follow-up visit/procedure is scheduled. -Patient's blood pressure measured [ 132/83 ] , and documented in the record ,and patient will follow up with the primary care. -Patient's weight was measured and body mass index [ 30 ] above the, normal limits and counseling was done. and patient instructed to follow-up with the primary care physician. -Patient was not identified as an unhealthy alcohol user Time with Patient: Less than 30
== END ==
LOC: PNWHC3 09:53
PROVIDERS: ATTEND Specialist
DX: M47.816 Spondylosis without myelopathy or radiculopathy, lumbar region (principal); M51.36 Other intervertebral disc degeneration, lumbar region; M70.62 Trochanteric bursitis, left hip; M46.1 Sacroiliitis, not elsewhere classified; Z88.0 Allergy status to penicillin; Z88.2 Allergy status to sulfonamides; Z88.5 Allergy status to narcotic agent; Z88.6 Allergy status to analgesic agent
CPT/HCPCS: 99211

== ENCOUNTER 2021-08-29 08:46 | Day surgery (SDC) | payer MEDICARE ==
[2021-08-27 15:12] VITALS: BMI 30.3
[2021-08-29] MEDS ORDERED: LACTATED RINGERS 1,000 ML IV ONE (09:26)
[2021-08-29 09:27] VITALS: TEMP 97.8
[2021-08-29 09:38] LABS: Glucose,Whole Blood 87 mg/dL (75-99)
[2021-08-29] MEDS ORDERED: fentaNYL (PF) 50 MCG/ML 2 ML AMP ONE (10:35)
[2021-08-29] MEDS ORDERED: methylPREDNISolone ACETATE 40 MG/ML 1 ML VIAL ONE (10:35)
[2021-08-29] MEDS ORDERED: LIDOCAINE 1% INJ 10MG/ML (20 ML MDV) ONE (10:35)
[2021-08-29] MEDS ORDERED: MIDAZOLAM 2 MG/2 ML VIAL ONE (10:35)
[2021-08-29] MEDS ORDERED: IOPAMIDOL M200 10 ML VIAL ONE (10:35)
--- NOTE | 2021-08-29 10:56 | P.PCN ---
Date of Procedure: 08/29/21 Description of Procedure: PREOPERATIVE DIAGNOSIS: Sacroiliac joint dysfunction POSTOPERATIVE DIAGNOSIS: Sacroiliac joint dysfunction. PROCEDURES: 1. Left-sided Sacroiliac joint steroid injection #1 out of 2 2. Sacroiliac joint arthrogram. SURGEON: Alex Kemp ANESTHESIA: Local and IV sedation : Versed and fentanyl. EBL: None. Specimen removed: None Fluoroscopic image: saved to electronic medical records. PROCEDURE INDICATIONS: This patient with a history of chronic low back pain, and sacroiliac joint dysfunction. Patient tried conservative therapy. Came here for intervention management. PROCEDURE DESCRIPTION: The patient was seen and identified in the preoperative area. Risks, benefits, complications, and alternatives were discussed with the patient. The patient agreed to proceed with the procedure and signed the consent. IV was started, and vital signs were stable. Patient was taken to the OR and time out was completed. The patient was placed in the prone position on procedure table and a pillow was placed under the abdomen to reduce lumbar lordosis. The lumbosacral area was prepped and draped in the usual sterile fashion. Critical pause was taken. Vital signs were closely monitored during the procedure. For the left side, the fluoroscopic camera was placed in right oblique view and left SI joint lower pole was identified. Skin entry point was infiltrated with 1% lidocaine and 22-gauge 3.5 inch spinal needle was introduced into the inferior one-third of SI joint and after penetrating into the joint arthrogram was done. 0.5 ml of [id number] contrast was injected after negative aspiration for blood, and air and negative for paresthesia. Good spread of the contrast into the SI joint has been seen. Then again after negative aspiration of spinal fluid and blood and negative for neurological symptoms, 3 mL of a solution containing total 2 mL of 1% preservative-free lidocaine mixed with 40 MG of Depo-Medrol was injected. Needle was withdrawn intact. Skin was cleansed, and bandages were applied. Pre- and Post-operative Diagnosis: Greater Trochanteric Bursitis Procedure: Left Greater Trochanteric Bursa injection Surgeon: Alex Adorno Anesthesia: Local: 1% Lidocaine, IV sedation : Versed and fentanyl. Complications: None Specimen removed: None Blood loss: None Fluoroscopic image: Saved to electronic medical records Indications for Procedure: The patient has been suffering from hip bursitis, failed with conservative therapy. Came here for greater trochanter bursa injection Procedure and Findings: After the STEPHAN procedure , Using fluoroscope in the AP view, the greater trochanter was identified. The middle of the greater trochanter was targeted for needle placement. 3 ml of 1% Lidocaine was injected with a 25 gauge needle to achieve adequate local anesthesia of the skin and subcutaneous tissue. A 22 gauge 3.5inch needle was introduced and advanced into the target area under direct fluoroscopic guidance. A bony contact was felt and the needle was withdrawn for about few millimeters. A negative aspiration was confirmed. A total of 4 ml solution containing Depo-Medrol 40 mg and 3 ml of 1% preservative-free lidocaine was injected slowly. The needle was removed intact, area was cleaned and bandage was applied. COMPLICATIONS: None. DISPOSITION / PLANS: The patient was placed in a supine position and transferred to the recovery area in a stable condition for observation and was discharged from the recovery room after meeting discharge criteria. Home discharge instructions given to the patient by the staff. The patient was reexamined prior to discharge. The patient will schedule for follow-up visit with the pain clinic in 4 weeks duration.
[2021-08-29] MEDS ORDERED: IV FLUID CONTINUATION 700 ML IV ONE (10:58)
[2021-08-29] MEDS ORDERED: LACTATED RINGERS 1,000 ML IV SCH (11:00)
[2021-08-29 11:02] VITALS: RESP 16
[2021-08-29 11:23] VITALS: BP 107/71; PULSE 58
--- NOTE | 2021-08-29 12:01 | FL ---
EXAMINATION TYPE: FL guided pain mgmt statistic DATE OF EXAM: 08/29/2021 HISTORY: Fluoroscopy time 5 seconds of fluoroscopy provided. IMPRESSION: 1. Fluoroscopy time.
== END 2021-08-29 11:40 | disposition home or self-care (01) ==
LOC: ORPAIN 08:46
DX: M53.3 Sacrococcygeal disorders, not elsewhere classified (principal); G89.29 Other chronic pain; M54.50 Low back pain, unspecified; M25.552 Pain in left hip; Z88.5 Allergy status to narcotic agent; Z88.0 Allergy status to penicillin; Z88.2 Allergy status to sulfonamides
CPT/HCPCS: J2250; J1030; J2001 ×2; J3010; Q9966; G0260; 20610; 27096; 99152

== ENCOUNTER → 2021-10-14 | Outpatient (CLI) | payer MEDICARE ==
[2021-10-14 13:51] VITALS: BP 133/78; PULSE 66; RESP 18; TEMP 98.1
--- NOTE | 2021-10-14 14:38 | P.PN ---
Subjective Progress Note Date: 10/14/21 Principal diagnosis: Patient presents today as a 76 years old female with a chronic history of severe low back pain she is diagnosed with lumbar spondylosis with lumbar facet arthropathy, and lumbar degenerative disc disease for a pain management evaluation. We recently completed an RFA of the left-sided medial branch lumbar area in May, 2021, then followed with a left trochanteric injection of the bursa in the left hip as well as as the left SI joint on 08/29/2021 where she e xplains today she had > 50% pain relief. Currently her pain level is 3 /10 in intensity, dull and achy in the left side of her lower back and shoots towards her left hip. Sometimes, her pain elevates to 7-8 /10 so much that she has to use a walker for ambulation. She presents today with a walker. Pain is provoked with flexion of hip and twisting of spine. It is palliated with medications, topical ointments, injections, heat, hot tub soaks, physical therapy integrated with massage approximately 6 months ago, acupuncture and stretches. Physical Examinations : -Constitutional : Cooperative , not in acute distress . -HEENT : neck : supple , no Lymphadenopathy , normal thyroid size . : eyes : no ptosis , no icterus, no photophobia . -Neurologic : Cranial nerve II to XII intact , no focal neurological deffecit . -Psychatric : alert , oriented X 3 , appropriate affect , intact judgment and insight . -Lymphatic : no Lymphadenopathy . - Musculoskeletal : Lumbar spine motor strength lower extremities , thigh and legs 5/5 Right side , 5/5 Left side deep tendon reflexes : normal Knee Jerk , normal Ankle Jerk lumbar facet Loading Test positive Right , positive Left Range of motion of the lumbar spine Flexion 60 degrees, extension 10 degrees Straight Leg Raise test: positive on left Renetta test: positive on left. Severe tenderness over the Sacroiliac joint on the Left side and mild on the Right Gaenslen test: positive left . Seated flexion test: positive Left . Distraction test : positive left Sacroiliac compression test: positive left Severe tenderness over the left trochanteric bursa. Plan: Assessment and plan: 1-left sacroiliitis. 2-left trochanteric bursitis. 3-Lumbar spondylosis with lumbar facet arthropathy. 4-lumbar degenerative disc disease. Recommendation of left sacroiliac joint steroid injection under fluoroscopy guidance and she could benefit from left trochanteric bursa steroid injection under fluoroscopy guidance. Discussed to stop taking aspirin approximately 5 days prior to procedure Risks/ benefits discussed and pt verbalized understanding Continue all medications as directed - PQRS measures = - Patient's medications are documented in the chart. -Tobacco use is negative and counseling.Given. -Patient's has not received pneumococcal vaccine. -Advanced care planning discussed, patient not eligible. -Opiate contract not signed. -Pain positive and follow-up visit/procedure is scheduled. -Patient's blood pressure measured [ 132/83 ] , and documented in the record ,and patient will follow up with the primary care. -Patient's weight was measured and body mass index [ 30 ] above the, normal limits and counseling was done. and patient instructed to follow-up with the primary care physician. -Patient was not identified as an unhealthy alcohol user Time with patient : Less than 30 minutes Objective - Vital Signs Vital signs: Vital Signs Temp 98.1 F 10/14/21 13:43 Pulse 66 10/14/21 13:43 Resp 18 10/14/21 13:43 BP 133/78 10/14/21 13:43 Pulse Ox 96 10/14/21 13:43
== END ==
LOC: PNWHC3 12:53
PROVIDERS: ATTEND Physician Assistant Medical
DX: M51.36 Other intervertebral disc degeneration, lumbar region (principal); M46.1 Sacroiliitis, not elsewhere classified; M47.816 Spondylosis without myelopathy or radiculopathy, lumbar region; M70.62 Trochanteric bursitis, left hip; Z88.0 Allergy status to penicillin; Z88.2 Allergy status to sulfonamides; Z88.6 Allergy status to analgesic agent; Z88.5 Allergy status to narcotic agent
CPT/HCPCS: 99211

== ENCOUNTER → 2021-10-21 | Outpatient (CLI) | payer MEDICARE ==
--- NOTE | 2021-10-21 13:26 | MM ---
Reason for exam: additional evaluation requested from prior study. Last mammogram was performed 1 year ago. History: Patient is postmenopausal, has history of other cancer at age 73, has history of breast cancer at age 68, and is nulliparous. Family history of premenopausal breast cancer in paternal cousin at age 38 and premenopausal breast cancer in paternal cousin at age 40. Saline implant in the right breast, 2013. Reconstruction of the right breast, 2013. Malignant right mammotome panel of the right breast, August 05, 2013. Malignant US RT VAD breast biopsy of the right breast, August 05, 2013. Mastectomy of the right breast, 2012. Benign US right guided mammotome of the right breast, October 27, 2008. Cyst aspiration of the right breast. 2 excisional biopsies of the right breast. Took hormonal contraceptives for 2 years beginning at age 20. Took estrogen for 2 years. Took progesterone for 2 years. Took antineoplastic for 6 years beginning at age 68. Physical Findings: Nurse did not find any significant physical abnormalities on exam. MG 3D Diag Mammo W/Cad LT CC and MLO view(s) were taken of the left breast. Prior study comparison: October 19, 2020, left breast MG 3d diag mammo w/cad LT. August 24, 2019, left breast MG 3d diag mammo w/cad LT. The breast tissue is heterogeneously dense. This may lower the sensitivity of mammography. There are benign appearing round calcifications in the left breast. There is no discrete abnormality. These results were verbally communicated with the patient and result sheet given to the patient on 10/21/21. ASSESSMENT: Benign, BI-RAD 2 RECOMMENDATION: Follow-up diagnostic mammogram of the left breast in 1 year.
== END | disposition home or self-care (01) ==
LOC: RADMAMWWP 12:43
PROVIDERS: ATTEND Internal Medicine Hematology & Oncology
DX: R92.1 Mammographic calcification found on diagnostic imaging of breast (principal); Z85.3 Personal history of malignant neoplasm of breast; Z80.3 Family history of malignant neoplasm of breast; Z78.0 Asymptomatic menopausal state
CPT/HCPCS: 77065; G0279; 77061

== ENCOUNTER 2021-11-21 07:42 | Day surgery (SDC) | payer MEDICARE ==
[2021-11-20 11:31] VITALS: BMI 31.8
[2021-11-21] MEDS ORDERED: LACTATED RINGERS 1,000 ML IV SCH (07:53)
[2021-11-21] MEDS ORDERED: LIDOCAINE 1% (10MG/ML) FOR IV START INTRADERMA PRN (07:53)
[2021-11-21] MEDS ORDERED: LIDOCAINE 1% (10MG/ML) FOR IV START INTRADERMA ONE (08:43)
[2021-11-21] MEDS ORDERED: methylPREDNISolone ACETATE 40 MG/ML 1 ML VIAL ONE (08:55)
[2021-11-21] MEDS ORDERED: MIDAZOLAM 2 MG/2 ML VIAL ONE (08:55)
[2021-11-21] MEDS ORDERED: ROPIVACAINE 5MG/ML 20ML VIAL ONE (08:55)
--- NOTE | 2021-11-21 09:12 | P.PCN ---
Date of Procedure: 11/21/21 Procedure(s) Performed: Procedure= 1- Left sacroiliac joints steroid injection under fluoroscopy guidance (fluoroscopy image stored on file in the radiology Department ). 2-left trochanteric bursitis injection under fluoroscopy guidance Preoperative diagnosis= 1- left sacroiliitis 2-left trochanteric bursitis 3- lumbar spondylosis with facet arthropathy Postoperative diagnosis=Same as preop Diagnosis . Complication = none Condition= stable Anesthesia= moderate sedation with intravenous Versed 2 mg , . Indication for the procedure= patient complaining of low back pain , examination was positive for severe tenderness over the left sacroiliac joints , and over the left trochanteric bursa and patient diagnosed with sacroiliitis, for this reason she was good candidate for sacroiliac joint steroid injection and left trochanteric bursa steroid injection. Description of the procedure= procedure risk and benefits discussed with the patient, including but not limited, risk of infection and bleeding, and ALLERGIC reaction to the medication and not complete pain relief and patient agreed with the preceding patient taken to the operating room, placed in prone position or standard monitors applied to the patient then after induction of anesthesia back prepped with chlorhexidine 3 times , Then under strict sterile technique, first I did the left sacroiliac joint the which was identified under fluoroscopy guidance been local infiltration of the skin and subcu interstitial with lidocaine 1% then 22-gauge Quincke Needle advanced slowly under fluoroscopy and placed in the right sacroiliac joint needle placement confirmed with AP and oblique and lateral view and after appropriate needle placement confirmed and after negative aspiration, or heme , then Ropivacaine 0.5% 4 mL, and 20 mg of Depo-Medrol mixed together and injected in the left sacroiliac joint after negative aspiration patient tolerated the procedure well without any complication. Then after that the did the left trochanteric bursa steroid injection by placing 22-gauge Quincke Needle over the left trochanteric bursa, injection done in sterile technique, after the left hip area prepped with chlorhexidine 3 then can infiltration of the skin and subcu interstitial with ropivacaine 0.5% 2 mL, then the 22-gauge Quincke Needle advanced slowly under fluoroscopy and placed in the left trochanteric bursa needle placement confirmed with AP and lateral view then after negative aspiration, Ropivacaine 0.5%, 4 ml mixed with the 20 mg of Depo-Medrol injected after negative aspiration
[2021-11-21] MEDS ORDERED: IV FLUID CONTINUATION 1,000 ML IV ONE ×2 (09:15)
--- NOTE | 2021-11-21 09:23 | FL ---
Fluoroscopy HISTORY: Pain 6 seconds fluoroscopy time supplied to the referring clinician. 2 intraoperative C-arm images document the procedure. See dictated report from anesthesia.
[2021-11-21 09:59] VITALS: BP 149/85; PULSE 57; RESP 18
== END 2021-11-21 10:40 | disposition home or self-care (01) ==
LOC: ORPAIN 07:42
PROVIDERS: ATTEND Specialist
DX: M46.1 Sacroiliitis, not elsewhere classified (principal); M70.62 Trochanteric bursitis, left hip; M51.36 Other intervertebral disc degeneration, lumbar region
CPT/HCPCS: 20610; J2250; J1030; J2795; G0260; 27096

== ENCOUNTER → 2021-12-12 | Outpatient (CLI) | payer MEDICARE ==
[2021-12-12 10:32] VITALS: BP 145/63; PULSE 60; RESP 18; TEMP 97.6
--- NOTE | 2021-12-12 10:43 | P.PN ---
Subjective Progress Note Date: 12/12/21 Principal diagnosis: A 76 yr old female with a history of severe and chronic lower back and L hip pain secondary to DDD, spondylosis, facet arthropathy and trochanteric bursitis presents today for evaluation status post left SI joint and left trochanteric bursa injection #1. Patient states she experienced 50% pain relief for 2 weeks status post procedure. She admits she was walking better in the grocery store being less reliant on her walker as well as being able to vacuum for longer periods of time at home. Pain level is currently at 5 out of 10 in intensity, dull, achy, sharp, crushing in character in the lower aspects of her lumbar spine and hip region but escalates as high as 8 out of 10 with bending, crouching or lifting. Pain is alleviated with medications, topicals, injections, heat, physical therapy in the past, home daily stretching regimen, use of a walker, use of a lumbar brace, nightly hot tub soaks and rest. Interventional pain procedures completed include L SI joint injection/ L trochanteric bursa injection #1. Hx of LESI L4-L5 #3 and RFA of L L3-4, L4-5, L5-S1. Patient is currently on Tylenol ES OTC Patient denies any side effects of the medication(s), denies excessive drowsiness or sleepiness, denies suicidal ideation and reports that the current pain medication is helping to control the pain and improve activities of daily living. Patient denies any motor or sensory deficits. Patient denies any fever or night sweats, denies any change in the bowel movements or urination. Physical Examination: -Constitutional: Cooperative. Not in acute distress . -HEENT: Neck is supple. No lymphadenopathy. No thyromegaly. Normal thyroid size. Eyes: No ptosis , no icterus, no photophobia. ENT: No auditory deficits. Normal oropharynx. No Thrush. - Respiratory: Chest clear to auscultations bilaterally. No wheezing. No rhonchi. - Cardiovascular: Regular rate and rhythm. S1 / S2 , no S3 , no S4. - Gastrointestinal: Abdomen soft no tenderness. Bowel sounds positive in all four quadrants. No organomegaly. - Genitourinary: Deferred. - Neurologic: Cranial nerve II to XII intact. No focal neurological deficits. - Psychatric: Alert & oriented x 3. Matching mood & appropriate affect. Judgm ent and insight intact. - Lymphatic: No Lymphadenopathy. - Musculoskeletal: Cervical spine: Muscle bulk/ tone/ strength in the bilateral upper extremities normal. Facet loading test cervical area positive. Lumbar spine: Motor bulk/ tone/ strength lower extremities , thigh and legs : 5/5 Deep tendon reflexes : Normal Knee Jerk. Normal Ankle Jerk . Vertebral body tenderness to palpation over Lumbar Facet Loading Test positive Straight Leg Raise: positive at 30 degrees right side/ left side Gaenslen's Test positive Sacral spine : Severe tenderness over the Sacroiliac joint: right side / left side Range of motion: Flexion of the lumbar spine <60 degrees Range of motion: Extension of the lumbar spine <20 degrees Gaenslen's Test positive Renetta test: positive right side / left side Assessment and plan: Chronic lower back and L hip pain secondary to DDD, spondylosis, facet arthropathy and trochanteric bursitis Recommendation of left SI joint and left trochanteric bursa injection #2. Risks, benefits of procedure discussed and patient verbalized understanding. Admits to aspirin 81 mg use. Denies medical history of diabetes. Protocol of aspirin discontinuation/ continuation bulmaro- procedure discussed. All patient questions answered MAPS reviewed and it was appropriate. I have spent 31 minutes on patient care today. Dr Lewis was available by phone for the evaluation of this patient. The time was used to review the medical records including relevant urine studies and Prescription history (MAPs), review of the available imaging, evaluation and examination of the patient, coordination of care with the medical staff and if applicable referring physicians, as well as creation of the medical record Objective - Vital Signs Vital signs: Vital Signs Temp 97.6 F 12/12/21 10:24 Pulse 60 12/12/21 10:24 Resp 18 12/12/21 10:24 BP 145/63 12/12/21 10:24 Pulse Ox 97 12/12/21 10:24 Intake & Output 12/11/21 12/12/21 12/12/21 18:59 06:59 18:59 Weight 87.543 kg PQRS Measure Charge Sheet Mode of Arrival: Ambulatory, Walker - Pain Location Left Lower Back Non-Pharmacological Interventions: Heat, Home Exercise, Inactivity, Physical Therapy, Position/Reposition, Relaxation Technique, Sitting, Stretching Pharmacological Interventions: Block, Epidural, PRN Medication, Topical Medication PQRS Narrative: Smoking Status Never smoker Blood Pressure 145/63 Pain Intensity [Left Lower 5 Back] Scale Used Numeric (1 - 10) Hx Alcohol Use (MH) No Home Medications: Ambulatory Orders Metoprolol Tartrate [Lopressor] 50 mg PO QAM 07/21/14 Cyanocobalamin (Vitamin B-12) [Vitamin B-12] 1,000 mcg PO MOFR 06/22/17 Metoprolol Tartrate [Lopressor] 25 mg PO HS 06/22/17 Multivitamins, Thera [Multivitamin (formulary)] 1 tab PO DAILY 06/22/17 Aspirin [Adult Low Dose Aspirin EC] 81 mg PO DAILY 11/17/17 L.acidoph,Paracasei, B.lactis [Probiotic] 1 cap PO DAILY 10/20/18 Tamsulosin HCl [Flomax] 0.4 mg PO DAILY 06/07/20 Acetaminophen [Tylenol Extra Strength] 1,000 mg PO BID 07/24/20 Cbd Max 1 dose TOPICAL DAILY 04/26/21 Carboxymethylcellulose Sodium [Refresh Tears] 1 drop BOTH EYES BID 06/20/21 Ferrous Sulfate [Feosol] 325 mg PO DAILY 11/20/21 Lidocaine/Menthol [Lidocaine-Menthol 4%-1% Patch] 1 each TP DIRECTED PRN 11/20/21
== END ==
LOC: PNWHC3 09:55
PROVIDERS: ATTEND Specialist
DX: M51.36 Other intervertebral disc degeneration, lumbar region (principal); M47.816 Spondylosis without myelopathy or radiculopathy, lumbar region; M70.62 Trochanteric bursitis, left hip; G89.29 Other chronic pain; Z88.0 Allergy status to penicillin; Z88.2 Allergy status to sulfonamides; Z88.5 Allergy status to narcotic agent; Z88.6 Allergy status to analgesic agent
CPT/HCPCS: 99211

== ENCOUNTER → 2022-02-14 | Outpatient (CLI) | payer MEDICARE ==
--- NOTE | 2022-02-14 10:58 | US ---
EXAMINATION TYPE: US venous doppler duplex LE RT DATE OF EXAM: 02/14/2022 10:44 AM COMPARISON: NONE CLINICAL HISTORY: R60.9 EDEMA, UNSPECIFIED. Edema on right leg. No hx of DVT. SIDE PERFORMED: Right TECHNIQUE: The lower extremity deep venous system is examined utilizing real time linear array sonog reanna with graded compression, doppler sonography and color-flow sonography. VESSELS IMAGED: Common Femoral Vein Deep Femoral Vein Greater Saphenous Vein * Femoral Vein Popliteal Vein Proximal Calf Veins (* superficial vessels) Right Leg: Negative for DVT IMPRESSION: No evidence for DVT at this time.
== END | disposition home or self-care (01) ==
LOC: RADUSWWP 10:13
PROVIDERS: ATTEND Family Medicine
DX: R60.0 Localized edema (principal)

== ENCOUNTER 2022-03-13 08:34 | Day surgery (SDC) | payer MEDICARE ==
[2022-03-13] MEDS ORDERED: LACTATED RINGERS 1,000 ML IV ONE (08:53)
[2022-03-13 09:00] VITALS: TEMP 98.1
[2022-03-13] MEDS ORDERED: MIDAZOLAM 2 MG/2 ML VIAL ONE (09:34)
[2022-03-13] MEDS ORDERED: methylPREDNISolone ACETATE 40 MG/ML 1 ML VIAL ONE (09:34)
[2022-03-13] MEDS ORDERED: ROPIVACAINE 5MG/ML 20ML VIAL ONE (09:34)
--- NOTE | 2022-03-13 09:49 | P.PCN ---
Date of Procedure: 03/13/22 Procedure(s) Performed: Procedure= 1- Left sacroiliac joints steroid injection under fluoroscopy guidance (fluoroscopy image stored on file in the radiology Department ). 2-left trochanteric bursitis injection under fluoroscopy guidance Preoperative diagnosis= 1- left sacroiliitis 2-left trochanteric bursitis 3- lumbar spondylosis with facet arthropathy Postoperative diagnosis=Same as preop Diagnosis . Complication = none Condition= stable Anesthesia= moderate sedation with intravenous Versed 2 mg , . Indication for the procedure= patient complaining of low back pain , examination was positive for severe tenderness over the left sacroiliac joints , and over the left trochanteric bursa and patient diagnosed with sacroiliitis, for this reason she was good candidate for sacroiliac joint steroid injection and left trochanteric bursa steroid injection. Description of the procedure= procedure risk and benefits discussed with the patient, including but not limited, risk of infection and bleeding, and ALLERGIC reaction to the medication and not complete pain relief and patient agreed with the preceding patient taken to the operating room, placed in prone position or standard monitors applied to the patient then after induction of anesthesia back prepped with chlorhexidine 3 times , Then under strict sterile technique, first I did the left sacroiliac joint the which was identified under fluoroscopy guidance been local infiltration of the skin and subcu interstitial with lidocaine 1% then 22-gauge Quincke Needle advanced slowly under fluoroscopy and placed in the right sacroiliac joint needle placement confirmed with AP and oblique and lateral view and after appropriate needle placement confirmed and after negative aspiration, or heme , then Ropivacaine 0.5% 4 mL, and 20 mg of Depo-Medrol mixed together and injected in the left sacroiliac joint after negative aspiration patient tolerated the procedure well without any complication. Then after that the did the left trochanteric bursa steroid injection by placing 22-gauge Quincke Needle over the left trochanteric bursa, injection done in sterile technique, after the left hip area prepped with chlorhexidine 3 then can infiltration of the skin and subcu interstitial with ropivacaine 0.5% 2 mL, then the 22-gauge Quincke Needle advanced slowly under fluoroscopy and placed in the left trochanteric bursa needle placement confirmed with AP and lateral view then after negative aspiration, Ropivacaine 0.5%, 4 ml mixed with the 20 mg of Depo-Medrol injected after negative aspiration
[2022-03-13] MEDS ORDERED: IV FLUID CONTINUATION 700 ML IV ONE (09:55)
[2022-03-13 09:57] VITALS: RESP 16
--- NOTE | 2022-03-13 10:05 | FL ---
Fluoroscopy HISTORY: Pain 5 seconds fluoroscopy time supplied to the referring clinician. 2 intraoperative C-arm images docume nt the procedure. See dictated report from anesthesia.
[2022-03-13 10:11] VITALS: BP 139/69; PULSE 60
[2022-03-13] MEDS ORDERED: LACTATED RINGERS 1,000 ML IV SCH (12:04)
[2022-03-13] MEDS ORDERED: LIDOCAINE 1% (10MG/ML) FOR IV START INTRADERMA PRN (12:04)
== END 2022-03-13 10:39 | disposition home or self-care (01) ==
LOC: ORPAIN 08:34
PROVIDERS: ATTEND Specialist
DX: M46.1 Sacroiliitis, not elsewhere classified (principal); M70.62 Trochanteric bursitis, left hip; M47.816 Spondylosis without myelopathy or radiculopathy, lumbar region
CPT/HCPCS: 20610; J2250; J1030; J2795; G0260; 27096; 99152

== ENCOUNTER → 2022-04-10 | Outpatient (CLI) | payer MEDICARE ==
[2022-04-10 11:18] VITALS: BP 130/73; PULSE 75; RESP 18; TEMP 97.8
--- NOTE | 2022-04-10 11:41 | P.PAINPG ---
PQRS Measure Charge Sheet Comment: A 76 yr old female with a history of severe and chronic low back pain secondary to L Sacroiliitis presents today for evaluation s/p L SI injection and L trochanteric injection . She states she experienced 70% pain relief s/p procedure and currently. Pain level is 5/10 in intensity, constant, dull/ achy in character with shooting towards L hip. Pain is provoked by walking/standing for periods of 15 min or more. Pain is alleviated with medications, topicals, injections, PT in the past, hot tub soaks with Epsom salts, repositioning and rest. Interventional pain procedures completed include L SI injection, L Trochanteric injection Patient is currently on Tylenol OTC, Lidoderm patches Patient denies any side effects of the medication(s), denies excessive drowsiness or sleepiness, denies suicidal ideation and reports that the current pain medication is helping to control the pain and improve activities of daily living. Patient denies any motor or sensory deficits. Patient denies any fever or night sweats, denies any change in the bowel movements or urination. Physical Examination: -Constitutional: Cooperative. Not in acute distress . - Neurologic: Cranial nerve II to XII intact. No focal neurological deficits. - Psychatric: Alert & oriented x 3. Matching mood & appropriate affect. Judgment and insight intact. - Musculoskeletal: Cervical spine: Muscle bulk/ tone/ strength in the bilateral upper extremities normal Vertebral body tenderness to palpation over Spurling test positive Distraction test positive Facet loading test positive Thoracic spine Muscle bulk / tone/ strength in the bilateral paraspinal muscles normal Vertebral body tender to palpation over Facet loading test positive Lumbar spine: Motor bulk/ tone/ strength lower extremities , thigh and legs : 5/5 Deep tendon reflexes : Normal Knee Jerk. Normal Ankle Jerk . Vertebral body tenderness to palpation over Lumbar Facet Loading Test positive Straight Leg Raise: positive at 30 degrees right side/ left side Gaenslen's Test positive Sacral spine : Severe tenderness over the Sacroiliac joint: right side / left side Range of motion: Flexion of the lumbar spine <60 degrees Range of motion: Extension of the lumbar spine <20 degrees Gaenslen's Test positive on L Manolo's Test positive L Renetta test: positive right side / left side Thigh Thrust Test L side L Sacral Thrust Test on deep palpation Assessment and plan: Chronic low back pain secondary to L Sacroiliitis Pt exhibited sufficient and satisfactory pain relief s/p procedure. Recommendation of repeat L SI joint injection. May need a series of injections, up to every 3 mo, for optimal pain relief. Risks, benefits of procedure discussed and pt verbalized understanding. Denies anticoagulant use or medical history of diabetes. Protocol for discontinuatin/ continuation of medications bulmaro procedure discussed. All patient questions answered MAPS reviewed and it was appropriate. I have spent less than 30 minutes on patient care today. Dr Lewis was available by phone for the evaluation of this patient. The time was used to review the medical records including relevant urine studies and Prescription history (MAPs), review of the available imaging, evaluation and examination of the patient, coordination of care with the medical staff and if applicable referring physicians, as well as creation of the medical record - Pain Location Left Lower Back Non-Pharmacological Interventions: Heat, Home Exercise, Physical Therapy, Position/Reposition, Relaxation Technique, Sitting, Stretching Pharmacological Interventions: Block, Epidural, PRN Medication, Topical Medication PQRS Narrative: Smoking Status Never smoker Hx Alcohol Use (MH) No Home Medications: Ambulatory Orders Metoprolol Tartrate [Lopressor] 50 mg PO QAM 07/21/14 Cyanocobalamin (Vitamin B-12) [Vitamin B-12] 1,000 mcg PO MOFR 06/22/17 Metoprolol Tartrate [Lopressor] 25 mg PO HS 06/22/17 Multivitamins, Thera [Multivitamin (formulary)] 1 tab PO DAILY 06/22/17 Aspirin [Adult Low Dose Aspirin EC] 81 mg PO DAILY 11/17/17 L.acidoph,Paracasei, B.lactis [Probiotic] 1 cap PO DAILY 10/20/18 Tamsulosin HCl [Flomax] 0.4 mg PO DAILY 06/07/20 Acetaminophen [Tylenol Extra Strength] 1,000 mg PO BID 07/24/20 Cbd Max 1 dose TOPICAL DAILY PRN 04/26/21 Carboxymethylcellulose Sodium [Refresh Tears] 1 drop BOTH EYES BID 06/20/21 Lidocaine/Menthol [Lidocaine-Menthol 4%-1% Patch] 1 each TP DIRECTED PRN 11/20/21 Controlled Substance Measures - Controlled Substance Measures Is patient prescribed a controlled substance at discharge?: No
== END ==
LOC: PNWHC3 10:16
PROVIDERS: ATTEND Specialist
DX: M46.1 Sacroiliitis, not elsewhere classified (principal); G89.29 Other chronic pain; Z88.5 Allergy status to narcotic agent; Z88.0 Allergy status to penicillin; Z88.2 Allergy status to sulfonamides; Z88.6 Allergy status to analgesic agent
CPT/HCPCS: 99211

== ENCOUNTER 2022-06-26 08:10 | Day surgery (SDC) | payer MEDICARE ==
[~2022-06-26 08:10] MED LIST changes: -DEXAMETHASONE SOD PHOSPHATE 4 MG/ML 1 ML VIAL IV ONE; -GENTAMICIN 100 MG in SODIUM CHLORIDE 0.9% 100 ML IVPB PRN; +LACTATED RINGERS 1,000 ML IV SCH; -MIDAZOLAM 2 MG/2 ML VIAL IV PRN
[2022-06-26 08:32] VITALS: TEMP 98
[2022-06-26] MEDS ORDERED: LACTATED RINGERS 1,000 ML IV ONE ×2 (08:32)
[2022-06-26] MEDS ORDERED: ROPIVACAINE 5 MG/ML 20 ML AMPULE ONE (09:09)
[2022-06-26] MEDS ORDERED: methylPREDNISolone ACETATE 40 MG/ML 1 ML VIAL ONE (09:09)
[2022-06-26] MEDS ORDERED: MIDAZOLAM 2 MG/2 ML VIAL ONE (09:09)
--- NOTE | 2022-06-26 09:27 | P.PCN ---
Date of Procedure: 06/26/22 Procedure(s) Performed: Procedure= 1- Left sacroiliac joints steroid injection under fluoroscopy guidance (fluoroscopy image stored on file in the radiology Department ). Preoperative diagnosis= 1- left sacroiliitis 2-left trochanteric bursitis 3- lumbar spondylosis with facet arthropathy Postoperative diagnosis=Same as preop Diagnosis . Complication = none Condition= stable Anesthesia= moderate sedation with intravenous Versed 2 mg , . Sedation start time 910, end time 918 Indication for the procedure= patient complaining of low back pain , examination was positive for severe tenderness over the left sacroiliac joints , and over the left trochanteric bursa and patient diagnosed with sacroiliitis, for this reason she was good candidate for sacroiliac joint steroid injection and left trochanteric bursa steroid injection. Description of the procedure= procedure risk and benefits discussed with the patient, including but not limited, risk of infection and bleeding, and ALLERGIC reaction to the medication and not complete pain relief and patient agreed with the preceding patient taken to the operating room, placed in prone position or standard monitors applied to the patient then after induction of anesthesia back prepped with chlorhexidine 3 times , Then under strict sterile technique, I did the left sacroiliac joint the which was identified under fluoroscopy guidance been local infiltration of the skin and subcu interstitial with lidocaine 1% then 22-gauge Quincke Needle advanced slowly under fluoroscopy and placed in the right sacroiliac joint needle placement confirmed with AP and oblique and lateral view and after appropriate needle placement confirmed and after negative aspiration, or heme , then Ropivacaine 0.5% 4 mL, and 40 mg of Depo-Medrol mixed together and injected in the left sacroiliac joint after negative aspiration patient tolerated the procedure well without any complication.
[2022-06-26] MEDS ORDERED: IV FLUID CONTINUATION 1,000 ML IV ONE (09:31)
[2022-06-26 09:33] VITALS: RESP 16
[2022-06-26 09:53] VITALS: BP 129/69; PULSE 59
--- NOTE | 2022-06-26 10:08 | FL ---
EXAMINATION TYPE: FL guided pain mgmt statistic DATE OF EXAM: 06/26/2022 HISTORY: Fluoroscopy time 3 seconds of fluoroscopy provided. IMPRESSION: 1. Fluoroscopy time.
== END 2022-06-26 10:14 | disposition home or self-care (01) ==
LOC: ORPAIN 08:10
PROVIDERS: ATTEND Specialist
DX: M46.1 Sacroiliitis, not elsewhere classified (principal); M70.62 Trochanteric bursitis, left hip; M47.816 Spondylosis without myelopathy or radiculopathy, lumbar region; Z88.8 Allergy status to other drugs, medicaments and biological substances
CPT/HCPCS: 99152; J2250; J1030; J2795; G0260; 27096

== ENCOUNTER → 2022-07-16 | Outpatient (CLI) | payer MEDICARE ==
[2022-07-16 10:04] VITALS: BP 141/83; PULSE 72; RESP 18; TEMP 98.1
--- NOTE | 2022-07-16 14:44 | P.PAINPG ---
PQRS Measure Charge Sheet Comment: A 77 yr old female with a history of severe and chronic low back pain secondary to lumbar degenerative disc diseases and lumbar spondylosis with facet arthropathy without myelopathy presents today for evaluation s/p L SI injection. Pt states she experienced 70% pain relief x 3 wks s/p procedure. Pain level is currently at 3/10 in intensity, constant, localized in the L lower lumbar spine where it meets the tailbone, sharp in character w shooting towards the L glute. Pain is provoked as high as 10/10 by sitting for periods of 10 min or more. Pain is alleviated with medications (Tylenol, Lidoderm), injections, heat, use of hot baths, use of a walker for ambulation, repositioning and rest. Interventional pain procedures completed include L SI injection Patient is currently on Tylenol, Lidoderm Patient denies any side effects of the medication(s), denies excessive drowsiness or sleepiness, denies suicidal ideation and reports that the current pain medication is helping to control the pain and improve activities of daily living. Patient denies any motor or sensory deficits. Patient denies any fever or night sweats, denies any change in the bowel movements or urination. Physical Examination: -Constitutional: Cooperative. Not in acute distress . - Neurologic: Cranial nerve II to XII intact. No focal neurological deficits. - Psychatric: Alert & oriented x 3. Matching mood & appropriate affect. Judgment and insight intact. - Musculoskeletal: Cervical spine: Muscle bulk/ tone/ strength in the bilateral upper extremities normal Vertebral body tenderness to palpation over Spurling test positive Distraction test positive Facet loading test positive Thoracic spine Muscle bulk / tone/ strength in the bilateral paraspinal muscles normal Vertebral body tender to palpation over Facet loading test positive Lumbar spine: Motor bulk/ tone/ strength lower extremities , thigh and legs : 5/5 Deep tendon reflexes : Normal Knee Jerk. Normal Ankle Jerk . Vertebral body tenderness to palpation over Lumbar Facet Loading Test positive Straight Leg Raise: positive at 30 degrees right side/ left side Gaenslen's Test positive Sacral spine : Severe tenderness over the Sacroiliac joint: right side / left side Range of motion: Flexion of the lumbar spine <60 degrees Range of motion: Extension of the lumbar spine <20 degrees Gaenslen's Test positive on L Renetta test: positive right side / left side Thigh Thrust Test L side L Sacral Thrust Test Assessment and plan: Chronic low back pain secondary to lumbar degenerative disc disease , lumbar spondylosis with facet arthropathy without myelopathy Recommendation of L SI injection #2. May need a series, up to 4 within a 12 mo period, for optimal pain relief. Risks, benefits of procedure discussed and pt verbalized understanding. Admits to anticoagulant use or medical history of diabetes. Protocol for discontinuation/ continuation of medications bulmaro procedure discussed. All patient questions answered I have spent less than 30 minutes on patient care today. Dr Lewis was available by phone for the evaluation of this patient. The time was used to review the medical records including relevant urine studies and Prescription history (MAPs), review of the available imaging, evaluation and examination of the patient, coordination of care with the medical staff and if applicable referring physicians, as well as creation of the medical record PQRS Narrative: Smoking Status Never smoker Hx Alcohol Use (MH) No Home Medications: Ambulatory Orders Metoprolol Tartrate [Lopressor] 50 mg PO QAM 07/21/14 Cyanocobalamin (Vitamin B-12) [Vitamin B-12] 1,000 mcg PO MOFR 06/22/17 Metoprolol Tartrate [Lopressor] 25 mg PO HS 06/22/17 Multivitamins, Thera [Multivitamin (formulary)] 1 tab PO DAILY 06/22/17 Aspirin [Adult Low Dose Aspirin EC] 81 mg PO DAILY 11/17/17 L.acidoph,Paracasei, B.lactis [Probiotic] 1 cap PO DAILY 10/20/18 Tamsulosin HCl [Flomax] 0.4 mg PO QAM 06/07/20 Acetaminophen [Tylenol Extra Strength] 1,000 mg PO BID 07/24/20 Carboxymethylcellulose Sodium [Refresh Tears] 1 drop BOTH EYES BID PRN 06/20/21 Lidocaine/Menthol [Lidocaine-Menthol 4%-1% Patch] 1 each TP DIRECTED PRN 11/20/21 Controlled Substance Measures - Controlled Substance Measures Is patient prescribed a controlled substance at discharge?: No
== END ==
LOC: PNWHC3 09:24
PROVIDERS: ATTEND Specialist
DX: M47.816 Spondylosis without myelopathy or radiculopathy, lumbar region (principal); M51.36 Other intervertebral disc degeneration, lumbar region; G89.29 Other chronic pain; E11.9 Type 2 diabetes mellitus without complications; Z79.01 Long term (current) use of anticoagulants; Z88.2 Allergy status to sulfonamides; Z88.6 Allergy status to analgesic agent; Z88.5 Allergy status to narcotic agent; Z79.84 Long term (current) use of oral hypoglycemic drugs
CPT/HCPCS: 99211

== ENCOUNTER 2022-08-20 17:57 | Emergency (ER) | payer MEDICARE ==
[2022-08-20 18:14] VITALS: TEMP 98.6
[2022-08-20] MEDS ORDERED: ONDANSETRON 4 MG/2 ML VIAL IVP STA (19:51)
[2022-08-20] MEDS ORDERED: SODIUM CHLORIDE 0.9% 1,000 ML IV ONE (19:51)
[2022-08-20 21:06] LABS: Basophils % (A) 0 %; Eosinophils # (A) 0.1 k/uL (0-0.7); Eosinophils % (A) 1 %; HCT 40.7 % (34.0-46.0); HGB 13.7 gm/dL (11.4-16.0); Lymphocytes # (A) 1.4 k/uL (1.0-4.8); Lymphocytes % (A) 12 %; MCH 29.7 pg (25.0-35.0); MCHC 33.7 g/dL (31.0-37.0); MCV 88.3 fL (80.0-100.0); Mean Platelet Volume 7.8; Monocytes # (A) 0.5 k/uL (0-1.0); Monocytes % (A) 4 %; Neutrophils % (A) 82 %; Platelet Count 223 k/uL (150-450); RBC 4.61 m/uL (3.80-5.40); RDW 13.6 % (11.5-15.5)
[2022-08-20 21:19] LABS: Albumin 4.8 g/dL (3.5-5.0); Calcium 9.5 mg/dL (8.4-10.2); Potassium 4.7 mmol/L (3.5-5.1); Total Bilirubin 0.7 mg/dL (0.2-1.3); Total Protein 7.5 g/dL (6.3-8.2)
--- NOTE | 2022-08-20 21:48 | ED ---
Nausea/Vomiting/Diarrhea HPI - General Chief complaint: Nausea/Vomiting/Diarrhea Stated complaint: Testing,Sent from urgent care Time Seen by Provider: 08/20/22 19:27 Source: patient Mode of arrival: ambulatory Limitations: no limitations - History of Present Illness Initial comments: This is 77-year-old female with a past medical history including previous abscessed kidney, hypertension presenting emergency department for nausea and vomiting. The patient stated that over the last 2 days she has had nausea and vomiting that has been increasing. The patient stated that she was actively nauseous and did vomit once in the emergency department. The patient was seen at urgent care and was urged to come to the emergency department for evaluation due to her history of previous abscess in her kidney. The patient results denied any increased urinary frequency or dysuria. The patient reported some mild chills but denied any fevers. The patient denied any recent sick contacts as well. The patient denied any abdominal pain or discomfort and stated that she only had generalized body aches at this time. The patient was resting in bed comfortably. - Related Data Home Medications Medication Instructions Recorded Confirmed Metoprolol Tartrate [Lopressor] 50 mg PO QAM 07/21/14 07/16/22 Cyanocobalamin (Vitamin B-12) 1,000 mcg PO MOFR 06/22/17 07/16/22 [Vitamin B-12] Metoprolol Tartrate [Lopressor] 25 mg PO HS 06/22/17 07/16/22 Multivitamins, Thera [Multivitamin 1 tab PO DAILY 06/22/17 07/16/22 (formulary)] Aspirin [Adult Low Dose Aspirin EC] 81 mg PO DAILY 11/17/17 07/16/22 L.acidoph,Paracasei, B.lactis 1 cap PO DAILY 10/20/18 07/16/22 [Probiotic] Tamsulosin HCl [Flomax] 0.4 mg PO QAM 06/07/20 07/16/22 Acetaminophen [Tylenol Extra 1,000 mg PO BID 07/24/20 07/16/22 Strength] Carboxymethylcellulose Sodium 1 drop BOTH EYES BID PRN 06/20/21 07/16/22 [Refresh Tears] Lidocaine/Menthol 1 each TP DIRECTED PRN 11/20/21 07/16/22 [Lidocaine-Menthol 4%-1% Patch] Previous Rx's Medication Instructions Recorded Cephalexin [Keflex] 500 mg PO Q6HR 4 Days #16 cap 08/20/22 Ondansetron Odt [Zofran Odt] 4 mg PO Q8HR PRN #12 tab 08/20/22 Allergies Allergy/AdvReac Type Severity Reaction Status Date / Time fentanyl Allergy nausea/vomiting, Verified 08/20/22 18:14 fuzzy headed Penicillins Allergy Anaphylaxis Verified 08/20/22 18:14 Sulfa (Sulfonamide Allergy Unknown Verified 08/20/22 18:14 Antibiotics) Childhood acetaminophen AdvReac Elevates Verified 08/20/22 18:14 Liver Enzymes codeine AdvReac Nausea & Verified 08/20/22 18:14 Vomiting NSAIDS (Non-Steroidal AdvReac ULCER- Verified 08/20/22 18:14 Anti-Inflamma HISTORY sulfamethoxazole AdvReac Diarrhea, Verified 08/20/22 18:14 [From Bactrim] C-Diff trimethoprim [From Bactrim] AdvReac Diarrhea, Verified 08/20/22 18:14 C-Diff Review of Systems ROS Statement: Those systems with pertinent positive or pertinent negative responses have been documented in the HPI. ROS Other: All systems not noted in ROS Statement are negative. Past Medical History Past Medical History: Atrial Fibrillation, Cancer, Eye Disorder, Musculoskeletal Disorder, Osteoarthritis (OA), Renal Disease Additional Past Medical History / Comment(s): DRY EYE, CORNEAL DYSTROPHY. HX RIGHT BREAST CANCER. No blood draw or blood pressure on right side. HYPOGLYCEMIA. Right leg below the knee swelling-wears daily compression stockings. HX STOMACH ULCER 04-06-17. 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 HX KIDNEY STONES. LOWER BACK PAIN, NUMBNESS AND TINGLING IN TOES FOR YEARS. Headaches. Left arm scar from donor site. Positive Cologuard. History of Any Multi-Drug Resistant Organisms: ESBL, MRSA Date of last positivie culture/infection: 08/03/20 ESBL E.coli,MRSA 2018 MDRO Source:: URINE Past Surgical History: Adenoidectomy, Appendectomy, Breast Surgery, Cholecystectomy, Hernia Repair, Tonsillectomy Additional Past Surgical History / Comment(s): "Extensive dental work 09/17. 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 Past Anesthesia/Blood Transfusion Reactions: Previous Problems w/ Anesthesia, Postoperative Nausea & Vomiting (PONV) Additional Past Anesthesia/Blood Transfusion Reaction / Comment(s): TOOK VERY LONG TIME TO AWAKEN AFTER SURGERY IN 2012, had severe PONV after last pain procedure & thinks due to Fentanyl. Past Psychological History: No Psychological Hx Reported Smoking Status: Never smoker - Past Family History Father Family Medical History: Congestive Heart Failure (CHF), Coronary Artery Disease (CAD), Diabetes Mellitus, Deep Vein Thrombosis (DVT), Hypertension Additional Family Medical History / Comment(s): PHLEBITIS LEG Sister(s) Family Medical History: Diabetes Mellitus Brother(s) Family Medical History: No Reported History Mother Family Medical History: AFIB, Deep Vein Thrombosis (DVT) Additional Family Medical History / Comment(s): PHLEBITIS IN LEG General Exam Limitations: no limitations General appearance: alert, in no apparent distress, obese Head exam: Present: atraumatic, normocephalic Eye exam: Present: normal appearance, PERRL Pupils: Present: normal accommodation ENT exam: Present: normal exam, normal oropharynx, mucous membranes moist Neck exam: Present: normal inspection, full ROM Respiratory exam: Present: normal lung sounds bilaterally Cardiovascular Exam: Present: regular rate, normal rhythm, normal heart sounds GI/Abdominal exam: Present: soft, normal bowel sounds Extremities exam: Present: normal inspection, full ROM Back exam: Present: normal inspection, full ROM Neurological exam: Present: alert, oriented X3, CN II-XII intact Psychiatric exam: Present: normal affect, normal mood Skin exam: Present: warm, dry Course Vital Signs 08/20/22 18:10 Temperature 98.6 F Pulse Rate 93 Respiratory 18 Rate Blood Pressure 147/82 O2 Sat by Pulse 95 Oximetry Medical Decision Making - Medical Decision Making The patient was seen and evaluated emergency department. Physical exam, the pat ient was resting in bed without any acute distress. Vital signs were stable. Laboratory workup was obtained. The patient did not have any specific abdominal pain or tenderness or any pain or discomfort so no further imaging was obtained at this time. Laboratory workup was obtained and was within normal limits. COVID-19 and influenza were both negative. Urinalysis showed evidence of a urinary tract infection with large leuk esterase and 39 WBCs. The patient did receive 1 L normal saline fluid as well as blood grams of Zofran. On reevaluation, the patient did have improvement of her symptoms. The patient was given a starter pack for both Keflex and Zofran as the pharmacy will be closed tomorrow for Thanksgiving. The patient was also given a dose of Keflex in the emergency department this evening. The patient was advised to closely monitor her symptoms and to report back to the emergency department if they became acutely worse or had worsening pains. The patient understood these instructions and all of her questions were answered appropriate. The patient was discharged home in stable condition. - Lab Data Result diagrams: 08/20/22 20:52 08/20/22 20:52 Lab Results 08/20/22 08/20/22 08/20/22 Range/Units 20:52 20:52 20:52 WBC 11.0 H (3.8-10.6) k/uL RBC 4.61 (3.80-5.40) m/uL Hgb 13.7 (11.4-16.0) gm/dL Hct 40.7 (34.0-46.0) % MCV 88.3 (80.0-100.0) fL MCH 29.7 (25.0-35.0) pg MCHC 33.7 (31.0-37.0) g/dL RDW 13.6 (11.5-15.5) % Plt Count 223 (150-450) k/uL MPV 7.8 Neutrophils % 82 % Lymphocytes % 12 % Monocytes % 4 % Eosinophils % 1 % Basophils % 0 % Neutrophils # 9.0 H (1.3-7.7) k/uL Lymphocytes # 1.4 (1.0-4.8) k/uL Monocytes # 0.5 (0-1.0) k/uL Eosinophils # 0.1 (0-0.7) k/uL Basophils # 0.0 (0-0.2) k/uL Sodium 139 (137-145) mmol/L Potassium 4.7 (3.5-5.1) mmol/L Chloride 102 (98-107) mmol/L Carbon Dioxide 24 (22-30) mmol/L Anion Gap 13 mmol/L BUN 20 H (7-17) mg/dL Creatinine 0.90 (0.52-1.04) mg/dL Est GFR (CKD-EPI)AfAm 71 (>60 ml/min/1.73 sqM) Est GFR (CKD-EPI)NonAf 62 (>60 ml/min/1.73 sqM) Glucose 102 H (74-99) mg/dL Calcium 9.5 (8.4-10.2) mg/dL Total Bilirubin 0.7 (0.2-1.3) mg/dL AST 36 (14-36) U/L ALT 29 (4-34) U/L Alkaline Phosphatase 110 (38-126) U/L Total Protein 7.5 (6.3-8.2) g/dL Albumin 4.8 (3.5-5.0) g/dL Lipase 196 (23-300) U/L Urine Color Urine Appearance (Clear) Urine pH (5.0-8.0) Ur Specific [place] (1.001-1.035) Urine Protein (Negative) Urine Glucose (UA) (Negative) Urine Ketones (Negative) Urine Blood (Negative) Urine Nitrite (Negative) Urine Bilirubin (Negative) Urine Urobilinogen (<2.0) mg/dL Ur Leukocyte Esterase (Negative) Urine RBC (0-5) /hpf Urine WBC (0-5) /hpf Ur Squamous Epith Cells (0-4) /hpf Urine Bacteria (None) /hpf Hyaline Casts (0-2) /lpf Urine Mucus (None) /hpf Coronavirus (PCR) (Not Detectd) Influenza Type A RNA Not Detected (Not Detectd) Influenza Type B (PCR) Not Detected (Not Detectd) 08/20/22 08/20/22 Range/Units 20:52 22:13 WBC (3.8-10.6) k/uL RBC (3.80-5.40) m/uL Hgb (11.4-16.0) gm/dL Hct (34.0-46.0) % MCV (80.0-100.0) fL MCH (25.0-35.0) pg MCHC (31.0-37.0) g/dL RDW (11.5-15.5) % Plt Count (150-450) k/uL MPV Neutrophils % % Lymphocytes % % Monocytes % % Eosinophils % % Basophils % % Neutrophils # (1.3-7.7) k/uL Lymphocytes # (1.0-4.8) k/uL Monocytes # (0-1.0) k/uL Eosinophils # (0-0.7) k/uL Basophils # (0-0.2) k/uL Sodium (137-145) mmol/L Potassium (3.5-5.1) mmol/L Chloride (98-107) mmol/L Carbon Dioxide (22-30) mmol/L Anion Gap mmol/L BUN (7-17) mg/dL Creatinine (0.52-1.04) mg/dL Est GFR (CKD-EPI)AfAm (>60 ml/min/1.73 sqM) Est GFR (CKD-EPI)NonAf (>60 ml/min/1.73 sqM) Glucose (74-99) mg/dL Calcium (8.4-10.2) mg/dL Total Bilirubin (0.2-1.3) mg/dL AST (14-36) U/L ALT (4-34) U/L Alkaline Phosphatase (38-126) U/L Total Protein (6.3-8.2) g/dL Albumin (3.5-5.0) g/dL Lipase (23-300) U/L Urine Color Yellow Urine Appearance Clear (Clear) Urine pH 5.5 (5.0-8.0) Ur Specific [place] 1.016 (1.001-1.035) Urine Protein Trace H (Negative) Urine Glucose (UA) Negative (Negative) Urine Ketones 3+ H (Negative) Urine Blood Negative (Negative) Urine Nitrite Negative (Negative) Urine Bilirubin Negative (Negative) Urine Urobilinogen <2.0 (<2.0) mg/dL Ur Leukocyte Esterase Large H (Negative) Urine RBC 2 (0-5) /hpf Urine WBC 39 H (0-5) /hpf Ur Squamous Epith Cells 1 (0-4) /hpf Urine Bacteria Rare H (None) /hpf Hyaline Casts 1 (0-2) /lpf Urine Mucus Rare H (None) /hpf Coronavirus (PCR) Not Detected (Not Detectd) Influenza Type A RNA (Not Detectd) Influenza Type B (PCR) (Not Detectd) Disposition Clinical Impression: UTI (urinary tract infection) Disposition: HOME SELF-CARE Condition: Stable Instructions (If sedation given, give patient instructions): Urinary Tract Infection in Women (DC) Prescriptions: Cephalexin [Keflex] 500 mg PO Q6HR 4 Days #16 cap Ondansetron Odt [Zofran Odt] 4 mg PO Q8HR PRN #12 tab PRN Reason: Nausea Is patient prescribed a controlled substance at d/c from ED?: No Referrals: Shantel Thomas MD [Primary Care Provider] - 1-2 days Time of Disposition: 23:04
[2022-08-20 22:22] LABS: Appearance,Urine Clear (Clear); Bacteria,Urine Rare /hpf; Bilirubin,Urine Negative (Negative); Blood,Urine Negative (Negative); Color,Urine Yellow; Glucose,Urine (UA) Negative (Negative); Hyaline Casts,Urine 1 /lpf (0-2); Ketones,Urine 3+ (Negative); Leukocyte Esterase,Urine Large (Negative); Mucus,Urine Rare /hpf; Nitrite,Urine Negative (Negative); PH, Urine 5.5 (5.0-8.0); Protein,Urine Trace (Negative); RBC,Urine 2 /hpf (0-5); Specific Gravity,Urine 1.016 (1.001-1.035); Squamous Epithelial Cell,Urine 1 /hpf (0-4); Urobilinogen,Urine <2.0 mg/dL (<2.0); WBC,Urine 39 /hpf (0-5)
[2022-08-20] MEDS ORDERED: CEPHALEXIN 500MG STARTER PACK 4 CAP BTL PO STA (22:57)
[2022-08-20] MEDS ORDERED: ONDANSETRON 4 MG ODT STARTER PACK 2 TAB BTL PO STA (22:57)
[2022-08-20] MEDS ORDERED: CEPHALEXIN 500 MG CAP PO STA (22:59)
[2022-08-20 23:40] VITALS: BP 138/60; PULSE 90; RESP 16
== END 2022-08-20 23:39 | disposition home or self-care (01) ==
LOC: EC 17:57
DX: N39.0 Urinary tract infection, site not specified (principal); I48.91 Unspecified atrial fibrillation; M19.90 Unspecified osteoarthritis, unspecified site; Z88.0 Allergy status to penicillin; Z20.822 Contact with and (suspected) exposure to COVID-19; Z90.49 Acquired absence of other specified parts of digestive tract; Z88.2 Allergy status to sulfonamides; Z88.5 Allergy status to narcotic agent; Z90.89 Acquired absence of other organs; Z88.8 Allergy status to other drugs, medicaments and biological substances; Z88.1 Allergy status to other antibiotic agents; Z79.82 Long term (current) use of aspirin; Z79.899 Other long term (current) drug therapy
CPT/HCPCS: 36415; 80053; 83690; 85025; 81001; 87086; 87077; 87186; 87502; 87635; 99284; 96374; 96361; J2405; S0119

== ENCOUNTER → 2022-09-05 | Outpatient (CLI) | payer MEDICARE ==
--- NOTE | 2022-09-05 15:18 | XR ---
EXAMINATION TYPE: XR KUB DATE OF EXAM: 09/05/2022 COMPARISON: NONE HISTORY: Pain TECHNIQUE: One view abdominal series FINDINGS: Scoliosis is seen with multilevel degenerative disc disease and there is arthropathy of the hips. [place] el gas pattern nonspecific. Surgical clips in the common fossa. Sclerotic lesion involving the right femur. Right kidney: Approximately 10-15 calcifications within the right kidney the largest measuring 7 mm. Left kidney: There are approximately 30 calcifications in the left kidney the largest measuring 5 mm. IMPRESSION: 1. Bilateral nephrolithiasis.
== END | disposition home or self-care (01) ==
LOC: RADXRMAIN 14:36
PROVIDERS: ATTEND Urology
DX: N20.0 Calculus of kidney (principal)
CPT/HCPCS: 74018

== ENCOUNTER → 2022-10-22 | Outpatient (CLI) | payer MEDICARE ==
--- NOTE | 2022-10-23 08:23 | MM ---
Reason for Exam: Screening (asymptomatic). Last screening mammogram was performed 12 month(s) ago. Patient History: Menarche at age 11. Patient has no children. Right ovary removed at age 35. Postmenopausal. Breast cancer, right, age 68. Other cancer, age 73. Patient used Estrogen for 2 years. Patient used Progesterone for 2 years. Hormonal Contraceptives for 2 years from age 20 until age 22. Cyst Aspiration on the Right side. Excisional Biopsy on the Right side. Excisional Biopsy on the Right side. 2012, Mastectomy on the Right side. 08/05/2013, Malignant Core Biopsy on the right side. 08/05/2013, Malignant Core Biopsy on the right side. 10/27/2008, Benign Core Biopsy on the right side. 2013, Implant on the right side. 2013, Implant on the right side. Paternal cousin had breast cancer, age 38. Paternal cousin had breast cancer, age 40. Prior Study Comparison: 08/24/2019 Left Diagnostic Mammogram, [facility]. 10/19/2020 Left Diagnostic Mammogram, [facility]. 10/21/2021 Left Diagnostic Mammogram, [facility]. Tissue Density: Left: The breast tissue is heterogeneously dense. This may lower the sensitivity of mammography. Findings: There is no suspicious group of microcalcifications or new suspicious mass in either breast. Overall Assessment: Benign, BI-RAD 2 Management: Screening Mammogram of both breasts in 1 year. A clinical breast exam by your physician is recommended on an annual basis and results should be correlated with mammographic findings. Electronically signed and approved by: Sam Sanderson M.D. Radiologis
== END | disposition home or self-care (01) ==
LOC: RADMAMWWP 09:32
PROVIDERS: ATTEND Internal Medicine Hematology & Oncology
DX: Z12.31 Encounter for screening mammogram for malignant neoplasm of breast (principal); Z78.0 Asymptomatic menopausal state; Z80.3 Family history of malignant neoplasm of breast; Z90.11 Acquired absence of right breast and nipple; Z85.3 Personal history of malignant neoplasm of breast; Z98.82 Breast implant status; Z98.890 Other specified postprocedural states
CPT/HCPCS: 77067

== ENCOUNTER → 2022-10-22 | Outpatient (CLI) | payer MEDICARE ==
--- NOTE | 2022-10-22 10:38 | BD ---
EXAMINATION TYPE: Axial Bone Density DATE OF EXAM: 10/22/2022 COMPARISON: 04.07.2017 CLINICAL HISTORY: 77 years year old Female. ICD-10 CODE: Z78.0 ASYMPTOMATIC MENOPAUSAL STATE Height: 63 Weight: 190 FRAX RISK QUESTIONS: Family History (Parent hip fracture): YES Glucocorticoids (More than 3mos): INJECTIONS EVERY 6 MONTHS (Ex: prednisone, prednisolone, methylprednisolone, dexamethasone, and hydrocortisone). RISK FACTORS HISTORY OF: Family History of Osteoporosis: YES, MOTHER HIP FXs Diet low in dairy products/other sources of calcium: YRES Postmenopausal woman: 47 Take estrogen and/or progesterone medications: PAST ONLY How lon-7 YRS Lost more than 2 inches in height since high school: YES Frequent falls: WALKER, SLOW, UNSTABLE Poor Health: YES, RENAL Hyperparathyroidism: NO Adrenal Insufficiency: NO MEDICATIONS: Prednisone or other steroids: JUST STEROIDAL INJECTIONS INTO LUMBAR ..FOR MANY YRS Additional Medications: BP MEDS, HX OF BREAST CANCER NO CHEMO OR RAD, REFLUX MEDS, NSAIDS, MULTIVITA MIN, FLOMAX, Additional History: HX OF BR CANCER, MEDULLARY SPONGE KIDNEYS, ULCER, REFLUX, RENAL, EXAM MEASUREMENTS: Bone mineral densitometry was performed using the [employer] System. Bone mineral density as measured about the Lumbar spine is: ----- L1-L4(G/cm2): 1.091 T Score Values are as follows: ----- L1: -1.0 ----- L2: -2.8 ----- L3: 0.4 ----- L4: -0.2 ----- L1-L4: -0.7 Bone mineral density has: Decreased -13.5% SINCE: 04.07.2017 Bone mineral density about the R hip (g/cm2): 0.803 Bone mineral density about the L hip (g/cm2): 0.841 T Score values are as follows: -----R Neck: -2.2 -----L Neck: -1.7 -----R Total: -1.6 -----L Total: -1.3 Bone mineral density has: Decreased -5.3% SINCE: 04.07.2017 FRAX%s: The graph provided illustrates a 37.0% chance for a major osteoporotic fx and a 23.0%nce for the hips probability for fx in 10 years time. IMPRESSION: Osteoporosis (T Score less than -2.5). There is increased fracture risk and therapy is usually indicated based on age. Re-Screen 1-2 years. NOTE: T-SCORE=SD OF THE YOUNG ADULT MEAN.
== END | disposition home or self-care (01) ==
LOC: RADBDWWP 09:30
PROVIDERS: ATTEND Family Medicine
DX: M81.0 Age-related osteoporosis without current pathological fracture (principal); Z78.0 Asymptomatic menopausal state; Z85.3 Personal history of malignant neoplasm of breast
CPT/HCPCS: 77080

== ENCOUNTER → 2022-10-27 | Outpatient (CLI) | payer MEDICARE ==
[2022-10-27 10:37] VITALS: BP 141/65; PULSE 57; RESP 18
--- NOTE | 2022-10-27 14:32 | P.PAINPG ---
PQRS Measure Charge Sheet Comment: A 77 yr old female with a history of severe and chronic LBP secondary to lumbar DDD and spondylosis with facet arthropathy without myelopathy and L Sacroiliitis presents today for evaluation. Pt states she experienced >75% pain relief x 8 mo s/p BL RFA L3-L4, L4-L5, L5-S1 in May 2021. Pain level is provoke d at 6 /10 in intensity, constant, localized in the lumbar spine, sharp in character without shooting pain. Pain is provoked by PT in the past, walking for periods of 20 min or more and over activity. Pain is alleviated with massage therapy in 2021, home exercise regimen, hot soaks, meds (Flexeril, Tyl OTC), Lidoderm, repositioning and rest. Interventional pain procedures completed include L SI, BL RFA L2-L5 (May 2021) Patient is currently on Flexeri, Tyl OTC Patient denies any side effects of the medication(s), denies excessive drowsiness or sleepiness, denies suicidal ideation and reports that the current pain medication is helping to control the pain and improve activities of daily living. Patient denies any motor or sensory deficits. Patient denies any fever or night sweats, denies any change in the bowel movements or urination. Physical Examination: -Constitutional: Cooperative. Not in acute distress . - Neurologic: Cranial nerve II to XII intact. No focal neurological deficits. - Psychatric: Alert & oriented x 3. Matching mood & appropriate affect. Judgment and insight intact. - Musculoskeletal: Cervical spine: Muscle bulk/ tone/ strength in the bilateral upper extremities normal Vertebral body tenderness to palpation over Spurling test positive Distraction test positive Facet loading test positive Thoracic spine Muscle bulk / tone/ strength in the bilateral paraspinal muscles normal Vertebral body tender to palpation over Facet loading test positive Lumbar spine: Motor bulk/ tone/ strength lower extremities , thigh and legs : 5/5 Deep tendon reflexes : Normal Knee Jerk. Normal Ankle Jerk . Vertebral body tenderness to palpation over Lumbar Facet Loading Test positive TTP over R L4-L5, L5-S1 facets, positive jump reflex over L L4-L5, L5-S1 facets Straight Leg Raise: positive at 30 degrees right side/ left side Gaenslen's Test positive Sacral spine : Severe tenderness over the Sacroiliac joint: right side / left side Range of motion: Flexion of the lumbar spine <60 degrees Range of motion: Extension of the lumbar spine <20 degrees Gaenslen's Test positive Renetta test: positive right side / left side Thigh Thrust Test Sacral Thrust Test Assessment and plan: Chronic LBP secondary to lumbar DDD, spondylosis with facet arthropathy without myelopathy, L Sacroiliitis Recommendation of BL RFA L4-L5, L5-S1. Pt exhibietd sufficient and substnatial pain releif w prior RFA procedure. Risks, benefits of procedure discussed and pt verbalized understanding. Admits to anticoagulant use or medical history of diabetes. Protocol for discontinuation/ continuation of medic ations bulmaro procedure discussed. All patient questions answered I have spent less than 30 minutes on patient care today. Dr Lewis was available by phone for the evaluation of this patient. The time was used to review the medical records including relevant urine studies and Prescription history (MAPs), review of the available imaging, evaluation and examination of the patient, coordination of care with the medical staff and if applicable referring physicians, as well as creation of the medical record PQRS Narrative: Smoking Status Never smoker Hx Alcohol Use (MH) No Home Medications: Ambulatory Orders Metoprolol Tartrate [Lopressor] 50 mg PO QAM 07/21/14 Cyanocobalamin (Vitamin B-12) [Vitamin B-12] 1,000 mcg PO MOFR 06/22/17 Metoprolol Tartrate [Lopressor] 25 mg PO HS 06/22/17 Multivitamins, Thera [Multivitamin (formulary)] 1 tab PO DAILY 06/22/17 Aspirin [Adult Low Dose Aspirin EC] 81 mg PO DAILY 11/17/17 L.acidoph,Paracasei, B.lactis [Probiotic] 1 cap PO DAILY 10/20/18 Tamsulosin HCl [Flomax] 0.4 mg PO QAM 06/07/20 Acetaminophen [Tylenol Extra Strength] 1,000 mg PO BID 07/24/20 Carboxymethylcellulose Sodium [Refresh Tears] 1 drop BOTH EYES BID PRN 06/20/21 Lidocaine/Menthol [Lidocaine-Menthol 4%-1% Patch] 1 each TP DIRECTED PRN 11/20/21 Cephalexin [Keflex] 500 mg PO Q6HR 4 Days #16 cap 08/20/22 Ondansetron Odt [Zofran Odt] 4 mg PO Q8HR PRN #12 tab 08/20/22 Apixaban [Eliquis] 5 mg PO DAILY 10/27/22 Controlled Substance Measures - Controlled Substance Measures Is patient prescribed a controlled substance at discharge?: No
== END ==
LOC: PNWHC3 10:01
PROVIDERS: ATTEND Specialist
DX: M47.816 Spondylosis without myelopathy or radiculopathy, lumbar region (principal); M51.36 Other intervertebral disc degeneration, lumbar region; G89.29 Other chronic pain; Z88.2 Allergy status to sulfonamides; Z88.0 Allergy status to penicillin; Z88.6 Allergy status to analgesic agent; Z88.5 Allergy status to narcotic agent
CPT/HCPCS: 99211

== ENCOUNTER 2022-12-12 08:54 | Day surgery (SDC) | payer MEDICARE ==
[2022-12-09 15:17] VITALS: BMI 32.2
[~2022-12-12 08:54] MED LIST changes: -LIDOCAINE 1% (10MG/ML) FOR IV START INTRADERMA PRN
[2022-12-12 10:01] VITALS: TEMP 98.7
[2022-12-12 10:04] LABS: Glucose,Whole Blood 96 mg/dL (70-110)
[2022-12-12] MEDS ORDERED: TRIAMCINOLONE ACETONIDE 40 MG/ML 1 ML VIAL ONE (10:13)
[2022-12-12] MEDS ORDERED: MIDAZOLAM 2 MG/2 ML VIAL ONE (10:13)
[2022-12-12] MEDS ORDERED: ROPIVACAINE 5 MG/ML 20 ML AMPULE ONE (10:13)
--- NOTE | 2022-12-12 10:42 | P.PCN ---
Date of Procedure: 12/12/22 Surgeon: Aleksey Burr Pathology: none sent Condition: stable Disposition: PACU Description of Procedure: PREOPERATIVE DIAGNOSIS: Lumbar spondylosis without myelopathy, morbid obesity POSTOPERATIVE DIAGNOSIS: Lumbar spondylosis without myelopathy,morbid obesity PROCEDURES : Bilateral Radiofrequency thermocoagulation L4-L5, and L5-S1 medial branch, with fluoroscopic guidance ANESTHESIA: IV moderate conscious sedation with versed and fentanyl by the anesthesia Department and local infiltration with lidocaine 1% 5 ml Physician:Aleksey Burr MD EBL: Minimal PROCEDURE INDICATION: The patient with low back pain secondary to lumbar facet arthropathy who had significant relief of pain with previous diagnostic lumbar medial branch block with Ropivacaine0.5%. PROCEDURE DESCRIPTION / TECHNIQUE: The patient was seen and identified in the preoperative area. Risks, benefits, complications, including but not limited to risk of infection ,bleeding , allergic reactions to the medications and no complete pain relief , and alternatives were discussed with the patient, the patient agreed to proceed with the procedure and signed the consent. IV was started. Vital signs remained stable throughout the procedure. Patient was taken to the OR and time out was completed. The patient was placed in the prone position on the procedure table. The lumber area was prepped and draped in the usual sterile fashion. . Vital signs were closely monitored during the procedure .IV sedation was used during the procedure to decrease patients anxiety. The target points were identified as follows: For the L5-S1 level which corresponds to the dorsal ramus of L5 the target point was at the superior medial aspect of the sacral ala on the Rt side of the spine on the AP view of fluoroscopy and for the L3, and L4 medial branches the target points were at the connection between the transverse process and the superior articular process of L4, and L5 vertebra respectively on the Rt oblique view of fluoroscopy. skin was marked, and localized with 1% lidocaineat these points. Subsequently, an 18 [id number] radiofrequency needles with a 10-mm curved active tips were advanced guided by fluoroscopy to each of the target points mentioned above in a superior medial direction to get the active tips as parallel as possible to the medial branches tracks. AP, oblique, and lateral views of fluoroscopy were used to verify needle tips position. Each level then underwent motor testing at 2.5 Hz and 0 to 3 volt with local stimulation, but no radicular symptoms down the legs. I then injected 1 mL of lidocaine 1% in each needle before starting radiofrequency thermocoagulation at 80 degrees celsius for 90 seconds. After that I injected 1 ml of PF Ropivacaine 0.5%(3 mls) with 40 mg of Kenalog, 1 mL of this mixture was given in each needle before taking the needles out intact. Then the left side with the same levels was done in the same manner. At the end of the procedure, the skin was cleansed and bandages were applied. A copy of needle placement fluoroscopy was saved on the C-arm machine. COMPLICATIONS: No acute complications. DISPOSITION / PLANS: The patient was placed in a supine position and transferred to the recovery area in a stable condition for observation and was discharged from the recovery room after meeting discharge criteria. Home discharge instructions given to the patient by the staff. The patient was reexamined prior to discharge. The patient will schedule a follow up in the clinic in 2-4 weeks.
[2022-12-12] MEDS ORDERED: LACTATED RINGERS 1,000 ML IV ONE (10:50)
[2022-12-12 10:56] VITALS: RESP 16
--- NOTE | 2022-12-12 10:57 | FL ---
EXAMINATION TYPE: FL guided pain mgmt statistic DATE OF EXAM: 12/12/2022 HISTORY: Fluoroscopy time 10 SEC FLUORO. DAP [id number]. of fluoroscopy provided. IMPRESSION: 1. Fluoroscopy time.
[2022-12-12 11:15] VITALS: BP 149/76; PULSE 68
== END 2022-12-12 11:23 | disposition home or self-care (01) ==
LOC: ORPAIN 08:54
PROVIDERS: ATTEND Anesthesiology
DX: M47.816 Spondylosis without myelopathy or radiculopathy, lumbar region (principal); E66.01 Morbid (severe) obesity due to excess calories; I48.91 Unspecified atrial fibrillation; I10 Essential (primary) hypertension; Z87.442 Personal history of urinary calculi; Z87.19 Personal history of other diseases of the digestive system; Z88.0 Allergy status to penicillin; Z88.2 Allergy status to sulfonamides; Z88.5 Allergy status to narcotic agent; Z88.6 Allergy status to analgesic agent; Z79.01 Long term (current) use of anticoagulants; Z79.899 Other long term (current) drug therapy; Z68.32 Body mass index [BMI] 32.0-32.9, adult
CPT/HCPCS: 64636 ×2; 64635; J2250; J3301; J2795

== ENCOUNTER → 2022-12-31 | Outpatient (CLI) | payer MEDICARE ==
--- NOTE | 2022-12-31 11:28 | P.PN ---
Subjective Progress Note Date: 12/31/22 This is a 77-year-old lady with history of chronic lower back pain status post lumbar medial branch RFA a few weeks ago. The patient has significant relief of her pain after this procedure by at least 85%. The patient is able to walk for longer distances now free of muscle spasms. The patient is still uses a walker which started right after her cancer surgery on this area and she had to be her rehab in the hospital for long time afterwards. Patient denies new-onset weakness, bowel/bladder incontinence, or any other signs or symptoms of cauda equina syndrome. There are no signs of acute intoxication, and no indications of medication diversion or overuse. In addition to above, 13-point review of systems is also negative for chest pain, shortness of breath, changes in vision, changes in hearing, new onset weakness, abdominal pain, diarrhea, extreme fatigue, malaise, fever, skin changes, homicidal or suicidal ideation, or bowel or bladder incontinence. Vital Signs: Reviewed in EMR Gen: AAOx3, NAD HEENT: PERRLA,hearing grossly normal Pulm: resp unlabored Neck: supple, trachea midline Neuro exam of the lower extremities: Decreased muscle strength to 3 out of 5 for knee flexion and extension and 4 out of 5 for ankle flexion and extension bilaterally and symmetrically Straight leg raising test: Negative bilaterally Manolo's test: Range of motion of the lumbar spine: Facet loading test: Tenderness in the paravertebral musculature: Positive tenderness in the paravert ebral musculature bilaterally Neuro: CN II-XII grossly intact, Imaging: Reviewed in EMR/chart Assessment: Lumbar spondylosis without myelopathy Lumbar DDD Plan: 1. Explanation: When patients on opioids, opioid and psychological risk scores were reviewed. Diagnoses, prognoses, and multiple treatment options including but not limited to physical therapy, interventional therapies, adjuvant medical therapies, narcotic medication therapies, and surgery were discussed with the patient and all questions were answered to the patient's satisfaction. 2. Opioid agreement:When patients are prescribed opoids through our clinic, opioid agreement is signed with the patient and the patient is warned not to use opioids while driving or before driving and not to combine opioids with benzodiazepines or alcohol. 3. Counseling: When patient is smoking or obese, the patient was counseled extensively on SMOKING CESSATION, BODY MASS INDEX, EXERCISE. Specifically, the patient was instructed regarding the importance of smoking cessation, obesity, and exercise in the context of both chronic pain and overall health. 4. Procedures: Not needed for now 5. Consultations: None 6. Investigations: None 7. Medications: None prescribed 8. Disposition: Return to clinic as needed 9. Maps were reviewed and were appropriate. PQRS measures: 1-Patient's medications are documented in the chart. 2-Tobacco use is negative, counseling given 3-Patient has had a pneumococcal vaccine. 4-Advanced care planning discussed, patient unable to give 5-Opioid contract signed with the patient. 6-Pain positive, follow-up visit or procedure scheduled 7-Patient's blood pressure measured and documented . The patient will follow up with his primary care physician. 8-Patient's weight was measured. Patient instructed to follow up with PCP. 9-Patient WAS NOT identified as an unhealthy alcohol user.
[2022-12-31 12:13] VITALS: BP 126/60; PULSE 73; RESP 18; TEMP 98.3
== END ==
LOC: PNWHC3 10:14
PROVIDERS: ATTEND Anesthesiology
DX: M51.36 Other intervertebral disc degeneration, lumbar region (principal); M47.816 Spondylosis without myelopathy or radiculopathy, lumbar region; Z88.6 Allergy status to analgesic agent; Z88.0 Allergy status to penicillin; Z88.2 Allergy status to sulfonamides; Z88.8 Allergy status to other drugs, medicaments and biological substances
CPT/HCPCS: 99211

== ENCOUNTER → 2023-01-21 | Outpatient (CLI) | payer MEDICARE ==
--- NOTE | 2023-01-21 15:35 | P.SLEEP ---
History of Present Illness DATE: 01/21/2023 CONSULTATION/NEW PATIENT EVALUATION HISTORY OF PRESENT ILLNESS/SLEEP-WAKE EVALUATION: 77-year-old lady had been evaluated in the sleep center for possible obstructive sleep apnea hypopnea syndrome and significant excessive daytime sleepiness. SLEEP SCHEDULE: Usually sleep schedule from 11:30 PM-12:30 AM until 6:30-8:30 AM. FALLING ASLEEP: Sometimes patient has problems with falling asleep, used to agreed in bedroom. DURING SLEEP: Patient sleeps by herself, no information about snoring. Patient wakes up from sleep once with nocturia. No history of hypnogogical hallucinations, sleep paralysis, or cataplexy. DURING THE DAY/WAKE STATE: During the day patient feels sleepiness afternoon. [place] sleepiness scale is increased to 11. Sometimes patient had nonintentional naps. 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 PAST SURGICAL HISTORY: Right mastectomy, surgical treatment of squamous cell CA of right side of the face. MEDICATIONS: Metoprolol 50 mg in the morning and 25 mg in the evening, Eliquis 2.5 mg twice a day, Flomax 0.4 mg once a day, cyclobenzaprine 10 mg at nighttime. SOCIAL HISTORY: Positive history of smoking for about 35 pack years, quit 23 years ago, alcohol consumption occasional. FAMILY HISTORY: Hypertension, diabetes. REVIEW OF SYSTEMS: Significant excessive daytime sleepiness. No fevers. No double vision. No recent chest pain. No shortness of breath. No abdominal pain. No bleeding episodes. No blood in urine. No seizure episodes. PHYSICAL EXAMINATION: GENERAL: A pleasant patient without any distress. VITAL SIGNS: BP 141/81 , HR 73 , RR 12 , weight 192.2 pounds, height 5 foot 3.5 inches, body mass index 33.4 . HEENT: PERRLA, EOMI. Evaluation of oropharynx showed tongue protrudes midline, low position of soft palate Mallampati 4. NECK: Supple. No JVD. Thyroid is not palpable. 14 inches in circumference. LUNGS: Clear to percussion and to auscultation. Good air exchange. No wheezing or rhonchi. HEART: S1, S2 regular. No murmurs, gallops or rubs. ABDOMEN: Soft and nontender. Bowel sounds are present. No organomegaly appreciated. EXTREMITIES: No clubbing or cyanosis. PAPER REEL OPERATOR: Awake, alert, and oriented x3. Cranial nerves 2 to 7 intact. There is no fasciculation or atrophy noted. No focal deficits observed. ASSESSMENT: 1. Awakenings from sleep with nocturia. Extremely low position of soft palate. Retrognathia. Excessive daytime sleepiness, [place] sleepiness scale increased to 11. Possible obstructive sleep apnea hypopnea syndrome. 2. History of atrial fibrillation. 3. History of sinuses problems. 4. History of spinal stenosis, scoliosis. 5 history of duodenal ulcer. 6 . History of iron deficiency anemia. 7. History of squamous cell CA of the face. Status post surgical treatment with skin autotransplant. 8. History of right breast CA, status post mastectomy. 9 . Status post tonsillectomy. 10. Status post hernia repair. PLAN: 1. Polysomnography for evaluation of patient's breathing during sleep. 2. CPAP/BiPAP titration if sleep study confirms obstructive sleep apnea- hypopnea syndrome. 3. Preferable position during sleep on the side. 4. No driving if patient feels any sleepiness. Patient is aware of civil and criminal liability for unsafe driving. 5. Sleep hygiene with regular sleep time for at least 7.5-8 hours. 6. Watching weight. Thank you very much for referring this patient for consultation. Sincerely, Varun Bran MD, PhD, FAASM. Diplomat of [place] [employer], Sleep Medicine Board by [place] [employer] [place] [employer] of [facility] [place] Past Medical History Past Medical History: Atrial Fibrillation, Cancer, Eye Disorder, Musculoskeletal Disorder, Osteoarthritis (OA), Renal Disease Additional Past Medical History / Comment(s): DRY EYE, CORNEAL DYSTROPHY. HX RIGHT BREAST CANCER. No blood draw or blood pressure on right side. HYPOGLYCEMIA. Right leg below the knee swelling-wears daily compression stockings. HX STOMACH ULCER 04-06-17. 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 HX KIDNEY STONES. LOWER BACK PAIN, NUMBNESS AND TINGLING IN TOES FOR YEARS. Headaches. Left arm scar from donor site. Positive Cologuard.Covid infection Apr 2022 History of Any Multi-Drug Resistant Organisms: ESBL, MRSA Date of last positivie culture/infection: 08/03/20 ESBL E.coli,MRSA 2018 MDRO Source:: URINE Past Surgical History: Adenoidectomy, Appendectomy, Breast Surgery, Cholecystectomy, Hernia Repair, Tonsillectomy Additional Past Surgical History / Comment(s): "Extensive dental work 09/17. 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 Past Anesthesia/Blood Transfusion Reactions: Previous Problems w/ Anesthesia, Postoperative Nausea & Vomiting (PONV) Additional Past Anesthesia/Blood Transfusion Reaction / Comment(s): TOOK VERY LONG TIME TO AWAKEN AFTER SURGERY IN 2012, had severe PONV after last pain procedure & thinks due to Fentanyl. Smoking Status: Never smoker - Past Family History Father Family Medical History: Congestive Heart Failure (CHF), Coronary Artery Disease (CAD), Diabetes Mellitus, Deep Vein Thrombosis (DVT), Hypertension Additional Family Medical History / Comment(s): PHLEBITIS LEG Sister(s) Family Medical History: Diabetes Mellitus Brother(s) Family Medical History: No Reported History Mother Family Medical History: AFIB, Deep Vein Thrombosis (DVT) Additional Family Medical History / Comment(s): PHLEBITIS IN LEG Medications and Allergies Home Medications Medication Instructions Recorded Confirmed Type Metoprolol Tartrate [Lopressor] 50 mg PO QAM 07/21/14 12/31/22 History Cyanocobalamin (Vitamin B-12) 1,000 mcg PO MOFR 06/22/17 12/31/22 History [Vitamin B-12] Metoprolol Tartrate [Lopressor] 25 mg PO HS 06/22/17 12/31/22 History Multivitamins, Thera [Multivitamin 1 tab PO DAILY 06/22/17 12/31/22 History (formulary)] Tamsulosin HCl [Flomax] 0.4 mg PO QAM 06/07/20 12/31/22 History Acetaminophen [Tylenol Extra 1,000 mg PO BID 07/24/20 12/31/22 History Strength] Carboxymethylcellulose Sodium 1 drop BOTH EYES BID PRN 06/20/21 12/31/22 History [Refresh Tears] Lidocaine/Menthol 1 each TP DIRECTED PRN 11/20/21 12/31/22 History [Lidocaine-Menthol 4%-1% Patch] Apixaban [Eliquis] 2.5 mg PO BID 10/27/22 12/31/22 History Cyclobenzaprine [Flexeril] 10 mg PO HS 12/09/22 12/31/22 History Multicollagen Supplement 2,000 mg PO DAILY 12/09/22 12/31/22 History Multivit-Min/Iron/Folic/Lutein 2 each PO DAILY 12/09/22 12/31/22 History [Centrum Silver Women Tablet] Allergies Allergy/AdvReac Type Severity Reaction Status Date / Time fentanyl Allergy nausea/vomiting, Verified 12/31/22 12:04 fuzzy headed Penicillins Allergy Anaphylaxis Verified 12/31/22 12:04 Sulfa (Sulfonamide Allergy Unknown Verified 12/31/22 12:04 Antibiotics) Childhood codeine AdvReac Nausea & Verified 12/31/22 12:04 Vomiting NSAIDS (Non-Steroidal AdvReac ULCER- Verified 12/31/22 12:04 Anti-Inflamma HISTORY sulfamethoxazole AdvReac Diarrhea, Verified 12/31/22 12:04 [From Bactrim] C-Diff trimethoprim [From Bactrim] AdvReac Diarrhea, Verified 12/31/22 12:04 C-Diff Sleep Note - Sleep Note Sleep Note: Temperature: Pulse Rate: Respiratory Rate: Blood Pressure: SpO2: Height: Weight: BMI: Neck Circumference:
== END ==
LOC: SLEEP 14:38
PROVIDERS: ATTEND Internal Medicine
DX: G47.9 Sleep disorder, unspecified (principal); I48.91 Unspecified atrial fibrillation; J32.9 Chronic sinusitis, unspecified; Z87.11 Personal history of peptic ulcer disease; Z86.2 Personal history of diseases of the blood and blood-forming organs and certain disorders involving the immune mechanism; Z98.890 Other specified postprocedural states; Z85.3 Personal history of malignant neoplasm of breast; Z99.89 Dependence on other enabling machines and devices; M48.00 Spinal stenosis, site unspecified; Z79.899 Other long term (current) drug therapy; Z79.01 Long term (current) use of anticoagulants; Z88.6 Allergy status to analgesic agent; Z88.0 Allergy status to penicillin; Z88.2 Allergy status to sulfonamides; Z88.5 Allergy status to narcotic agent
CPT/HCPCS: 99211

== ENCOUNTER → 2023-02-20 | Outpatient (CLI) | payer MEDICARE ==
--- NOTE | 2023-02-24 09:39 | CT ---
EXAMINATION TYPE: CT angio head neck DATE OF EXAM: 02/20/2023 HISTORY: syncope. Vertebral basilar insufficiency. Headaches and dizziness COMPARISON: None. CT DLP: 450 mGycm. Automated Exposure Control for Dose Reduction was Utilized. TECHNIQUE: CTA scan of the head and neck is performed with IV Contrast, patient injected with 65 mL of Isovue 370, axial images are obtained, coronal and sagittal reformatted images are reviewed. 3D re constructed images are created on an independent workstation and reviewed. FINDINGS: Carotid/Vascular Structures: Normal three-vessel origin from the aortic arch. No significant focal pl aque or stenosis in the common or internal carotid arteries bilaterally. Patent external carotid mary blessing bilaterally without significant stenosis. Surgical clips near the right carotid bulb are identif ied. Vertebral arteries are patent to basilar junction and fairly codominant. There are hypoplastic bilate ral posterior communicating arteries identified. No significant focal stenosis or aneurysm in the pos terior circulation. Images of the anterior circulation show patent anterior communicating artery. The re is no significant focal stenosis or aneurysm seen. Other: Right breast implant is partially imaged. Right submandibular gland is surgically absent. IMPRESSION: 1. No significant stenosis in common or internal carotid arteries bilaterally. 2. No significant stenosis or aneurysm at the level [place] of [place]. Patent normal caliber vertebra l basilar system noted. NASCET criteria was used in interpretation of this exam?
== END | disposition home or self-care (01) ==
LOC: RADCTMAIN 13:41
PROVIDERS: ATTEND Family Medicine
DX: N83.291 Other ovarian cyst, right side (principal); R55 Syncope and collapse
CPT/HCPCS: 82565; 84520; 70496; 70498; 36415; Q9967

== ENCOUNTER → 2023-04-27 | Outpatient (CLI) | payer MEDICARE ==
--- NOTE | 2023-04-27 16:53 | US ---
EXAMINATION TYPE: US venous doppler duplex LE LT DATE OF EXAM: 04/27/2023 4:27 PM COMPARISON: NONE CLINICAL INDICATION: Female, 77 years old with history of M79.609 PAIN IN LIMP; Edema left leg for 1 0 days SIDE PERFORMED: left TECHNIQUE: The lower extremity deep venous system is examined utilizing real time linear array sonog reanna with graded compression, doppler sonography and color-flow sonography. VESSELS IMAGED: Common Femoral Vein Deep Femoral Vein Greater Saphenous Vein * Femoral Vein Popliteal Vein Small Saphenous Vein * Proximal Calf Veins (* superficial vessels) Left Leg: No evidence of DVT as visualized IMPRESSION: No evidence for DVT within the left lower extremity imaged from the groin to the upper calf.
== END | disposition home or self-care (01) ==
LOC: RADUSWWP 15:28
PROVIDERS: ATTEND Family Medicine
DX: M79.662 Pain in left lower leg (principal)

== ENCOUNTER → 2023-05-25 | Outpatient (CLI) | payer MEDICARE ==
--- NOTE | 2023-05-25 15:22 | US ---
EXAMINATION TYPE: US arterial LE single level DATE OF EXAM: 05/25/2023 2:58 PM CLINICAL INDICATION: Female, 78 years old with history of M79.609 PAIN IN LIMB; Left leg pain and swe lling History of: Smoker: Previous Hypertension: No Diabetic: No Hyperlipidemia: No TIA/CVA: No Previous Vascular Surgery: Yes - left radial artery removed CAD: No MS: No Vascular Ulcers: No Claudication: No Gangrene: No Doppler Waveforms: Right: Multiphasic Left: Multiphasic Right Brachial Pressure: Deferred due to right mastectomy Left Brachial Pressure: 131 Ankle-Brachial Indices: Right: 1.14 Left: 1.21 Toe Brachial Indices: Right: 0.87 Left: 0.87 IMPRESSION: 1. Normal KATHI and TBI indices.
== END | disposition home or self-care (01) ==
LOC: RADUSWWP 13:46
PROVIDERS: ATTEND Family Medicine
DX: M79.605 Pain in left leg (principal)
CPT/HCPCS: 93922

== ENCOUNTER → 2023-10-23 | Outpatient (CLI) | payer MEDICARE ==
--- NOTE | 2023-10-26 09:25 | MM ---
Reason for Exam: Screening (asymptomatic). Last screening mammogram was performed 12 month(s) ago. Patient History: Menarche at age 11. Patient has no children. Right ovary removed at age 35. Postmenopausal. Breast cancer, right, age 68. Other cancer, age 73. Patient used Estrogen for 2 years. Patient used Progesterone for 2 years. Hormonal Contraceptives for 2 years from age 20 until age 22. Cyst Aspiration on the Right side. Excisional Biopsy on the Right side. Excisional Biopsy on the Right side. 2012, Mastectomy on the Right side. 08/05/2013, Malignant Core Biopsy on the right side. 08/05/2013, Malignant Core Biopsy on the right side. 10/27/2008, Benign Core Biopsy on the right side. 2013, Implant on the right side. 2013, Implant on the right side. Paternal cousin had breast cancer, age 38. Paternal cousin had breast cancer, age 40. Prior Study Comparison: 10/19/2020 Left Diagnostic Mammogram, [facility]. 10/21/2021 Left Diagnostic Mammogram, [facility]. 10/22/2022 Left MG 3D scr ryan unilateral w/cad., [facility]. Tissue Density: Left: The breast tissue is heterogeneously dense. This may lower the sensitivity of mammography. Findings: Analyzed By CAD. There is no suspicious group of microcalcifications or new suspicious mass in either breast. Overall Assessment: Benign, BI-RAD 2 Management: Screening Mammogram of both breasts in 1 year. . Patient should continue monthly self-breast exams. A clinical breast exam by your physician is recommended on an annual basis. This exam should not preclude additional follow-up of suspicious palpable abnormalities. Note on Kristi scores and lifetime risk: 1. A Kristi score greater than 3% is considered moderate risk. If this is the case, consider specialist referral to assess eligibility for a risk reducing agent. 2. If overall lifetime risk for the development of breast cancer is 20% or higher, the patient may qualify for future screening with alternating mammogram and breast MRI. Electronically signed and approved by: Sam Sanderson M.D. Radiologis
== END | disposition home or self-care (01) ==
LOC: RADMAMWWP 08:56
PROVIDERS: ATTEND Internal Medicine Hematology & Oncology
DX: Z12.31 Encounter for screening mammogram for malignant neoplasm of breast (principal); Z80.3 Family history of malignant neoplasm of breast; Z78.0 Asymptomatic menopausal state; Z90.11 Acquired absence of right breast and nipple; Z98.82 Breast implant status
CPT/HCPCS: 77063; 77067

== ENCOUNTER 2024-03-31 23:02 | Emergency (ER) | payer MEDICARE ==
--- NOTE | 2024-03-31 23:42 | ED ---
General Adult HPI - General Chief complaint: Nausea/Vomiting/Diarrhea Stated complaint: weakness NVD Time Seen by Provider: 03/31/24 23:30 Source: patient, EMS, RN notes reviewed, old records reviewed Mode of arrival: EMS - History of Present Illness Initial comments: Patient is a 78-year-old female presents emergency department complaining of chest discomfort. Patient has not been feeling well for multiple days. Was seen on March 28 for some chest discomfort and similar complaints. Ultimately discharged home. States that again today she experienced chest discomfort that she describes as a burning starting in her lower substernal midepigastric region radiating up to his mid chest. Has had multiple episodes of emesis at home in addition to nausea. States she had some blood-streaked emesis as well as a possibly 1 blood clot that she saw when she had emesis. Has a history of duodenal ulcer. Denies constipation or diarrhea. Denies any other acute compla ints at this time. He is on blood thinners. No history of cardiac stents. Presents for further evaluation at this time. - Related Data Home Medications Medication Instructions Recorded Confirmed Metoprolol Tartrate [Lopressor] 50 mg PO QAM 07/21/14 12/31/22 Cyanocobalamin (Vitamin B-12) 1,000 mcg PO MOFR 06/22/17 12/31/22 [Vitamin B-12] Metoprolol Tartrate [Lopressor] 25 mg PO HS 06/22/17 12/31/22 Multivitamins, Thera [Multivitamin 1 tab PO DAILY 06/22/17 12/31/22 (formulary)] Tamsulosin HCl [Flomax] 0.4 mg PO QAM 06/07/20 12/31/22 Acetaminophen [Tylenol Extra 1,000 mg PO BID 07/24/20 12/31/22 Strength] Carboxymethylcellulose Sodium 1 drop BOTH EYES BID PRN 06/20/21 12/31/22 [Refresh Tears] Lidocaine/Menthol 1 each TP DIRECTED PRN 11/20/21 12/31/22 [Lidocaine-Menthol 4%-1% Patch] Apixaban [Eliquis] 2.5 mg PO BID 10/27/22 12/31/22 Cyclobenzaprine [Flexeril] 10 mg PO HS 12/09/22 12/31/22 Multicollagen Supplement 2,000 mg PO DAILY 12/09/22 12/31/22 Multivit-Min/Iron/Folic/Lutein 2 each PO DAILY 12/09/22 12/31/22 [Centrum Silver Women Tablet] Allergies Allergy/AdvReac Type Severity Reaction Status Date / Time fentanyl Allergy nausea/vomiting, Verified 03/31/24 23:13 fuzzy headed Penicillins Allergy Anaphylaxis Verified 03/31/24 23:13 Sulfa (Sulfonamide Allergy Unknown Verified 03/31/24 23:13 Antibiotics) Childhood codeine AdvReac Nausea & Verified 03/31/24 23:13 Vomiting NSAIDS (Non-Steroidal AdvReac ULCER- Verified 03/31/24 23:13 Anti-Inflamma HISTORY sulfamethoxazole AdvReac Diarrhea, Verified 03/31/24 23:13 [From Bactrim] C-Diff trimethoprim [From Bactrim] AdvReac Diarrhea, Verified 03/31/24 23:13 C-Diff Review of Systems ROS Statement: Those systems with pertinent positive or pertinent negative responses have been documented in the HPI. Review of Systems: CONST: Denies fever EYES: Denies blurry vision ENT: Denies nasal congestion C/V: Endorses chest pain RESP: Denies shortness of breath GI: Endorses mild epigastric abdominal discomfort : Denies dysuria SKIN: Denies rash. MSK: Denies joint pain. NEURO: Denies headache ROS Other: All systems not noted in ROS Statement are negative. Past Medical History Past Medical History: Atrial Fibrillation, Cancer, Eye Disorder, Musculoskeletal Disorder, Osteoarthritis (OA), Renal Disease Additional Past Medical History / Comment(s): Received both covid vaccines. DRY EYE, CORNEAL DYSTROPHY. HX RT BREAST CA. No blood draw or blood pressure on RT side. HYPOGLYCEMIA. right leg below the knee swelling-wears daily compression stockings, STOMACH ULCER 04-06-17. 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 LOWER BACK PAIN, NT TOES FOR YEARS, headaches, STATES RECENT CAT SCAN WHICH SHOWED INCISIONAL HERNIAS AND KIDNEY STONES IN BLADDER AND URETER-PATIENT TO CONTACT DR RIDER. left arm scar from donor site Recent extensive dental work and sinus infection treated with antibiotics. History of Any Multi-Drug Resistant Organisms: ESBL, MRSA Date of last positivie culture/infection: 08/03/20 ESBL E.coli,MRSA 2018 MDRO Source:: URINE Past Surgical History: Adenoidectomy, Appendectomy, Breast Surgery, Cholecystect birgit, Hernia Repair, Tonsillectomy Additional Past Surgical History / Comment(s): "Extensive dental work .RT BREAST MASTECTOMY W/ RECONSTRUCTION, FATTY TUMOR EXC LT ARM, EPHROLITHOTOMY TUBE W/ STONE REMOVAL X4, EGD, COLONOSCOPY, EXC RT OVARY/TUBE, CANCER EXC. RT BUCCAL MUCOSA W/ TISSUE TRANSPLANT FROM LT WRIST, several cervical lymph nodes removed. Past Anesthesia/Blood Transfusion Reactions: Previous Problems w/ Anesthesia, Postoperative Nausea & Vomiting (PONV) Additional Past Anesthesia/Blood Transfusion Reaction / Comment(s): TOOK VERY LONG TIME TO AWAKEN AFTER SURGERY IN 2012, had severe PONC after last pain procedure & thinks due to fentanyl Past Psychological History: No Psychological Hx Reported Smoking Status: Never smoker - Past Family History Father Family Medical History: Congestive Heart Failure (CHF), Coronary Artery Disease (CAD), Diabetes Mellitus, Deep Vein Thrombosis (DVT), Hypertension Additional Family Medical History / Comment(s): PHLEBITIS LEG Sister(s) Family Medical History: Diabetes Mellitus Brother(s) Family Medical History: No Reported History Mother Family Medical History: AFIB, Deep Vein Thrombosis (DVT) Additional Family Medical History / Comment(s): PHLEBITIS IN LEG General Exam - General Exam Comments Initial Comments: General: Appears in no acute distress. HEAD: Normal with no signs of head trauma. EYES: PERRLA, EOMI, conjunctiva normal, no discharge. ENT: Hearing grossly intact, normal oropharynx. RESPIRATORY: Clear breath sounds bilaterally. No wheezes, rales, or rhonchi. C/V: Regular rate and rhythm. S1 and S2 auscultated, no edema, peripheral pulses 2+ and intact throughout ABD: Abdomen soft, nondistended. Mild tenderness palpation epigastric region. No guarding or rebound tenderness. No peritoneal signs. EXT: Normal range of motion, no obvious deformity SKIN: No rashes or lesions observed on exposed skin. NEURO: Alert and oriented x 4 Course Vital Signs 03/31/24 03/31/24 04/01/24 23:09 23:34 00:13 Temperature 97.7 F Pulse Rate 65 64 65 Respiratory 18 20 18 Rate Blood Pressure 144/76 149/67 O2 Sat by Pulse 94 L 97 99 Oximetry 04/01/24 04/01/24 04/01/24 01:00 02:00 02:59 Temperature Pulse Rate 70 65 66 Respiratory 20 16 18 Rate Blood Pressure 124/74 O2 Sat by Pulse 98 96 98 Oximetry 04/01/24 04/01/24 04:00 06:00 Temperature Pulse Rate 68 56 L Respiratory 20 20 Rate Blood Pressure 124/74 O2 Sat by Pulse 98 98 Oximetry Medical Decision Making - Medical Decision Making Was pt. sent in by a medical professional or institution (, [facility], [employer], urgent care, hospital, or snf...) When possible be specific @ -No Did you speak to anyone other than the patient for history (EMS, parent, family, police, friend...)? What history was obtained from this source @ -No Did you review nursing and triage notes (agree or disagree)? Why? @ -I reviewed and agree with nursing and triage notes Were old charts reviewed (outside hosp., previous admission, EMS record, old EKG, old radiological studies, urgent care reports/EKG's, snf records)? Report findings @ -Paperwork reviewed from [facility] where patient was worked up for chest pain on March 28. Workup unremarkable at that time. Differential Diagnosis (chest pain, altered mental status, abdominal pain women, abdominal pain men, vaginal bleeding, weakness, fever, dyspnea, syncope, headache, dizziness, GI bleed, back pain, seizure, CVA, palpatations, mental health, musculoskeletal)? @ -Differential Chest Pain: Stable Angina, Unstable Angina, STEMI, NSTEMI Aortic Dissection, Pneumothorax, Musculoskeletal, Esophageal Spasm GERD, Cholecystitis, Pancreatitis, Zoster, this is not meant to be an all-inclusive list. EKG interpreted by me (3pts min.). @ -As above X-rays interpreted by me (1pt min.). @ -Chest x-ray reveals no obvious acute cardiopulmonary process. CT interpreted by me (1pt min.). @ -None done U/S interpreted by me (1pt. min.). @ -None done What testing was considered but not performed or refused? (CT, X-rays, U/S, labs)? Why? @ -None What meds were considered but not given or refused? Why? @ -None Did you discuss the management of the patient with other professionals (professionals i.e. , PA, [employer], lab, RT, psych nurse, criminal justice social worker, checker loader, teacher, svp chief marketing officer, employment case manager)? Give summary @ -Discussed the CT findings with urology Dr. Rider who was in agreement plan to follow-up with him in the office as an outpatient. Was smoking cessation discussed for >3mins.? @ -No Was critical care preformed (if so, how long)? @ -No Were there social determinants of health that impacted care today? How? (Homelessness, low income, unemployed, alcoholism, drug addiction, transportatio n, low edu. Level, literacy, decrease access to med. care, prison, rehab)? @ -No Was there de-escalation of care discussed even if they declined (Discuss DNR or withdrawal of care, Hospice)? DNR status @ -No What co-morbidities impacted this encounter? (DM, HTN, Smoking, COPD, CAD, Cancer, CVA, ARF, Chemo, Hep., AIDS, mental health diagnosis, sleep apnea, morbid obesity)? @ -None Was patient admitted / discharged? Hospital course, mention meds given and route, prescriptions, significant lab abnormalities, going to OR and other pertinent info. @ -Based on patient's presentation and physical exam, presents emergency department complaining of chest pain as well as some nausea with a few episodes of blood-streaked emesis. Is on blood thinners. Has a history of duodenal ulcer as well as A-fib. Vital signs are unremarkable at this time. Patient will be given nitroglycerin tablet as well as IV Zofran, Protonix, fluids. Patient in agreement this plan. Hold aspirin at this time due to the episodes of blood-streaked sputum on blood thinners and repeat labs back. EKG shows no signs of acute ischemia. Patient's laboratory studies are remarkable for undetectable troponin. Slightly elevated lipase of 318. No other significant findings. Chest x-ray unremarkable. On reevaluation, despite nitro administration, patient is still having discomfort. She will be administered a GI cocktail at this time. I did recommend a second troponin if she would like to go home as well as CT imaging due to her persistent pain. She was in agreement this plan. GI cocktail resolved her symptoms and she fell asleep. There was a long delay in obtaining CT imaging results which eventually returned remarkable for severe left-sided hydronephrosis as well as right-sided renal calculi. Findings of chronic pancreatitis seen as well. I discussed results with patient is asymptomatic. I contacted Dr. Rider of urology who was in agreement the plan to follow-up with him in the office outpatient as long as patient is asymptomatic concerning her negative workup other than the imaging results. Patient was in agreement this plan. I instructed the patient to follow up with their PCP in the next 1-3 days. I provided contact information for follow up with urology. I explained that the patient should return to the emergency department if they experience any worsening symptoms. Strict return precautions were discussed with the patient. The patient expressed understanding of these instructions. I answered all questions that the patient had. The patient was discharged home in good conditi on with their prescriptions and follow up information. Undiagnosed new problem with uncertain prognosis? @ -No Drug Therapy requiring intensive monitoring for toxicity (Heparin, Nitro, Insulin, Cardizem)? @ -No Were any procedures done? @ -No Diagnosis/symptom? @ -Severe left-sided hydronephrosis, pancreatitis Acute, or Chronic, or Acute on Chronic? @ -Acute Uncomplicated (without systemic symptoms) or Complicated (systemic symptoms)? @ -Uncomplicated Side effects of treatment? @ -None Exacerbation, Progression, or Severe Exacerbation] @ -No Poses a threat to life or bodily function? @ -Unlikely - Lab Data Result diagrams: 04/01/24 00:23 04/01/24 00:23 Lab Results 04/01/24 04/01/24 04/01/24 Range/Units 00:15 00:23 00:23 WBC 8.9 (3.8-10.6) k/uL RBC 4.64 (3.80-5.40) m/uL Hgb 13.2 (11.4-16.0) gm/dL Hct 41.7 (34.0-46.0) % MCV 89.9 (80.0-100.0) fL MCH 28.5 (25.0-35.0) pg MCHC 31.7 (31.0-37.0) g/dL RDW 13.2 (11.5-15.5) % Plt Count 211 (150-450) k/uL MPV 7.9 Neutrophils % 74 % Lymphocytes % 19 % Monocytes % 5 % Eosinophils % 1 % Basophils % 1 % Neutrophils # 6.6 (1.3-7.7) k/uL Lymphocytes # 1.7 (1.0-4.8) k/uL Monocytes # 0.4 (0-1.0) k/uL Eosinophils # 0.1 (0-0.7) k/uL Basophils # 0.0 (0-0.2) k/uL PT 10.9 (10.0-12.5) sec INR 1.0 (<1.2) APTT 26.9 (22.0-30.0) sec Sodium (137-145) mmol/L Potassium (3.5-5.1) mmol/L Chloride (98-107) mmol/L Carbon Dioxide (22-30) mmol/L Anion Gap mmol/L BUN (7-17) mg/dL Creatinine (0.52-1.04) mg/dL Est GFR (CKD-EPI)AfAm (>60 ml/min/1.73 sqM) Est GFR (CKD-EPI)NonAf (>60 ml/min/1.73 sqM) Glucose (74-99) mg/dL Calcium (8.4-10.2) mg/dL Magnesium (1.6-2.3) mg/dL Total Bilirubin (0.2-1.3) mg/dL AST (14-36) U/L ALT (4-34) U/L Alkaline Phosphatase (38-126) U/L Troponin I (0.000-0.034) ng/mL Total Protein (6.3-8.2) g/dL Albumin (3.5-5.0) g/dL Lipase (23-300) U/L Urine Color Urine Appearance (Clear) Urine pH (5.0-8.0) Ur Specific Ashley (1.001-1.035) Urine Protein (Negative) Urine Glucose (UA) (Negative) Urine Ketones (Negative) Urine Blood (Negative) Urine Nitrite (Negative) Urine Bilirubin (Negative) Urine Urobilinogen (<2.0) mg/dL Ur Leukocyte Esterase (Negative) Blood Type A Positive Blood Type Recheck A Pos Bld Type Recheck Status No Antibody Screen NEGATIVE Spec Expiration Date 04/04/2024231404/01/24 04/01/24 04/01/24 Range/Units 00:23 00:23 01:41 WBC (3.8-10.6) k/uL RBC (3.80-5.40) m/uL Hgb (11.4-16.0) gm/dL Hct (34.0-46.0) % MCV (80.0-100.0) fL MCH (25.0-35.0) pg MCHC (31.0-37.0) g/dL RDW (11.5-15.5) % Plt Count (150-450) k/uL MPV Neutrophils % % Lymphocytes % % Monocytes % % Eosinophils % % Basophils % % Neutrophils # (1.3-7.7) k/uL Lymphocytes # (1.0-4.8) k/uL Monocytes # (0-1.0) k/uL Eosinophils # (0-0.7) k/uL Basophils # (0-0.2) k/uL PT (10.0-12.5) sec INR (<1.2) APTT (22.0-30.0) sec Sodium 142 (137-145) mmol/L Potassium 3.7 (3.5-5.1) mmol/L Chloride 101 (98-107) mmol/L Carbon Dioxide 34 H (22-30) mmol/L Anion Gap 7 mmol/L BUN 22 H (7-17) mg/dL Creatinine 1.13 H (0.52-1.04) mg/dL Est GFR (CKD-EPI)AfAm 54 (>60 ml/min/1.73 sqM) Est GFR (CKD-EPI)NonAf 46 (>60 ml/min/1.73 sqM) Glucose 120 H (74-99) mg/dL Calcium 10.0 (8.4-10.2) mg/dL Magnesium 2.2 (1.6-2.3) mg/dL Total Bilirubin 0.8 (0.2-1.3) mg/dL AST 31 (14-36) U/L ALT 23 (4-34) U/L Alkaline Phosphatase 104 (38-126) U/L Troponin I <0.012 (0.000-0.034) ng/mL Total Protein 7.1 (6.3-8.2) g/dL Albumin 4.4 (3.5-5.0) g/dL Lipase 318 H (23-300) U/L Urine Color Colorless Urine Appearance Clear (Clear) Urine pH 8.0 (5.0-8.0) Ur Specific Ashley 1.012 (1.001-1.035) Urine Protein Negative (Negative) Urine Glucose (UA) Negative (Negative) Urine Ketones Negative (Negative) Urine Blood Negative (Negative) Urine Nitrite Negative (Negative) Urine Bilirubin Negative (Negative) Urine Urobilinogen <2.0 (<2.0) mg/dL Ur Leukocyte Esterase Negative (Negative) Blood Type Blood Type Recheck Bld Type Recheck Status Antibody Screen Spec Expiration Date 04/01/24 Range/Units 02:38 WBC (3.8-10.6) k/uL RBC (3.80-5.40) m/uL Hgb (11.4-16.0) gm/dL Hct (34.0-46.0) % MCV (80.0-100.0) fL MCH (25.0-35.0) pg MCHC (31.0-37.0) g/dL RDW (11.5-15.5) % Plt Count (150-450) k/uL MPV Neutrophils % % Lymphocytes % % Monocytes % % Eosinophils % % Basophils % % Neutrophils # (1.3-7.7) k/uL Lymphocytes # (1.0-4.8) k/uL Monocytes # (0-1.0) k/uL Eosinophils # (0-0.7) k/uL Basophils # (0-0.2) k/uL PT (10.0-12.5) sec INR (<1.2) APTT (22.0-30.0) sec Sodium (137-145) mmol/L Potassium (3.5-5.1) mmol/L Chloride (98-107) mmol/L Carbon Dioxide (22-30) mmol/L Anion Gap mmol/L BUN (7-17) mg/dL Creatinine (0.52-1.04) mg/dL Est GFR (CKD-EPI)AfAm (>60 ml/min/1.73 sqM) Est GFR (CKD-EPI)NonAf (>60 ml/min/1.73 sqM) Glucose (74-99) mg/dL Calcium (8.4-10.2) mg/dL Magnesium (1.6-2.3) mg/dL Total Bilirubin (0.2-1.3) mg/dL AST (14-36) U/L ALT (4-34) U/L Alkaline Phosphatase (38-126) U/L Troponin I <0.012 (0.000-0.034) ng/mL Total Protein (6.3-8.2) g/dL Albumin (3.5-5.0) g/dL Lipase (23-300) U/L Urine Color Urine Appearance (Clear) Urine pH (5.0-8.0) Ur Specific Ashley (1.001-1.035) Urine Protein (Negative) Urine Glucose (UA) (Negative) Urine Ketones (Negative) Urine Blood (Negative) Urine Nitrite (Negative) Urine Bilirubin (Negative) Urine Urobilinogen (<2.0) mg/dL Ur Leukocyte Esterase (Negative) Blood Type Blood Type Recheck Bld Type Recheck Status Antibody Screen Spec Expiration Date - EKG Data -: EKG Interpreted by Me EKG Comments: 12-lead Electrocardiogram Interpretation Note EKG was reviewed and interpreted by myself. 12-lead ECG performed at 2338 is interpreted by me as revealing normal sinus rhythm at a rate of 60 beats per minute. [place] is normal. VA interval is 150 ms, QRS duration is 84 ms, QTc is 422 ms. Slight T wave inversion in lead III which appears chronic as seen on EKG from June 2020.. There were no ST or T wave abnormalities to suggest myocardial ischemia or injury. R wave progression across the precordium was satisfactory. By my interpretation this EKG is non-diagnostic for acute ischemia. Disposition Clinical Impression: Hydronephrosis, Pancreatitis Disposition: HOME SELF-CARE Condition: Good Instructions (If sedation given, give patient instructions): Pancreatitis (ED) Additional Instructions: Follow up with Dr. Rider this week for your severe hydronephrosis. Return if worsening symptoms Is patient prescribed a controlled substance at d/c from ED?: No Referrals: Shantel Thomas MD [Primary Care Provider] - 1-2 days Vishnu Rider MD [STAFF PHYSICIAN] - 1-2 days Time of Disposition: 06:29
[2024-04-01] MEDS: SODIUM CHLORIDE 0.9% 1,000 ML IV STA ×2 (00:23→02:16)
[2024-04-01] MEDS: PANTOPRAZOLE 40 MG/10 ML VIAL IVP STA (00:25)
[2024-04-01] MEDS: ONDANSETRON 4 MG/2 ML VIAL IVP STA (00:25)
[2024-04-01] MEDS: NITROGLYCERIN SL TABS 0.4 MG TAB SUBLINGUAL STA (00:42)
[2024-04-01 00:44] LABS: Basophils % (A) 1 %; Eosinophils # (A) 0.1 k/uL (0-0.7); Eosinophils % (A) 1 %; HCT 41.7 % (34.0-46.0); HGB 13.2 gm/dL (11.4-16.0); Lymphocytes # (A) 1.7 k/uL (1.0-4.8); Lymphocytes % (A) 19 %; MCH 28.5 pg (25.0-35.0); MCHC 31.7 g/dL (31.0-37.0); MCV 89.9 fL (80.0-100.0); Mean Platelet Volume 7.9; Monocytes # (A) 0.4 k/uL (0-1.0); Monocytes % (A) 5 %; Neutrophils # (A) 6.6 k/uL (1.3-7.7); Neutrophils % (A) 74 %; Platelet Count 211 k/uL (150-450); RBC 4.64 m/uL (3.80-5.40); RDW 13.2 % (11.5-15.5); WBC 8.9 k/uL (3.8-10.6)
[2024-04-01 00:52] LABS: Partial Thromboplastin Time 26.9 sec (22.0-30.0); Prothrombin Time 10.9 sec (10.0-12.5)
[2024-04-01 00:55] LABS: ALT 23 U/L (4-34); AST 31 U/L (14-36); African American GFR (CKD) 54 (>60 ml/min/1.73 sqM); Albumin 4.4 g/dL (3.5-5.0); Alkaline Phosphatase 104 U/L (38-126); Anion Gap 7 mmol/L; Blood Urea Nitrogen 22 mg/dL (7-17); Carbon Dioxide 34 mmol/L (22-30); Chloride 101 mmol/L (98-107); Glucose 120 mg/dL (74-99); Lipase 318 U/L (23-300); Magnesium 2.2 mg/dL (1.6-2.3); Non-African American GFR(CKD) 46 (>60 ml/min/1.73 sqM); Potassium 3.7 mmol/L (3.5-5.1); Sodium 142 mmol/L (137-145); Total Bilirubin 0.8 mg/dL (0.2-1.3); Total Protein 7.1 g/dL (6.3-8.2)
[2024-04-01] MEDS: MAG HYDROX/AL HYDROX/SIMETH 30 ML, HYOSCYAMINE ELIXIR 10 ML, LIDOCAINE VISCOUS 2% 10 ML PO STA (02:17)
[2024-04-01 02:29] LABS: Appearance,Urine Clear (Clear); Bilirubin,Urine Negative (Negative); Blood,Urine Negative (Negative); Color,Urine Colorless; Glucose,Urine (UA) Negative (Negative); Ketones,Urine Negative (Negative); Leukocyte Esterase,Urine Negative (Negative); Nitrite,Urine Negative (Negative); Protein,Urine Negative (Negative); Specific Gravity,Urine 1.012 (1.001-1.035); Urobilinogen,Urine <2.0 mg/dL (<2.0)
--- NOTE | 2024-04-01 04:30 | XR ---
EXAM: XR Chest, 2 Views CLINICAL HISTORY: ITS.REASON XR Reason: Chest Pain TECHNIQUE: Frontal and lateral views of the chest. COMPARISON: No relevant prior studies available. FINDINGS: Lungs: No consolidation or mass. Mild vascular congestion. Pleural space: No effusion. Heart: Mild cardiomegaly. Bones/joints: No acute findings. IMPRESSION: Mild vascular congestion.
--- NOTE | 2024-04-01 06:01 | CT ---
EXAM: CT Abdomen and Pelvis With Intravenous Contrast CLINICAL HISTORY: ITS.REASON CT Reason: pancreatitis TECHNIQUE: Axial computed tomography images of the abdomen and pelvis with intravenous contrast. CTDI is 25.1 mGy and DLP is 1206.2 mGy-cm. This CT exam was performed using one or more of the following dose reduction techniques: automated exposure control, adjustment of the mA and/or kV according to patient size, and/or use of iterative reconstruction technique. COMPARISON: No relevant prior studies available. FINDINGS: Lung bases: Mild dependent atelectatic changes within the lungs. ABDOMEN: Liver: Unremarkable. No mass. Gallbladder and bile ducts: Cholecystectomy changes. No ductal dilation. Pancreas: Pancreatic atrophy. Pancreatic parenchymal calcifications within the atrophied pancreas. Findings likely relate to sequelae of chronic pancreatitis. No evidence of acute on chronic pancreatitis. No ductal dilation. Spleen: Unremarkable. No splenomegaly. Adrenals: Unremarkable. No mass. Kidneys and ureters: Severe left renal hydronephrosis with a transition point at the left ureteropelvic junction. Findings may relate to right UPJ junction obstruction. Associated cortical thinning noted. Punctate to mm calculus noted at the left ureteropelvic junction. This is not favored to be obstructed. Nonobstructive calculi in the kidneys, the largest within the inferior pole of the right kidney measuring up to 1.1 cm. Stomach and bowel: No evidence of bowel obstruction. No mucosal thickening. PELVIS: Appendix: No findings to suggest acute appendicitis. Bladder: Unremarkable. No mass. Reproductive: Unremarkable as visualized. ABDOMEN and PELVIS: Intraperitoneal space: Unremarkable. No free air. No significant fluid collection. Bones/joints: Degenerative changes in the spine. No acute fracture. No dislocation. Soft tissues: Right breast prosthesis. Midline fat-containing supraumbilical ventral hernia. Umbilical hernia containing fat. Vasculature: Atherosclerotic disease. No abdominal aortic aneurysm. Lymph nodes: Unremarkable. No enlarged lymph nodes. IMPRESSION: 1. Severe left renal hydronephrosis with a transition point at the left ureteropelvic junction. Findings may relate to right UPJ junction obstruction. Associated cortical thinning noted. 2. Punctate to mm calculus noted at the left ureteropelvic junction. This is not favored to be obstructed. 3. Nonobstructive calculi in the kidneys, the largest within the inferior pole of the right kidney measuring up to 1.1 cm. 4. Pancreatic parenchymal calcifications within the atrophied pancreas. Findings likely relate to sequelae of chronic pancreatitis. No evidence of acute on chronic pancreatitis. 5. No other acute findings. 6. Incidental findings as described.
[2024-04-01 09:57] VITALS: BP 114/69; PULSE 57; RESP 18; TEMP 97.7
== END 2024-04-01 07:50 | disposition home or self-care (01) ==
LOC: EC 23:02
DX: K85.90 Acute pancreatitis without necrosis or infection, unspecified (principal); N13.2 Hydronephrosis with renal and ureteral calculous obstruction; Z88.0 Allergy status to penicillin; Z88.2 Allergy status to sulfonamides; Z88.5 Allergy status to narcotic agent; Z88.1 Allergy status to other antibiotic agents; Z88.6 Allergy status to analgesic agent; Z90.49 Acquired absence of other specified parts of digestive tract
CPT/HCPCS: 36415; 93005; 86900; 86901; 80053; 83690; 83735; 84484; 85025; 85610; 85730; 86850; 81003; 71046; 74177; 99285; 96374; 96375; 96361 ×9; J2405; Q9967; J2470

== ENCOUNTER → 2024-06-10 | Outpatient (CLI) | payer MEDICARE ==
--- NOTE | 2024-06-14 23:57 | MR ---
EXAMINATION TYPE: MR knee RT wo con DATE OF EXAM: 06/10/2024 COMPARISON: Bilateral knee x-ray April 18, 2020 HISTORY: right knee pain. Internal derangement. TECHNIQUE: Multiplanar, multisequence images of the knee is performed without IV contrast. FINDINGS: MEDIAL MENISCUS: Increased signal posterior horn does not definitively extend to articular surface. LATERAL MENISCUS: Increased signal anterior horn extends to superior articular surface. Vertical monty ented signal posterior aspect posterior horn extends to articular surface. CRUCIATE LIGAMENTS: The anterior and posterior cruciate ligaments are intact and unremarkable. COLLATERAL LIGAMENTS: The medial collateral ligament and lateral collateral ligament complex are inta ct there is increased signal and thickening of the proximal portion of the lateral collateral ligamen t proper. Suspect chronic injury. EXTENSOR MECHANISM: Visualized quadriceps and patellar tendons are intact. EFFUSION: Moderate to large size suprapatellar joint effusion. POPLITEAL CYST: No popliteal/wolf cyst. TRICOMPARTMENT SPACES: Moderate to severe narrowing patellofemoral compartment. Moderate to severe na rrowing medial tibiofemoral compartment. Moderate spurring medial tibial femoral compartment. CARTILAGE: Significant chondromalacia patella with full-thickness cartilaginous loss along the soft sugar operator head ior patellar pole. Significant cartilaginous loss medial and lateral tibiofemoral compartments. BONE MARROW SIGNAL: Subchondral cystic change involving the posterior aspect of the central tibia. Th ere is heterogeneous diminished T1 and increased T2 signal involving the lateral aspect of the latera l tibial plateau and distal lateral femoral condyle. Heterogeneous increased T2 signal throughout the posterior patellar pole is present. OTHER: No additional significant abnormality is appreciated. IMPRESSION: 1. Fairly advanced tricompartmental degenerative changes are present as detailed above. 2. Full-thickness tears involving anterior and posterior horns of the lateral meniscus. 3. At least intrasubstance tear posterior horn medial meniscus. 4. Moderate to large-size suprapatellar joint effusion. [facility], , 06/14/2024 11:54 PM
== END | disposition home or self-care (01) ==
LOC: RADMRIMAIN 21:15
PROVIDERS: ATTEND Family Medicine
DX: M23.8X1 Other internal derangements of right knee

== ENCOUNTER → 2024-09-23 | Outpatient (CLI) | payer MEDICARE ==
[2024-09-23 17:39] LABS: Partial Thromboplastin Time 24.5 sec (22.0-30.0)
[2024-09-24 01:41] LABS: HCT 41.9 % (37.2-46.3); HGB 12.9 g/dL (12.0-15.0); MCH 27.5 pg (27.0-32.0); MCHC 30.8 g/dL (32.0-37.0); MCV 89.3 FL (80.0-97.0); NRBC Per 100 WBC 0 X 10*3/uL (0.00-0.01); Platelet Count 265 X 10*3/uL (140-440); RBC 4.69 X 10*6/uL (4.10-5.20); RDW 13.9 % (11.5-14.5); WBC 5.67 X 10*3/uL (4.50-10.00)
[2024-09-24 02:02] LABS: ALT 18 U/L (8-44); AST 21 U/L (13-35); Albumin 4.4 g/dL (3.8-4.9); Albumin/Globulin Ratio 1.63 Ratio (1.60-3.17); Alkaline Phosphatase 94 U/L (41-126); Blood Urea Nitrogen 23.1 mg/dL (9.0-27.0); Calcium 9.6 mg/dL (8.7-10.3); Carbon Dioxide 26.9 mmol/L (21.6-31.8); Chloride 104 mmol/L (96-109); Globulin 2.7 g/dL (1.6-3.3); Glucose 79 mg/dL (70-110); Potassium 4.5 mmol/L (3.5-5.5); Sodium 142 mmol/L (135-145); Total Bilirubin 0.3 mg/dL (0.3-1.2); Total Protein 7.1 g/dL (6.2-8.2)
== END | disposition home or self-care (01) ==
LOC: LABPAT 15:50
PROVIDERS: ATTEND Orthopaedic Surgery Sports Medicine
DX: Z01.818 Encounter for other preprocedural examination (principal); Z22.322 Carrier or suspected carrier of Methicillin resistant Staphylococcus aureus; M16.11 Unilateral primary osteoarthritis, right hip
CPT/HCPCS: 36415; 80053; 85027; 85610; 85730; 87070

== ENCOUNTER → 2024-09-30 | Outpatient (CLI) | payer MEDICARE ==
--- NOTE | 2024-09-30 15:32 | XR ---
EXAMINATION TYPE: XR chest 2V DATE OF EXAM: 09/30/2024 1:45 PM COMPARISON: 04/01/2024 CLINICAL INDICATION: Female, 79 years old with history of Z01.818 ENCOUNTER FOR OTHER PREPROCEDURAL E XAMINATION, preop for knee surgery TECHNIQUE: Frontal and lateral views FINDINGS: Upper limits of normal in size. Aorta and pulmonary vasculature within normal limits. Hazy lower lung densities relating to overlying soft tissue. Surgical clips right axilla. No rommel consolidation or pleural effusion. Straightening of the normal thoracic kyphosis. IMPRESSION: Borderline heart size. No definite acute process. [facility], , 09/30/2024 3:29 PM
== END | disposition home or self-care (01) ==
LOC: RADXRMAIN 13:28
PROVIDERS: ATTEND Family Medicine
DX: Z01.818 Encounter for other preprocedural examination (principal); M40.294 Other kyphosis, thoracic region
CPT/HCPCS: 71046

== ENCOUNTER 2024-10-06 05:41 | Day surgery (SDC) | payer MEDICARE ==
[2024-09-30 11:00] VITALS: BMI 32.8
[~2024-10-06 05:41] MED LIST changes: -LACTATED RINGERS 1,000 ML IV SCH; +MELOXICAM 7.5 MG TAB PO PRN; +TRANEXAMIC 1,000 MG/100ML-NACL 1,000 MG in SALINE 1 100ML.BAG IVPB PRN
[2024-10-06] MEDS ORDERED: LIDOCAINE 1% (10MG/ML) FOR IV START INTRADERMA PRN (06:27)
[2024-10-06] MEDS: IV FLUID CONTINUATION 1,000 ML IV ONE (06:59)
[2024-10-06] MEDS: LACTATED RINGERS 1,000 ML IV SCH ×2 (06:59→13:11)
[2024-10-06] MEDS: DEXAMETHASONE SOD PHOSPHATE 4 MG/ML 1 ML VIAL IV ONE (07:00)
[2024-10-06] MEDS: ONDANSETRON 4 MG/2 ML VIAL IVP PRN (07:00)
[2024-10-06] MEDS: MIDAZOLAM 2 MG/2 ML VIAL IV ONE (07:04)
[2024-10-06] MEDS: ACETAMINOPHEN TAB 500 MG TAB PO PRN (07:22)
[2024-10-06] MEDS: GABAPENTIN 300 MG CAP PO PRN (07:22)
[2024-10-06] MEDS ORDERED: NA PHOS,M-B/NA PHOS,DI-BA 133 ML ENEMA RECTAL PRN (07:49)
[2024-10-06] MEDS ORDERED: NALOXONE 0.4 MG/ML 1 ML VIAL IV PRN (07:49)
[2024-10-06] MEDS ORDERED: bisacodyL 10 MG SUPP RECTAL PRN (07:49)
[2024-10-06] MEDS ORDERED: MAGNESIUM HYDROXIDE 2,400 MG/30 ML CUP PO PRN (07:49)
[2024-10-06] MEDS ORDERED: ONDANSETRON 4 MG/2 ML VIAL IVP PRN (07:49)
[2024-10-06] MEDS ORDERED: HYDROmorphone 0.5 MG/0.5 ML SYRINGE IVP PRN ×2 (07:49)
[2024-10-06] MEDS ORDERED: ESMOLOL 100 MG/10 ML VIAL ONE (07:57)
[2024-10-06] MEDS ORDERED: SODIUM CHLORIDE 0.9% (PF) 10 ML VIAL ONE (07:57)
[2024-10-06] MEDS ORDERED: TRANEXAMIC 1,000 MG/100ML-NACL PREMIX BAG ONE (07:57)
[2024-10-06] MEDS ORDERED: MIDAZOLAM 2 MG/2 ML VIAL ONE (07:57)
[2024-10-06] MEDS ORDERED: DEXAMETHASONE SOD PHOSPHATE 4 MG/ML 1 ML VIAL ONE (07:57)
[2024-10-06] MEDS ORDERED: PROPOFOL 10 MG/ML 20 ML VIAL IV ONE (07:57)
[2024-10-06] MEDS ORDERED: PHENYLEPHRINE-0.9% NACL SYG 1,000 MCG/10 ML SYRINGE ONE (07:57)
[2024-10-06] MEDS ORDERED: ePHEDrine 50 MG/ML 1 ML VIAL ONE (07:57)
[2024-10-06] MEDS ORDERED: ROPIVACAINE 5 MG/ML 30 ML VIAL ONE (07:57)
[2024-10-06] MEDS: ceFAZolin 3,000 MG in SODIUM CHLORIDE 0.9% IRRIGATIO 3,000 ML IRRIGATION ONE (08:02)
[2024-10-06] MEDS: LACTATED RINGERS 1,000 ML IV ONE ×2 (09:20→09:32)
[2024-10-06] MEDS: ADENOSINE 3 MG/ML 2 ML VIAL IVP ONE (10:23)
[2024-10-06 10:24] LABS: Basophils % (A) 0 %; Eosinophils # (A) 0.1 k/uL (0-0.7); Eosinophils % (A) 2 %; HCT 35.5 % (34.0-46.0); HGB 11.7 gm/dL (11.4-16.0); Lymphocytes # (A) 1.6 k/uL (1.0-4.8); Lymphocytes % (A) 24 %; MCH 28.6 pg (25.0-35.0); MCHC 32.9 g/dL (31.0-37.0); MCV 87.1 fL (80.0-100.0); Monocytes # (A) 0.1 k/uL (0-1.0); Monocytes % (A) 2 %; Neutrophils # (A) 4.6 k/uL (1.3-7.7); Neutrophils % (A) 71 %; Platelet Count 215 k/uL (150-450); RBC 4.07 m/uL (3.80-5.40); RDW 13.8 % (11.5-15.5); WBC 6.5 k/uL (3.8-10.6)
[2024-10-06 10:39] LABS: African American GFR (CKD) 60 (>60 ml/min/1.73 sqM); Anion Gap 8 mmol/L; Blood Urea Nitrogen 20 mg/dL (7-17); Calcium 8.9 mg/dL (8.4-10.2); Carbon Dioxide 25 mmol/L (22-30); Chloride 107 mmol/L (98-107); Glucose 123 mg/dL (74-99); Non-African American GFR(CKD) 52 (>60 ml/min/1.73 sqM); Potassium 4.2 mmol/L (3.5-5.1); Sodium 140 mmol/L (137-145)
--- NOTE | 2024-10-06 10:39 | OP ---
OPERATIVE REPORT DATE OF SERVICE : 10/06/2024 PREOPERATIVE DIAGNOSIS: Right knee osteoarthrosis. POSTOPERATIVE DIAGNOSIS: Right knee osteoarthrosis. OPERATION: Right total knee arthroplasty. ANESTHESIA: Spinal with sedation. ESTIMATED BLOOD LOSS: 100 mL. TOURNIQUET TIME: 44 minutes for 4 minutes at 250 mmHg. COMPLICATIONS: None apparent. DRAINS: None. DISPOSITION: Postanesthesia care unit. INDICATIONS: Bisi is a very pleasant 79-year-old female with longstanding history of right knee pain. History and physical examination are consistent with advanced right knee osteoarthrosis. She has been through significant operative management up to this point. Further treatment options were discussed, and she has decided to go forward with a right total knee arthroplasty. The risks of the procedure were discussed with her in detail. These risks include but are not limited to risk of infection, nerve damage, bleeding, pain, and a small risk of deep vein thrombosis which could lead to fatal pulmonary embolism. There is also small risk of losing implant which could require revision operation. The patient understands these risks. All of her questions with regard to the procedure were answered to her satisfaction. Appropriate informed consent was obtained. DESCRIPTION OF PROCEDURE: The patient was identified in the preoperative holding area. Surgical site was marked by both the patient and myself. She was given 2 g of Ancef IV prophylactic purposes. She was then transferred to the operative suite. She was placed supine on the operating table. Spinal anesthetic was then administered and dosed per the anesthesia department without apparent complication. An examination under anesthesia was then performed. The patient was 2 to 3 degrees shy of full extension. She had 100 degrees of flexion in the medial collateral ligament, lateral collateral ligament, and posterior cruciate ligaments were stable. Tourniquet was then placed high on the right upper thigh, well-padded in preparation for surgery. The patient's right lower extremity was then prepped and draped in usual sterile fashion. Standard surgical pause undertaken to ensure that we were operating the correct site and appropriate preoperative antibiotics were given. All staff in the room were in agreement, and we proceeded. The outlines of the patella were then marked with a surgical pen. A planned 12 cm vertical incision centered over the patella was marked with a surgical pen. Upper leg was then exsanguinated with an Esmarch dressing. The knee was then flexed and tourniquet was inflated to 250 mmHg. The total tourniquet time for the procedure was 44 minutes. Incision was then made with a 10-blade scalpel. Dissection was carried down sharply overlying fascia. Great care was taken to minimize the skin flaps. The knee was then exposed using a standard medial parapatellar approach. A small cuff of quadriceps tendon was then left for suturing. She was in a bit of varus preoperatively. A standard medial release was then made. Superficial medial collateral ligament was dissected off the bone around the posterior aspect of the proximal tibia. The medial meniscus was then excised as well. The lateral meniscus was also released anteriorly. The leg was then externally rotated. The patella was everted. The knee was flexed. Retractors then placed to protect the collateral ligaments. I then proceeded to remove the infrapatellar fat pad. This was excised sharply tangentially with fibers of the patellar tendon. I then proceeded to remove the peripheral osteophytes. This was done with a rongeur. I then proceeded with the distal resection. She did have near full extension. A planned 9 mm resection was then done. The femoral canal was then entered in the midline of the femur approximately 10 mm anterior to the origin of the posterior cruciate ligament. The carson was then advanced down the center of the femur and placed intramedullary. Based on the preoperative radiographs, the angle between the anatomic and mechanical axis of the femur was approximately 4 to 5 degrees. The valgus angle of the distal femoral cutting guide was then set at 4 degrees for the right knee. The femoral cutting guide was then placed over the intramedullary carson. This was seated firmly against the femur. Then, as mentioned, planned to take 9 mm off the distal femur. The cutting block was then secured to the femur with pins. The jig was then removed. The distal cut was made through the slot of the block. The pins then removed and the distal femoral cutting block was removed. The accuracy of the distal femoral cuts was checked with 2 flat bars. I then proceeded with femoral sizing. Posterior referencing sizing guide was held firmly against the resected distal surface of the femur. The posterior condyles were resting on the posterior plane of the guide. The sizing guide was then placed on the anterior femur. The size was measured as a size 6. I then assessed for femoral rotation. The plan was for 3 degrees external rotation. Three degrees of external rotation was placed onto the jig. These holes were then marked. I then confirmed the rotation by 3 separate methods. This was done using epicondylar axis as well as Whitesides line and posterior referencing. It was deemed that the external rotation was proper. I then went forward and placing the femoral cutting block. This was placed over the previously placed pin holes. The Jack wing was then placed on the anterior slots to ensure that we would not notch the anterior femur at the anterior femoral cut. I then proceeded with the anterior femoral cut. This was flushed with the anterior cortex of the femur. The posterior cuts were then made followed by the anterior chamfer cut, then the posterior chamfer cut. The cutting block was then removed. Throughout the resection, the collateral ligaments were protected with retractors. I then placed a trial size 6 femur. It fit very nice. It was slightly wide but the narrow fit very nice mediolateral and it was flushed with the distal end of the femur. The drill holes were then made. I then proceeded with the tibial cut. I planned for cruciate-retaining knee. The guide was placed and set for varus, valgus, and for slope. The height set for approximately 2 mm resection from the medial tibial plateau which was the lower side. I was happy with the alignment of moderate resection. The cutting block was then pinned to the proximal tibia. The alignment carson was removed and the proximal tibia was resected with reciprocating saw. Again, this was done with retractors protecting the collateral ligaments as well as the posterior cruciate ligament. I then proceeded to evaluate the flexion extension gaps. A 10 mm block was then placed. The flexion and extension gaps were equal. I then proceeded with resection of posterior osteophytes. She had very minimal posterior osteophytes. This was done using curved osteotome. This resected the posterior osteophyte and posterior capsule stripping was done off the posterior aspect of the femur at this time. The osteophytes were then removed. I then proceeded with resection of the patella. The thickness of the patella was measured using the caliper. The thickness was 22 mm. The thickness and anticipated patellar dome was then taken into account. Resection was then performed and confirmed to be equal in 4 quadrants using a caliper. Approximately 14 mm of bone remained after resection. A 29 x 8 standard patellar trial was then placed. The holes were drilled and the trial was then placed. I then proceeded with sizing tibial plate. A size D tibial plate fit very nicely. I then placed the trial femur, the tibial tray and the patellar button. A 10 mm trial tibial insert was also placed. The components fit very nicely. She had full extension and flexion. The extension and flexion gaps were equal and stable to both varus and valgus stress. The patella tracked appropriately. The tibial tray rotation was then marked with a Bovie. This was externally rotated properly. I then proceeded with tibial preparation. First, drilled the femoral holes and removed the femoral component. The tibial tray was then set for proper external rotation as well as medial and lateral placement onto the tibia. It was then pinned into place. I then proceeded punching the keel. I then decided to proceed with cementing of all of our components. The knee was thoroughly irrigated with sterile saline solution via pulse lavage. The lateral geniculate artery was identified and cauterized. All blood was removed from around the bone of the tibia, femur, and patella with pulsed lavage. I then proceeded with cementing. Two packs of antibiotic bone cement prepared on the back table by the surgical scheduler. I then proceeded with cementing of the tibia 1st. Cement was impacted into the keel as well as deeply seated into the bone. A second coat cement was then placed. The tibia was then impacted into place. Excess cement was removed with Ca's and Jokers. I then proceeded with cementing of the femoral component. The femoral component was also cemented using standard technique. Excess cement was removed. A 10 mm trial insert was then placed into the knee. It was brought into full extension with a constant axial load placed until the cement had hardened. The patellar component was then cemented. This was held firmly with compressive device until the cement had dried. When the cement had dried, the knee was taken out of extension. All excess cement was removed from around the prosthesis. I then trialed the knee with a 10 mm insert. Flexion and extension gaps were appropriate. The knee was stable. It came into full extension. I decided to go for the 10 mm medial congruent cross-linked cruciate- retaining tibial insert. Polyethylene was then placed on the tibial tray and locked into place. The knee was then reduced. The knee was again further irrigated with sterile saline solution with antibiotic added. The tourniquet was then deflated. Total tourniquet time for the procedure was 44 minutes at 250 mmHg. Final components were Sebastián Persona size 6 narrow cruciate-retaining femoral component, a size D tibial tray, a 10 mm medial congruent cruciate-retaining polyethylene insert, and a 29 x 8 mm patella. I then proceeded with closure. Again, the knee was thoroughly irrigated. The quadriceps tendon and the medial retinaculum were reapproximated with #2 Ethibond suture. The extensor mechanism was then closed with a running #2 Quill suture. Subcutaneous tissues were closed with 2-0 Vicryl interrupted suture. The skin was closed with a running 3-0 Quill suture. Dermabond was applied to the incision. Sterile compressive dressings were applied. All sponge and needle counts were deemed correct prior to closure. The patient tolerated the procedure without apparent complication. She was transferred to the recovery room in stable condition. MMODL / IJN: [id number] /
[2024-10-06] MEDS: HYDROmorphone 0.5 MG/0.5 ML SYRINGE IVP PRN ×2 (10:50→18:42)
--- NOTE | 2024-10-06 10:57 | P.CRDCN ---
History of Present Illness Consult date: 10/06/24 History of present illness: HISTORY OF PRESENTING ILLNESS: Patient has a past medical history of paroxysmal atrial fibrillation. As per prior documentation she was not on anticoagulation because of concerns of hematuria. History of GI ulcer. She also has history of right breast cancer, hypertension. On 10/06/2024 she underwent outpatient right total knee replacement surgery. Postoperatively she was hemodynamically unstable with evidence of hypotension requiring Otf-Synephrine with lowest BP recorded at 68/44. She was also noticed to have atrial fibrillation with RVR. Being hemodynamically unstable, she was cardioverted once. Patient sustained sinus rhythm only for few minutes and then reverted back to atrial fibrillation. Cardiology was paged and patient was assessed on emergent basis. Stat echocardiogram showed an EF of 55% with hyperdynamic LV suggestive of hypovolemic state. Patient was given 1 dose of 0.6 mg adenosine which showed underlying rhythm being atrial fibrillation. Patient was started on IV Cardizem drip, given IV fluids. Patient thereafter stabilized and converted out of atrial fibrillation. Patient was requested to be transferred to ICU for close monitoring. Admission Cardiac Labs: Hb 11.7, BUN 20, creatinine 1.02 Admission testing: EKG shows atrial fibrillation with RVR with heart rate around 140 bpm. REVIEW OF SYSTEMS: 14 point review of system is negative except what is mentioned above in HPI. PHYSICAL EXAMINATION: Neck: Brisk carotid upstroke, no jugular venous distention. Lungs: Clear to auscultation. Heart: Irregularly irregular, S1-S2, , no murmur or rub. Abdomen: Soft nontender, positive bowel sounds. Extremities: No edema, intact distal pulses. Mild swelling around right knee status post surgery. Neuro: Alert, oritented, no focal deficits. Detailed neuro exam was not performed. ASSESSMENT: # Atrial fibrillation with RVR after total knee replacement. # Shock state, multifactorial with components of hypovolemic shock and A-fib. # Prior history of paroxysmal atrial fibrillation, not on anticoagulation previously due to concerns of hematuria and anemia # Essential hypertension # Obesity # Status post right total knee replacement, postop day 0 PLAN: # Bedside echocardiogram showed an EF of 55 to 60% with mild MR, moderate TR, moderate biatrial dilatation. LV appeared hyperdynamic. # Give 1 L extra normal saline. Total fluid 2.5 L. Reevaluate thereafter. # Continue IV Cardizem drip. Start metoprolol succinate 25 mg twice daily # Admit patient to ICU. Further recommendations to follow # Obtain magnesium level, NT-proBNP, lipids, HbA1c, TSH levels Clint Marie MD, [facility], [facility] Thank you for allowing [facility] to participate in this patient's care. Feel free to reach out in case of any followup questions. Past Medical History Past Medical History: Atrial Fibrillation, Cancer, Eye Disorder, Musculoskeletal Disorder, Osteoarthritis (OA), Renal Disease Additional Past Medical History / Comment(s): Received both covid vaccines. DRY EYE, CORNEAL DYSTROPHY. HX RT BREAST CA. No blood draw or blood pressure on RT side. HYPOGLYCEMIA. right leg below the knee swelling-wears daily compression stockings, STOMACH ULCER 04-06-17. 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 LOWER BACK PAIN, NT TOES FOR YEARS, headaches, STATES RECENT CAT SCAN WHICH SHOWED INCISIONAL HERNIAS AND KIDNEY STONES IN BLADDER AND URETER-PATIENT TO CONTACT DR RIDER. left arm scar from donor site Recent extensive dental work and sinus infection treated with antibiotics. History of Any Multi-Drug Resistant Organisms: ESBL, MRSA Date of last positivie culture/infection: 08/03/20 ESBL E.coli,MRSA 2018 MDRO Source:: URINE Past Surgical History: Adenoidectomy, Appendectomy, Breast Surgery, Cholecystectomy, Hernia Repair, Tonsillectomy Additional Past Surgical History / Comment(s): "Extensive dental work .RT BREAST MASTECTOMY W/ RECONSTRUCTION, FATTY TUMOR EXC LT ARM, EPHROLITHOTOMY TUBE W/ STONE REMOVAL X4, EGD, COLONOSCOPY, EXC RT OVARY/TUBE, CANCER EXC. RT BUCCAL MUCOSA W/ TISSUE TRANSPLANT FROM LT WRIST, several cervical lymph nodes removed. Past Anesthesia/Blood Transfusion Reactions: Previous Problems w/ Anesthesia, Postoperative Nausea & Vomiting (PONV) Additional Past Anesthesia/Blood Transfusion Reaction / Comment(s): TOOK VERY LONG TIME TO AWAKEN AFTER SURGERY IN 2012, had severe PONC after last pain procedure & thinks due to fentanyl Smoking Status: Never smoker - Past Family History Father Family Medical History: Congestive Heart Failure (CHF), Coronary Artery Disease (CAD), Diabetes Mellitus, Deep Vein Thrombosis (DVT), Hypertension Additional Family Medical History / Comment(s): PHLEBITIS LEG Sister(s) Family Medical History: Diabetes Mellitus Brother(s) Family Medical History: No Reported History Mother Family Medical History: AFIB, Deep Vein Thrombosis (DVT) Additional Family Medical History / Comment(s): PHLEBITIS IN LEG Medications and Allergies Home Medications Medication Instructions Recorded Confirmed Type Metoprolol Tartrate [Lopressor] 50 mg PO QAM 07/21/14 10/06/24 History Cyanocobalamin (Vitamin B-12) 1,000 mcg PO MOFR 06/22/17 10/06/24 History [Vitamin B-12] Metoprolol Tartrate [Lopressor] 25 mg PO HS 06/22/17 10/06/24 History Multivitamins, Thera [Multivitamin 1 tab PO DAILY 06/22/17 10/06/24 History (formulary)] Acetaminophen [Tylenol Extra 1,000 mg PO BID 07/24/20 10/06/24 History Strength] Carboxymethylcellulose Sodium 1 drop BOTH EYES BID PRN 06/20/21 10/06/24 History [Refresh Tears] Lidocaine/Menthol 1 each TP DIRECTED PRN 11/20/21 10/06/24 History [Lidocaine-Menthol 4%-1% Patch] Apixaban [Eliquis] 2.5 mg PO BID 10/27/22 10/06/24 History Multivit-Min/Iron/Folic/Lutein 2 each PO DAILY 12/09/22 10/06/24 History [Centrum Silver Women Tablet] Diclofenac Sodium Gel [Voltaren 50 gm TOPICAL DAILY 09/30/24 10/06/24 History Gel] Furosemide [Lasix] 40 mg PO BID 09/30/24 10/06/24 History Potassium Chloride [Klor-Con M20] 20 meq PO DAILY 09/30/24 10/06/24 History Pregabalin [Lyrica] 50 mg PO BID 09/30/24 10/06/24 History Allergies Allergy/AdvReac Type Severity Reaction Status Date / Time fentanyl Allergy nausea/vomiting, Verified 10/06/24 06:28 fuzzy headed Penicillins Allergy Anaphylaxis Verified 10/06/24 06:28 Sulfa (Sulfonamide Allergy Unknown Verified 10/06/24 06:28 Antibiotics) Childhood codeine AdvReac Nausea & Verified 10/06/24 06:28 Vomiting NSAIDS (Non-Steroidal AdvReac ULCER- Verified 10/06/24 06:28 Anti-Inflamma HISTORY sulfamethoxazole AdvReac Diarrhea, Verified 10/06/24 06:28 [From Bactrim] C-Diff trimethoprim [From Bactrim] AdvReac Diarrhea, Verified 10/06/24 06:28 C-Diff Physical Exam Vitals: Vital Signs Temp Pulse Resp BP BP Pulse Ox 10/06/24 10:45 70 14 111/61 100 10/06/24 10:35 92 16 106/59 100 10/06/24 10:30 68 16 105/59 100 10/06/24 10:28 69 20 116/67 99 10/06/24 10:23 135 H 18 76/35 100 10/06/24 10:21 138 H 18 80/45 10/06/24 10:14 137 H 13 94/59 100 10/06/24 10:11 140 H 27 H 96/64 100 10/06/24 10:08 68 10 L 69/48 100 10/06/24 10:02 142 H 12 63/38 100 10/06/24 09:59 76 18 105/59 92 L 10/06/24 09:58 142 H 22 116/61 100 10/06/24 09:53 143 H 11 L 100/63 97 10/06/24 07:25 62 14 127/67 100 10/06/24 06:46 74.4 F L 64 16 134/61 97 Intake and Output 10/05/24 10/06/24 10/06/24 22:59 06:59 14:59 Intake Total 100 1051 Output Total 100 Balance 100 951 Intake: IV 100 1051 Output: Estimated Blood Loss 100 Other: Weight 86.6 kg Results 10/06/24 10:13 10/06/24 10:13 CBC 10/06/24 Range/Units 10:13 WBC 6.5 (3.8-10.6) k/uL RBC 4.07 (3.80-5.40) m/uL Hgb 11.7 (11.4-16.0) gm/dL Hct 35.5 (34.0-46.0) % Plt Count 215 (150-450) k/uL Comprehensive Metabolic Panel 10/06/24 Range/Units 10:13 Sodium 140 (137-145) mmol/L Potassium 4.2 (3.5-5.1) mmol/L Chloride 107 (98-107) mmol/L Carbon Dioxide 25 (22-30) mmol/L BUN 20 H (7-17) mg/dL Creatinine 1.02 (0.52-1.04) mg/dL Glucose 123 H (74-99) mg/dL Calcium 8.9 (8.4-10.2) mg/dL Current Medications Generic Name Dose Route Start Last Admin Trade Name Freq PRN Reason Stop Dose Admin Acetaminophen 650 mg 10/06/24 07:49 Acetaminophen Tab 325 Mg Tab PO 11/05/24 07:48 Q4HR PRN Pain Scale 1 to 5 Hydrocodone Bitart/Acetaminophen 1 each 10/06/24 07:49 Hydrocodone/Apap 5-325mg 1 Each Tab PO 11/05/24 07:48 Q6HR PRN Pain Scale 1 to 5 Hydrocodone Bitart/Acetaminophen 1 each 10/06/24 07:49 Hydrocodone/Apap 10-325mg 1 Each Tab PO 11/05/24 07:48 Q6H PRN Pain Scale 6 to 10 Bisacodyl 10 mg 10/06/24 07:49 Bisacodyl 10 Mg Supp RECTAL 11/05/24 07:48 DAILY PRN Constipation Hydromorphone HCl 0.5 mg 10/06/24 07:00 10/06/24 10:50 Hydromorphone 0.5 Mg/0.5 Ml Syringe IVP 10/06/24 23:00 0.5 mg Q5M PRN Administration Phase 1 or 2 - Pain Control Hydromorphone HCl 0.125 mg 10/06/24 07:49 Hydromorphone 0.5 Mg/0.5 Ml Syringe IVP 11/05/24 07:48 Q3HR PRN Pain Scale 1 to 3 Hydromorphone HCl 0.5 mg 10/06/24 07:49 Hydromorphone 0.5 Mg/0.5 Ml Syringe IVP 11/05/24 07:48 Q3HR PRN Pain Scale 7 to 10 Hydromorphone HCl 0.25 mg 10/06/24 07:49 Hydromorphone 0.5 Mg/0.5 Ml Syringe IVP 11/05/24 07:48 Q3HR PRN Pain Scale 4 to 6 Tranexamic Acid/Sodium 100 mls @ 200 mls/hr 10/06/24 05:00 Chloride 1,000 mg/ IV Solution IVPB 10/07/24 00:01 ONCE PRN Pre-Op Tranexamic Acid/Sodium 100 mls @ 200 mls/hr 10/06/24 05:00 Chloride 1,000 mg/ IV Solution IVPB 10/07/24 00:01 ONCE PRN Pre-Op Lactated Ringer's 1,000 mls @ 20 mls/hr 10/06/24 06:27 10/06/24 06:59 Lactated Ringers IV 11/05/24 06:26 20 mls/hr .Q24H VAISHNAVI Administration Lactated Ringer's 1,000 mls @ 100 mls/hr 10/06/24 08:00 Lactated Ringers IV 11/05/24 07:59 .Q10H VAISHNAVI Cefazolin Sodium 2 gm/ Sodium 50 mls @ 100 mls/hr 10/06/24 17:00 Chloride IVPB 10/07/24 01:29 Q8H VAISHNAVI Protocol Diltiazem HCl 125 mg/ Sodium 125 mls @ 10 mls/hr 10/06/24 10:00 Chloride IV 11/05/24 09:59 .[id number] VAISHNAVI 10 MG/HR Lidocaine HCl 0.1 ml 10/06/24 06:27 Lidocaine 1% (10mg/Ml) For Iv Start INTRADERMA 11/05/24 06:26 PER PROTOCOL PRN IV Start Magnesium Hydroxide 2,400 mg 10/06/24 07:49 Magnesium Hydroxide 2,400 Mg/30 Ml Cup PO 11/05/24 07:48 DAILY PRN Constipation Meloxicam 15 mg 10/06/24 05:00 Meloxicam 7.5 Mg Tab PO 10/07/24 00:01 ONCE PRN Pre-Op Metoprolol Succinate 25 mg 10/06/24 11:00 Metoprolol Succinate (Er) 25 Mg Tab.Er.24h PO BID [facility] Multivitamins 1 each 10/07/24 12:00 Multivitamins, Thera 1 Each Tab PO 11/06/24 11:59 DAILY@1200 [facility] Naloxone HCl 0.2 mg 10/06/24 07:49 Naloxone 0.4 Mg/Ml 1 Ml Vial IV 11/05/24 07:48 Q2M PRN Opioid Reversal Ondansetron HCl 4 mg 10/06/24 07:49 Ondansetron 4 Mg/2 Ml Vial IVP 11/05/24 07:48 Q8HR PRN Nausea And Vomiting Senna/Docusate Sodium 2 each 10/06/24 21:00 Sennosides-Docusate Sodium 1 Each Tab PO 11/05/24 20:59 HS VAISHNAVI Sodium Biphosphate/Sodium Phosphate 133 ml 10/06/24 07:49 Na Phos,M-B/Na Phos,Di-Ba 133 Ml Enema RECTAL 11/05/24 07:48 DAILY PRN Constipation Tramadol HCl 50 mg 10/06/24 07:49 Tramadol 50 Mg Tab PO 11/05/24 07:48 Q6HR PRN Pain Scale 1 to 5 Intake and Output 10/05/24 10/06/24 10/06/24 22:59 06:59 14:59 Intake Total 100 1051 Output Total 100 Balance 100 951 Intake: IV 100 1051 Output: Estimated Blood Loss 100 Other: Weight 86.6 kg 10/06/24 10:13 10/06/24 10:13
[2024-10-06] MEDS ORDERED: ROPIVACAINE 1,100 MG, SODIUM CHLORIDE 0.9% 500 ML 330 ML, EMPTY PAIN BALL 1 EACH MISCELLANE PRN (10:58)
[2024-10-06 11:36] LABS: Glucose,Whole Blood 145 mg/dL (70-110)
[2024-10-06 11:48] LABS: Magnesium 1.9 mg/dL (1.6-2.3); NT-Pro-B-Type Natriuretic Pept 288 pg/mL
--- NOTE | 2024-10-06 12:23 | XR ---
EXAMINATION TYPE: XR knee limited 2 views RT DATE OF EXAM: 10/06/2024 11:38 AM COMPARISON: 04/18/2020 CLINICAL INDICATION: Female, 79 years old with history of Evaluation for Postop abnormality and align ment, , FINDINGS: Interval placement of right total knee arthroplasty. Both distal femoral and proximal tibial componen ts of the prosthesis are well seated without periprosthetic fracture. Alignment grossly anatomic. Ant erior soft tissue swelling with soft tissue air as well as intra-articular air related to recent oper ation. IMPRESSION: Uncomplicated postoperative appearance right total knee arthroplasty. [facility], Workstation: [email or web address], 10/06/2024 12:21 PM
[2024-10-06] MEDS: ONDANSETRON 4 MG/2 ML VIAL IVP ONE (13:11)
[2024-10-06] MEDS: HYDROcodone/APAP 5-325MG 1 EACH TAB PO PRN (13:44)
[2024-10-06] MEDS: METOPROLOL SUCCINATE (ER) 25 MG TAB.ER.24H PO SCH (13:44)
[2024-10-06] MEDS: DILTIAZEM 125 MG in SODIUM CHLORIDE 0.9% 100 ML IV SCH (13:47)
[2024-10-06] MEDS: PHENYLEPHRINE 40 MG in SODIUM CHLORIDE 0.9% 250 ML IV SCH (13:47)
--- NOTE | 2024-10-06 13:47 | CA ---
Transthoracic Echo Report Name: Bisi Navarro Age: 79 Gender: F : 1945 Exam Date: 10/06/2024 10:19 Exam Location: [facility] Ht (in): 64 Wt (lb): 190 Ordering Physician: Clint Marie MD ([email or web address]) Attending/Referring Phys: Manager [employer] Jazmyne Helms RDCS Procedure CPT: Indications: chf, afib Cardiac Hx: Technical Quality: Fair Contrast 1: Total Dose (mL): Contrast 2: Total Dose (mL): MEASUREMENTS (Male / Female) Normal Values 2D ECHO LV Diastolic Diameter PLAX 4.1 cm 4.2 - 5.9 / 3.9 - 5.3 cm LV Systolic Diameter PLAX 2.2 cm IVS Diastolic Thickness 1.2 cm 0.6 - 1.0 / 0.6 - 0.9 cm LVPW Diastolic Thickness 1.1 cm 0.6 - 1.0 / 0.6 - 0.9 cm LV Relative Wall Thickness 0.6 RV Internal Dim ED PLAX 3.6 cm LA Systolic Diameter LX 3.4 cm 3.0 - 4.0 / 2.7 - 3.8 cm LA Volume 46.2 cm??? 18 - 58 / 22 - 52 cm??? LA Volume Index 23.0 cm???/m??? 16 - 28 cm???/m??? M-MODE Aortic Root Diameter MM 3.0 cm AV Cusp Separation MM 1.9 cm DOPPLER AV Peak Velocity 136.6 cm/s AV Peak Gradient 7.5 mmHg TR Peak Velocity 262.2 cm/s TR Peak Gradient 27.5 mmHg Right Ventricular Systolic Press 42.4 mmHg FINDINGS Left Ventricle Left ventricular ejection fraction is estimated at 55-60 %. Left ventricular cavity size normal. Mildly increased septal wall thickness. Mildly increased posterior wall thickness. Right Ventricle Mild pulmonary hypertension.normal right ventricular size and function. Right Atrium Normal right atrial size. No right atrial thrombus or mass seen. Left Atrium Normal left atrial size. No left atrial thrombus or mass present. Mitral Valve Structurally normal mitral valve. Mitral annular calcification. Trace mitral regurgitation. Aortic Valve Trileaflet aortic valve. No aortic valve stenosis or regurgitation. Tricuspid Valve Structurally normal tricuspid valve. Mild tricuspid regurgitation. Pulmonic Valve Structurally normal pulmonic valve. No pulmonic regurgitation. Pericardium No pleural effusion. Aorta Normal size aortic root and proximal ascending aorta. CONCLUSIONS LVEF 55 to 60% Hyperdynamic LV. No obvious regional wall motion abnormality Mild concentric LVH No significant valvular dysfunction Normal RV size and systolic function. RVSP estimated at 42 mmHg. Previewed by: Dr Clint Marie (Electronically Signed) Final Date: 06 October 2024 13:46
--- NOTE | 2024-10-06 14:24 | P.CONS ---
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 Patient comes in for an elective right total knee arthroplasty. While in postop recovery patient developed atrial fibrillation with rapid ventricular rate and was cardioverted to normal sinus rhythm and started on IV cardizem. Patient does have a history of A-fib, not anticoagulated on an outpatient basis. Was started on IV cardizem, became hypotensive with systolic into the 60s. Patient was then cardioverted a second time. Was given adenosine. Given lakeisha gtt for the hypotension. Transported to the Intensive care unit with cardiac and worldwide chief creative officer consultations. Internal medicine was consulted. He is evaluated today in the intensive care unit postoperative day #0 right total knee arthroplasty. She is currently on a nasal cannula at 4 L of oxygen support blood work completed reveals a normal CBC, BUN of 20 creatinine 1.02, lactic acid of 2.6, proBNP of 288 TSH of 1.570. Had a stat echocardiogram completed with mobile an ejection fraction of 55 to 60%. REVIEW OF SYSTEMS: CONSTITUTIONAL: No fever, no malaise, no fatigue. HEENT: No recent visual problems or hearing problems. Denied any sore throat. CARDIOVASCULAR: No chest pain, orthopnea, PND, no palpitations, no syncope. PULMONARY: No shortness of breath, no cough, no hemoptysis. GASTROINTESTINAL: No diarrhea, no nausea, no vomiting, no abdominal pain. NEUROLOGICAL: No headaches, no weakness, no numbness. HEMATOLOGICAL: Denies any bleeding or petechiae. GENITOURINARY: Denies any burning micturition, frequency, or urgency. MUSCULOSKELETAL/RHEUMATOLOGICAL: Denies any joint pain, swelling, or any muscle pain. ENDOCRINE: Denies any polyuria or polydipsia. The rest of the 14-point review of systems is negative. PHYSICAL EXAMINATION: GENERAL: The patient is alert and oriented x3, not in any acute distress. Well developed, well nourished. HEENT: Pupils are round and equally reacting to light. EOMI. No scleral icterus. No conjunctival pallor. Normocephalic, atraumatic. No pharyngeal erythema. No thyromegaly. CARDIOVASCULAR: S1 and S2 present. No murmurs, rubs, or gallops. PULMONARY: Chest is clear to auscultation, no wheezing or crackles. ABDOMEN: Soft, nontender, nondistended, normoactive bowel sounds. No palpable organomegaly. MUSCULOSKELETAL: No joint swelling or deformity. EXTREMITIES: No cyanosis, clubbing, or pedal edema. NEUROLOGICAL: Gross neurological examination did not reveal any focal deficits. SKIN: No rashes. 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 If there is no evidence of hematuria would concern resuming the patient on eliquis. Hold lasix at this time Continue fluids at 100 mls/hr Monitor renal function and electrolyes PT/OT consultation The impression and plan of care has been dictated by Lora Baldwin, Nurse Practitioner as directed. Dr. Kim MD I have performed a history and physical examination and medical decision making of this patient, discussed the same with the dictator, and agree with the dictators assessment and plan as written, documented as a scribe. Based on total visit time, I have performed more than 50% of this visit. Past Medical History Past Medical History: Atrial Fibrillation, Cancer, Eye Disorder, Musculoskeletal Disorder, Osteoarthritis (OA), Renal Disease Additional Past Medical History / Comment(s): Received both covid vaccines. DRY EYE, CORNEAL DYSTROPHY. HX RT BREAST CA. No blood draw or blood pressure on RT side. HYPOGLYCEMIA. right leg below the knee swelling-wears daily compression stockings, STOMACH ULCER 04-06-17. 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 LOWER BACK PAIN, NT TOES FOR YEARS, headaches, STATES RECENT CAT SCAN WHICH SHOWED INCISIONAL HERNIAS AND KIDNEY STONES IN BLADDER AND URETER-PATIENT TO CONTACT DR RIDER. left arm scar from donor site Recent extensive dental work and sinus infection treated with antibiotics. History of Any Multi-Drug Resistant Organisms: ESBL, MRSA Year Discovered:: 08/03/20 ESBL E.coli,MRSA 2018 MDRO Source:: URINE Past Surgical History: Adenoidectomy, Appendectomy, Breast Surgery, Cholecystectomy, Hernia Repair, Tonsillectomy Additional Past Surgical History / Comment(s): "Extensive dental work .RT BREAST MASTECTOMY W/ RECONSTRUCTION, FATTY TUMOR EXC LT ARM, EPHROLITHOTOMY TUBE W/ STONE REMOVAL X4, EGD, COLONOSCOPY, EXC RT OVARY/TUBE, CANCER EXC. RT BUCCAL MUCOSA W/ TISSUE TRANSPLANT FROM LT WRIST, several cervical lymph nodes removed. Past Anesthesia/Blood Transfusion Reactions: Previous Problems w/ Anesthesia, Postoperative Nausea & Vomiting (PONV) Additional Past Anesthesia/Blood Transfusion Reaction / Comm: TOOK VERY LONG TIME TO AWAKEN AFTER SURGERY IN 2012, had severe PONC after last pain procedure & thinks due to fentanyl Smoking Status: Never smoker - Past Family History Father Family Medical History: Congestive Heart Failure (CHF), Coronary Artery Disease (CAD), Diabetes Mellitus, Deep Vein Thrombosis (DVT), Hypertension Additional Family Medical History / Comment(s): PHLEBITIS LEG Sister(s) Family Medical History: Diabetes Mellitus Brother(s) Family Medical History: No Reported History Mother Family Medical History: AFIB, Deep Vein Thrombosis (DVT) Additional Family Medical History / Comment(s): PHLEBITIS IN LEG Medications and Allergies Home Medications Medication Instructions Recorded Confirmed Type Metoprolol Tartrate [Lopressor] 50 mg PO QAM 07/21/14 10/06/24 History Cyanocobalamin (Vitamin B-12) 1,000 mcg PO MOFR 06/22/17 10/06/24 History [Vitamin B-12] Metoprolol Tartrate [Lopressor] 25 mg PO HS 06/22/17 10/06/24 History Multivitamins, Thera [Multivitamin 1 tab PO DAILY 06/22/17 10/06/24 History (formulary)] Acetaminophen [Tylenol Extra 1,000 mg PO BID 07/24/20 10/06/24 History Strength] Carboxymethylcellulose Sodium 1 drop BOTH EYES BID PRN 06/20/21 10/06/24 History [Refresh Tears] Lidocaine/Menthol 1 each TP DIRECTED PRN 11/20/21 10/06/24 History [Lidocaine-Menthol 4%-1% Patch] Apixaban [Eliquis] 2.5 mg PO BID 10/27/22 10/06/24 History Multivit-Min/Iron/Folic/Lutein 2 each PO DAILY 12/09/22 10/06/24 History [Centrum Silver Women Tablet] Diclofenac Sodium Gel [Voltaren 50 gm TOPICAL DAILY 09/30/24 10/06/24 History Gel] Furosemide [Lasix] 40 mg PO BID 09/30/24 10/06/24 History Potassium Chloride [Klor-Con M20] 20 meq PO DAILY 09/30/24 10/06/24 History Pregabalin [Lyrica] 50 mg PO BID 09/30/24 10/06/24 History Allergies Allergy/AdvReac Type Severity Reaction Status Date / Time fentanyl Allergy nausea/vomiting, Verified 10/06/24 06:28 fuzzy headed Penicillins Allergy Anaphylaxis Verified 10/06/24 06:28 Sulfa (Sulfonamide Allergy Unknown Verified 10/06/24 06:28 Antibiotics) Childhood codeine AdvReac Nausea & Verified 10/06/24 06:28 Vomiting NSAIDS (Non-Steroidal AdvReac ULCER- Verified 10/06/24 06:28 Anti-Inflamma HISTORY sulfamethoxazole AdvReac Diarrhea, Verified 10/06/24 06:28 [From Bactrim] C-Diff trimethoprim [From Bactrim] AdvReac Diarrhea, Verified 10/06/24 06:28 C-Diff Physical Exam Vitals: Vital Signs Temp Pulse Pulse Resp BP BP BP 10/06/24 13:00 82 32 H 125/82 10/06/24 12:00 98.3 F 58 L 16 112/74 10/06/24 11:40 69 15 112/74 10/06/24 11:14 72 14 112/67 10/06/24 11:01 69 14 113/70 10/06/24 10:45 70 14 111/61 10/06/24 10:35 92 16 106/59 10/06/24 10:30 68 16 105/59 10/06/24 10:28 69 20 116/67 10/06/24 10:23 135 H 18 76/35 10/06/24 10:21 138 H 18 80/45 10/06/24 10:14 137 H 13 94/59 10/06/24 10:11 140 H 27 H 96/64 10/06/24 10:08 68 10 L 69/48 10/06/24 10:02 142 H 12 63/38 10/06/24 09:59 76 18 105/59 10/06/24 09:58 142 H 22 116/61 10/06/24 09:53 143 H 11 L 100/63 10/06/24 07:25 62 14 127/67 10/06/24 06:46 74.4 F L 64 16 134/61 Pulse Ox 10/06/24 13:00 96 10/06/24 12:00 97 10/06/24 11:40 96 10/06/24 11:14 98 10/06/24 11:01 100 10/06/24 10:45 100 10/06/24 10:35 100 10/06/24 10:30 100 10/06/24 10:28 99 10/06/24 10:23 100 10/06/24 10:21 10/06/24 10:14 100 10/06/24 10:11 100 10/06/24 10:08 100 10/06/24 10:02 100 10/06/24 09:59 92 L 10/06/24 09:58 100 10/06/24 09:53 97 10/06/24 07:25 100 10/06/24 06:46 97 Intake and Output 10/05/24 10/06/24 10/06/24 22:59 06:59 14:59 Intake Total 100 1751 Output Total 100 Balance 100 1651 Intake: IV 100 1751 Lactated Ringers 1,000 ml 300 @ 100 mls/hr IV .Q10H [facility] Rx#:[id number] Output: Estimated Blood Loss 100 Other: Weight 86.6 kg Results CBC & Chem 7: 10/06/24 10:13 10/06/24 10:13 Labs: Abnormal Lab Results - Last 24 Hours (Table) 10/06/24 10/06/24 10/06/24 Range/Units 10:13 10:13 11:34 BUN 20 H (7-17) mg/dL Glucose 123 H (74-99) mg/dL POC Glucose (mg/dL) 145 H (70-110) mg/dL Plasma Lactic Acid Maurilio 2.6 H* (0.7-2.0) mmol/L Assessment and Plan Time with Patient: Less than 30
--- NOTE | 2024-10-06 16:41 | P.CNPUL ---
History of Present Illness Consult date: 10/06/24 Chief complaint: Hypotension History of present illness: On 10/06/2024, the patient is being seen in the intensive care unit. The patient presented to the hospital for an elective right knee replacement. She is known to have chronic atrial fibrillation. Postop, the patient developed A-fib with rapid ventricular response. The patient received cardioversion x 2. Subsequently, the patient was placed on Cardizem drip and it was recommended for this patient to come into the intensive care for further monitoring. Noted the patient also encountered hypotension. The patient was placed on Otf-Synephrine infusion. At this point in time, the patient is off Otf-Synephrine. Cardizem is still running at 10 mg an hour and the patient remains in atrial fibrillation with a controlled rate. She has been receiving Eliquis on outpatient basis re garding chronic A-fib. Anticoagulation has been placed on hold in preparation for surgery. No chest pain. No history of cardiomyopathy. No history of coronary artery disease. The patient has no respiratory distress and the patient is currently on room air oxygen. Chest x-ray was also done and it showed no acute cardiopulmonary abnormalities. There is some mild pulm vascular congestion noted. Echocardiogram was done and the patient has a preserved LV function. No significant valvular abnormalities. RVSP was estimated to be at around 42. The patient is currently on room air oxygen. No issues with pain. Surgical wound site is dry clean and intact. She is on Cardizem drip at 10 mg an hour. She is also receiving no pressors. She is on lactated Ringer running at 100 cc an hour. Awake and alert and communicating. 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 She is a former smoker. Review of Systems Constitutional: Reports as per HPI Eyes: denies as per HPI, denies blurred vision, denies bulging eye, denies decreased vision, denies diplopia, denies discharge, denies dry eye, denies irritation, denies itching, denies pain, denies photophobia, denies loss of peripheral vision, denies loss of vision, denies tunnel vision/blind spots Ears: deny: decreased hearing, ear discharge, earache, tinnitus Ears, nose, mouth and throat: Reports as per HPI Breasts: absent: as per HPI, change in shape, gynecomastia, masses, nipple discharge, pain, skin changes, swelling Cardiovascular: Reports as per HPI, Reports irregular heart beat Respiratory: Reports as per HPI Gastrointestinal: Reports as per HPI Genitourinary: Reports as per HPI Menstruation: Reports as per HPI Musculoskeletal: Reports as per HPI, Reports low back pain Musculoskeletal: absent: ankle pain, ankle stiffness, ankle swelling, as per HPI, elbow pain, elbow stiffness, elbow swelling, foot pain, foot stiffness, foot swelling, hand pain, hand stiffness, hand swelling, hip pain, hip stiffness, hip swelling, knee pain, knee stiffness, knee swelling, shoulder pain, shoulder stiffness, shoulder swelling, wrist pain, wrist stiffness, wrist swelling Integumentary: Reports as per HPI Neurological: Reports as per HPI Psychiatric: Reports as per HPI Endocrine: Reports as per HPI Hematologic/Lymphatic: Reports as per HPI Allergic/Immunologic: Reports as per HPI Past Medical History Past Medical History: Atrial Fibrillation, Cancer, Eye Disorder, Musculoskeletal Disorder, Osteoarthritis (OA), Renal Disease Additional Past Medical History / Comment(s): Received both covid vaccines. DRY EYE, CORNEAL DYSTROPHY. HX RT BREAST CA. No blood draw or blood pressure on RT side. HYPOGLYCEMIA. right leg below the knee swelling-wears daily compression stockings, STOMACH ULCER 04-06-17. 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 LOWER BACK PAIN, NT TOES FOR YEARS, headaches, STATES RECENT CAT SCAN WHICH SHOWED INCISIONAL HERNIAS AND KIDNEY STONES IN BLADDER AND URETER-PATIENT TO CONTACT DR RIDER. lef t arm scar from donor site Recent extensive dental work and sinus infection treated with antibiotics. History of Any Multi-Drug Resistant Organisms: ESBL, MRSA Date of last positivie culture/infection: 08/03/20 ESBL E.coli,MRSA 2018 MDRO Source:: URINE Past Surgical History: Adenoidectomy, Appendectomy, Breast Surgery, Cholecystectomy, Hernia Repair, Tonsillectomy Additional Past Surgical History / Comment(s): "Extensive dental work .RT BREAST MASTECTOMY W/ RECONSTRUCTION, FATTY TUMOR EXC LT ARM, EPHROLITHOTOMY TUBE W/ STONE REMOVAL X4, EGD, COLONOSCOPY, EXC RT OVARY/TUBE, CANCER EXC. RT BUCCAL MUCOSA W/ TISSUE TRANSPLANT FROM LT WRIST, several cervical lymph nodes removed. Past Anesthesia/Blood Transfusion Reactions: Previous Problems w/ Anesthesia, Postoperative Nausea & Vomiting (PONV) Additional Past Anesthesia/Blood Transfusion Reaction / Comment(s): TOOK VERY LONG TIME TO AWAKEN AFTER SURGERY IN 2012, had severe PONC after last pain procedure & thinks due to fentanyl Smoking Status: Never smoker - Past Family History Father Family Medical History: Congestive Heart Failure (CHF), Coronary Artery Disease (CAD), Diabetes Mellitus, Deep Vein Thrombosis (DVT), Hypertension Additional Family Medical History / Comment(s): PHLEBITIS LEG Sister(s) Family Medical History: Diabetes Mellitus Brother(s) Family Medical History: No Reported History Mother Family Medical History: AFIB, Deep Vein Thrombosis (DVT) Additional Family Medical History / Comment(s): PHLEBITIS IN LEG Medications and Allergies Home Medications Medication Instructions Recorded Confirmed Type Metoprolol Tartrate [Lopressor] 50 mg PO QAM 07/21/14 10/06/24 History Cyanocobalamin (Vitamin B-12) 1,000 mcg PO MOFR 06/22/17 10/06/24 History [Vitamin B-12] Metoprolol Tartrate [Lopressor] 25 mg PO HS 06/22/17 10/06/24 History Multivitamins, Thera [Multivitamin 1 tab PO DAILY 06/22/17 10/06/24 History (formulary)] Acetaminophen [Tylenol Extra 1,000 mg PO BID 07/24/20 10/06/24 History Strength] Carboxymethylcellulose Sodium 1 drop BOTH EYES BID PRN 06/20/21 10/06/24 History [Refresh Tears] Lidocaine/Menthol 1 each TP DIRECTED PRN 11/20/21 10/06/24 History [Lidocaine-Menthol 4%-1% Patch] Apixaban [Eliquis] 2.5 mg PO BID 10/27/22 10/06/24 History Multivit-Min/Iron/Folic/Lutein 2 each PO DAILY 12/09/22 10/06/24 History [Centrum Silver Women Tablet] Diclofenac Sodium Gel [Voltaren 50 gm TOPICAL DAILY 09/30/24 10/06/24 History Gel] Furosemide [Lasix] 40 mg PO BID 09/30/24 10/06/24 History Potassium Chloride [Klor-Con M20] 20 meq PO DAILY 09/30/24 10/06/24 History Pregabalin [Lyrica] 50 mg PO BID 09/30/24 10/06/24 History Allergies Allergy/AdvReac Type Severity Reaction Status Date / Time fentanyl Allergy nausea/vomiting, Verified 10/06/24 06:28 fuzzy headed Penicillins Allergy Anaphylaxis Verified 10/06/24 06:28 Sulfa (Sulfonamide Allergy Unknown Verified 10/06/24 06:28 Antibiotics) Childhood codeine AdvReac Nausea & Verified 10/06/24 06:28 Vomiting NSAIDS (Non-Steroidal AdvReac ULCER- Verified 10/06/24 06:28 Anti-Inflamma HISTORY sulfamethoxazole AdvReac Diarrhea, Verified 10/06/24 06:28 [From Bactrim] C-Diff trimethoprim [From Bactrim] AdvReac Diarrhea, Verified 10/06/24 06:28 C-Diff Physical Exam Vitals: Vital Signs Temp Pulse Pulse Resp BP BP BP 10/06/24 13:00 82 32 H 125/82 10/06/24 12:00 98.3 F 58 L 16 112/74 10/06/24 11:40 69 15 112/74 10/06/24 11:14 72 14 112/67 10/06/24 11:01 69 14 113/70 10/06/24 10:45 70 14 111/61 10/06/24 10:35 92 16 106/59 10/06/24 10:30 68 16 105/59 10/06/24 10:28 69 20 116/67 10/06/24 10:23 135 H 18 76/35 10/06/24 10:21 138 H 18 80/45 10/06/24 10:14 137 H 13 94/59 10/06/24 10:11 140 H 27 H 96/64 10/06/24 10:08 68 10 L 69/48 10/06/24 10:02 142 H 12 63/38 10/06/24 09:59 76 18 105/59 10/06/24 09:58 142 H 22 116/61 10/06/24 09:53 143 H 11 L 100/63 10/06/24 07:25 62 14 127/67 10/06/24 06:46 74.4 F L 64 16 134/61 Pulse Ox 10/06/24 13:00 96 10/06/24 12:00 97 10/06/24 11:40 96 10/06/24 11:14 98 10/06/24 11:01 100 10/06/24 10:45 100 10/06/24 10:35 100 10/06/24 10:30 100 10/06/24 10:28 99 10/06/24 10:23 100 10/06/24 10:21 10/06/24 10:14 100 10/06/24 10:11 100 10/06/24 10:08 100 10/06/24 10:02 100 10/06/24 09:59 92 L 10/06/24 09:58 100 10/06/24 09:53 97 10/06/24 07:25 100 10/06/24 06:46 97 Intake and Output 10/06/24 10/06/24 10/06/24 06:59 14:59 22:59 Intake Total 100 1751 Output Total 100 Balance 100 1651 Intake: IV 100 1751 Lactated Ringers 1,000 ml 300 @ 100 mls/hr IV .Q10H [facility] Rx#:[id number] Output: Estimated Blood Loss 100 Other: Weight 86.6 kg 86.6 kg GENERAL: The patient is alert and oriented x3, not in any acute distress. Well developed, well nourished. HEENT: Pupils are round and equally reacting to light. EOMI. No scleral icterus. No conjunctival pallor. Normocephalic, atraumatic. No pharyngeal erythema. No thyromegaly. CARDIOVASCULAR: Irregular rhythm consistent with atrial fibrillation with a controlled rate. No significant murmurs. PULMONARY: Chest is clear to auscultation, no wheezing or crackles. ABDOMEN: Soft, nontender, nondistended, normoactive bowel sounds. No palpable organomegaly. MUSCULOSKELETAL: No joint swelling or deformity. EXTREMITIES: No cyanosis, clubbing, or pedal edema. Surgical wound site over the right knee area is dry clean and intact. NEUROLOGICAL: Gross neurological examination did not reveal any focal deficits. SKIN: No rashes. Results - Laboratory Findings CBC and BMP: 10/06/24 10:13 10/06/24 10:13 Abnormal lab findings: Abnormal Labs 10/06/24 10/06/24 10/06/24 10:13 10:13 11:34 BUN 20 H Glucose 123 H POC Glucose (mg/dL) 145 H Plasma Lactic Acid Maurilio 2.6 H* - Diagnostic Findings Chest x-ray: image reviewed Assessment and Plan Plan: Right knee arthroplasty and the patient is currently postop day #0 Chronic atrial fibrillation with postoperative atrial fibrillation with rapid ventricular response and hypotension. The patient received cardioversion and subsequently the patient was placed on a Cardizem drip. The patient remains in atrial fibrillation with a controlled rate at this point in time. She remains on Cardizem drip at 10 mg an hour. Off anticoagulants. Hypotension, recovered and the patient is currently off pressors History of breast cancer with a previous right mastectomy History of buccal cancer with subsequent excision and tissue transplant History of stomach cancer Chronic back pain and spinal stenosis History of nephrolithiasis and kidney stones Degenerative arthritis Obesity Peripheral neuropathy Plan Patient currently stable on room air oxygen Continue IV fluids lactated Ringer at rate of 100 cc an hour Continue Cardizem drip at 10 mg an hour. Hold anticoagulation until the patient is finally cleared by orthopedic surgery. Noted the patient has been receiving anticoagulation with Eliquis on outpatient basis Monitor hemodynamics and the patient is currently off pressors Pain control Orthopedic follow-up Labs reviewed Echocardiogram reviewed and the patient has a preserved LV function Will continue to follow
[2024-10-06 19:07] LABS: Chol/HDL Ratio 3.94 Ratio
[2024-10-06 19:08] LABS: LDL Cholesterol,Calculated 124.7 mg/dL (0.0-131.0)
--- NOTE | 2024-10-06 19:10 | P.ANPRN ---
Procedure Note - Anesthesia - Nerve Block Performed Right Adductor Canal Infusion Time Out Performed: Yes Date of Procedure: 10/06/24 Procedure Start Time: 07:05 Procedure Stop Time: 07:16 Location of Patient: PreOp Indication: Acute Post-Operative Pain, Requested by Surgeon Sedation Type: Sedate with meaningful contact maintained Preparation: Sterile Prep Position: Supine Catheter: Indwelling Needle Types: Pajunk Needle Gauge: 21 Ultrasound used to visualize needle placement: Yes Ultrasound used to observe medication spread: Yes Blood Aspirated: No Pain Paresthesia on Injection Noted: No Resistance on Injection: Normal Image Stored and Saved: Yes Events: Uneventful and Well Tolerated (Ropivacaine 0.5% 20 cc plus dexamethasone 4 mg)
--- NOTE | 2024-10-06 19:11 | P.ANPRN ---
Procedure Note - Anesthesia - Nerve Block Performed Right [place] Single Time Out Performed: Yes Date of Procedure: 10/06/24 Procedure Start Time: 07:17 Procedure Stop Time: 07:19 Location of Patient: PreOp Indication: Acute Post-Operative Pain, Requested by Surgeon Sedation Type: Sedate with meaningful contact maintained Preparation: Sterile Prep, Sterile Dressing Position: Supine Needle Types: Pajunk Ultrasound used to visualize needle placement: Yes Ultrasound used to observe medication spread: Yes Blood Aspirated: No Pain Paresthesia on Injection Noted: No Resistance on Injection: Normal Image Stored and Saved: Yes Events: Uneventful and Well Tolerated (Ropivacaine 0.5% 20 cc plus dexamethasone 4 mg)
--- NOTE | 2024-10-06 20:55 | XR ---
EXAMINATION TYPE: XR chest 1V portable DATE OF EXAM: 10/06/2024 2:44 PM COMPARISON: 09/30/2024 CLINICAL INDICATION: Female, 79 years old with history of hypoxia, , FINDINGS: Heart mildly enlarged. Diffuse interstitial opacities. More patchy densities at the bilateral lower l ungs, right greater than left. No sizable pleural effusion. IMPRESSION: Correlate for CHF and early interstitial pulmonary edema versus atypical/cortical pneumonias. [facility], Workstation: [facility], 10/06/2024 8:53 PM
[2024-10-06] MEDS: SODIUM CHLORIDE 0.9% 1,000 ML IV SCH (21:05)
[2024-10-06] MEDS: SENNOSIDES-DOCUSATE SODIUM 1 EACH TAB PO SCH (22:00)
[2024-10-06] MEDS: HYDROcodone/APAP 10-325MG 1 EACH TAB PO PRN (22:00)
[2024-10-06] MEDS: PREGABALIN 50 MG CAP PO SCH (22:01)
[2024-10-06] MEDS: HEPARIN SODIUM,PORCINE 5,000 UNIT/ML 1 ML VIAL SQ SCH (22:01)
[2024-10-07 03:39] LABS: Basophils % (A) 0 %; Eosinophils % (A) 0 %; HGB 11.4 gm/dL (11.4-16.0); Lymphocytes # (A) 1.2 k/uL (1.0-4.8); Lymphocytes % (A) 10 %; MCH 28.8 pg (25.0-35.0); MCHC 32.7 g/dL (31.0-37.0); MCV 88.1 fL (80.0-100.0); Mean Platelet Volume 8.2; Monocytes # (A) 0.3 k/uL (0-1.0); Monocytes % (A) 3 %; Neutrophils # (A) 10.2 k/uL (1.3-7.7); Neutrophils % (A) 87 %; Platelet Count 193 k/uL (150-450); RBC 3.97 m/uL (3.80-5.40); RDW 13.8 % (11.5-15.5); WBC 11.8 k/uL (3.8-10.6)
[2024-10-07 04:04] LABS: African American GFR (CKD) 68 (>60 ml/min/1.73 sqM); Anion Gap 12 mmol/L; Blood Urea Nitrogen 17 mg/dL (7-17); Calcium 9.1 mg/dL (8.4-10.2); Carbon Dioxide 22 mmol/L (22-30); Chloride 106 mmol/L (98-107); Glucose 129 mg/dL (74-99); Non-African American GFR(CKD) 59 (>60 ml/min/1.73 sqM); Potassium 4.6 mmol/L (3.5-5.1); Sodium 140 mmol/L (137-145)
--- NOTE | 2024-10-07 08:51 | P.PN ---
Subjective HISTORY OF PRESENTING ILLNESS: Patient has a past medical history of paroxysmal atrial fibrillation. As per prior documentation she was not on anticoagulation because of concerns of hematuria. History of GI ulcer. She also has history of right breast cancer, hypertension. On 10/06/2024 she underwent outpatient right total knee replacement surgery. Postoperatively she was hemodynamically unstable with evidence of hypotension requiring Otf-Synephrine with lowest BP recorded at 68/44. She was also noticed to have atrial fibrillation with RVR. Being hemodynamically unstable, she was cardioverted once. Patient sustained sinus rhythm only for few minutes and then reverted back to atrial fibrillation. Cardiology was paged and patient was assessed on emergent basis. Stat echocardiogram showed an EF of 55% with hyperdynamic LV suggestive of hypovolemic state. Patient was given 1 dose of 0.6 mg adenosine which showed underlying rhythm being atrial fibrillation. Patient was started on IV Cardizem drip, given IV fluids. Patient thereafter stabilized and converted out of atrial fibrillation. Patient was requested to be transferred to ICU for close monitoring. Admission Cardiac Labs: Hb 11.7, BUN 20, creatinine 1.02 Admission testing: EKG shows atrial fibrillation with RVR with heart rate around 140 bpm. 10/07 Patient seen and examined. Patient remains on Cardizem drip at 10 and remains in A. fib with controlled rates. She has been monitored in ICU and after initially requiring Otf-Synephrine yesterday morning and has not required any further vasopressors. She initially was stating she had chest pressure yesterday however this has improved. This may be related to post cardioversion. Echo showed EF 55%. Anticoagulation has been on hold. She admits to continued knee pain however tolerable. PHYSICAL EXAMINATION: Neck: Brisk carotid upstroke, no jugular venous distention. Lungs: Clear to auscultation. Heart: Irregularly irregular, S1-S2, , no murmur or rub. Abdomen: Soft nontender, positive bowel sounds. Extremities: No edema, intact distal pulses. Mild swelling around right knee status post surgery. Neuro: Alert, oritented, no focal deficits. Detailed neuro exam was not performed. ASSESSMENT: # Persistent atrial fibrillation with RVR after total knee replacement. # Shock state, multifactorial with components of hypovolemic shock and A-fib. # Prior history of paroxysmal atrial fibrillation, not on anticoagulation previously due to concerns of hematuria and anemia # Essential hypertension # Obesity # Status post right total knee replacement, postop day 0 # Chest pressure, may be post cardioversion pain vs other PLAN: Bedside echocardiogram showed an EF of 55 to 60% with mild MR, moderate TR, moderate biatrial dilatation. LV appeared hyperdynamic. Continue metoprolol succinate 25 mg twice daily Patient appears hemodynamically stable and has improved status post Cardizem drip and IV fluids. Check troponin for completeness sake given chest pressure symptoms yesterday. Continue with metoprolol 25 twice a day and we will stop the Cardizem drip. Continue to monitor and if remains stable possible DC in the next 24 hours. Objective - Vital Signs Vital signs: Vital Signs Temp 98.4 F 10/07/24 08:00 Pulse 58 L 10/07/24 06:00 Resp 14 10/07/24 08:00 BP 107/63 10/07/24 08:00 Pulse Ox 90 L 10/06/24 18:00 FiO2 Intake & Output 10/06/24 10/07/24 10/07/24 18:59 06:59 18:59 Intake Total 2251 683.5 Output Total 300 850 Balance 1951 -166.5 Weight 86.6 kg 95.5 kg Intake: IV 2251 100 Lactated Ringers 1,000 ml 800 100 @ 100 mls/hr IV .Q10H [facility] Rx#:[id number] Intake, IV Titration 583.5 Amount Diltiazem 125 mg In 83.5 Sodium Chloride 0.9% 100 ml @ 10 MG/HR 10 mls/hr IV .[id number] [facility] Rx#: [id number] Sodium Chloride 0.9% 1, 500 000 ml @ 100 mls/hr IV . Q10H [facility] Rx#:[id number] Output: Urine 200 850 Estimated Blood Loss 100 - Labs CBC & Chem 7: 10/07/24 02:36 10/07/24 02:39 Labs: Abnormal Lab Results - Last 24 Hours (Table) 10/06/24 10/06/24 10/06/24 Range/Units 10:13 10:13 10:13 WBC (3.8-10.6) k/uL Neutrophils # (1.3-7.7) k/uL BUN 20 H (7-17) mg/dL Glucose 123 H (74-99) mg/dL POC Glucose (mg/dL) (70-110) mg/dL Plasma Lactic Acid Maurilio 2.6 H* (0.7-2.0) mmol/L Cholesterol 206.00 H (0.00-200.00) mg/dL 10/06/24 10/07/24 10/07/24 Range/Units 11:34 02:36 02:39 WBC 11.8 H (3.8-10.6) k/uL Neutrophils # 10.2 H (1.3-7.7) k/uL BUN (7-17) mg/dL Glucose 129 H (74-99) mg/dL POC Glucose (mg/dL) 145 H (70-110) mg/dL Plasma Lactic Acid Maurilio (0.7-2.0) mmol/L Cholesterol (0.00-200.00) mg/dL
[2024-10-07] MEDS ORDERED: MULTIVITAMINS, THERA 1 EACH TAB PO SCH (09:00)
--- NOTE | 2024-10-07 09:22 | P.PN ---
Progress Note - Text 10/07/23 642am 79-year-old female status post total knee replacement, patient had a tumultuous postop. She went into atrial fibrillation and was symptomatic she had to be cardioverted and Cardizem drip started. Patient seen and evaluated this morning she has a VAS of 1 at rest hemodynamically, stable doing well
[2024-10-07] MEDS: ACETAMINOPHEN TAB 325 MG TAB PO PRN (09:47)
[2024-10-07] MEDS: MULTIVITAMINS, THERA 1 EACH TAB PO SCH (12:03)
--- NOTE | 2024-10-07 14:27 | P.PN ---
Subjective Progress Note Date: 10/07/24 Principal diagnosis: Right Knee TKA Patient is seen at bedside this morning. She is postop day #1 from right total knee arthroplasty. She has pain at the surgical site as expected but denies any new complaints. She has stabilized and converted from Afib. SHe denies numbness, tingling or calf pain. Review of systems is negative for fever, chills, chest pain, shortness of breath or other Objective - Vital Signs Vital signs: Vital Signs Temp 97.8 F 10/07/24 11:06 Pulse 65 10/07/24 11:06 Resp 16 10/07/24 11:06 BP 124/82 10/07/24 11:06 Pulse Ox 95 10/07/24 11:06 FiO2 Intake & Output 10/06/24 10/07/24 10/07/24 18:59 06:59 18:59 Intake Total 2251 683.5 118.333 Output Total 300 850 Balance 1951 -166.5 118.333 Weight 86.6 kg 95.5 kg Intake: IV 2251 100 Lactated Ringers 1,000 ml 800 100 @ 100 mls/hr IV .Q10H [facility] Rx#:[id number] Intake, IV Titration 583.5 118.333 Amount Diltiazem 125 mg In 83.5 118.333 Sodium Chloride 0.9% 100 ml @ 10 MG/HR 10 mls/hr IV .[id number] [facility] Rx#: [id number] Sodium Chloride 0.9% 1, 500 000 ml @ 100 mls/hr IV . Q10H [facility] Rx#:[id number] Output: Urine 200 850 Estimated Blood Loss 100 - Exam Inspection reveals a benign surgical wound. There is no active bleeding or drainage. Neurovascular status is intact throughout the lower extremity with motor and sensation fully intact. Calf is soft and nontender. 2+ dorsalis pedis pulse and less than 2 second cap refill is present. - Constitutional General appearance: Present: no acute distress - Labs CBC & Chem 7: 10/07/24 02:36 10/07/24 02:39 Labs: Abnormal Lab Results - Last 24 Hours (Table) 10/06/24 10/07/24 10/07/24 Range/Units 10:13 02:36 02:39 WBC 11.8 H (3.8-10.6) k/uL Neutrophils # 10.2 H (1.3-7.7) k/uL Glucose 129 H (74-99) mg/dL Cholesterol 206.00 H (0.00-200.00) mg/dL Assessment and Plan (1) Knee osteoarthritis Narrative/Plan: She will continue with routine postop orthopedic protocol including pain management, wound care, PT, DVT prophylaxis and medical management. Expect that she will transfer to [facility] in next few days Current Visit: Yes Status: Acute Priority: Medium Code(s): M17.9 - OSTEOARTHRITIS OF KNEE, UNSPECIFIED SNOMED Code(s): 819047522 Time with Patient: Less than 30
--- NOTE | 2024-10-07 15:11 | P.PN ---
Subjective Progress Note Date: 10/07/24 On 10/06/2024, the patient is being seen in the intensive care unit. The patient presented to the hospital for an elective right knee replacement. She is known to have chronic atrial fibrillation. Postop, the patient developed A-fib with rapid ventricular response. The patient received cardioversion x 2. Subsequently, the patient was placed on Cardizem drip and it was recommended for this patient to come into the intensive care for further monitoring. Noted the patient also encountered hypotension. The patient was placed on Otf-Synephrine infusion. At this point in time, the patient is off Otf-Synephrine. Cardizem is still running at 10 mg an hour and the patient remains in atrial fibrillation with a controlled rate. She has been receiving Eliquis on outpatient basis regarding chronic A-fib. Anticoagulation has been placed on hold in preparation for surgery. No chest pain. No history of cardiomyopathy. No history of coronary artery disease. The patient has no respiratory distress and the patient is currently on room air oxygen. Chest x-ray was also done and it showed no acute cardiopulmonary abnormalities. There is some mild pulm vascular congestion noted. Echocardiogram was done and the patient has a preserved LV function. No significant valvular abnormalities. RVSP was estimated to be at around 42. The patient is currently on room air oxygen. No issues with pain. Surgical wound site is dry clean and intact. She is on Cardizem drip at 10 mg an hour. She is also receiving no pressors. She is on lactated Ringer running at 100 cc an hour. Awake and alert and communicating. 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 She is a former smoker. On 10/07/2024, the patient is being seen for a follow-up. The patient was in the intensive care unit and the patient was transferred to the medical floor. She remains in atrial fibrillation with a controlled rate and the patient remains on Cardizem drip at 10 mg an hour. She is postop day #1 following a right knee arthroplasty. She remains hemodynamically stable. No hypotension. No chest pain. No other complaints otherwise for now. The patient is also on metoprolol 50 mg the morning and 25 mg in the evening. She remains on anticoagulation with Eliquis. She was also started on Lasix 40 mg p.o. twice a day. Service Electrician on the case regarding the atrial fibrillation management. The patient will be transferred out of the intensive care unit. IV fluids are in the form of normal saline at rate of 100 cc an hour. She is working with physical therapy. Objective - Vital Signs Vital signs: Vital Signs Temp 98.4 F 10/07/24 08:00 Pulse 58 L 10/07/24 06:00 Resp 14 10/07/24 08:00 BP 107/63 10/07/24 08:00 Pulse Ox 90 L 10/06/24 18:00 FiO2 Intake & Output 10/06/24 10/07/24 10/07/24 18:59 06:59 18:59 Intake Total 2251 683.5 118.333 Output Total 300 850 Balance 1951 -166.5 118.333 Weight 86.6 kg 95.5 kg Intake: IV 2251 100 Lactated Ringers 1,000 ml 800 100 @ 100 mls/hr IV .Q10H [facility] Rx#:[id number] Intake, IV Titration 583.5 118.333 Amount Diltiazem 125 mg In 83.5 118.333 Sodium Chloride 0.9% 100 ml @ 10 MG/HR 10 mls/hr IV .[id number] [facility] Rx#: [id number] Sodium Chloride 0.9% 1, 500 000 ml @ 100 mls/hr IV . Q10H [facility] Rx#:[id number] Output: Urine 200 850 Estimated Blood Loss 100 - Exam GENERAL: The patient is alert and oriented x3, not in any acute distress. Well developed, well nourished. HEENT: Pupils are round and equally reacting to light. EOMI. No scleral icterus. No conjunctival pallor. Normocephalic, atraumatic. No pharyngeal erythema. No thyromegaly. CARDIOVASCULAR: Irregular rhythm consistent with atrial fibrillation with a controlled rate. No significant murmurs. PULMONARY: Chest is clear to auscultation, no wheezing or crackles. ABDOMEN: Soft, nontender, nondistended, normoactive bowel sounds. No palpable organomegaly. MUSCULOSKELETAL: No joint swelling or deformity. EXTREMITIES: No cyanosis, clubbing, or pedal edema. Surgical wound site over the right knee area is dry clean and intact. NEUROLOGICAL: Gross neurological examination did not reveal any focal deficits. SKIN: No rashes. - Labs CBC & Chem 7: 10/07/24 02:36 10/07/24 02:39 Labs: Abnormal Lab Results - Last 24 Hours (Table) 10/06/24 10/06/24 10/06/24 Range/Units 10:13 10:13 10:13 WBC (3.8-10.6) k/uL Neutrophils # (1.3-7.7) k/uL BUN 20 H (7-17) mg/dL Glucose 123 H (74-99) mg/dL POC Glucose (mg/dL) (70-110) mg/dL Plasma Lactic Acid Maurilio 2.6 H* (0.7-2.0) mmol/L Cholesterol 206.00 H (0.00-200.00) mg/dL 10/06/24 10/07/24 10/07/24 Range/Units 11:34 02:36 02:39 WBC 11.8 H (3.8-10.6) k/uL Neutrophils # 10.2 H (1.3-7.7) k/uL BUN (7-17) mg/dL Glucose 129 H (74-99) mg/dL POC Glucose (mg/dL) 145 H (70-110) mg/dL Plasma Lactic Acid Maurilio (0.7-2.0) mmol/L Cholesterol (0.00-200.00) mg/dL Assessment and Plan Plan: Right knee arthroplasty and the patient is currently postop day # 1 Chronic atrial fibrillation with postoperative atrial fibrillation with rapid ventricular response and hypotension, improved and the patient is currently on a control atrial fibrillation, still on Cardizem drip at 10 mg an hour and the patient is also on metoprolol and anticoagulation with Eliquis. 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
[2024-10-07] MEDS: HYDROcodone/APAP 7.5-325MG 1 EACH TAB PO PRN (15:37)
[2024-10-07] MEDS ORDERED: TEMAZEPAM 7.5 MG CAP PO PRN (21:18)
--- NOTE | 2024-10-08 06:45 | P.PN ---
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 Patient comes in for an elective right total knee arthroplasty. While in postop recovery patient developed atrial fibrillation with rapid ventricular rate and was cardioverted to normal sinus rhythm and started on IV cardizem. Patient does have a history of A-fib, not anticoagulated on an outpatient basis. Was started on IV cardizem, became hypotensive with systolic into the 60s. Patient was then cardioverted a second time. Was given adenosine. Given lakeisha gtt for the hypotension. Transported to the Intensive care unit with cardiac and repairer evaporator consultations. Internal medicine was consulted. He is evaluated today in the intensive care unit postoperative day #0 right total knee arthroplasty. She is currently on a nasal cannula at 4 L of oxygen support blood work completed reveals a normal CBC, BUN of 20 creatinine 1.02, lactic acid of 2.6, proBNP of 288 TSH of 1.570. Had a stat echocardiogram completed with mobile an ejection f raction of 55 to 60%. 10/07/2024 Patient is seen and evaluated in follow-up this morning has been transferred out of the ICU to [facility]. with cardiology, pulmonary, orthopedics following. Patient reports significant right knee pain as she had difficult time transporting and transitioning from the bed to the chair. Patient appears exhausted and reports she did not sleep very well. Patient continued on telemetry monitoring currently sinus rhythm and rate is controlled. Cardizem is being discontinued and continued on increased metoprolol. Patient does have incentive spirometer at the bedside and encouraged the patient to continue using. Patient denies any chest pain or shortness of breath and denies palpitations. Patient is having occasional nausea with no reported vomiting and not much of an appetite. Recommend PT/OT therapy daily. review of systems: Constitutional: reports of fatigue, no fever, or chills Cardiovascular: No reports of chest pain or palpitations Respiratory: No reports of shortness of breath or cough GI: reports of nausea, no vomiting, or diarrhea, not much of an appetite : No reports of dysuria or retention Neurovascular: reports of weakness and significant right knee pain The rest of the 14-point review of systems is negative. PHYSICAL EXAMINATION: GENERAL: The patient is lethargic although easily arousable, alert and oriented x3, appears exhausted and unwell. Well developed, elderly appearing, obese HEENT: Pupils are round and equally reacting to light. EOMI. No scleral icterus. No conjunctival pallor. Normocephalic, atraumatic. No pharyngeal erythema. No thyromegaly. CARDIOVASCULAR: S1 and S2 muffled, currently rate controlled on monitor PULMONARY: Diminished breath sounds bilaterally otherwise chest is clear to auscultation, no wheezing or crackles. ABDOMEN: Soft, nontender, nondistended, normoactive bowel sounds. No palpable organomegaly. MUSCULOSKELETAL: No joint swelling or deformity. EXTREMITIES: No cyanosis, clubbing, or pedal edema. Right knee with some swelling and surgical dressing is dry and intact NEUROLOGICAL: Gross neurological examination did not reveal any focal deficits. Diffusely weak SKIN: No rashes. 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 Continue telemetry monitoring and patient has been transferred out of the ICU to [facility]. Repeat urinalysis; CBC is unremarkable for anemia. If there is no evidence of hematuria would concern resuming the patient on eliquis. Currently maintained on heparin subcu and will discuss with orthopedics and cardiology about Eliquis Hold lasix at this time and patient is maintained on gentle hydration, will decrease the rate slightly as patient is not eating much and does not appear vol ume overloaded on exam. Chest x-ray showing some pulmonary vascular congestion. Patient is above 95% on room air. Follow-up on repeat labs and monitor kidney functions and electrolytes closely. Replace electrolytes per protocol PT/OT daily We will continue to follow with orthopedics during hospitalization. Thank you kindly for this consultation. The impression and plan of care has been dictated by Linda Chilel, Nurse Practitioner as directed. Dr. Kim MD I have performed a history and physical examination and medical decision making of this patient, discussed the same with the dictator, and agree with the dictators assessment and plan as written, documented as a scribe. Based on total visit time, I have performed more than 50% of this visit. Objective - Vital Signs Vital signs: Vital Signs Temp 98.4 F 10/07/24 08:00 Pulse 58 L 10/07/24 06:00 Resp 14 10/07/24 08:00 BP 107/63 10/07/24 08:00 Pulse Ox 90 L 10/06/24 18:00 FiO2 Intake & Output 10/06/24 10/07/24 10/07/24 18:59 06:59 18:59 Intake Total 2251 683.5 Output Total 300 850 Balance 1951 -166.5 Weight 86.6 kg 95.5 kg Intake: IV 2251 100 Lactated Ringers 1,000 ml 800 100 @ 100 mls/hr IV .Q10H [facility] Rx#:[id number] Intake, IV Titration 583.5 Amount Diltiazem 125 mg In 83.5 Sodium Chloride 0.9% 100 ml @ 10 MG/HR 10 mls/hr IV .[id number] [facility] Rx#: [id number] Sodium Chloride 0.9% 1, 500 000 ml @ 100 mls/hr IV . Q10H [facility] Rx#:[id number] Output: Urine 200 850 Estimated Blood Loss 100 - Labs CBC & Chem 7: 10/07/24 02:36 10/07/24 02:39 Labs: Abnormal Lab Results - Last 24 Hours (Table) 10/06/24 10/06/24 10/06/24 Range/Units 10:13 10:13 10:13 WBC (3.8-10.6) k/uL Neutrophils # (1.3-7.7) k/uL BUN 20 H (7-17) mg/dL Glucose 123 H (74-99) mg/dL POC Glucose (mg/dL) (70-110) mg/dL Plasma Lactic Acid Maurilio 2.6 H* (0.7-2.0) mmol/L Cholesterol 206.00 H (0.00-200.00) mg/dL 10/06/24 10/07/24 10/07/24 Range/Units 11:34 02:36 02:39 WBC 11.8 H (3.8-10.6) k/uL Neutrophils # 10.2 H (1.3-7.7) k/uL BUN (7-17) mg/dL Glucose 129 H (74-99) mg/dL POC Glucose (mg/dL) 145 H (70-110) mg/dL Plasma Lactic Acid Maurilio (0.7-2.0) mmol/L Cholesterol (0.00-200.00) mg/dL
[2024-10-08 07:20] LABS: African American GFR (CKD) 60 (>60 ml/min/1.73 sqM); Anion Gap 7 mmol/L; Blood Urea Nitrogen 21 mg/dL (7-17); Calcium 9.2 mg/dL (8.4-10.2); Carbon Dioxide 24 mmol/L (22-30); Chloride 106 mmol/L (98-107); Glucose 96 mg/dL (74-99); Non-African American GFR(CKD) 52 (>60 ml/min/1.73 sqM); Potassium 4.2 mmol/L (3.5-5.1); Sodium 137 mmol/L (137-145)
[2024-10-08 07:35] LABS: Basophils % (A) 0 %; Eosinophils # (A) 0.1 k/uL (0-0.7); Eosinophils % (A) 1 %; HCT 36.4 % (34.0-46.0); HGB 11.6 gm/dL (11.4-16.0); Lymphocytes % (A) 19 %; MCHC 31.8 g/dL (31.0-37.0); MCV 87.9 fL (80.0-100.0); Mean Platelet Volume 8.3; Monocytes # (A) 0.8 k/uL (0-1.0); Monocytes % (A) 7 %; Neutrophils # (A) 7.8 k/uL (1.3-7.7); Neutrophils % (A) 73 %; Platelet Count 207 k/uL (150-450); RBC 4.14 m/uL (3.80-5.40); RDW 13.8 % (11.5-15.5); WBC 10.7 k/uL (3.8-10.6)
--- NOTE | 2024-10-08 09:02 | P.PN ---
Subjective Progress Note Date: 10/08/24 This is an 79-year-old female who is status post right total knee arthroplasty. This is postoperative day #2 and patient is seen and evaluated at bedside today. Patient states that her pain is controlled with [place]. Patient denies any new complaints today. Objective - Vital Signs Vital signs: Vital Signs Temp 97.5 F L 10/08/24 07:46 Pulse 142 H 10/08/24 07:46 Resp 18 10/08/24 07:46 BP 129/92 10/08/24 07:46 Pulse Ox 93 L 10/08/24 07:46 FiO2 Intake & Output 10/07/24 10/08/24 10/08/24 18:59 06:59 18:59 Intake Total 118.333 10 Output Total 800 1700 Balance -681.667 -1700 10 Weight 88.6 kg Intake: IV 10 Invasive Line 1 10 Intake, IV Titration 118.333 Amount Diltiazem 125 mg In 118.333 Sodium Chloride 0.9% 100 ml @ 10 MG/HR 10 mls/hr IV .[id number] [facility] Rx#: [id number] Output: Urine 800 1700 Other: Voiding Method External Catheter External Catheter - Exam Vital signs are stable. Patient is in no acute distress and is alert and oriented 3. Calf is soft and nontender to palpation. Dressing is clean, dry, and intact. Patient has full foot and ankle motion without pain or difficulty. Sensation intact. Neurovascular status and circulatory status are intact. - Labs CBC & Chem 7: 10/08/24 05:38 10/08/24 05:38 Labs: Abnormal Lab Results - Last 24 Hours (Table) 10/08/24 10/08/24 Range/Units 05:38 05:38 WBC 10.7 H (3.8-10.6) k/uL Neutrophils # 7.8 H (1.3-7.7) k/uL BUN 21 H (7-17) mg/dL Assessment and Plan (1) Status post total right knee replacement Current Visit: Yes Status: Acute Code(s): Z96.651 - PRESENCE OF RIGHT ART IFICIAL KNEE JOINT SNOMED Code(s): 2048269009557 (2) Osteoarthritis of right knee Current Visit: Yes Status: Acute Code(s): M17.11 - UNILATERAL PRIMARY OSTEOARTHRITIS, RIGHT KNEE SNOMED Code(s): 660074535549243 Plan: #1 Continue with routine postoperative care and pain control. Daily dressing changes. #2 Anticoagulation with aspirin. #3. Appreciate input from internal medicine and cardiology. #4 Anticipate discharge to ECF once cleared medically.
[2024-10-08] MEDS: METOPROLOL SUCCINATE (ER) 25 MG TAB.ER.24H PO STA (09:03)
[2024-10-08] MEDS: APIXABAN 2.5 MG TABLET PO SCH (11:45)
--- NOTE | 2024-10-08 12:20 | P.PN ---
Subjective Progress Note Date: 10/08/24 On 10/06/2024, the patient is being seen in the intensive care unit. The patient presented to the hospital for an elective right knee replacement. She is known to have chronic atrial fibrillation. Postop, the patient developed A-fib with rapid ventricular response. The patient received cardioversion x 2. Subsequently, the patient was placed on Cardizem drip and it was recommended for this patient to come into the intensive care for further monitoring. Noted the patient also encountered hypotension. The patient was placed on Otf-Synephrine infusion. At this point in time, the patient is off Otf-Synephrine. Cardizem is still running at 10 mg an hour and the patient remains in atrial fibrillation with a controlled rate. She has been receiving Eliquis on outpatient basis regarding chronic A-fib. Anticoagulation has been placed on hold in preparation for surgery. No chest pain. No history of cardiomyopathy. No history of coronary artery disease. The patient has no respiratory distress and the patient is currently on room air oxygen. Chest x-ray was also done and it showed no acute cardiopulmonary abnormalities. There is some mild pulm vascular congestion noted. Echocardiogram was done and the patient has a preserved LV function. No significant valvular abnormalities. RVSP was estimated to be at around 42. The patient is currently on room air oxygen. No issues with pain. Surgical wound site is dry clean and intact. She is on Cardizem drip at 10 mg an hour. She is also receiving no pressors. She is on lactated Ringer running at 100 cc an hour. Awake and alert and communicating. 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 She is a former smoker. On 10/07/2024, the patient is being seen for a follow-up. The patient was in the intensive care unit and the patient was transferred to the medical floor. She remains in atrial fibrillation with a controlled rate and the patient remains on Cardizem drip at 10 mg an hour. She is postop day #1 following a right knee arthroplasty. She remains hemodynamically stable. No hypotension. No chest pain. No other complaints otherwise for now. The patient is also on metoprolol 50 mg the morning and 25 mg in the evening. She remains on anticoagulation with Eliquis. She was also started on Lasix 40 mg p.o. twice a day. Competency Evaluated Nurse Aide on the case regarding the atrial fibrillation management. The patient will be transferred out of the intensive care unit. IV fluids are in the form of normal saline at rate of 100 cc an hour. She is working with physical therapy. On 10/08/2024, the patient is being seen for a follow-up. Patient is calm and comfortable. Nevertheless, earlier this morning, the patient went into atrial fibrillation with rapid ventricular response. Cardiology is aware. She remains on metoprolol 50 mg in the morning and 25 mg in the evening. Noted the Cardizem drip has been discontinued and the patient remains on anticoagulation with Eliquis 2.5 mg p.o. twice a day. Overall respiratory status remained stable. The patient is on room air oxygen. Heart rate was as high as 130 and currently is down to 110. Awaiting further recommendations by cardiology. Objective - Vital Signs Vital signs: Vital Signs Temp 97.5 F L 10/08/24 07:46 Pulse 142 H 10/08/24 07:46 Resp 18 10/08/24 07:46 BP 129/92 10/08/24 07:46 Pulse Ox 93 L 10/08/24 07:46 FiO2 Intake & Output 10/07/24 10/08/24 10/08/24 18:59 06:59 18:59 Intake Total 118.333 10 Output Total 800 1700 Balance -681.667 -1700 10 Weight 88.6 kg Intake: IV 10 Invasive Line 1 10 Intake, IV Titration 118.333 Amount Diltiazem 125 mg In 118.333 Sodium Chloride 0.9% 100 ml @ 10 MG/HR 10 mls/hr IV .[id number] [facility] Rx#: [id number] Output: Urine 800 1700 Other: Voiding Method External Catheter External Catheter - Exam GENERAL: The patient is alert and oriented x3, not in any acute distress. Well developed, well nourished. HEENT: Pupils are round and equally reacting to light. EOMI. No scleral icterus. No conjunctival pallor. Normocephalic, atraumatic. No pharyngeal erythema. No thyromegaly. CARDIOVASCULAR: Irregular rhythm consistent with atrial fibrillation with a cont rolled rate. No significant murmurs. PULMONARY: Chest is clear to auscultation, no wheezing or crackles. ABDOMEN: Soft, nontender, nondistended, normoactive bowel sounds. No palpable organomegaly. MUSCULOSKELETAL: No joint swelling or deformity. EXTREMITIES: No cyanosis, clubbing, or pedal edema. Surgical wound site over the right knee area is dry clean and intact. NEUROLOGICAL: Gross neurological examination did not reveal any focal deficits. SKIN: No rashes. - Labs CBC & Chem 7: 10/08/24 05:38 10/08/24 05:38 Labs: Abnormal Lab Results - Last 24 Hours (Table) 10/08/24 10/08/24 Range/Units 05:38 05:38 WBC 10.7 H (3.8-10.6) k/uL Neutrophils # 7.8 H (1.3-7.7) k/uL BUN 21 H (7-17) mg/dL Assessment and Plan Plan: Right knee arthroplasty and the patient is currently postop day # 2 Chronic atrial fibrillation with postoperative atrial fibrillation with rapid ventricular response and the patient continues to have episodes of atrial fibrillation with RVR, currently on oral metoprolol, off Cardizem. The patient is anticoagulated with Eliquis. 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
[2024-10-08] MEDS: AMIODARONE 360 MG in DEXTROSE 5% IN WATER 200 ML IV ONE (13:00)
[2024-10-08] MEDS: DEXTROSE 5% IN WATER 100 ML with AMIODARONE 150 MG IV ONE (13:00)
--- NOTE | 2024-10-08 15:23 | P.PN ---
Subjective Progress Note Date: 10/08/24 HISTORY OF PRESENTING ILLNESS: Patient has a past medical history of paroxysmal atrial fibrillation. As per prior documentation she was not on anticoagulation because of concerns of hematuria. History of GI ulcer. She also has history of right breast cancer, hypertension. On 10/06/2024 she underwent outpatient right total knee replacement surgery. Postoperatively she was hemodynamically unstable with evidence of hypotension requiring Otf-Synephrine with lowest BP recorded at 68/44. She was also noticed to have atrial fibrillation with RVR. Being hemodynamically unstable, she was cardioverted once. Patient sustained sinus rhythm only for few minutes and then reverted back to atrial fibrillation. Cardiology was paged and patient was assessed on emergent basis. Stat echocardiogram showed an EF of 55% with hyperdynamic LV suggestive of hypovolemic state. Patient was given 1 dose of 0.6 mg adenosine which showed underlying rhythm being atrial fibrillation. Patient was started on IV Cardizem drip, given IV fluids. Patient thereafter stabilized and converted out of atrial fibrillation. Patient was requested to be transferred to ICU for close monitoring. Admission Cardiac Labs: Hb 11.7, BUN 20, creatinine 1.02 Admission testing: EKG shows atrial fibrillation with RVR with heart rate around 140 bpm. 10/07 Patient seen and examined. Patient remains on Cardizem drip at 10 and remains in A. fib with controlled rates. She has been monitored in ICU and after initially requiring Otf-Synephrine yesterday morning and has not required any further vasopressors. She initially was stating she had chest pressure yesterday however this has improved. This may be related to post cardioversion. Echo showed EF 55%. Anticoagulation has been on hold. She admits to continued knee pain however tolerable. 10/08 She is having palpitations and shortness of breath. She did feel dizzy this morning when she sat up. She is having A-fib with RVR and heart rates are not well-controlled. Troponin was negative yesterday. Hemoglobin 11.6, creatinine 1.02. PHYSICAL EXAMINATION: Neck: Brisk carotid upstroke, no jugular venous distention. Lungs: Clear to auscultation. Heart: Irregularly irregular, S1-S2, , no murmur or rub. Abdomen: Soft nontender, positive bowel sounds. Extremities: No edema, intact distal pulses. Mild swelling around right knee status post surgery. Neuro: Alert, oritented, no focal deficits. Detailed neuro exam was not performed. ASSESSMENT: # Persistent atrial fibrillation with RVR after total knee replacement. # Shock state, multifactorial with components of hypovolemic shock and A-fib. # Prior history of paroxysmal atrial fibrillation, not on anticoagulation previously due to concerns of hematuria and anemia # Essential hypertension # Obesity # Status post right total knee replacement, postop day 0 # Chest pressure, may be post cardioversion pain vs other PLAN: Bedside echocardiogram showed an EF of 55 to 60% with mild MR, moderate TR, moderate biatrial dilatation. LV appeared hyperdynamic. Continue metoprolol succinate 25 mg twice daily. Start amiodarone bolus and amiodarone drip for better rate and rhythm control. Further recommendations pending clinical course. Objective - Vital Signs Vital signs: Vital Signs Temp 97.5 F L 10/08/24 07:46 Pulse 142 H 10/08/24 07:46 Resp 18 10/08/24 07:46 BP 129/92 10/08/24 07:46 Pulse Ox 93 L 10/08/24 07:46 FiO2 Intake & Output 10/07/24 10/08/24 10/08/24 18:59 06:59 18:59 Intake Total 118.333 20 Output Total 800 1700 Balance -681.667 -1700 20 Weight 88.6 kg Intake: IV 20 Invasive Line 1 10 Invasive Line 2 10 Intake, IV Titration 118.333 Amount Diltiazem 125 mg In 118.333 Sodium Chloride 0.9% 100 ml @ 10 MG/HR 10 mls/hr IV .[id number] [facility] Rx#: [id number] Output: Urine 800 1700 Other: Voiding Method External Catheter External Catheter - Labs CBC & Chem 7: 10/08/24 05:38 10/08/24 05:38 Labs: Abnormal Lab Results - Last 24 Hours (Table) 10/08/24 10/08/24 Range/Units 05:38 05:38 WBC 10.7 H (3.8-10.6) k/uL Neutrophils # 7.8 H (1.3-7.7) k/uL BUN 21 H (7-17) mg/dL
[2024-10-08 17:25] LABS: Appearance,Urine Clear (Clear); Bilirubin,Urine Negative (Negative); Blood,Urine Negative (Negative); Color,Urine Colorless; Glucose,Urine (UA) Negative (Negative); Ketones,Urine Negative (Negative); Leukocyte Esterase,Urine Negative (Negative); Nitrite,Urine Negative (Negative); Protein,Urine Negative (Negative); Specific Gravity,Urine 1.005 (1.001-1.035); Urobilinogen,Urine <2.0 mg/dL (<2.0)
[2024-10-08] MEDS: HYDROcodone/APAP 7.5-325MG 1 EACH TAB PO PRN (20:04)
--- NOTE | 2024-10-08 20:24 | P.PN ---
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 Patient comes in for an elective right total knee arthroplasty. While in postop re covery patient developed atrial fibrillation with rapid ventricular rate and was cardioverted to normal sinus rhythm and started on IV cardizem. Patient does have a history of A-fib, not anticoagulated on an outpatient basis. Was started on IV cardizem, became hypotensive with systolic into the 60s. Patient was then cardioverted a second time. Was given adenosine. Given lakeisha gtt for the hypotensi on. Transported to the Intensive care unit with cardiac and edge beader consultations. Internal medicine was consulted. He is evaluated today in the intensive care unit postoperative day #0 right total knee arthroplasty. She is currently on a nasal cannula at 4 L of oxygen support blood work completed reveals a normal CBC, BUN of 20 creatinine 1.02, lactic acid of 2.6, proBNP of 288 TSH of 1.570. Had a stat echocardiogram completed with mobile an ejection fraction of 55 to 60%. 10/07/2024 Patient is seen and evaluated in follow-up this morning has been transferred out of the ICU to 3 S. with cardiology, pulmonary, orthopedics following. Patient reports significant right knee pain as she had difficult time transporting and transitioning from the bed to the chair. Patient appears exhausted and reports she did not sleep very well. Patient continued on telemetry monitoring currently sinus rhythm and rate is controlled. Cardizem is being discontinued and continued on increased metoprolol. Patient does have incentive spirometer at the bedside and encouraged the patient to continue using. Patient denies any chest pain or shortness of breath and denies palpitations. Patient is having occasional nausea with no reported vomiting and not much of an appetite. Recommend PT/OT therapy daily. 10/08/2024 Patient evaluated in follow-up sitting up in the chair in the intensive care unit. She reports knee pain is managed with oral pain medications and also icing. Patient went into A-fib RVR again this morning currently off IV Cardizem drip. She was given an extra dose of Toprol by cardiology. Did discuss resuming Eliquis with patient states that was taken off 3 days prior to surgery however there was concern for anemia and hematuria from the primary care office but that was not necessarily reason why she was off the Eliquis. We did repeat a urinalysis and there is no blood found as well as patient has had a stable hemoglobin since admission and we will resume Eliquis at this time. review of systems: Constitutional: reports of fatigue, no fever, or chills Cardiovascular: No reports of chest pain or palpitations Respiratory: No reports of shortness of breath or cough GI: reports of nausea, no vomiting, or diarrhea, not much of an appetite : No reports of dysuria or retention Neurovascular: reports of weakness and significant right knee pain The rest of the 14-point review of systems is negative. PHYSICAL EXAMINATION: GENERAL: The patient is lethargic although easily arousable, alert and oriented x3, appears exhausted and unwell. Well developed, elderly appearing, obese HEENT: Pupils are round and equally reacting to light. EOMI. No scleral icterus. No conjunctival pallor. Normocephalic, atraumatic. No pharyngeal erythema. No thyromegaly. CARDIOVASCULAR: S1 and S2 muffled, currently rate controlled on monitor PULMONARY: Diminished breath sounds bilaterally otherwise chest is clear to auscultation, no wheezing or crackles. ABDOMEN: Soft, nontender, nondistended, normoactive bowel sounds. No palpable organomegaly. MUSCULOSKELETAL: No joint swelling or deformity. EXTREMITIES: No cyanosis, clubbing, or pedal edema. Right knee with some swelling and surgical dressing is dry and intact NEUROLOGICAL: Gross neurological examination did not reveal any focal deficits. Diffusely weak SKIN: No rashes. Assessment: Atrial fibrillation with rapid ventricular rate, currently rate controlled and Cardizem has been discontinued history of paroxysmal atrial fibrillation; eliquis has been resumed. 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 Continue telemetry monitoring and patient has been transferred out of the ICU to [facility]. Repeat urinalysis; CBC is unremarkable for anemia. Urinalysis negative for bloo d. Eliquis has been resumed. Patients heart rate in the 140s this AM, cardiology ordered an extra dose of toprol and will continue to monitor. Continue cardiac telemetry. Hold lasix at this time and patient is maintained on gentle hydration, will decrease the rate slightly as patient is not eating much and does not appear volume overloaded on exam. Chest x-ray showing some pulmonary vascular co ngestion. Patient is above 95% on room air. Follow-up on repeat labs and monitor kidney functions and electrolytes closely. Replace electrolytes per protocol PT/OT daily We will continue to follow with orthopedics during hospitalization. Thank you kindly for this consultation. ECF on discharge The impression and plan of care has been dictated by Lora Baldwin, Nurse Practitioner as directed. Dr. Kim MD I have performed a history and physical examination and medical decision making of this patient, discussed the same with the dictator, and agree with the dictators assessment and plan as written, documented as a scribe. Based on total visit time, I have performed more than 50% of this visit. Objective - Vital Signs Vital signs: Vital Signs Temp 97.5 F L 10/08/24 07:46 Pulse 111 H 10/08/24 11:29 Resp 18 10/08/24 11:29 BP 136/89 10/08/24 11:29 Pulse Ox 93 L 10/08/24 11:29 FiO2 Intake & Output 10/07/24 10/08/24 10/08/24 18:59 06:59 18:59 Intake Total 118.333 10 Output Total 800 1700 600 Balance -681.667 -1700 -590 Weight 88.6 kg Intake: IV 10 Invasive Line 1 10 Intake, IV Titration 118.333 Amount Diltiazem 125 mg In 118.333 Sodium Chloride 0.9% 100 ml @ 10 MG/HR 10 mls/hr IV .[id number] [facility] Rx#: [id number] Output: Urine 800 1700 600 Other: Voiding Method External Catheter External Catheter External Catheter - Labs CBC & Chem 7: 10/08/24 05:38 10/08/24 05:38 Labs: Abnormal Lab Results - Last 24 Hours (Table) 10/08/24 10/08/24 Range/Units 05:38 05:38 WBC 10.7 H (3.8-10.6) k/uL Neutrophils # 7.8 H (1.3-7.7) k/uL BUN 21 H (7-17) mg/dL Assessment and Plan Time with Patient: Less than 30
[2024-10-08] MEDS: AMIODARONE 450 MG in DEXTROSE 5% IN WATER 250 ML IV SCH (21:14)
[2024-10-09 06:38] LABS: Basophils % (A) 1 %; Eosinophils # (A) 0.2 k/uL (0-0.7); Eosinophils % (A) 2 %; HGB 11.2 gm/dL (11.4-16.0); Lymphocytes # (A) 2.4 k/uL (1.0-4.8); Lymphocytes % (A) 25 %; MCHC 32.1 g/dL (31.0-37.0); MCV 87.3 fL (80.0-100.0); Mean Platelet Volume 8.6; Monocytes # (A) 0.7 k/uL (0-1.0); Monocytes % (A) 7 %; Neutrophils # (A) 6.3 k/uL (1.3-7.7); Neutrophils % (A) 64 %; Platelet Count 188 k/uL (150-450); RBC 4.01 m/uL (3.80-5.40); RDW 14.1 % (11.5-15.5); WBC 9.7 k/uL (3.8-10.6)
--- NOTE | 2024-10-09 10:23 | P.PN ---
Subjective Progress Note Date: 10/09/24 This is an 79-year-old female who is status post right total knee arthroplasty. This is postoperative day #3 and patient is seen and evaluated at bedside today. Patient states that her pain is controlled and she denies any new complaints today. Objective - Vital Signs Vital signs: Vital Signs Temp 98.3 F 10/09/24 07:47 Pulse 73 10/09/24 08:00 Resp 18 10/09/24 08:00 BP 120/66 10/09/24 07:47 Pulse Ox 97 10/09/24 07:47 FiO2 Intake & Output 10/08/24 10/09/24 10/09/24 18:59 06:59 18:59 Intake Total 20 20 417.227 Output Total 600 Balance -580 20 417.227 Weight 90 kg Intake: IV 20 20 Invasive Line 1 20 20 Intake, IV Titration 217.227 Amount Amiodarone 450 mg In 217.227 Dextrose 5% in Water 250 ml @ 0.5 MG/MIN 16.667 mls/hr IV .Q15H [facility] Rx#: [id number] Oral 200 Output: Urine 600 Other: Voiding Method Bedside Commode Toilet Toilet # Voids 1 # Bowel Movements 1 - Exam Vital signs are stable. Patient is in no acute distress and is alert and oriented 3. Calf is soft and nontender to palpation. Dressing is clean, dry, and intact. Patient has full foot and ankle motion without pain or difficulty. Sensation intact. Neurovascular status and circulatory status are intact. - Labs CBC & Chem 7: 10/09/24 06:00 10/08/24 05:38 Labs: Abnormal Lab Results - Last 24 Hours (Table) 10/09/24 Range/Units 06:00 Hgb 11.2 L (11.4-16.0) gm/dL Assessment and Plan (1) Status post total right knee replacement Status: Acute Code(s): Z96.651 - PRESENCE OF RIGHT ARTIFICIAL KNEE JOINT SNOMED Code(s): 8689748663958 (2) Osteoarthritis of right knee Status: Acute Code(s): M17.11 - UNILATERAL PRIMARY OSTEOARTHRITIS, RIGHT KNEE SNOMED Code(s): 790629262455973 Plan: #1 Continue with routine postoperative care and pain control. Daily dressing changes. #2 Anticoagulation with aspirin. #3. Appreciate input from internal medicine and cardiology. #4 Anticipate discharge to [facility] once cleared medically.
--- NOTE | 2024-10-09 10:44 | P.PN ---
Subjective Progress Note Date: 10/09/24 HISTORY OF PRESENTING ILLNESS: Patient has a past medical history of paroxysmal atrial fibrillation. As per prior documentation she was not on anticoagulation because of concerns of hematuria. History of GI ulcer. She also has history of right breast cancer, hypertension. On 10/06/2024 she underwent outpatient right total knee replacement surgery. Postoperatively she was hemodynamically unstable with evidence of hypotension requiring Otf-Synephrine with lowest BP recorded at 68/44. She was also noticed to have atrial fibrillation with RVR. Being hemodynamically unstable, she was cardioverted once. Patient sustained sinus rhythm only for few minutes and then reverted back to atrial fibrillation. Cardiology was paged and patient was assessed on emergent basis. Stat echocardiogram showed an EF of 55% with hyperdynamic LV suggestive of hypovolemic state. Patient was given 1 dose of 0.6 mg adenosine which showed underlying rhythm being atrial fibrillation. Patient was started on IV Cardizem drip, given IV fluids. Patient thereafter stabilized and converted out of atrial fibrillation. Patient was requested to be transferred to ICU for close monitoring. Admission Cardiac Labs: Hb 11.7, BUN 20, creatinine 1.02 Admission testing: EKG shows atrial fibrillation with RVR with heart rate around 140 bpm. 10/07 Patient seen and examined. Patient remains on Cardizem drip at 10 and remains in A. fib with controlled rates. She has been monitored in ICU and after initially requiring Otf-Synephrine yesterday morning and has not required any further vasopressors. She initially was stating she had chest pressure yesterday however this has improved. This may be related to post cardioversion. Echo showed EF 55%. Anticoagulation has been on hold. She admits to continued knee pain however tolerable. 10/08 She is having palpitations and shortness of breath. She did feel dizzy this morning when she sat up. She is having A-fib with RVR and heart rates are not well-controlled. Troponin was negative yesterday. Hemoglobin 11.6, creatinine 1.02. 10/09 Patient is doing well. She is having more right lower extremity edema. Denies any chest pain or pressure. No shortness of breath. She did convert to sinus rhythm yesterday afternoon. PHYSICAL EXAMINATION: Neck: Brisk carotid upstroke, no jugular venous distention. Lungs: Clear to auscultation. Heart: Regular, S1-S2, , no murmur or rub. Abdomen: Soft nontender, positive bowel sounds. Extremities: No edema, intact distal pulses. Mild swelling around right knee status post surgery. Neuro: Alert, oriented, no focal deficits. Detailed neuro exam was not performed. ASSESSMENT: # Persistent atrial fibrillation with RVR after total knee replacement. # Shock state, multifactorial with components of hypovolemic shock and A-fib. # Prior history of paroxysmal atrial fibrillation, not on anticoagulation previously due to concerns of hematuria and anemia # Essential hypertension # Obesity # Status post right total knee replacement, postop day 0 # Chest pressure, may be post cardioversion pain vs other PLAN: Transition amiodarone drip to p.o. amiodarone taper, 400 mg twice daily x 1 week then 200 mg twice daily x 1 week then 200 mg daily. Continue metoprolol succinate 25 mg twice daily. Continue with anticoagulation. Lasix 40 mg IV x 1. Further recommendations pending clinical course. Patient seen and examined in rounds with Dr. Duran, plan of care agreed upon. Objective - Vital Signs Vital signs: Vital Signs Temp 98.3 F 10/09/24 07:47 Pulse 73 10/09/24 07:47 Resp 18 10/09/24 07:47 BP 120/66 10/09/24 07:47 Pulse Ox 97 10/09/24 07:47 FiO2 Intake & Output 10/08/24 10/09/24 10/09/24 18:59 06:59 18:59 Intake Total 20 20 Output Total 600 Balance -580 20 Weight 90 kg Intake: IV 20 20 Invasive Line 1 20 20 Output: Urine 600 Other: Voiding Method Bedside Commode Toilet # Voids 1 # Bowel Movements 1 - Labs CBC & Chem 7: 10/09/24 06:00 10/08/24 05:38 Labs: Abnormal Lab Results - Last 24 Hours (Table) 10/09/24 Range/Units 06:00 Hgb 11.2 L (11.4-16.0) gm/dL
[2024-10-09] MEDS: FUROSEMIDE 10 MG/ML 4 ML VIAL IV STA (11:17)
--- NOTE | 2024-10-09 12:33 | P.PN ---
Subjective Progress Note Date: 10/09/24 On 10/06/2024, the patient is being seen in the intensive care unit. The patient presented to the hospital for an elective right knee replacement. She is known to have chronic atrial fibrillation. Postop, the patient developed A-fib with rapid ventricular response. The patient received cardioversion x 2. Subsequently, the patient was placed on Cardizem drip and it was recommended for this patient to come into the intensive care for further monitoring. Noted the patient also encountered hypotension. The patient was placed on Otf-Synephrine infusion. At this point in time, the patient is off Otf-Synephrine. Cardizem is still running at 10 mg an hour and the patient remains in atrial fibrillation with a controlled rate. She has been receiving Eliquis on outpatient basis regarding chronic A-fib. Anticoagulation has been placed on hold in preparation for surgery. No chest pain. No history of cardiomyopathy. No history of coronary artery disease. The patient has no respiratory distress and the patient is currently on room air oxygen. Chest x-ray was also done and it showed no acute cardiopulmonary abnormalities. There is some mild pulm vascular congestion noted. Echocardiogram was done and the patient has a preserved LV function. No significant valvular abnormalities. RVSP was estimated to be at around 42. The patient is currently on room air oxygen. No issues with pain. Surgical wound site is dry clean and intact. She is on Cardizem drip at 10 mg an hour. She is also receiving no pressors. She is on lactated Ringer running at 100 cc an hour. Awake and alert and communicating. 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 She is a former smoker. On 10/07/2024, the patient is being seen for a follow-up. The patient was in the intensive care unit and the patient was transferred to the medical floor. She remains in atrial fibrillation with a controlled rate and the patient remains on Cardizem drip at 10 mg an hour. She is postop day #1 following a right knee arthroplasty. She remains hemodynamically stable. No hypotension. No chest pain. No other complaints otherwise for now. The patient is also on metoprolol 50 mg the morning and 25 mg in the evening. She remains on anticoagulation with Eliquis. She was also started on Lasix 40 mg p.o. twice a day. Billet Driller on the case regarding the atrial fibrillation management. The patient will be transferred out of the intensive care unit. IV fluids are in the form of normal saline at rate of 100 cc an hour. She is working with physical therapy. On 10/08/2024, the patient is being seen for a follow-up. Patient is calm and comfortable. Nevertheless, earlier this morning, the patient went into atrial fibrillation with rapid ventricular response. Cardiology is aware. She remains on metoprolol 50 mg in the morning and 25 mg in the evening. Noted the Cardizem drip has been discontinued and the patient remains on anticoagulation with Eliquis 2.5 mg p.o. twice a day. Overall respiratory status remained stable. The patient is on room air oxygen. Heart rate was as high as 130 and currently is down to 110. Awaiting further recommendations by cardiology. On 10/09/2024, the patient is being seen for a follow-up. The patient's current cardiac rhythm is back into sinus. Feeling better compared to yesterday. No significant shortness of breath. She remains on metoprolol 50 mg in the morning and 25 mg in the evening. She is also on anticoagulation with Eliquis. Noted, the patient was started on amiodarone drip and subsequently she converted to normal sinus rhythm. She has some increased edema lower extremities and the patient will be offered a dose of Lasix. Surgical wound site is dry clean and intact. White cell count of 9.7 with a hemoglobin of 11 and a platelet count of 188. UA has been negative. Objective - Vital Signs Vital signs: Vital Signs Temp 98.3 F 10/09/24 07:47 Pulse 73 10/09/24 08:00 Resp 18 10/09/24 08:00 BP 120/66 10/09/24 07:47 Pulse Ox 97 10/09/24 07:47 FiO2 Intake & Output 10/08/24 10/09/24 10/09/24 18:59 06:59 18:59 Intake Total 20 20 200 Output Total 600 Balance -580 20 200 Weight 90 kg Intake: IV 20 20 Invasive Line 1 20 20 Oral 200 Output: Urine 600 Other: Voiding Method Bedside Commode Toilet Toilet # Voids 1 # Bowel Movements 1 - Exam GENERAL: The patient is alert and oriented x3, not in any acute distress. Well developed, well nourished. HEENT: Pupils are round and equally reacting to light. EOMI. No scleral icterus. No conjunctival pallor. Normocephalic, atraumatic. No pharyngeal erythema. No thyromegaly. CARDIOVASCULAR: Irregular rhythm consistent with atrial fibrillation with a controlled rate. No significant murmurs. PULMONARY: Chest is clear to auscultation, no wheezing or crackles. ABDOMEN: Soft, nontender, nondistended, normoactive bowel sounds. No palpable organomegaly. MUSCULOSKELETAL: No joint swelling or deformity. EXTREMITIES: No cyanosis, clubbing, or pedal edema. Surgical wound site over the right knee area is dry clean and intact. NEUROLOGICAL: Gross neurological examination did not reveal any focal deficits. SKIN: No rashes. - Labs CBC & Chem 7: 10/09/24 06:00 10/08/24 05:38 Labs: Abnormal Lab Results - Last 24 Hours (Table) 10/09/24 Range/Units 06:00 Hgb 11.2 L (11.4-16.0) gm/dL Assessment and Plan Plan: Right knee arthroplasty and the patient is currently postop day # 3 Chronic atrial fibrillation with postoperative atrial fibrillation with rapid ventricular response and the patient continues to have episodes of atrial fibrillation with RVR, currently on amiodarone drip and anticoagulation with Eliquis. Converted to normal sinus rhythm. Hypotension, recovered History of breast cancer with a previous right mastectomy History of buccal cancer with subsequent excision and tissue transplant History of stomach cancer Chronic back pain and spinal stenosis History of nephrolithiasis and kidney stones Degenerative arthritis Obesity Peripheral neuropathy Plan Patient currently stable on room air oxygen Continue IV fluids to KVO Give Lasix 40 mg IV push Management of atrial fibrillation per cardiology Anticoagulation with Eliquis was initiated Physical therapy Pain control Orthopedic follow-up Labs reviewed Echocardiogram reviewed and the patient has a preserved LV function Will sign off
--- NOTE | 2024-10-09 19:32 | P.PN ---
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 Patient comes in for an elective right total knee arthroplasty. While in postop re covery patient developed atrial fibrillation with rapid ventricular rate and was cardioverted to normal sinus rhythm and started on IV cardizem. Patient does have a history of A-fib, not anticoagulated on an outpatient basis. Was started on IV cardizem, became hypotensive with systolic into the 60s. Patient was then cardioverted a second time. Was given adenosine. Given lakeisha gtt for the hypotensi on. Transported to the Intensive care unit with cardiac and sketcher consultations. Internal medicine was consulted. He is evaluated today in the intensive care unit postoperative day #0 right total knee arthroplasty. She is currently on a nasal cannula at 4 L of oxygen support blood work completed reveals a normal CBC, BUN of 20 creatinine 1.02, lactic acid of 2.6, proBNP of 288 TSH of 1.570. Had a stat echocardiogram completed with mobile an ejection fraction of 55 to 60%. 10/07/2024 Patient is seen and evaluated in follow-up this morning has been transferred out of the ICU to 3 S. with cardiology, pulmonary, orthopedics following. Patient reports significant right knee pain as she had difficult time transporting and transitioning from the bed to the chair. Patient appears exhausted and reports she did not sleep very well. Patient continued on telemetry monitoring currently sinus rhythm and rate is controlled. Cardizem is being discontinued and continued on increased metoprolol. Patient does have incentive spirometer at the bedside and encouraged the patient to continue using. Patient denies any chest pain or shortness of breath and denies palpitations. Patient is having occasional nausea with no reported vomiting and not much of an appetite. Recommend PT/OT therapy daily. 10/08/2024 Patient evaluated in follow-up sitting up in the chair. She reports knee pain is managed with oral pain medications and also icing. Patient went into A-fib RVR again this morning currently off IV Cardizem drip. She was given an extra dose of Toprol by cardiology. Did discuss resuming Eliquis with patient states that was taken off 3 days prior to surgery however there was concern for anemia and hematuria from the primary care office but that was not necessarily reason why she was off the Eliquis. We did repeat a urinalysis and there is no blood found as well as patient has had a stable hemoglobin since admission and we will resume Eliquis at this time. 10/09/2024 Patient is evaluated today in follow up on the medical floor. Patient has been moved out of the ICU. Currrently on IV amiodarone with plans to transition to oral amiodarone later today. Patient has converted to normal sinus rhythm. Eliquis has been resumed. review of systems: Constitutional: reports of fatigue, no fever, or chills Cardiovascular: No reports of chest pain or palpitations Respiratory: No reports of shortness of breath or cough GI: reports of nausea, no vomiting, or diarrhea, not much of an appetite : No reports of dysuria or retention Neurovascular: reports of weakness and significant right knee pain The rest of the 14-point review of systems is negative. PHYSICAL EXAMINATION: GENERAL: The patient is lethargic although easily arousable, alert and oriented x3, appears exhausted and unwell. Well developed, elderly appearing, obese HEENT: Pupils are round and equally reacting to light. EOMI. No scleral icterus. No conjunctival pallor. Normocephalic, atraumatic. No pharyngeal erythema. No thyromegaly. CARDIOVASCULAR: S1 and S2 muffled, currently rate controlled on monitor PULMONARY: Diminished breath sounds bilaterally otherwise chest is clear to auscultation, no wheezing or crackles. ABDOMEN: Soft, nontender, nondistended, normoactive bowel sounds. No palpable organomegaly. MUSCULOSKELETAL: No joint swelling or deformity. EXTREMITIES: No cyanosis, clubbing, or pedal edema. Right knee with some swelling and surgical dressing is dry and intact NEUROLOGICAL: Gross neurological examination did not reveal any focal deficits. Diffusely weak SKIN: No rashes. Assessment: Atrial fibrillation with rapid ventricular rate, currently rate controlled and Cardizem has been discontinued. Went back into afib RVR and converted with amiodarone. history of paroxysmal atrial fibrillation; eliquis has been resumed. 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 Continue telemetry monitoring and patient has been transferred out of the ICU to 3 . Repeat urinalysis; CBC is unremarkable for anemia. Urinalysis negative for blo od. Eliquis has been resumed. Patient was started on IV amiodarone for afib RVR and has now converted to normal sinus rhythm plans to transition to oral amiodarone later this evening. Continues on eliquis. Stop IV fluids and resume oral lasix Follow-up on repeat labs and monitor kidney functions and electrolytes closely. Replace electrolytes per protocol PT/OT daily We will continue to follow with orthopedics during hospitalization. Thank you kindly for this consultation. ECF on discharge The impression and plan of care has been dictated by Lora Baldwin, Nurse Practitioner as directed. Dr. Kim MD I have performed a history and physical examination and medical decision making of this patient, discussed the same with the dictator, and agree with the dictators assessment and plan as written, documented as a scribe. Based on total visit time, I have performed more than 50% of this visit. Objective - Vital Signs Vital signs: Vital Signs Temp 98.3 F 10/09/24 07:47 Pulse 73 10/09/24 07:47 Resp 18 10/09/24 07:47 BP 120/66 10/09/24 07:47 Pulse Ox 97 10/09/24 07:47 FiO2 Intake & Output 10/08/24 10/09/24 10/09/24 18:59 06:59 18:59 Intake Total 20 20 200 Output Total 600 Balance -580 20 200 Weight 90 kg Intake: IV 20 20 Invasive Line 1 20 20 Oral 200 Output: Urine 600 Other: Voiding Method Bedside Commode Toilet # Voids 1 # Bowel Movements 1 - Labs CBC & Chem 7: 10/09/24 06:00 10/08/24 05:38 Labs: Abnormal Lab Results - Last 24 Hours (Table) 10/09/24 Range/Units 06:00 Hgb 11.2 L (11.4-16.0) gm/dL Assessment and Plan Time with Patient: Less than 30
[2024-10-10] MEDS: AMIODARONE 200 MG TAB PO SCH (00:08)
[2024-10-10 06:30] LABS: African American GFR (CKD) 69 (>60 ml/min/1.73 sqM); Anion Gap 5 mmol/L; Blood Urea Nitrogen 15 mg/dL (7-17); Carbon Dioxide 27 mmol/L (22-30); Chloride 106 mmol/L (98-107); Glucose 88 mg/dL (74-99); Non-African American GFR(CKD) 60 (>60 ml/min/1.73 sqM); Potassium 3.7 mmol/L (3.5-5.1); Sodium 138 mmol/L (137-145)
[2024-10-10] MEDS: FUROSEMIDE 40 MG TAB PO SCH (08:11)
--- NOTE | 2024-10-10 12:45 | P.PN ---
Subjective Progress Note Date: 10/10/24 Principal diagnosis: Right Knee TKA Patient is seen at bedside this morning. She is postop day #4 from right total knee arthroplasty. She has pain at the surgical site as expected but denies any new complaints. She has stabilized and converted from Afib. SHe denies numbness, tingling or calf pain. Review of systems is negative for fever, chills, chest pain, shortness of breath or other Objective - Vital Signs Vital signs: Vital Signs Temp 98.7 F 10/10/24 08:10 Pulse 71 10/10/24 08:10 Resp 18 10/10/24 08:10 BP 117/72 10/10/24 08:10 Pulse Ox 97 10/10/24 08:10 FiO2 Intake & Output 10/09/24 10/10/24 10/10/24 18:59 06:59 18:59 Intake Total 735.227 20 20 Output Total 800 Balance 735.227 -780 20 Weight 90 kg Intake: IV 20 20 Invasive Line 3 20 20 Intake, IV Titration 217.227 Amount Amiodarone 450 mg In 217.227 Dextrose 5% in Water 250 ml @ 0.5 MG/MIN 16.667 mls/hr IV .Q15H [facility] Rx#: [id number] Oral 518 Output: Urine 800 Other: Voiding Method Toilet External Catheter External Catheter # Voids 2 1 # Bowel Movements 1 - Exam Inspection reveals a benign surgical wound. There is no active bleeding or drainage. Neurovascular status is intact throughout the lower extremity with motor and sensation fully intact. Calf is soft and nontender. 2+ dorsalis pedis pulse and less than 2 second cap refill is present. - Constitutional General appearance: Present: no acute distress - Labs CBC & Chem 7: 10/09/24 06:00 10/10/24 05:34 Assessment and Plan (1) Knee osteoarthritis Narrative/Plan: She will continue with routine postop orthopedic protocol including pain management, wound care, PT, DVT prophylaxis and medical management. Expect that she will transfer to [facility] in next 1-2 DAYS Status: Acute Priority: Medium Code(s): M17.9 - OSTEOARTHRITIS OF KNEE, UNSPECIFIED SNOMED Code(s): 630723475 Time with Patient: Less than 30
--- NOTE | 2024-10-10 14:35 | P.PN ---
Subjective Progress Note Date: 10/10/24 HISTORY OF PRESENTING ILLNESS: Patient has a past medical history of paroxysmal atrial fibrillation. As per prior documentation she was not on anticoagulation because of concerns of hematuria. History of GI ulcer. She also has history of right breast cancer, hypertension. On 10/06/2024 she underwent outpatient right total knee replacement surgery. Postoperatively she was hemodynamically unstable with evidence of hypotension requiring Otf-Synephrine with lowest BP recorded at 68/44. She was also noticed to have atrial fibrillation with RVR. Being hemodynamically unstable, she was cardioverted once. Patient sustained sinus rhythm only for few minutes and then reverted back to atrial fibrillation. Cardiology was paged and patient was assessed on emergent basis. Stat echocardiogram showed an EF of 55% with hyperdynamic LV suggestive of hypovolemic state. Patient was given 1 dose of 0.6 mg adenosine which showed underlying rhythm being atrial fibrillation. Patient was started on IV Cardizem drip, given IV fluids. Patient thereafter stabilized and converted out of atrial fibrillation. Patient was requested to be transferred to ICU for close monitoring. Admission Cardiac Labs: Hb 11.7, BUN 20, creatinine 1.02 Admission testing: EKG shows atrial fibrillation with RVR with heart rate around 140 bpm. 10/07 Patient seen and examined. Patient remains on Cardizem drip at 10 and remains in A. fib with controlled rates. She has been monitored in ICU and after initially requiring Otf-Synephrine yesterday morning and has not required any further vasopressors. She initially was stating she had chest pressure yesterday however this has improved. This may be related to post cardioversion. Echo showed EF 55%. Anticoagulation has been on hold. She admits to continued knee pain however tolerable. 10/08 She is having palpitations and shortness of breath. She did feel dizzy this morning when she sat up. She is having A-fib with RVR and heart rates are not well-controlled. Troponin was negative yesterday. Hemoglobin 11.6, creatinine 1.02. 10/09 Patient is doing well. She is having more right lower extremity edema. Denies any chest pain or pressure. No shortness of breath. She did convert to sinus rhythm yesterday afternoon. 10/10/2024 Patient seen and examined. Patient is currently maintained on amiodarone oral taper, metoprolol and anticoagulation with Eliquis. Amiodarone taper is currently at 200 mg twice daily. Telemetry is sinus rhythm. Yesterday, patient received Lasix 40 mg IV x 1. Blood pressure 144/76, heart rate 65, pulse ox 96% on room air. Repeat blood work reveals sodium 138, potassium 3.7, creatinine 0.91. Patient denies any new concerns. No palpitations. No chest pain. PHYSICAL EXAMINATION: Neck: Brisk carotid upstroke, no jugular venous distention. Lungs: Clear to auscultation. Heart: Regular, S1-S2, , no murmur or rub. Abdomen: Soft nontender, positive bowel sounds. Extremities: No edema, intact distal pulses. Mild swelling around right knee status post surgery. Neuro: Alert, oriented, no focal deficits. Detailed neuro exam was not performed. ASSESSMENT: # Paroxysmal atrial fibrillation with RVR after total knee replacement, currently sinus rhythm. # Shock state, multifactorial with components of hypovolemic shock and A-fib. # Prior history of paroxysmal atrial fibrillation # Essential hypertension # Obesity # Status post right total knee replacement, 10/06 # Chest pressure, may be post cardioversion pain vs other PLAN: Continue amiodarone taper, 200 mg twice daily x 1 week then 200 mg daily. Continue metoprolol succinate 25 mg twice daily. Continue with Eliquis Patient is cleared for discharge from cardiology and may follow-up in the office in 1 to 2 weeks. Nurse practitioner note has been reviewed, I agree with documented findings and plan of care. Patient was seen and examined. Objective - Vital Signs Vital signs: Vital Signs Temp 98.4 F 10/10/24 04:00 Pulse 65 10/10/24 04:00 Resp 17 10/10/24 04:00 BP 144/76 10/10/24 04:00 Pulse Ox 96 10/10/24 04:00 FiO2 Intake & Output 10/09/24 10/10/24 10/10/24 18:59 06:59 18:59 Intake Total 735.227 20 Output Total 800 Balance 735.227 -780 Weight 90 kg Intake: IV 20 Invasive Line 3 20 Intake, IV Titration 217.227 Amount Amiodarone 450 mg In 217.227 Dextrose 5% in Water 250 ml @ 0.5 MG/MIN 16.667 mls/hr IV .Q15H [facility] Rx#: [id number] Oral 518 Output: Urine 800 Other: Voiding Method Toilet External Catheter # Voids 2 # Bowel Movements 1 - Labs CBC & Chem 7: 10/09/24 06:00 10/10/24 05:34
--- NOTE | 2024-10-10 14:48 | P.PN ---
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 Patient comes in for an elective right total knee arthroplasty. While in postop re covery patient developed atrial fibrillation with rapid ventricular rate and was cardioverted to normal sinus rhythm and started on IV cardizem. Patient does have a history of A-fib, not anticoagulated on an outpatient basis. Was started on IV cardizem, became hypotensive with systolic into the 60s. Patient was then cardioverted a second time. Was given adenosine. Given lakeisha gtt for the hypotensi on. Transported to the Intensive care unit with cardiac and technical producer consultations. Internal medicine was consulted. He is evaluated today in the intensive care unit postoperative day #0 right total knee arthroplasty. She is currently on a nasal cannula at 4 L of oxygen support blood work completed reveals a normal CBC, BUN of 20 creatinine 1.02, lactic acid of 2.6, proBNP of 288 TSH of 1.570. Had a stat echocardiogram completed with mobile an ejection fraction of 55 to 60%. 10/07/2024 Patient is seen and evaluated in follow-up this morning has been transferred out of the ICU to 3 S. with cardiology, pulmonary, orthopedics following. Patient reports significant right knee pain as she had difficult time transporting and transitioning from the bed to the chair. Patient appears exhausted and reports she did not sleep very well. Patient continued on telemetry monitoring currently sinus rhythm and rate is controlled. Cardizem is being discontinued and continued on increased metoprolol. Patient does have incentive spirometer at the bedside and encouraged the patient to continue using. Patient denies any chest pain or shortness of breath and denies palpitations. Patient is having occasional nausea with no reported vomiting and not much of an appetite. Recommend PT/OT therapy daily. 10/08/2024 Patient evaluated in follow-up sitting up in the chair. She reports knee pain is managed with oral pain medications and also icing. Patient went into A-fib RVR again this morning currently off IV Cardizem drip. She was given an extra dose of Toprol by cardiology. Did discuss resuming Eliquis with patient states that was taken off 3 days prior to surgery however there was concern for anemia and hematuria from the primary care office but that was not necessarily reason why she was off the Eliquis. We did repeat a urinalysis and there is no blood found as well as patient has had a stable hemoglobin since admission and we will resume Eliquis at this time. 10/09/2024 Patient is evaluated today in follow up on the medical floor. Patient has been moved out of the ICU. Currrently on IV amiodarone with plans to transition to oral amiodarone later today. Patient has converted to normal sinus rhythm. Eliquis has been resumed. 10/10/2024 Patient is eval today in follow-up in the medical floor. She is currently sitting up in the chair. She does state that her pain is controlled to her right knee with oral pain medications. She was reporting feeling some lower e xtremity edema yesterday more so in the left leg. Upon evaluation she is very mild nonpitting edema. She was resumed on her oral Lasix 40 mg twice daily. She states that she has been urinating with increased frequency and feels less swollen today. She is converted back to normal sinus rhythm, continues on a combination of oral amiodarone and oral metoprolol. Electrolytes and renal function are within normal limits today. I would anticipate the patient is discharged to [facility] in the next 24 hours medically she is stable and cleared for discharge. review of systems: Constitutional: reports of fatigue, no fever, or chills Cardiovascular: No reports of chest pain or palpitations Respiratory: No reports of shortness of breath or cough GI: reports of nausea, no vomiting, or diarrhea, not much of an appetite : No reports of dysuria or retention Neurovascular: reports of weakness and significant right knee pain The rest of the 14-point review of systems is negative. PHYSICAL EXAMINATION: GENERAL: The patient is lethargic although easily arousable, alert and oriented x3, appears exhausted and unwell. Well developed, elderly appearing, obese HEENT: Pupils are round and equally reacting to light. EOMI. No scleral icterus. No conjunctival pallor. Normocephalic, atraumatic. No pharyngeal erythema. No thyromegaly. CARDIOVASCULAR: S1 and S2 muffled, currently rate controlled on monitor PULMONARY: Diminished breath sounds bilaterally otherwise chest is clear to auscultation, no wheezing or crackles. ABDOMEN: Soft, nontender, nondistended, normoactive bowel sounds. No palpable organomegaly. MUSCULOSKELETAL: No joint swelling or deformity. EXTREMITIES: No cyanosis, clubbing, or pedal edema. Right knee with some swelling and surgical dressing is dry and intact NEUROLOGICAL: Gross neurological examination did not reveal any focal deficits. Diffusely weak SKIN: No rashes. Assessment: Atrial fibrillation with rapid ventricular rate, now converted to normal sinus r hythm with amiodarone. history of paroxysmal atrial fibrillation; eliquis has been resumed. 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 Patient has been transitioned off IV amiodarone to oral amiodarone. Patient is now in normal sinus rhythm. Continue telemetry monitoring and patient has been transferred out of the ICU to [facility]. Repeat urinalysis; CBC is unremarkable for anemia. Urinalysis negative for blood. Eliquis has been resumed. Stop IV fluids and resume oral lasix. Follow-up on repeat labs and monitor kidney functions and electrolytes closely. Replace electrolytes per protocol PT/OT daily We will continue to follow with orthopedics during hospitalization. Thank you kindly for this consultation. ECF on discharge with plans for discharge to [facility] in the next 24 to 48 hours. Medically patient is cleared for discharge. The impression and plan of care has been dictated by Lora Baldwin, Nurse Practitioner as directed. Dr. Kim MD I have performed a history and physical examination and medical decision making of this patient, discussed the same with the dictator, and agree with the dictators assessment and plan as written, documented as a scribe. Based on total visit time, I have performed more than 50% of this visit. Objective - Vital Signs Vital signs: Vital Signs Temp 98.7 F 10/10/24 08:10 Pulse 72 10/10/24 11:40 Resp 17 10/10/24 14:00 BP 129/77 10/10/24 11:40 Pulse Ox 96 10/10/24 11:40 FiO2 Intake & Output 10/09/24 10/10/24 10/10/24 18:59 06:59 18:59 Intake Total 735.227 20 40 Output Total 800 Balance 735.227 -780 40 Weight 90 kg Intake: IV 20 40 Invasive Line 3 20 40 Intake, IV Titration 217.227 Amount Amiodarone 450 mg In 217.227 Dextrose 5% in Water 250 ml @ 0.5 MG/MIN 16.667 mls/hr IV .Q15H [facility] Rx#: [id number] Oral 518 Output: Urine 800 Other: Voiding Method Toilet External Catheter External Catheter # Voids 2 1 # Bowel Movements 1 - Labs CBC & Chem 7: 10/09/24 06:00 10/10/24 05:34 Assessment and Plan Time with Patient: Less than 30
[2024-10-11] MEDS: traMADol 50 MG TAB PO PRN (04:40)
[2024-10-11 10:18] VITALS: TEMP 99
[2024-10-11] MEDS: VITS A & D-WHITE PET-LANOLIN TUBE TOPICAL SCH (11:57)
--- NOTE | 2024-10-11 12:15 | P.DS ---
Providers Expected date of discharge: 10/11/24 Attending physician: Yuan Mendoza Consults: 10/06/24 07:49 Consult Physician Routine Consulting Provider: Vinay Alvarez Consult Reason/Comments: post op medical management Do you want consulting provider notified?: Yes 10/06/24 10:53 Consult Physician Stat Consulting Provider: Miguel Duran Consult Reason/Comments: zunilda larsen RVR, arielle evaluated pt Do you want consulting provider notified?: Yes 10/06/24 16:22 Consult Physician Routine Consulting Provider: Licha Martinez Consult Reason/Comments: ICU Management Do you want consulting provider notified?: Already Contacted Primary care physician: Shantel William - Discharge Diagnosis(es) (1) Knee osteoarthritis Patient was admitted to the OR on 10/06/24 to undergo a right total knee arthroplasty. She had failed conservative measures as an outpatient and desired to proceed with elective surgery after given informed consent. She underwent the above procedure which he tolerated well without complication. She went into afib postoperatively where she was later converted and remained stable. Postoperative hospital course has remained without complication. On day of discharge she is afebrile, vital signs stable, labs within acceptable ranges, tolerating by mouth meds and diet, voiding without difficulty, positive flatus, denies abdominal pain or calf pain, pain is controlled on oral pain medication and has no new complaints. Wound is benign, neurovascular status is intact, calf is soft and nontender, abdomen soft and nontender. Review of systems is negative for numbness, tingling, fever, chills, chest pain, shortness of breath, nausea, vomiting, dizziness, headaches, slurred speech or other. Status: Acute Priority: Medium Procedures: Right TKA Patient Condition at Discharge: Stable Plan - Discharge Summary Discharge Rx Participant: Yes New Discharge Prescriptions: New Amiodarone [Cordarone] 200 mg PO BID #0 tab Metoprolol Succinate (ER) [Toprol XL] 25 mg PO BID #0 tab Acetaminophen Tab [Tylenol] 650 mg PO Q4HR PRN tab PRN Reason: Pain Scale 1 To 5 Docusate [Colace] 100 mg PO BID #60 capsule Sennosides-Docusate Sodium [Senokot-S] 2 each PO HS tab HYDROcodone/APAP 7.5-325MG [[place] 7.5-325] 1 - 2 each PO Q6HR PRN #32 tab PRN Reason: Pain Ondansetron [Zofran] 4 mg PO Q8HR PRN #21 tab PRN Reason: Nausea Continue Multivitamins, Thera [Multivitamin (formulary)] 1 tab PO DAILY Cyanocobalamin (Vitamin B-12) [Vitamin B-12] 1,000 mcg PO MOFR Carboxymethylcellulose Sodium [Refresh Tears] 1 drop BOTH EYES BID PRN PRN Reason: Dry Eye(S) Lidocaine/Menthol [Lidocaine-Menthol 4%-1% Patch] 1 each TP DIRECTED PRN PRN Reason: Pain Furosemide [Lasix] 40 mg PO BID Pregabalin [Lyrica] 50 mg PO BID Potassium Chloride [Klor-Con M20] 20 meq PO DAILY Apixaban [Eliquis] 2.5 mg PO BID Multivit-Min/Iron/Folic/Lutein [Centrum Silver Women Tablet] 2 each PO DAILY Diclofenac Sodium Gel [Voltaren 1% Gel] 50 gm TOPICAL DAILY Discontinued Metoprolol Tartrate [Lopressor] 50 mg PO QAM Metoprolol Tartrate [Lopressor] 25 mg PO HS Acetaminophen [Tylenol Extra Strength] 1,000 mg PO BID Discharge Medication List Cyanocobalamin (Vitamin B-12) [Vitamin B-12] 1,000 mcg PO MOFR 06/22/17 [History] Multivitamins, Thera [Multivitamin (formulary)] 1 tab PO DAILY 06/22/17 [History] Carboxymethylcellulose Sodium [Refresh Tears] 1 drop BOTH EYES BID PRN 06/20/21 [History] Lidocaine/Menthol [Lidocaine-Menthol 4%-1% Patch] 1 each TP DIRECTED PRN 11/20/21 [History] Apixaban [Eliquis] 2.5 mg PO BID 10/27/22 [History] Multivit-Min/Iron/Folic/Lutein [Centrum Silver Women Tablet] 2 each PO DAILY 12/09/22 [History] Diclofenac Sodium Gel [Voltaren 1% Gel] 50 gm TOPICAL DAILY 09/30/24 [History] Furosemide [Lasix] 40 mg PO BID 09/30/24 [History] Potassium Chloride [Klor-Con M20] 20 meq PO DAILY 09/30/24 [History] Pregabalin [Lyrica] 50 mg PO BID 09/30/24 [History] Acetaminophen Tab [Tylenol] 650 mg PO Q4HR PRN tab 10/10/24 [Rx] Amiodarone [Cordarone] 200 mg PO BID #0 tab 10/10/24 [Rx] Docusate [Colace] 100 mg PO BID #60 capsule 10/10/24 [Rx] HYDROcodone/APAP 7.5-325MG [[place] 7.5-325] 1 - 2 each PO Q6HR PRN #32 tab 10/10/24 [Rx] Metoprolol Succinate (ER) [Toprol XL] 25 mg PO BID #0 tab 10/10/24 [Rx] Ondansetron [Zofran] 4 mg PO Q8HR PRN #21 tab 10/10/24 [Rx] Sennosides-Docusate Sodium [Senokot-S] 2 each PO HS tab 10/10/24 [Rx] Follow up Appointment(s)/Referral(s): Shantel Thomas MD [Primary Care Provider] - 1 Week Draien Franco MD [STAFF PHYSICIAN] - 2 Weeks Miguel Duran DO [STAFF PHYSICIAN] - 1 Week Yuan Mendoza MD [STAFF PHYSICIAN] - 10 Days Licha Martinez MD [STAFF PHYSICIAN] - 1 Week Ambulatory/Diagnostic Orders: Basic Metabolic Panel [LAB.AMB] Time Frame: 3 Days, Location: None Selected Activity/Diet/Wound Care/Special Instructions: weightbear as tolerated take meds as directed f/u in office keep wound clean and dry may shower in 3 days if no bleeding Discharge Disposition: HOME WITH HOME HEALTH SERVICES
[2024-10-11 14:47] VITALS: BP 105/67; PULSE 69; RESP 18
== END 2024-10-11 14:42 ==
LOC: OR 05:41 → 2SICU 09:46 → 3SCARD 10-07 09:23 → OR 10-11 14:42
PROVIDERS: ATTEND Orthopaedic Surgery Sports Medicine
DX: M17.11 Unilateral primary osteoarthritis, right knee (principal); I38 Endocarditis, valve unspecified; I48.0 Paroxysmal atrial fibrillation; I50.9 Heart failure, unspecified; F17.210 Nicotine dependence, cigarettes, uncomplicated; Z82.49 Family history of ischemic heart disease and other diseases of the circulatory system; Z98.890 Other specified postprocedural states; Z85.819 Personal history of malignant neoplasm of unspecified site of lip, oral cavity, and pharynx; Z85.3 Personal history of malignant neoplasm of breast; Z88.5 Allergy status to narcotic agent; Z88.2 Allergy status to sulfonamides; Z88.0 Allergy status to penicillin; Z79.899 Other long term (current) drug therapy
CPT/HCPCS: 93306; 97161; 97165; 64999; 64448; 83880; 80061; 80048 ×2; 84443; 83605; 83735; 84484; 85025 ×2; 83036; 73560; 71045; 27447; C1776; C1713; C1751; J2250; J1644 ×3; J1100; J1940; J0282 ×3; J0690 ×3; J2405; J0153; J1171 ×2

== ENCOUNTER → 2024-12-29 | Outpatient (CLI) | payer MEDICARE ==
--- NOTE | 2024-12-29 10:57 | US ---
EXAMINATION TYPE: US arterial LE single level DATE OF EXAM: 12/29/2024 10:13 AM COMPARISONS: None. CLINICAL INDICATION: Female, 79 years old with history of W/KATHI + TBI; R23.0 CYANOSIS; cold toes TECHNIQUE: Systolic pressures were taken of the upper and lower extremity arteries with ankle-brachia l indices and toe brachial indices calculated bilaterally. History of: Smoker: Yes Hypertension: No Diabetic: No Hyperlipidemia: No TIA/CVA: No Previous Vascular Surgery: No CAD: No AL: No Vascular Ulcers: No Claudication: No Gangrene: No FINDINGS: Doppler Waveforms: Right: Multiphasic Left: Multiphasic Brachial Artery systolic pressure: Right: deferred due to mastectomy on this side Left: 117 Posterior Tibial artery systolic pressure: Right: 127 Left: 114 Dorsalis Pedis artery systolic pressure: Right: 129 Left: 135 Toe artery systolic pressure: Right: 100 Left: 103 Ankle-Brachial Indices: Right: 1.1 Left: 1.2 Toe Brachial Indices: Right: 0.85 Left: 0.88 (Normal > 0.6; Mild 0.35 - 0.59, Moderate 0.12 - 0.34, Severe <0.12) IMPRESSION: KATHI: Right: Normal 0.9 - 1.4, Recommendation: None Left: Normal 0.9 - 1.4, Recommendation: None [facility], , 12/29/2024 10:55 AM
== END | disposition home or self-care (01) ==
LOC: RADUSWWP 09:36
PROVIDERS: ATTEND Family Medicine
DX: R23.0 Cyanosis (principal)
CPT/HCPCS: 93922

== ENCOUNTER → 2025-01-26 | Outpatient (CLI) | payer MEDICARE ==
--- NOTE | 2025-01-26 15:11 | MM ---
Reason for Exam: Hx of breast cancer, mastectomy. Last mammogram was performed 1 year(s) and 4 month(s) ago. Patient History: Menarche at age 11. Patient has no children. Right ovary removed at age 35. Postmenopausal. Breast cancer, right, age 68. Other cancer, age 73. Patient used Estrogen for 2 years. Patient used Progesterone for 2 years. Hormonal Contraceptives for 2 years from age 20 until age 22. Cyst Aspiration on the Right side. Excisional Biopsy on the Right side. Excisional Biopsy on the Right side. 2012, Mastectomy on the Right side. 08/05/2013, Malignant Core Biopsy on the right side. 08/05/2013, Malignant Core Biopsy on the right side. 10/27/2008, Benign Core Biopsy on the right side. 2013, Implant on the right side. 2013, Implant on the right side. Paternal cousin had breast cancer, age 38. Paternal cousin had breast cancer, age 40. Maternal grandmother had ovarian cancer at or over age 50. Prior Study Comparison: 07/27/2017 Left Diagnostic Mammogram, [facility]. 07/28/2018 Left Diagnostic Mammogram, [facility]. 08/24/2019 Left Diagnostic Mammogram, [facility]. 10/19/2020 Left Diagnostic Mammogram, [facility]. 10/21/2021 Left Diagnostic Mammogram, [facility]. 10/22/2022 Left MG 3D scr ryan unilateral w/cad., [facility]. 10/23/2023 Left MG 3D scr ryan unilateral w/cad., [facility]. Tissue Density: Left: There are scattered areas of fibroglandular density. Findings: Analyzed By CAD. A few tiny benign-appearing round and linear calcifications in the left breast are redemonstrated. There is no suspicious group of microcalcifications or new suspicious mass in the left breast. Overall Assessment: Benign, BI-RAD 2 Management: Screening Mammogram of the left breast in 1 year. . Patient should continue monthly self-breast exams. A clinical breast exam by your physician is recommended on an annual basis. This exam should not preclude additional follow-up of suspicious palpable abnormalities. Note on Kristi scores and lifetime risk: 1. A Kristi score greater than 3% is considered moderate risk. If this is the case, consider specialist referral to assess eligibility for a risk reducing agent. 2. If overall lifetime risk for the development of breast cancer is 20% or higher, the patient may qualify for future screening with alternating mammogram and breast MRI. [facility], , 01/26/2025 3:09 PM. Electronically signed and approved by: Boby Winn M.D.
== END | disposition home or self-care (01) ==
LOC: RADMAMWWP 14:03
PROVIDERS: ATTEND Internal Medicine Hematology & Oncology
DX: Z12.31 Encounter for screening mammogram for malignant neoplasm of breast (principal); R92.323 Mammographic fibroglandular density, bilateral breasts; Z78.0 Asymptomatic menopausal state; Z80.3 Family history of malignant neoplasm of breast; Z85.3 Personal history of malignant neoplasm of breast; Z92.0 Personal history of contraception
CPT/HCPCS: 77067

== ENCOUNTER 2025-03-20 10:13 | Inpatient (IN) | payer MEDICARE ==
--- NOTE | 2025-03-20 10:41 | ED ---
General Adult HPI - General Chief complaint: Syncope Stated complaint: fall Time Seen by Provider: 03/20/25 10:39 Source: patient, EMS, RN notes reviewed, old records reviewed Mode of arrival: EMS Limitations: no limitations - History of Present Illness Initial comments: 79-year-old female presented to ER via EMS for evaluation of a fall. Patient states she was working in her garden on uneven ground when she accidentally stepped into a divot causing her to roll her left ankle. Patient states she subsequently jolted her right knee as well. Patient states she fell to the ground also injuring her left shoulder. She denies head injury or loss of co nsciousness. Patient does take Eliquis for a history of atrial fibrillation. Patient states she was unable to get off the ground herself and was laying in the ground for approximately 45 minutes to 1 hour until her friend arrived to contact EMS. Patient reports she recently had right knee replacement by . Patient reports en route she was feeling mildly nauseous but denies actually vomiting for which she received 4 mg Zofran by EMS. Patient currently states she feels "weak". She denies any dizziness, lightheadedness, double blurry vision, chest pain, shortness of breath, abdominal pain, constipation/diarrhea, urinary complaints or peripheral edema. Patient reports a history of low blood pressure. - Related Data Home Medications Medication Instructions Recorded Confirmed Cyanocobalamin (Vitamin B-12) 1,000 mcg PO MOFR 06/22/17 03/20/25 [Vitamin B-12] Multivit-Min/Iron/Folic/Lutein 2 tab PO DAILY 12/09/22 03/20/25 [Centrum Silver Women Tablet] Furosemide [Lasix] 40 mg PO DAILY 09/30/24 03/20/25 Potassium Chloride [Klor-Con M20] 20 meq PO SUMOWETHSA@2100 09/30/24 03/20/25 Acetaminophen Tab [Tylenol Tab] 1,000 mg PO BID 03/20/25 03/20/25 Amiodarone [Cordarone] 100 mg PO DAILY 03/20/25 03/20/25 Apixaban [Eliquis] 2.5 mg PO BID 03/20/25 03/20/25 HYDROcodone/APAP 5-325MG [[place] 1 tab PO Q6H PRN 03/20/25 03/20/25 5-325] Metoprolol Succinate (ER) [Toprol 12.5 mg PO DAILY 03/20/25 03/20/25 XL] Potassium Chloride [Klor-Con M20] 40 meq PO TUFR@2100 03/20/25 03/20/25 metOLazone 2.5 mg PO TUFR 03/20/25 03/20/25 Previous Rx's Medication Instructions Recorded Pregabalin [Lyrica] 50 mg PO BID #6 cap 10/11/24 Allergies Allergy/AdvReac Type Severity Reaction Status Date / Time Penicillins Allergy Anaphylaxis Verified 03/20/25 12:47 Sulfa (Sulfonamide Allergy Anaphylaxis Verified 03/20/25 12:47 Antibiotics) codeine AdvReac Nausea & Verified 03/20/25 12:47 Vomiting fentanyl AdvReac nausea/vomiting, Verified 03/20/25 12:47 fuzzy headed NSAIDS (Non-Steroidal AdvReac ULCER- Verified 03/20/25 12:47 Anti-Inflamma HISTORY sulfamethoxazole AdvReac Diarrhea, Verified 03/20/25 12:47 [From Bactrim] C-Diff trimethoprim [From Bactrim] AdvReac Diarrhea, Verified 03/20/25 12:47 C-Diff Review of Systems ROS Statement: Those systems with pertinent positive or pertinent negative responses have been documented in the HPI. ROS Other: All systems not noted in ROS Statement are negative. Past Medical History Past Medical History: Atrial Fibrillation, Cancer, Eye Disorder, Musculoskeletal Disorder, Osteoarthritis (OA), Renal Disease Additional Past Medical History / Comment(s): Received both covid vaccines. DRY EYE, CORNEAL DYSTROPHY. HX RT BREAST CA. No blood draw or blood pressure on RT side. HYPOGLYCEMIA. right leg below the knee swelling-wears daily compression stockings, STOMACH ULCER 04-06-17. 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 LOWER BACK PAIN, NT TOES FOR YEARS, headaches, STATES RECENT CAT SCAN WHICH SHOWED INCISIONAL HERNIAS AND KIDNEY STONES IN BLADDER AND URETER-PATIENT TO CONTACT DR RIDER. left arm scar from donor site Recent extensive dental work and sinus infection treated with antibiotics. History of Any Multi-Drug Resistant Organisms: ESBL, MRSA Date of last positivie culture/infection: 08/03/20 ESBL E.coli,MRSA 2017 MDRO Source:: URINE Past Surgical History: Adenoidectomy, Appendectomy, Breast Surgery, Cholecystectomy, Hernia Repair, Orthopedic Surgery, Tonsillectomy Additional Past Surgical History / Comment(s): "Extensive dental work .RT BREAST MASTECTOMY W/ RECONSTRUCTION, FATTY TUMOR EXC LT ARM, EPHROLITHOTOMY TUBE W/ STONE REMOVAL X4, EGD, COLONOSCOPY, EXC RT OVARY/TUBE, CANCER EXC. RT BUCCAL MUCOSA W/ TISSUE TRANSPLANT FROM LT WRIST, several cervical lymph nodes removed. Past Anesthesia/Blood Transfusion Reactions: Previous Problems w/ Anesthesia, Postoperative Nausea & Vomiting (PONV) Additional Past Anesthesia/Blood Transfusion Reaction / Comment(s): TOOK VERY LONG TIME TO AWAKEN AFTER SURGERY IN 2012, had severe PONC after last pain procedure & thinks due to fentanyl Past Psychological History: No Psychological Hx Reported Smoking Status: Never smoker Past Alcohol Use History: None Reported Past Drug Use History: None Reported - Past Family History Father Family Medical History: Congestive Heart Failure (CHF), Coronary Artery Disease (CAD), Diabetes Mellitus, Deep Vein Thrombosis (DVT), Hypertension Additional Family Medical History / Comment(s): PHLEBITIS LEG Sister(s) Family Medical History: Diabetes Mellitus Brother(s) Family Medical History: No Reported History Mother Family Medical History: AFIB, Deep Vein Thrombosis (DVT) Additional Family Medical History / Comment(s): PHLEBITIS IN LEG General Exam Limitations: no limitations General appearance: alert, in no apparent distress Head exam: Present: atraumatic, normocephalic, normal inspection Eye exam: Present: normal appearance, PERRL, EOMI. Absent: scleral icterus, conjunctival injection, periorbital swelling Pupils: Present: normal accommodation, other (No raccoon eyes) ENT exam: Present: normal exam, normal oropharynx, mucous membranes moist, other (No Mansfield sign) Neck exam: Present: normal inspection. Absent: tenderness, meningismus, lymphadenopathy Respiratory exam: Present: normal lung sounds bilaterally. Absent: respiratory distress, wheezes, rales, rhonchi, stridor Cardiovascular Exam: Present: regular rate, normal rhythm, normal heart sounds. Absent: systolic murmur, diastolic murmur, rubs, gallop, clicks GI/Abdominal exam: Present: soft, normal bowel sounds. Absent: distended, tenderness, guarding, rebound, rigid Extremities exam: Present: normal inspection, full ROM, normal capillary refill (2+ bilateral radial and DP pulses.), other (No left anatomical snuffbox tenderness.). Absent: tenderness, pedal edema, joint swelling, calf tenderness Neurological exam: Present: alert, oriented X3, CN II-XII intact Skin exam: Present: warm, dry, intact, normal color. Absent: rash Course Vital Signs 03/20/25 03/20/25 03/20/25 10:19 11:40 12:45 Temperature 98 F Pulse Rate 66 63 66 Respiratory 20 20 20 Rate Blood Pressure 90/48 103/46 109/57 O2 Sat by Pulse 98 96 94 L Oximetry 03/20/25 14:11 Temperature Pulse Rate 58 L Respiratory 20 Rate Blood Pressure 94/64 O2 Sat by Pulse 96 Oximetry - Reevaluation(s) Reevaluation #1: 03/20/25 12:25 Case discussed with LETY Mckeon for admission EKG Findings - EKG Comments: EKG Findings:: EKG taken at 10: 30 showing a sinus rhythm. No ST segment elevations or depressions. Ventricular rate 57, TN interval 193, QRS duration 106, QT/QTc 493/47. Medical Decision Making - Medical Decision Making @ -Was pt. sent in by a medical professional or institution (, PA, POWER PLANT SUPERINTENDENT, urgent care, hospital, or fci...) When possible be specific @ -No Did you speak to anyone other than the patient for history (EMS, parent, family, police, friend...)? What history was obtained from this source @ -No Did you review nursing and triage notes (agree or disagree)? Why? @ -I reviewed and agree with nursing and triage notes Were old charts reviewed (outside hosp., previous admission, EMS record, old EKG, old radiological studies, urgent care reports/EKG's, fci records)? Report findings @ -No old charts were reviewed Differential Diagnosis (chest pain, altered mental status, abdominal pain women, abdominal pain men, vaginal bleeding, weakness, fever, dyspnea, syncope, headache, dizziness, GI bleed, back pain, seizure, CVA, palpatations, mental health, musculoskeletal)? @ -Fracture, dislocation, contusion, hematoma, intracranial hemorrhage, concussion, abrasion, laceration this list does not like to be all-inclusive EKG interpreted by me (3pts min.). @ -As above X-rays interpreted by me (1pt min.). @ -CXR to remain negative for focal consolidation or pneumothorax. Right knee x-ray interpreted me negative for acute fractures or dislocations. Hardware appears intact. Left wrist and shoulder x-ray intervally negative for acute fractures or dislocations. Degenerative changes noted. CT interpreted by me (1pt min.). @ -CT brain negative for acute intracranial process. U/S interpreted by me (1pt. min.). @ -None done What testing was considered but not performed or refused? (CT, X-rays, U/S, labs)? Why? @ -None What meds were considered but not given or refused? Why? @ -None Did you discuss the management of the patient with other professionals (professionals i.e. , PA, POWER PLANT SUPERINTENDENT, lab, RT, psych nurse, social psychologist, farmworker animal, teacher, veterinary medical officer, caseworker)? Give summary @ -Yes, Case discussed with Linda DAVIDSON for admission. Was smoking cessation discussed for >3mins.? @ -No Was critical care preformed (if so, how long)? @ -No Were there social determinants of health that impacted care today? How? (Homelessness, low income, unemployed, alcoholism, drug addiction, transportation, low edu. Level, literacy, decrease access to med. care, snf, rehab)? @ -No Was there de-escalation of care discussed even if they declined (Discuss DNR or withdrawal of care, Hospice)? DNR status @ -No What co-morbidities impacted this encounter? (DM, HTN, Smoking, COPD, CAD, Cancer, CVA, ARF, Chemo, Hep., AIDS, mental health diagnosis, sleep apnea, morbid obesity)? @ -Advanced age, Atrial fibrillation on Eliquis, renal disease, Was patient admitted / discharged? Hospital course, mention meds given and route, prescriptions, significant lab abnormalities, going to OR and other pertinent info. @ -Admitted. 79-year-old female presented the ER via EMS for evaluation of a fall. Upon arrival blood pressure 90/48 vitals otherwise stable. Patient states she has a history of hypotension. Patient is neurovascularly intact and no signs of acute distress. ANO x 3. Laboratory studies along with x-rays and CT brain will be obtained, patient is agreeable. Laboratory studies remarkable for hemoglobin of 10.4. Sodium 131, potassium 2.4, chloride 91. BUN and 97 with creatinine at 2.03. GFR 23. Troponin 0.015. Urine analysis unremarkable. Imaging completed in the ER negative. EKG showing a sinus rhythm. Given hypokalemia admission was considered and accepted by Linda DAVIDSON. Potassium supplementation protocol initiated. Upon reevaluation, patient resting comfortably on stretcher no signs of distress. Results discussed with patient, all questions answered. Patient agreeable for admission. Patient admitted in stable condition for further evaluation and treatment. Case discussed with ED attending, Dr. Proctor. Undiagnosed new problem with uncertain prognosis? @ -No Drug Therapy requiring intensive monitoring for toxicity (Heparin, Nitro, Insulin, Cardizem)? @ -No Were any procedures done? @ -No Diagnosis/symptom? @ -Hypokalemia/NIKITA/fall Acute, or Chronic, or Acute on Chronic? @ -Acute Uncomplicated (without systemic symptoms) or Complicated (systemic symptoms)? @ -Complicated Side effects of treatment? @ -No Exacerbation, Progression, or Severe Exacerbation? @ -No Poses a threat to life or bodily function? How? (Chest pain, [place], [place], pneumonia, PE, COPD, DKA, ARF, appy, cholecystitis, CVA, Diverticulitis, Homicidal, Suicidal, threat to staff... and all critical care pts) @ -Possibly - Lab Data Result diagrams: 03/20/25 10:38 03/20/25 10:38 Lab Results 03/20/25 03/20/25 03/20/25 Range/Units 10:38 10:38 10:38 WBC 6.68 (4.50-10.00) 10*3/uL RBC 3.85 L (4.10-5.20) 10*6/uL Hgb 10.4 L (12.0-15.0) g/dL Hct 30.1 L (37.2-46.3) % MCV 78.2 L (80.0-97.0) fL MCH 27.0 (27.0-32.0) pg MCHC 34.6 (32.0-37.0) g/dL Plt Count 157 (140-440) 10*3/uL MPV 10.5 (9.5-12.2) fL Immature Gran % (Auto) 0.4 % Neutrophils % 67.1 % Lymphocytes % 20.7 % Monocytes % 10.5 % Eosinophils % 0.6 % Basophils % 0.7 % Immature Gran # 0.03 (0.00-0.04) 10*3/uL Neutrophils # 4.48 (1.80-7.70) 10*3/uL Lymphocytes # 1.38 (0.90-5.00) 10*3/uL Monocytes # 0.70 (0.20-1.00) 10*3/uL Eosinophils # 0.04 (0.04-0.35) 10*3/uL Basophils # 0.05 (0.00-0.10) 10*3/uL PT (10.0-12.5) sec INR (<1.2) APTT (22.0-30.0) sec Sodium 131 L (137-145) mmol/L Potassium 2.4 L* (3.5-5.1) mmol/L Chloride 91 L (98-107) mmol/L Carbon Dioxide 30 (22-30) mmol/L Anion Gap 10 mmol/L BUN 97 H (7-17) mg/dL Creatinine 2.03 H (0.52-1.04) mg/dL Est GFR (CKD-EPI)AfAm 26 (>60 ml/min/1.73 sqM) Est GFR (CKD-EPI)NonAf 23 (>60 ml/min/1.73 sqM) Glucose 96 (74-99) mg/dL Plasma Lactic Acid Maurilio (0.7-2.0) mmol/L Calcium 9.2 (8.4-10.2) mg/dL Magnesium 2.5 H (1.6-2.3) mg/dL Total Bilirubin 0.5 (0.2-1.3) mg/dL AST 27 (14-36) U/L ALT 14 (4-34) U/L Alkaline Phosphatase 64 (38-126) U/L Creatine Kinase 91 (30-135) U/L Troponin I (0.000-0.034) ng/mL Total Protein 6.1 L (6.3-8.2) g/dL Albumin 3.6 (3.5-5.0) g/dL Urine Color Urine Appearance (Clear) Urine pH (5.0-8.0) Ur Specific [place] (1.001-1.035) Urine Protein (Negative) Urine Glucose (UA) (Negative) Urine Ketones (Negative) Urine Blood (Negative) Urine Nitrite (Negative) Urine Bilirubin (Negative) Urine Urobilinogen (<2.0) mg/dL Ur Leukocyte Esterase (Negative) 03/20/25 03/20/25 03/20/25 Range/Units 10:39 10:39 10:39 WBC (4.50-10.00) 10*3/uL RBC (4.10-5.20) 10*6/uL Hgb (12.0-15.0) g/dL Hct (37.2-46.3) % MCV (80.0-97.0) fL MCH (27.0-32.0) pg MCHC (32.0-37.0) g/dL Plt Count (140-440) 10*3/uL MPV (9.5-12.2) fL Immature Gran % (Auto) % Neutrophils % % Lymphocytes % % Monocytes % % Eosinophils % % Basophils % % Immature Gran # (0.00-0.04) 10*3/uL Neutrophils # (1.80-7.70) 10*3/uL Lymphocytes # (0.90-5.00) 10*3/uL Monocytes # (0.20-1.00) 10*3/uL Eosinophils # (0.04-0.35) 10*3/uL Basophils # (0.00-0.10) 10*3/uL PT 11.3 (10.0-12.5) sec INR 1.0 (<1.2) APTT 28.3 (22.0-30.0) sec Sodium (137-145) mmol/L Potassium (3.5-5.1) mmol/L Chloride (98-107) mmol/L Carbon Dioxide (22-30) mmol/L Anion Gap mmol/L BUN (7-17) mg/dL Creatinine (0.52-1.04) mg/dL Est GFR (CKD-EPI)AfAm (>60 ml/min/1.73 sqM) Est GFR (CKD-EPI)NonAf (>60 ml/min/1.73 sqM) Glucose (74-99) mg/dL Plasma Lactic Acid Maurilio 1.0 (0.7-2.0) mmol/L Calcium (8.4-10.2) mg/dL Magnesium (1.6-2.3) mg/dL Total Bilirubin (0.2-1.3) mg/dL AST (14-36) U/L ALT (4-34) U/L Alkaline Phosphatase (38-126) U/L Creatine Kinase (30-135) U/L Troponin I 0.015 (0.000-0.034) ng/mL Total Protein (6.3-8.2) g/dL Albumin (3.5-5.0) g/dL Urine Color Urine Appearance (Clear) Urine pH (5.0-8.0) Ur Specific [place] (1.001-1.035) Urine Protein (Negative) Urine Glucose (UA) (Negative) Urine Ketones (Negative) Urine Blood (Negative) Urine Nitrite (Negative) Urine Bilirubin (Negative) Urine Urobilinogen (<2.0) mg/dL Ur Leukocyte Esterase (Negative) 03/20/25 Range/Units 11:51 WBC (4.50-10.00) 10*3/uL RBC (4.10-5.20) 10*6/uL Hgb (12.0-15.0) g/dL Hct (37.2-46.3) % MCV (80.0-97.0) fL MCH (27.0-32.0) pg MCHC (32.0-37.0) g/dL Plt Count (140-440) 10*3/uL MPV (9.5-12.2) fL Immature Gran % (Auto) % Neutrophils % % Lymphocytes % % Monocytes % % Eosinophils % % Basophils % % Immature Gran # (0.00-0.04) 10*3/uL Neutrophils # (1.80-7.70) 10*3/uL Lymphocytes # (0.90-5.00) 10*3/uL Monocytes # (0.20-1.00) 10*3/uL Eosinophils # (0.04-0.35) 10*3/uL Basophils # (0.00-0.10) 10*3/uL PT (10.0-12.5) sec INR (<1.2) APTT (22.0-30.0) sec Sodium (137-145) mmol/L Potassium (3.5-5.1) mmol/L Chloride (98-107) mmol/L Carbon Dioxide (22-30) mmol/L Anion Gap mmol/L BUN (7-17) mg/dL Creatinine (0.52-1.04) mg/dL Est GFR (CKD-EPI)AfAm (>60 ml/min/1.73 sqM) Est GFR (CKD-EPI)NonAf (>60 ml/min/1.73 sqM) Glucose (74-99) mg/dL Plasma Lactic Acid Maurilio (0.7-2.0) mmol/L Calcium (8.4-10.2) mg/dL Magnesium (1.6-2.3) mg/dL Total Bilirubin (0.2-1.3) mg/dL AST (14-36) U/L ALT (4-34) U/L Alkaline Phosphatase (38-126) U/L Creatine Kinase (30-135) U/L Troponin I (0.000-0.034) ng/mL Total Protein (6.3-8.2) g/dL Albumin (3.5-5.0) g/dL Urine Color Colorless Urine Appearance Clear (Clear) Urine pH 6.0 (5.0-8.0) Ur Specific [place] 1.005 (1.001-1.035) Urine Protein Negative (Negative) Urine Glucose (UA) Negative (Negative) Urine Ketones Negative (Negative) Urine Blood Negative (Negative) Urine Nitrite Negative (Negative) Urine Bilirubin Negative (Negative) Urine Urobilinogen <2.0 (<2.0) mg/dL Ur Leukocyte Esterase Negative (Negative) - Radiology Data Radiology results: report reviewed, image reviewed Disposition Clinical Impression: Hypokalemia, NIKITA (acute kidney injury), Fall Disposition: ADMITTED IP TO THIS [facility] Condition: Stable Time of Disposition: 12:46
[2025-03-20] MEDS: SODIUM CHLORIDE 0.9% 1,000 ML IV STA (10:45)
[2025-03-20 10:56] LABS: Basophils # (A) 0.05 10*3/uL (0.00-0.10); Basophils % (A) 0.7 %; Eosinophils # (A) 0.04 10*3/uL (0.04-0.35); Eosinophils % (A) 0.6 %; HCT 30.1 % (37.2-46.3); HGB 10.4 g/dL (12.0-15.0); Lymphocytes # (A) 1.38 10*3/uL (0.90-5.00); Lymphocytes % (A) 20.7 %; MCHC 34.6 g/dL (32.0-37.0); MCV 78.2 fL (80.0-97.0); Mean Platelet Volume 10.5 fL (9.5-12.2); Monocytes % (A) 10.5 %; Neutrophils # (A) 4.48 10*3/uL (1.80-7.70); Neutrophils % (A) 67.1 %; Platelet Count 157 10*3/uL (140-440); RBC 3.85 10*6/uL (4.10-5.20); RDW 14.5 % (11.5-14.5); WBC 6.68 10*3/uL (4.50-10.00)
--- NOTE | 2025-03-20 11:06 | XR ---
EXAMINATION TYPE: XR chest 2V DATE OF EXAM: 03/20/2025 11:01 AM COMPARISON: 10/06/2024 CLINICAL INDICATION: Female, 79 years old with history of syncope, , TECHNIQUE: AP and lateral views FINDINGS: Prominent hazy lower lung densities related to overlying soft tissue. Heart mildly enlarged. No defin ite consolidation or pleural effusion. IMPRESSION: Mild cardiomegaly. Limitations due to body habitus and AP technique. No definite acute process. [facility], Workstation: [id number], 03/20/2025 11:04 AM
[2025-03-20 11:07] LABS: Partial Thromboplastin Time 28.3 sec (22.0-30.0); Prothrombin Time 11.3 sec (10.0-12.5)
--- NOTE | 2025-03-20 11:09 | XR ---
EXAMINATION TYPE: XR shoulder complete 3 views LT, XR wrist complete 4 views LT, XR knee complete 3 views RT DATE OF EXAM: 03/20/2025 11:01 AM COMPARISON: None CLINICAL INDICATION: Female, 79 years old with history of fall; PHH, pain FINDINGS: Left shoulder: AC joint appears congruent and intact. There is mild degenerative change at the glenohumeral joint wi th inferior spurring. Subacromial space is preserved. No acute fracture, subluxation, dislocation see n. Left wrist: Multiple surgical clips along the radial aspect of the distal forearm. Radiocarpal joint appears inta ct. Slight negative ulnar variance. Moderate degenerative change first CMC joint with joint space melissa rowing and subchondral sclerosis. Mid carpal compartment appears intact. No acute fracture, subluxati on, dislocation seen. Right knee: Underlying right total knee arthroplasty. Both distal femoral and proximal tibial components of prost hesis are well seated without periprosthetic fracture. Alignment grossly anatomic. No acute fracture, subluxation, dislocation. There may be some medial sided soft tissue swelling at the knee. IMPRESSION: 1. Left shoulder: Mild glenohumeral joint OA. No acute osseous abnormality seen. 2. Left wrist: Moderate OA at the basal joint of the thumb. No acute osseous abnormality seen. 3. Right knee: Uncomplicated right total knee arthroplasty. There may be some medial sided soft tissu e swelling. [facility], , 03/20/2025 11:07 AM
--- NOTE | 2025-03-20 11:30 | CT ---
EXAMINATION TYPE: CT brain wo con DATE OF EXAM: 03/20/2025 11:12 AM COMPARISON: None. CLINICAL INDICATION: Female, 79 years old with history of fall, fall TECHNIQUE: CT of the brain is performed utilizing 3 mm thick sections through the posterior fossa and 3 mm thick sections through the remaining calvarium. Study is performed within 24 hours of arrival to the hospital. Contrast used: mL of , (none if empty) CT DLP: 1156.4 mGycm, Automated exposure control for dose reduction was used. FINDINGS: No abnormal hyperdensity is present to suggest an acute intracranial hemorrhage. No mass lesion is evident. No acute infarcts are evident. Ventricles and sulci are appropriate for the patient age. Paranasal sinuses and mastoid air cells within the [id number] are clear. IMPRESSION: 1. No acute intracranial process. Follow up MRI can be performed as clinically indicated. [facility], , 03/20/2025 11:28 AM
[2025-03-20 11:33] LABS: ALT 14 U/L (4-34); AST 27 U/L (14-36); African American GFR (CKD) 26 (>60 ml/min/1.73 sqM); Albumin 3.6 g/dL (3.5-5.0); Alkaline Phosphatase 64 U/L (38-126); Anion Gap 10 mmol/L; Blood Urea Nitrogen 97 mg/dL (7-17); Calcium 9.2 mg/dL (8.4-10.2); Carbon Dioxide 30 mmol/L (22-30); Chloride 91 mmol/L (98-107); Creatine Kinase 91 U/L (30-135); Glucose 96 mg/dL (74-99); Non-African American GFR(CKD) 23 (>60 ml/min/1.73 sqM); Sodium 131 mmol/L (137-145); Total Bilirubin 0.5 mg/dL (0.2-1.3); Total Protein 6.1 g/dL (6.3-8.2)
[2025-03-20 11:45] LABS: Potassium 2.4 mmol/L (3.5-5.1)
[2025-03-20 12:03] LABS: Appearance,Urine Clear (Clear); Bilirubin,Urine Negative (Negative); Blood,Urine Negative (Negative); Color,Urine Colorless; Glucose,Urine (UA) Negative (Negative); Ketones,Urine Negative (Negative); Leukocyte Esterase,Urine Negative (Negative); Nitrite,Urine Negative (Negative); Protein,Urine Negative (Negative); Specific Gravity,Urine 1.005 (1.001-1.035); Urobilinogen,Urine <2.0 mg/dL (<2.0)
[2025-03-20] MEDS ORDERED: Potassium Replacement Protocol 1 EACH MISC MISCELLANE PRN (12:15)
[2025-03-20] MEDS ORDERED: NALOXONE 0.4 MG/ML 1 ML VIAL IV PRN (12:26)
[2025-03-20] MEDS ORDERED: POTASSIUM CHLORIDE 10 MEQ in WATER FOR INJECTION 2 100ML.BAG IVPB STA (12:43)
[2025-03-20] MEDS ORDERED: POTASSIUM CHLORIDE 20 MEQ in WATER FOR INJECTION 1 100ML.BAG IVPB SCH (14:00)
[2025-03-20] MEDS: POTASSIUM CHLORIDE 10 MEQ in WATER FOR INJECTION 1 100ML.BAG IVPB SCH (14:07)
[2025-03-20] MEDS: POTASSIUM CHLORIDE ER 20 MEQ TAB.ER PO SCH ×2 (14:10→23:02)
[2025-03-20] MEDS: SODIUM CHLORIDE 0.9% 1,000 ML IV SCH ×2 (15:56→22:24)
--- NOTE | 2025-03-20 16:09 | P.HPIM ---
History of Present Illness H&P Date: 03/20/25 This is an 79-year-old female with medical history significant for atrial fibrillation, corneal dystrophy, former smoker. Patient comes into the hospital after having a fall at home states that she essentially fell into a divot in the ground and rolled her left ankle which caused her to fall on her left side after her right knee buckled. She states that she has no pain from the fall her main concern was that she was unable to get herself up off the ground after falling. She reports no recent illness no shortness of breath or chest pain. She is not having any fever or chills. No nausea vomiting or diarrhea. She does state that her appetite has been fair and she feels that she has been eating and drinking enough lately. She had multiple x-rays on admission which revealed no acute fracture or dislocation. Her brain CT was completed which reveals no acute intracranial process no intracranial hemorrhage lesion or mass effect. White blood cell count of 6.68, hemoglobin 10.4, sodium level of 131 potassium 2.4, BUN of 97 creatinine of 2.03, troponin level of 0.015. Urinalysis is neg ative for infection. Patient will be admitted for IV hydration and electrolyte replacement as well as PT OT consultation. REVIEW OF SYSTEMS: CONSTITUTIONAL: No fever, no malaise, no fatigue. HEENT: No recent visual problems or hearing problems. Denied any sore throat. CARDIOVASCULAR: No chest pain, orthopnea, PND, no palpitations, no syncope. PULMONARY: No shortness of breath, no cough, no hemoptysis. GASTROINTESTINAL: No diarrhea, no nausea, no vomiting, no abdominal pain. NEUROLOGICAL: No headaches, no weakness, no numbness. HEMATOLOGICAL: Denies any bleeding or petechiae. GENITOURINARY: Denies any burning micturition, frequency, or urgency. MUSCULOSKELETAL/RHEUMATOLOGICAL: Denies any joint pain, swelling, or any muscle pain. ENDOCRINE: Denies any polyuria or polydipsia. The rest of the 14-point review of systems is negative. PHYSICAL EXAMINATION: GENERAL: The patient is alert and oriented x3, not in any acute distress. Well developed, well nourished. HEENT: Pupils are round and equally reacting to light. EOMI. No scleral icterus. No conjunctival pallor. Normocephalic, atraumatic. No pharyngeal erythema. No thyromegaly. CARDIOVASCULAR: S1 and S2 present. No murmurs, rubs, or gallops. PULMONARY: Chest is clear to auscultation, no wheezing or crackles. ABDOMEN: Soft, nontender, nondistended, normoactive bowel sounds. No palpable organomegaly. MUSCULOSKELETAL: No joint swelling or deformity. EXTREMITIES: No cyanosis, clubbing, or pedal edema. NEUROLOGICAL: Gross neurological examination did not reveal any focal deficits. SKIN: No rashes. 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 PT OT consultation The impression and plan of care has been dictated by Lora Baldwin Nurse Practitioner as directed. Dr. Kim MD I have performed a history and physical examination and medical decision making of this patient, discussed the same with the dictator, and agree with the dictators assessment and plan as written, documented as a scribe. Based on total visit time, I have performed more than 50% of this visit. Past Medical History Past Medical History: Atrial Fibrillation, Cancer, Eye Disorder, Musculoskeletal Disorder, Osteoarthritis (OA), Renal Disease Additional Past Medical History / Comment(s): Received both covid vaccines. DRY EYE, CORNEAL DYSTROPHY. HX RT BREAST CA. No blood draw or blood pressure on RT side. HYPOGLYCEMIA. right leg below the knee swelling-wears daily compression stockings, STOMACH ULCER 04-06-17. 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 LOWER BACK PAIN, NT TOES FOR YEARS, headaches, STATES RECENT CAT SCAN WHICH SHOWED INCISIONAL HERNIAS AND KIDNEY STONES IN BLADDER AND URETER-PATIENT TO CONTACT DR RIDER. left arm scar from donor site Recent extensive dental work and sinus infection treated with antibiotics. History of Any Multi-Drug Resistant Organisms: ESBL, MRSA Date of last positivie culture/infection: 08/03/20 ESBL E.coli,MRSA 2018 MDRO Source:: URINE Past Surgical History: Adenoidectomy, Appendectomy, Breast Surgery, Cholecystectomy, Hernia Repair, Orthopedic Surgery, Tonsillectomy Additional Past Surgical History / Comment(s): "Extensive dental work .RT BREAST MASTECTOMY W/ RECONSTRUCTION, FATTY TUMOR EXC LT ARM, EPHROLITHOTOMY TUBE W/ STONE REMOVAL X4, EGD, COLONOSCOPY, EXC RT OVARY/TUBE, CANCER EXC. RT BUCCAL MUCOSA W/ TISSUE TRANSPLANT FROM LT WRIST, several cervical lymph nodes removed. Past Anesthesia/Blood Transfusion Reactions: Previous Problems w/ Anesthesia, Postoperative Nausea & Vomiting (PONV) Additional Past Anesthesia/Blood Transfusion Reaction / Comment(s): TOOK VERY LONG TIME TO AWAKEN AFTER SURGERY IN 2012, had severe PONC after last pain p rocedure & thinks due to fentanyl Past Psychological History: No Psychological Hx Reported Smoking Status: Never smoker Past Alcohol Use History: None Reported Past Drug Use History: None Reported - Past Family History Father Family Medical History: Congestive Heart Failure (CHF), Coronary Artery Disease (CAD), Diabetes Mellitus, Deep Vein Thrombosis (DVT), Hypertension Additional Family Medical History / Comment(s): PHLEBITIS LEG Sister(s) Family Medical History: Diabetes Mellitus Brother(s) Family Medical History: No Reported History Mother Family Medical History: AFIB, Deep Vein Thrombosis (DVT) Additional Family Medical History / Comment(s): PHLEBITIS IN LEG Medications and Allergies Home Medications Medication Instructions Recorded Confirmed Type Cyanocobalamin (Vitamin B-12) 1,000 mcg PO MOFR 06/22/17 03/20/25 History [Vitamin B-12] Multivit-Min/Iron/Folic/Lutein 2 tab PO DAILY 12/09/22 03/20/25 History [Centrum Silver Women Tablet] Furosemide [Lasix] 40 mg PO DAILY 09/30/24 03/20/25 History Potassium Chloride [Klor-Con M20] 20 meq PO SUMOWETHSA@2100 09/30/24 03/20/25 History Pregabalin [Lyrica] 50 mg PO BID #6 cap 10/11/24 03/20/25 Rx Acetaminophen Tab [Tylenol Tab] 1,000 mg PO BID 03/20/25 03/20/25 History Amiodarone [Cordarone] 100 mg PO DAILY 03/20/25 03/20/25 History Apixaban [Eliquis] 2.5 mg PO BID 03/20/25 03/20/25 History HYDROcodone/APAP 5-325MG [[place] 1 tab PO Q6H PRN 03/20/25 03/20/25 History 5-325] Metoprolol Succinate (ER) [Toprol 12.5 mg PO DAILY 03/20/25 03/20/25 History XL] Potassium Chloride [Klor-Con M20] 40 meq PO TUFR@2100 03/20/25 03/20/25 History metOLazone 2.5 mg PO TUFR 03/20/25 03/20/25 History Allergies Allergy/AdvReac Type Severity Reaction Status Date / Time Penicillins Allergy Anaphylaxis Verified 03/20/25 12:47 Sulfa (Sulfonamide Allergy Anaphylaxis Verified 03/20/25 12:47 Antibiotics) codeine AdvReac Nausea & Verified 03/20/25 12:47 Vomiting fentanyl AdvReac nausea/vomiting, Verified 03/20/25 12:47 fuzzy headed NSAIDS (Non-Steroidal AdvReac ULCER- Verified 03/20/25 12:47 Anti-Inflamma HISTORY sulfamethoxazole AdvReac Diarrhea, Verified 03/20/25 12:47 [From Bactrim] C-Diff trimethoprim [From Bactrim] AdvReac Diarrhea, Verified 03/20/25 12:47 C-Diff Physical Exam Vitals: Vital Signs Temp Pulse Resp BP Pulse Ox 03/20/25 14:41 98.1 F 57 L 16 145/82 97 03/20/25 14:11 58 L 20 94/64 96 03/20/25 12:45 66 20 109/57 94 L 03/20/25 11:40 63 20 103/46 96 03/20/25 10:19 98 F 66 20 90/48 98 Intake and Output 03/20/25 03/20/25 03/20/25 06:59 14:59 22:59 Other: Weight 79.379 kg Results CBC & Chem 7: 03/20/25 10:38 03/20/25 10:38 Labs: Abnormal Lab Results - Last 24 Hours (Table) 03/20/25 03/20/25 03/20/25 Range/Units 10:38 10:38 10:38 RBC 3.85 L (4.10-5.20) 10*6/uL Hgb 10.4 L (12.0-15.0) g/dL Hct 30.1 L (37.2-46.3) % MCV 78.2 L (80.0-97.0) fL Sodium 131 L (137-145) mmol/L Potassium 2.4 L* (3.5-5.1) mmol/L Chloride 91 L (98-107) mmol/L BUN 97 H (7-17) mg/dL Creatinine 2.03 H (0.52-1.04) mg/dL Magnesium 2.5 H (1.6-2.3) mg/dL Total Protein 6.1 L (6.3-8.2) g/dL Assessment and Plan Time with Patient: Less than 30
[2025-03-20] MEDS: APIXABAN 2.5 MG TABLET PO SCH (20:10)
[2025-03-20] MEDS: PREGABALIN 50 MG CAP PO SCH (20:10)
[2025-03-20] MEDS: ACETAMINOPHEN TAB 325 MG TAB PO PRN (20:15)
[2025-03-20] MEDS: polyethylene glycoL 3350 17 GM POWD.PACK PO SCH (21:04)
[2025-03-20] MEDS: HYDROcodone/APAP 5-325MG 1 EACH TAB PO PRN (22:25)
[2025-03-21 03:23] LABS: African American GFR (CKD) 32 (>60 ml/min/1.73 sqM); Anion Gap 5 mmol/L; Blood Urea Nitrogen 82 mg/dL (7-17); Calcium 8.7 mg/dL (8.4-10.2); Carbon Dioxide 32 mmol/L (22-30); Chloride 97 mmol/L (98-107); Glucose 86 mg/dL (74-99); Non-African American GFR(CKD) 28 (>60 ml/min/1.73 sqM); Potassium 3.3 mmol/L (3.5-5.1); Sodium 134 mmol/L (137-145)
[2025-03-21] MEDS: POTASSIUM CHLORIDE ER 20 MEQ TAB.ER PO SCH (03:42)
[2025-03-21] MEDS ORDERED: POTASSIUM CHLORIDE ER 20 MEQ TAB.ER PO SCH (08:00)
[2025-03-21] MEDS: METOPROLOL SUCCINATE (ER) 25 MG TAB.ER.24H PO SCH (08:16)
[2025-03-21] MEDS: AMIODARONE 100 MG TAB PO SCH (08:17)
[2025-03-21] MEDS: SODIUM CHLORIDE 0.9% 1,000 ML IV ONE ×2 (13:45→14:53)
[2025-03-21 14:14] LABS: Basophils # (A) 0.04 10*3/uL (0.00-0.10); Basophils % (A) 0.8 %; Eosinophils # (A) 0.07 10*3/uL (0.04-0.35); Eosinophils % (A) 1.4 %; HCT 29.5 % (37.2-46.3); HGB 9.7 g/dL (12.0-15.0); Lymphocytes # (A) 1.67 10*3/uL (0.90-5.00); Lymphocytes % (A) 32.3 %; MCHC 32.9 g/dL (32.0-37.0); MCV 82.2 fL (80.0-97.0); Mean Platelet Volume 10.7 fL (9.5-12.2); Monocytes # (A) 0.57 10*3/uL (0.20-1.00); Neutrophils # (A) 2.81 10*3/uL (1.80-7.70); Neutrophils % (A) 54.3 %; Platelet Count 129 10*3/uL (140-440); RBC 3.59 10*6/uL (4.10-5.20); RDW 15.1 % (11.5-14.5); WBC 5.17 10*3/uL (4.50-10.00)
--- NOTE | 2025-03-21 15:18 | P.PN ---
Subjective Progress Note Date: 03/21/25 This is an 79-year-old female with medical history significant for atrial fibrillation, corneal dystrophy, former smoker. Patient comes into the hospital after having a fall at home states that she essentially fell into a divot in the ground and rolled her left ankle which caused her to fall on her left side after her right knee buckled. She states that she has no pain from the fall her main concern was that she was unable to get herself up off the ground after falling. She reports no recent illness no shortness of breath or chest pain. She is not having any fever or chills. No nausea vomiting or diarrhea. She does state that her appetite has been fair and she feels that she has been eating and drinking enough lately. She had multiple x-rays on admission which revealed no acute fracture or dislocation. Her brain CT was completed which reveals no acute intracranial process no intracranial hemorrhage lesion or mass effect. White blood cell count of 6.68, hemoglobin 10.4, sodium level of 131 potassium 2.4, BUN of 97 creatinine of 2.03, troponin level of 0.015. Urinalysis is negative for infection. Patient will be admitted for IV hydration and electrolyte replacement as well as PT OT consultation. 03/21/2025 Patient is evaluated in follow-up in the medical floor. Patient continues on normal saline at 75 mL/h. Renal function is slightly improved with a BUN of 82 creatinine of 1.72. Her sodium level is 134. Potassium is better at 3.9. REVIEW OF SYSTEMS: CONSTITUTIONAL: No fever, no malaise, no fatigue. HEENT: No recent visual problems or hearing problems. Denied any sore throat. CARDIOVASCULAR: No chest pain, orthopnea, PND, no palpitations, no syncope. PULMONARY: No shortness of breath, no cough, no hemoptysis. GASTROINTESTINAL: No diarrhea, no nausea, no vomiting, no abdominal pain. NEUROLOGICAL: No headaches, no weakness, no numbness. PHYSICAL EXAMINATION: GENERAL: The patient is alert and oriented x3, not in any acute distress. Well developed, well nourished. HEENT: Pupils are round and equally reacting to light. EOMI. No scleral icterus. No conjunctival pallor. Normocephalic, atraumatic. No pharyngeal erythema. No thyromegaly. CARDIOVASCULAR: S1 and S2 present. No murmurs, rubs, or gallops. PULMONARY: Chest is clear to auscultation, no wheezing or crackles. ABDOMEN: Soft, nontender, nondistended, normoactive bowel sounds. No palpable organomegaly. MUSCULOSKELETAL: No joint swelling or deformity. EXTREMITIES: No cyanosis, clubbing, or pedal edema. NEUROLOGICAL: Gross neurological examination did not reveal any focal deficits. SKIN: No rashes. 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 Dr. Kim MD I have performed a history and physical examination and medical decision making of this patient, discussed the same with the dictator, and agree with the dictators assessment and plan as written, documented as a scribe. Based on total visit time, I have performed more than 50% of this visit. Objective - Vital Signs Vital signs: Vital Signs Temp 97.1 F L 03/21/25 07:50 Pulse 61 03/21/25 07:50 Resp 17 03/21/25 07:50 BP 109/64 03/21/25 07:50 Pulse Ox 96 03/21/25 07:50 FiO2 Intake & Output 03/20/25 03/21/25 03/21/25 18:59 06:59 18:59 Intake Total 1315 Balance 1315 Weight 79.379 kg Intake: Intake, IV Titration 775 Amount Sodium Chloride 0.9% 1, 100 000 ml @ 50 mls/hr IV . Q20H [facility] Rx#:[id number] Sodium Chloride 0.9% 1, 675 000 ml @ 75 mls/hr IV . [id number] [facility] Rx#:[id number] Oral 540 Other: Voiding Method Toilet Toilet # Voids 1 1 - Labs CBC & Chem 7: 03/21/25 14:02 03/21/25 07:06 Labs: Abnormal Lab Results - Last 24 Hours (Table) 03/20/25 03/20/25 03/20/25 Range/Units 10:38 10:38 10:38 RBC 3.85 L (4.10-5.20) 10*6/uL Hgb 10.4 L (12.0-15.0) g/dL Hct 30.1 L (37.2-46.3) % MCV 78.2 L (80.0-97.0) fL Sodium 131 L (137-145) mmol/L Potassium 2.4 L* (3.5-5.1) mmol/L Chloride 91 L (98-107) mmol/L Carbon Dioxide (22-30) mmol/L BUN 97 H (7-17) mg/dL Creatinine 2.03 H (0.52-1.04) mg/dL Magnesium 2.5 H (1.6-2.3) mg/dL Total Protein 6.1 L (6.3-8.2) g/dL 03/20/25 03/20/25 03/21/25 Range/Units 17:35 22:21 02:41 RBC (4.10-5.20) 10*6/uL Hgb (12.0-15.0) g/dL Hct (37.2-46.3) % MCV (80.0-97.0) fL Sodium 134 L (137-145) mmol/L Potassium 2.5 L* 3.2 L 3.3 L (3.5-5.1) mmol/L Chloride 97 L (98-107) mmol/L Carbon Dioxide 32 H (22-30) mmol/L BUN 82 H (7-17) mg/dL Creatinine 1.72 H (0.52-1.04) mg/dL Magnesium (1.6-2.3) mg/dL Total Protein (6.3-8.2) g/dL Assessment and Plan Time with Patient: Less than 30
--- NOTE | 2025-03-21 16:09 | CT ---
EXAMINATION TYPE: CT brain wo con CT DLP: 1082 mGycm, Automated exposure control for dose reduction was used. DATE OF EXAM: 03/21/2025 4:01 PM COMPARISON: CT brain 03/20/2025, CTA head and neck 02/24/2023, MR brain 01/18/2019 CLINICAL INDICATION:Female, 79 years old with history of recent fall throbbing headache, Recent fall, worsening headache TECHNIQUE: Brain: Multiple axial CT images of the brain were obtained without IV contrast. . Coronal and sagitta l reformats reviewed. FINDINGS: Brain: Extra-axial spaces: No abnormal extra-axial fluid collections. Ventricular system: Within normal limits Cerebral parenchyma: Cerebral atrophy. No acute intraparenchymal hemorrhage or mass effect. The palacio -white junction is well differentiated. Scattered hypoattenuating areas are seen within the periventr icular white matter. Cerebellum: Unremarkable. Mass effect: No evidence of midline shift. Intracranial vasculature: Atherosclerotic calcifications of the intracranial vessels. Soft tissues: Normal. Calvarium/osseous structures: No depressed skull fracture. Paranasal sinuses and mastoid air cells: Clear Visualized orbits: Bilateral aphakia IMPRESSION: 1. No acute intracranial process. 2. Nonspecific mild white matter changes, likely secondary to chronic small vessel ischemic disease. [facility], , 03/21/2025 4:07 PM
[2025-03-22 06:03] LABS: Basophils # (A) 0.03 10*3/uL (0.00-0.10); Basophils % (A) 0.6 %; Eosinophils # (A) 0.11 10*3/uL (0.04-0.35); Eosinophils % (A) 2.3 %; HCT 29.8 % (37.2-46.3); HGB 9.8 g/dL (12.0-15.0); Immature Platelet Fraction 2.9 % (1.1-6.1); Lymphocytes % (A) 48.1 %; MCH 27.1 pg (27.0-32.0); MCHC 32.9 g/dL (32.0-37.0); MCV 82.3 fL (80.0-97.0); Mean Platelet Volume 11.7 fL (9.5-12.2); Monocytes % (A) 12.6 %; Neutrophils # (A) 1.72 10*3/uL (1.80-7.70); Platelet Count 126 10*3/uL (140-440); RBC 3.62 10*6/uL (4.10-5.20); RDW 15.3 % (11.5-14.5); WBC 4.78 10*3/uL (4.50-10.00)
[2025-03-22 06:18] LABS: African American GFR (CKD) 43 (>60 ml/min/1.73 sqM); Anion Gap 5 mmol/L; Blood Urea Nitrogen 48 mg/dL (7-17); Calcium 8.3 mg/dL (8.4-10.2); Carbon Dioxide 28 mmol/L (22-30); Chloride 108 mmol/L (98-107); Glucose 90 mg/dL (74-99); Magnesium 2.2 mg/dL (1.6-2.3); Non-African American GFR(CKD) 38 (>60 ml/min/1.73 sqM); Potassium 3.7 mmol/L (3.5-5.1); Sodium 141 mmol/L (137-145)
[2025-03-22] MEDS: POTASSIUM CHLORIDE ER 20 MEQ TAB.ER PO STA (12:13)
--- NOTE | 2025-03-22 13:11 | P.NPCON ---
History of Present Illness - Reason for Consult acute renal failure - History of Present Illness patient is an 79-year-old female with history of chronic A. fib, nephrolithiasis with previous history of left hydronephrosis. Patient follows with urology. She is admitted to the hospital with history of fall while outside in her backyard. Patient was not able to get up and had been on the ground for some time. She had been complaining of lightheadedness and dizziness for a few days prior. Blood pressure was low with systolic noted in the 80s. No significant urinary symptoms prior to admission. Serum creatinine was 2.0 on admission and improved to 1.3 today. Currently maintained on IV fluids. Past Medical History Past Medical History: Atrial Fibrillation, Cancer, Eye Disorder, Musculoskeletal Disorder, Osteoarthritis (OA), Renal Disease Additional Past Medical History / Comment(s): Received both covid vaccines. DRY EYE, CORNEAL DYSTROPHY. HX RT BREAST CA. No blood draw or blood pressure on RT side. HYPOGLYCEMIA. right leg below the knee swelling-wears daily compression stockings, STOMACH ULCER 04-06-17. 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 LOWER BACK PAIN, NT TOES FOR YEARS, headaches, STATES RECENT CAT SCAN WHICH SHOWED INCISIONAL HERNIAS AND KIDNEY STONES IN BLADDER AND URETER-PATIENT TO CONTACT DR RIDER. left arm scar from donor site Recent extensive dental work and sinus infection treated with antibiotics. History of Any Multi-Drug Resistant Organisms: None Reported, ESBL, MRSA Date of last positivie culture/infection: 08/03/20 ESBL E.coli,MRSA 2018 MDRO Source:: URINE Past Surgical History: Adenoidectomy, Appendectomy, Breast Surgery, Ch olecystectomy, Hernia Repair, Orthopedic Surgery, Tonsillectomy Additional Past Surgical History / Comment(s): "Extensive dental work .RT BREAST MASTECTOMY W/ RECONSTRUCTION, FATTY TUMOR EXC LT ARM, EPHROLITHOTOMY TUBE W/ STONE REMOVAL X4, EGD, COLONOSCOPY, EXC RT OVARY/TUBE, CANCER EXC. RT BUCCAL MUCOSA W/ TISSUE TRANSPLANT FROM LT WRIST, several cervical lymph nodes removed. Past Anesthesia/Blood Transfusion Reactions: Previous Problems w/ Anesthesia, Postoperative Nausea & Vomiting (PONV) Additional Past Anesthesia/Blood Transfusion Reaction / Comment(s): TOOK VERY LONG TIME TO AWAKEN AFTER SURGERY IN 2012, had severe PONC after last pain procedure & thinks due to fentanyl Past Psychological History: No Psychological Hx Reported Additional Psychological History / Comment(s): . Smoking Status: Never smoker Past Alcohol Use History: None Reported Additional Past Alcohol Use History / Comment(s): SMOKED ON/OFF STARTING @ AGE 16, QUIT SMOKING 11/27/1999, SMOKED 1/2- 1 PPD. Past Drug Use History: None Reported Additional Drug Use History / Comment(s): . - Past Family History Father Family Medical History: Congestive Heart Failure (CHF), Coronary Artery Disease (CAD), Diabetes Mellitus, Deep Vein Thrombosis (DVT), Hypertension Additional Family Medical History / Comment(s): PHLEBITIS LEG Sister(s) Family Medical History: Diabetes Mellitus Brother(s) Family Medical History: No Reported History Mother Family Medical History: AFIB, Deep Vein Thrombosis (DVT) Additional Family Medical History / Comment(s): PHLEBITIS IN LEG Medications and Allergies Home Medications Medication Instructions Recorded Confirmed Type Cyanocobalamin (Vitamin B-12) 1,000 mcg PO MOFR 06/22/17 03/20/25 History [Vitamin B-12] Multivit-Min/Iron/Folic/Lutein 2 tab PO DAILY 12/09/22 03/20/25 History [Centrum Silver Women Tablet] Furosemide [Lasix] 40 mg PO DAILY 09/30/24 03/20/25 History Potassium Chloride [Klor-Con M20] 20 meq PO SUMOWETHSA@2100 09/30/24 03/20/25 History Pregabalin [Lyrica] 50 mg PO BID #6 cap 10/11/24 03/20/25 Rx Acetaminophen Tab [Tylenol Tab] 1,000 mg PO BID 03/20/25 03/20/25 History Amiodarone [Cordarone] 100 mg PO DAILY 03/20/25 03/20/25 History Apixaban [Eliquis] 2.5 mg PO BID 03/20/25 03/20/25 History HYDROcodone/APAP 5-325MG [[place] 1 tab PO Q6H PRN 03/20/25 03/20/25 History 5-325] Metoprolol Succinate (ER) [Toprol 12.5 mg PO DAILY 03/20/25 03/20/25 History XL] Potassium Chloride [Klor-Con M20] 40 meq PO TUFR@2100 03/20/25 03/20/25 History metOLazone 2.5 mg PO TUFR 03/20/25 03/20/25 History Allergies Allergy/AdvReac Type Severity Reaction Status Date / Time Penicillins Allergy Anaphylaxis Verified 03/20/25 12:47 Sulfa (Sulfonamide Allergy Anaphylaxis Verified 03/20/25 12:47 Antibiotics) codeine AdvReac Nausea & Verified 03/20/25 12:47 Vomiting fentanyl AdvReac nausea/vomiting, Verified 03/20/25 12:47 fuzzy headed NSAIDS (Non-Steroidal AdvReac ULCER- Verified 03/20/25 12:47 Anti-Inflamma HISTORY sulfamethoxazole AdvReac Diarrhea, Verified 03/20/25 12:47 [From Bactrim] C-Diff trimethoprim [From Bactrim] AdvReac Diarrhea, Verified 03/20/25 12:47 C-Diff Physical Exam Vitals: Vital Signs Temp Pulse Resp BP Pulse Ox 03/22/25 12:10 97.7 F 54 L 14 96/60 96 03/22/25 09:51 97.7 F 56 L 14 90/56 98 03/22/25 04:28 98.2 F 59 L 16 91/56 95 03/21/25 23:06 98.1 F 57 L 16 94/58 97 03/21/25 20:00 97.8 F 59 L 16 101/70 97 03/21/25 17:44 54 L 16 96/55 99 03/21/25 16:14 55 L 17 103/63 98 03/21/25 13:12 56 L 80/49 Intake and Output 03/21/25 03/22/25 03/22/25 22:59 06:59 14:59 Intake Total 600 240 Balance 600 240 Intake: Intake, IV Titration 600 Amount Sodium Chloride 0.9% 1, 600 000 ml @ 75 mls/hr IV . 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 Acute kidney injury, ATN from hypotension, improved with IV hydration. UA is completely benign. Check ultrasound of the kidneys 2. Nephrolithiasis with previous history of left hydronephrosis noted on CAT scan thousand 24. Patient has had urological procedures previously. 3. Chronic kidney disease stage II with previous creatinine 0.9-1.1 mg/dL mostly secondary to nephrolithiasis. Patient states she has solitary functioning kidney which is her right kidney. We will obtain ultrasound of the kidneys. 4. A. fib with controlled well particularly response 5. Hypotension most likely associated with hypovolemia. Check random cortisol level if no improvement with IV hydration. 6. Hypokalemia secondary to diuretics status post replacement Plan: continue to hold diuretics Consider discontinuation of beta blockers as heart rate remains on the lower side Continue with IV fluids Repeat labs in a.m. Check cortisol level if no improvement in hypotension with IV hydration. Thank you for the consultation. We will continue to follow the patient with you during her hospitalization.
--- NOTE | 2025-03-22 13:55 | P.PN ---
Subjective Progress Note Date: 03/22/25 This is an 79-year-old female with medical history significant for atrial fibrillation, corneal dystrophy, former smoker. Patient comes into the hospital after having a fall at home states that she essentially fell into a divot in the ground and rolled her left ankle which caused her to fall on her left side after her right knee buckled. She states that she has no pain from the fall her main concern was that she was unable to get herself up off the ground after falling. She reports no recent illness no shortness of breath or chest pain. She is not having any fever or chills. No nausea vomiting or diarrhea. She does state that her appetite has been fair and she feels that she has been eating and drinking enough lately. She had multiple x-rays on admission which revealed no acute fracture or dislocation. Her brain CT was completed which reveals no acute intracranial process no intracranial hemorrhage lesion or mass effect. White blood cell count of 6.68, hemoglobin 10.4, sodium level of 131 potassium 2.4, BUN of 97 creatinine of 2.03, troponin level of 0.015. Urinalysis is negative for infection. Patient will be admitted for IV hydration and electrolyte replacement as well as PT OT consultation. 03/21/2025 Patient is evaluated in follow-up in the medical floor. Patient continues on normal saline at 75 mL/h. Renal function is slightly improved with a BUN of 82 creatinine of 1.72. Her sodium level is 134. Potassium is better at 3.9. 03/22/2025 evaluated in follow-up on the cardiac stepdown unit. Blood pressure is mildly improved currently 90/56. She is receiving normal saline at 75 mL/h. However renal function has improved with a BUN of 48 and a creatinine of 1.34. TSH is normal at 4.350. Troponin level has been negative. Currently pending a.m. cortisol. Nephrology was also consulted. Patient continues to report feelings of lightheadedness like she is going to pass out. She does see skaf on an outpatient basis has been on oral amiodarone and oral metoprolol which was recently cut back to 12.5 mg. Cardiology will be consulted for evaluation. REVIEW OF SYSTEMS: CONSTITUTIONAL: No fever, no malaise, no fatigue. Reports lightheadedness. HEENT: No recent visual problems or hearing problems. Denied any sore throat. CARDIOVASCULAR: No chest pain, orthopnea, PND, no palpitations, no syncope. PULMONARY: No shortness of breath, no cough, no hemoptysis. GASTROINTESTINAL: No diarrhea, no nausea, no vomiting, no abdominal pain. NEUROLOGICAL: No headaches, no weakness, no numbness. PHYSICAL EXAMINATION: GENERAL: The patient is alert and oriented x3, not in any acute distress. Well developed, well nourished. HEENT: Pupils are round and equally reacting to light. EOMI. No scleral icterus. No conjunctival pallor. Normocephalic, atraumatic. No pharyngeal erythema. No thyromegaly. CARDIOVASCULAR: S1 and S2 present. No murmurs, rubs, or gallops. PULMONARY: Chest is clear to auscultation, no wheezing or crackles. ABDOMEN: Soft, nontender, nondistended, normoactive bowel sounds. No palpable organomegaly. MUSCULOSKELETAL: No joint swelling or deformity. EXTREMITIES: No cyanosis, clubbing, or pedal edema. NEUROLOGICAL: Gross neurological examination did not reveal any focal deficits. SKIN: No rashes. 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 Dr. Kim MD I have performed a history and physical examination and medical decision making of this patient, discussed the same with the dictator, and agree with the dictators assessment and plan as written, documented as a scribe. Based on total visit time, I have performed more than 50% of this visit. Objective - Vital Signs Vital signs: Vital Signs Temp 97.7 F 03/22/25 09:51 Pulse 56 L 03/22/25 09:51 Resp 14 03/22/25 09:51 BP 90/56 03/22/25 09:51 Pulse Ox 98 03/22/25 09:51 FiO2 Intake & Output 03/21/25 03/22/25 03/22/25 18:59 06:59 18:59 Intake Total 600 240 Balance 600 240 Weight 87.1 kg Intake: Intake, IV Titration 600 Amount Sodium Chloride 0.9% 1, 600 000 ml @ 75 mls/hr IV . [id number] [facility] Rx#:[id number] Oral 240 Other: Voiding Method Toilet Toilet # Voids 1 - Labs CBC & Chem 7: 03/22/25 05:27 03/22/25 05:27 Labs: Abnormal Lab Results - Last 24 Hours (Table) 03/21/25 03/22/25 03/22/25 Range/Units 14:02 05:27 05:27 RBC 3.59 L 3.62 L (4.10-5.20) 10*6/uL Hgb 9.7 L 9.8 L (12.0-15.0) g/dL Hct 29.5 L 29.8 L (37.2-46.3) % RDW 15.1 H (11.5-14.5) % Plt Count 129 L 126 L (140-440) 10*3/uL Neutrophils # 1.72 L (1.80-7.70) 10*3/uL Chloride 108 H (98-107) mmol/L BUN 48 H (7-17) mg/dL Creatinine 1.34 H (0.52-1.04) mg/dL Calcium 8.3 L (8.4-10.2) mg/dL Assessment and Plan Time with Patient: Greater than 30
--- NOTE | 2025-03-22 14:06 | US ---
EXAMINATION TYPE: US kidneys/renal and bladder DATE OF EXAM: 03/22/2025 COMPARISON: 06/11/2018 CLINICAL INDICATION: Female, 79 years old with history of NIKITA, stones; Abnormal labs. Hx sponge kidne y. Hx hydro. Recent fall on Thursday. TECHNIQUE: Grayscale imaging of the bilateral kidneys and urinary bladder: FINDINGS: EXAM MEASUREMENTS: Right Kidney: 11.2 x 5.4 x 5.1 cm Left Kidney: 13.0 x 6.5 x 7.7 cm Right Kidney: Multiple echogenic foci with shadow, largest lateral = 1.0 cm Left Kidney: Severe hydronephrosis. Unable to visualize renal cortex or sinus Bladder: Anechoic, distended Bilateral Jets not seem IMPRESSION: 1. Right-sided nephrolithiasis with stones measuring up to 1.0 cm. 2. Severe left hydronephrosis. Suspect long-standing obstruction given the degree of renal parenchyma l atrophy. [facility], Workstation: [employer], 03/22/2025 2:03 PM
--- NOTE | 2025-03-23 11:12 | P.CRDCN ---
History of Present Illness History of present illness: HISTORY OF PRESENT ILLNESS: This is a 79-year-old female with a past medical history significant for atrial fibrillation, valvular heart disease, throat and neck cancer, and lightheadedne ss. Patient follows in the office with Dr. Franco. We have been asked to see the patient in consultation for hypotension and lightheadedness. Patient examined at the bedside. Patient initially presented to the hospital after sustaining a mechanical fall. Patient denies having any syncope. Patient reports having some dizziness. She was recently seen in the office by Dr. Franco on 03/17/2025 and her metoprolol and her Lasix were both decreased as she was complaining of dizziness and lightheadedness. Patient was found to be bradycardic at that time with a heart rate in the 50s. Blood pressure in the hospital has been running in the [id number]. Heart rate is currently in the 50s. REVIEW OF SYSTEMS: At the time of my exam: CONSTITUTIONAL: Denies fever or chills. HEENT: Denies blurred vision, vision changes, or eye pain. Denies hemoptysis CARDIOVASCULAR: Denies chest pain. Denies orthopnea. Denies PND. Denies palpitations RESPIRATORY: Denies shortness of breath. GASTROINTESTINAL: Denies abdominal pain. Denies nausea or vomiting. HEMATOLOGIC: Denies bleeding disorders. GENITOURINARY: Denies any blood in urine. SKIN: Denies pruitis. Denies rash. PHYSICAL EXAM: VITAL SIGNS: Reviewed. GENERAL: Well-developed in no acute distress. HEENT: Head is normocephalic. Pupils are equal, round. Sclerae anicteric. Mucous membranes of the mouth are moist. Neck supple. No JVD or thyromegaly LUNGS: Respirations even and unlabored. Lungs essentially clear to auscultation bilaterally. HEART: Regular rate and rhythm. S1 and S2 heard. ABDOMEN: Soft. Nondistended. Nontender. EXTREMITIES: Normal range of motion. No clubbing or cyanosis. Peripheral pulses intact. No lower extremity edema NEUROLOGIC: Awake and alert. Oriented x 3. ASSESSMENT: Dizziness Known sinus bradycardia Borderline hypotension, currently normotensive with a blood pressure in the [id number] Paroxysmal atrial fibrillation PLAN: Continue current cardiac medications No further inpatient recommendations from a cardiac standpoint Patient may follow-up in the office with Dr. Franco We will sign off. Please reconsult if needed. Nurse practitioner note has been reviewed by physician. Signing provider agrees with the documented findings, assessment, and plan of care documented by CODE ENFORCEMENT OFFICER as a scribe. Past Medical History Past Medical History: Atrial Fibrillation, Cancer, Eye Disorder, Musculoskeletal Disorder, Osteoarthritis (OA), Renal Disease Additional Past Medical History / Comment(s): Received both covid vaccines. DRY EYE, CORNEAL DYSTROPHY. HX RT BREAST CA. No blood draw or blood pressure on RT side. HYPOGLYCEMIA. right leg below the knee swelling-wears daily compression stockings, STOMACH ULCER 04-06-17. 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 LOWER BACK PAIN, NT TOES FOR YEARS, headaches, STATES RECENT CAT SCAN WHICH SHOWED INCISIONAL HERNIAS AND KIDNEY STONES IN BLADDER AND URETER-PATIENT TO CONTACT DR RIDER. left arm scar from donor site Recent extensive dental work and sinus infection treated with antibiotics. History of Any Multi-Drug Resistant Organisms: None Reported, ESBL, MRSA Date of last positivie culture/infection: 08/03/20 ESBL E.coli,MRSA 2018 MDRO Source:: URINE Past Surgical History: Adenoidectomy, Appendectomy, Breast Surgery, Cholecystectomy, Hernia Repair, Orthopedic Surgery, Tonsillectomy Additional Past Surgical History / Comment(s): "Extensive dental work .RT BREAST MASTECTOMY W/ RECONSTRUCTION, FATTY TUMOR EXC LT ARM, EPHROLITHOTOMY TUBE W/ STONE REMOVAL X4, EGD, COLONOSCOPY, EXC RT OVARY/TUBE, CANCER EXC. RT BUCCAL MUCOSA W/ TISSUE TRANSPLANT FROM LT WRIST, several cervical lymph nodes removed. Past Anesthesia/Blood Transfusion Reactions: Previous Problems w/ Anesthesia, Postoperative Nausea & Vomiting (PONV) Additional Past Anesthesia/Blood Transfusion Reaction / Comment(s): TOOK VERY LONG TIME TO AWAKEN AFTER SURGERY IN 2012, had severe PONC after last pain procedure & thinks due to fentanyl Past Psychological History: No Psychological Hx Reported Additional Psychological History / Comment(s): . Smoking Status: Never smoker Past Alcohol Use History: None Reported Additional Past Alcohol Use History / Comment(s): SMOKED ON/OFF STARTING @ AGE 16, QUIT SMOKING 11/27/1999, SMOKED 1/2- 1 PPD. Past Drug Use History: None Reported Additional Drug Use History / Comment(s): . - Past Family History Father Family Medical History: Congestive Heart Failure (CHF), Coronary Artery Disease (CAD), Diabetes Mellitus, Deep Vein Thrombosis (DVT), Hypertension Additional Family Medical History / Comment(s): PHLEBITIS LEG Sister(s) Family Medical History: Diabetes Mellitus Brother(s) Family Medical History: No Reported History Mother Family Medical History: AFIB, Deep Vein Thrombosis (DVT) Additional Family Medical History / Comment(s): PHLEBITIS IN LEG Medications and Allergies Home Medications Medication Instructions Recorded Confirmed Type Cyanocobalamin (Vitamin B-12) 1,000 mcg PO MOFR 06/22/17 03/20/25 History [Vitamin B-12] Multivit-Min/Iron/Folic/Lutein 2 tab PO DAILY 12/09/22 03/20/25 History [Centrum Silver Women Tablet] Furosemide [Lasix] 40 mg PO DAILY 09/30/24 03/20/25 History Potassium Chloride [Klor-Con M20] 20 meq PO SUMOWETHSA@2100 09/30/24 03/20/25 History Pregabalin [Lyrica] 50 mg PO BID #6 cap 10/11/24 03/20/25 Rx Acetaminophen Tab [Tylenol Tab] 1,000 mg PO BID 03/20/25 03/20/25 History Amiodarone [Cordarone] 100 mg PO DAILY 03/20/25 03/20/25 History Apixaban [Eliquis] 2.5 mg PO BID 03/20/25 03/20/25 History HYDROcodone/APAP 5-325MG [[place] 1 tab PO Q6H PRN 03/20/25 03/20/25 History 5-325] Metoprolol Succinate (ER) [Toprol 12.5 mg PO DAILY 03/20/25 03/20/25 History XL] Potassium Chloride [Klor-Con M20] 40 meq PO TUFR@2100 03/20/25 03/20/25 History metOLazone 2.5 mg PO TUFR 03/20/25 03/20/25 History Allergies Allergy/AdvReac Type Severity Reaction Status Date / Time Penicillins Allergy Anaphylaxis Verified 03/20/25 12:47 Sulfa (Sulfonamide Allergy Anaphylaxis Verified 03/20/25 12:47 Antibiotics) codeine AdvReac Nausea & Verified 03/20/25 12:47 Vomiting fentanyl AdvReac nausea/vomiting, Verified 03/20/25 12:47 fuzzy headed NSAIDS (Non-Steroidal AdvReac ULCER- Verified 03/20/25 12:47 Anti-Inflamma HISTORY sulfamethoxazole AdvReac Diarrhea, Verified 03/20/25 12:47 [From Bactrim] C-Diff trimethoprim [From Bactrim] AdvReac Diarrhea, Verified 03/20/25 12:47 C-Diff Physical Exam Vitals: Vital Signs Temp Pulse Resp BP BP BP BP 03/23/25 07:59 98.3 F 57 L 16 94/50 03/23/25 03:43 97.9 F 63 16 114/72 03/22/25 19:34 97.5 F L 60 16 87/51 03/22/25 16:12 98.1 F 53 L 14 122/60 138/99 99/65 03/22/25 12:10 97.7 F 54 L 14 96/60 Pulse Ox 03/23/25 07:59 98 03/23/25 03:43 94 L 03/22/25 19:34 96 03/22/25 16:12 97 03/22/25 12:10 96 Intake and Output 03/22/25 03/23/25 03/23/25 22:59 06:59 14:59 Intake Total 240 Balance 240 Intake: Oral 240 Other: Voiding Method Toilet Toilet # Voids 2 1 Weight 87.5 kg Results 03/22/25 05:27 03/22/25 05:27 Current Medications Generic Name Dose Route Start Last Admin Trade Name Freq PRN Reason Stop Dose Admin Acetaminophen 650 mg 03/20/25 15:56 03/21/25 10:45 Acetaminophen Tab 325 Mg Tab PO 650 mg Q6HR PRN Administration Fever and/ or Pain Hydrocodone Bitart/Acetaminophen 1 each 03/20/25 15:56 03/22/25 20:35 Hydrocodone/Apap 5-325mg 1 Each Tab PO 0.5 each Q6H PRN Administration Pain Amiodarone HCl 100 mg 03/21/25 09:00 03/23/25 08:05 Amiodarone 100 Mg Tab PO 100 mg DAILY VAISHNAVI Administration Apixaban 2.5 mg 03/20/25 21:00 03/23/25 08:05 Apixaban 2.5 Mg Tablet PO 2.5 mg BID VAISHNAVI Administration Protocol Sodium Chloride 1,000 mls @ 75 mls/hr 03/20/25 22:00 03/22/25 22:53 Saline 0.9% IV 75 mls/hr .[id number] VAISHNAVI Administration Metoprolol Succinate 12.5 mg 03/21/25 09:00 03/23/25 08:04 Metoprolol Succinate (Er) 25 Mg Tab.Er.24h PO Not Given DAILY VAISHNAVI Miscellaneous Information 1 each 03/20/25 12:15 Potassium Replacement Protocol 1 Each Misc MISCELLANE DAILY PRN Per Protocol Protocol Naloxone HCl 0.2 mg 03/20/25 12:26 Naloxone 0.4 Mg/Ml 1 Ml Vial IV Q2M PRN Opioid Reversal Ondansetron HCl 4 mg 03/20/25 15:56 Ondansetron 4 Mg/2 Ml Vial IVP Q6HR PRN Nausea And Vomiting Polyethylene Glycol 17 gm 03/20/25 21:00 03/22/25 20:34 Polyethylene Glycol 3350 17 Gm Powd.Pack PO 17 gm HS VAISHNAVI Administration Pregabalin 50 mg 03/20/25 21:00 03/23/25 08:05 Pregabalin 50 Mg Cap PO 50 mg BID VAISHNAVI Administration Intake and Output 03/22/25 03/23/25 03/23/25 22:59 06:59 14:59 Intake Total 240 Balance 240 Intake: Oral 240 Other: Voiding Method Toilet Toilet # Voids 2 1 Weight 87.5 kg 03/22/25 05:27 03/22/25 05:27
--- NOTE | 2025-03-23 12:56 | P.PN ---
Subjective Patient is seen for follow-up for acute kidney injury. Renal function has improved with IV hydration. Serum creatinine down to 1.3 No complaints today Objective - Vital Signs Vital signs: Vital Signs Temp 98.4 F 03/23/25 11:24 Pulse 62 03/23/25 11:24 Resp 14 03/23/25 11:24 BP 93/62 03/23/25 11:24 Pulse Ox 97 03/23/25 11:24 FiO2 Intake & Output 03/22/25 03/23/25 03/23/25 18:59 06:59 18:59 Intake Total 480 240 Balance 480 240 Weight 87.5 kg Intake: Oral 480 240 Other: Voiding Method Toilet Toilet Toilet # Voids 2 1 - Exam Patient is awake, comfortable, no acute distress Examination of the heart S1 and S2 Examination of the lungs bilateral breath sounds are heard Abdomen is soft nontender Examination of lower extremities shows no evidence of edema 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 Acute kidney injury, ATN from hypotension, improved with IV hydration. UA is completely benign. Ultrasound shows severe left hydronephrosis which appears to be chronic and right-sided nephrolithiasis calculus of about 1 cm 2. Nephrolithiasis with previous history of left hydronephrosis noted on CAT scan thousand 24. Patient has had urological procedures previously. 3. Chronic kidney disease stage II with previous creatinine 0.9-1.1 mg/dL mostly secondary to nephrolithiasis. 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 Patient has severe chronic left hydronephrosis and renal atrophy. 4. A. fib with controlled well particularly response 5. Hypotension most likely associated with hypovolemia. Check random cortisol level if no improvement with IV hydration. 6. Hypokalemia secondary to diuretics status post replacement Plan: continue to hold diuretics Consider discontinuation of beta blockers as heart rate remains on the lower side Continue with IV fluids Repeat labs in a.m. Check cortisol level if no improvement in hypotension with IV hydration.
--- NOTE | 2025-03-23 16:42 | P.PN ---
Subjective Progress Note Date: 03/23/25 Interval History: This is an 79-year-old female with medical history significant for atrial fibrillation, corneal dystrophy, former smoker. Patient comes into the hospital after having a fall at home states that she essentially fell into a divot in the ground and rolled her left ankle which caused her to fall on her left side after her right knee buckled. She states that she has no pain from the fall her main concern was that she was unable to get herself up off the ground after falling. She reports no recent illness no shortness of breath or chest pain. She is not having any fever or chills. No nausea vomiting or diarrhea. She does state that her appetite has been fair and she feels that she has been eating and drinking enough lately. She had multiple x-rays on admission which revealed no acute fracture or dislocation. Her brain CT was completed which reveals no acute intracranial process no intracranial hemorrhage lesion or mass effect. White blood cell count of 6.68, hemoglobin 10.4, sodium level of 131 potassium 2.4, BUN of 97 creatinine of 2.03, troponin level of 0.015. Urinalysis is negative for infection. Patient will be admitted for IV hydration and electrolyte replacement as well as PT OT consultation. 03/21/2025 Patient is evaluated in follow-up in the medical floor. Patient continues on normal saline at 75 mL/h. Renal function is slightly improved with a BUN of 82 creatinine of 1.72. Her sodium level is 134. Potassium is better at 3.9. 03/22/2025 evaluated in follow-up on the cardiac stepdown unit. Blood pressure is mildly improved currently 90/56. She is receiving normal saline at 75 mL/h. However renal function has improved with a BUN of 48 and a creatinine of 1.34. TSH is normal at 4.350. Troponin level has been negative. Currently pending a.m. cortisol. Nephrology was also consulted. Patient continues to report feelings of lightheadedness like she is going to pass out. She does see skaf on an outpatient basis has been on oral amiodarone and oral metoprolol which was recently cut back to 12.5 mg. Cardiology will be consulted for evaluation. 03/23/25--patient was seen and examined today. Dizziness is improving. Blood pressure still soft 93/62, heart rate in the low 60s. Patient is afebrile. WBCs 4.7 hemoglobin 9.8, platelet 126 yesterday. No repeat labs today. TSH yesterday 4.35. Cortisol 6.5 nephrology following, recommended continuing IV fluids and monitor labs. 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 Hold metolazone On low-dose of beta-randee due to bradycardia. Consulted cardiology Check orthostatics Pending AM cortisol level --- 6.5 PT OT consultation Monitor vital signs and labs Labs and medication were reviewed. Continue same treatment. Further recommendations as per clinical course of the patient PHYSICAL EXAMINATION: GENERAL: The patient is A&O x3, NAD HEENT: EOMI, Sclerae anicteric, Moist Mucous membranes Neck: Supple, Non tender, No JVD PULMONARY: Equal breath souds B/L, No wheezing, No crackles. CARDIOVASCULAR: S1, S2 present. No murmurs, rubs, or gallops. ABDOMEN: Soft, nontender, nondistended, normoactive bowel sounds. No guarding or rebound tenderness. MUSCULOSKELETAL: No edema, No cyanosis. No clubbing. Normal ROM. Intact peripheral pulses. NEUROLOGICAL: CN 2-12 grossly intact. No FND Skin: No Rash REVIEW OF SYSTEMS: CONSTITUTIONAL: No fever or chills. CARDIOVASCULAR: No chest pain, palpitations or syncope. PULMONARY: No shortness of breath, no cough, sore throat. GASTROINTESTINAL: No nausea, vomiting, diarrhea, abdominal pain. : No Dysuria, urgency, frequency. Extremities: No edema. NEUROLOGICAL: No headaches, no weakness, or numbness Dictation was produced using [employer] dictation software. please excuse any grammatical, word or spelling errors. Objective - Vital Signs Vital signs: Vital Signs Temp 98.3 F 03/23/25 16:11 Pulse 57 L 03/23/25 16:11 Resp 14 03/23/25 16:11 BP 99/63 03/23/25 16:11 Pulse Ox 98 03/23/25 16:11 FiO2 Intake & Output 03/22/25 03/23/25 03/23/25 18:59 06:59 18:59 Intake Total 480 240 Balance 480 240 Weight 87.5 kg Intake: Oral 480 240 Other: Voiding Method Toilet Toilet Toilet # Voids 2 1 - Labs CBC & Chem 7: 03/22/25 05:27 03/22/25 05:27
[2025-03-24 09:01] LABS: Basophils # (A) 0.04 10*3/uL (0.00-0.10); Basophils % (A) 0.6 %; Eosinophils # (A) 0.15 10*3/uL (0.04-0.35); Eosinophils % (A) 2.3 %; HGB 9.9 g/dL (12.0-15.0); Lymphocytes # (A) 1.91 10*3/uL (0.90-5.00); Lymphocytes % (A) 28.8 %; MCH 26.8 pg (27.0-32.0); MCHC 31.9 g/dL (32.0-37.0); MCV 83.8 fL (80.0-97.0); Neutrophils % (A) 58.8 %; Platelet Count 150 10*3/uL (140-440); RDW 15.9 % (11.5-14.5); WBC 6.63 10*3/uL (4.50-10.00)
--- NOTE | 2025-03-24 09:10 | XR ---
EXAMINATION TYPE: XR chest 1V DATE OF EXAM: 03/24/2025 COMPARISON: 03/20/2025 CLINICAL INDICATION: Female, 79 years old with history of CHF; TECHNIQUE: Single frontal view of the chest is obtained. FINDINGS: Heart is borderline enlarged. Mild interstitial density is present. Underlying right breas t implant. No rommel consolidation or pleural effusion. Surgical clips right axilla. IMPRESSION: Borderline cardiomegaly. There may be mild pulmonary vascular congestion. [facility], Workstation: [email or web address], 03/24/2025 9:08 AM
[2025-03-24 09:19] LABS: African American GFR (CKD) 55 (>60 ml/min/1.73 sqM); Anion Gap 7 mmol/L; Blood Urea Nitrogen 24 mg/dL (7-17); Calcium 8.6 mg/dL (8.4-10.2); Carbon Dioxide 25 mmol/L (22-30); Chloride 106 mmol/L (98-107); Glucose 99 mg/dL (74-99); Non-African American GFR(CKD) 48 (>60 ml/min/1.73 sqM); Potassium 3.9 mmol/L (3.5-5.1); Sodium 138 mmol/L (137-145)
[2025-03-24 09:26] LABS: NT-Pro-B-Type Natriuretic Pept 3310 pg/mL
[2025-03-24] MEDS: MULTIVITAMINS, THERA 1 EACH TAB PO SCH (10:45)
[2025-03-24] MEDS: CYANOCOBALAMIN 500 MCG TAB PO SCH (10:45)
--- NOTE | 2025-03-24 14:30 | P.PN ---
Subjective Progress Note Date: 03/24/25 This is an 79-year-old female with medical history significant for atrial fibrillation, corneal dystrophy, former smoker. Patient comes into the hospital after having a fall at home states that she essentially fell into a divot in the ground and rolled her left ankle which caused her to fall on her left side after her right knee buckled. She states that she has no pain from the fall her main concern was that she was unable to get herself up off the ground after falling. She reports no recent illness no shortness of breath or chest pain. She is not having any fever or chills. No nausea vomiting or diarrhea. She does state that her appetite has been fair and she feels that she has been eating and drinking enough lately. She had multiple x-rays on admission which revealed no acute fracture or dislocation. Her brain CT was completed which reveals no acute intracranial process no intracranial hemorrhage lesion or mass effect. White blood cell count of 6.68, hemoglobin 10.4, sodium level of 131 potassium 2.4, BUN of 97 creatinine of 2.03, troponin level of 0.015. Urinalysis is negative for infection. Patient will be admitted for IV hydration and electrolyte replacement as well as PT OT consultation. 03/21/2025 Patient is evaluated in follow-up in the medical floor. Patient continues on normal saline at 75 mL/h. Renal function is slightly improved with a BUN of 82 creatinine of 1.72. Her sodium level is 134. Potassium is better at 3.9. 03/22/2025 evaluated in follow-up on the cardiac stepdown unit. Blood pressure is mildly improved currently 90/56. She is receiving normal saline at 75 mL/h. However renal function has improved with a BUN of 48 and a creatinine of 1.34. TSH is normal at 4.350. Troponin level has been negative. Currently pending a.m. cortisol. Nephrology was also consulted. Patient continues to report feelings of lightheadedness like she is going to pass out. She does see skaf on an outpatient basis has been on oral amiodarone and oral metoprolol which was recently cut back to 12.5 mg. Cardiology will be consulted for evaluation. 03/23/25--patient was seen and examined today. Dizziness is improving. Blood pressure still soft 93/62, heart rate in the low 60s. Patient is afebrile. WBCs 4.7 hemoglobin 9.8, platelet 126 yesterday. No repeat labs today. TSH yesterday 4.35. Cortisol 6.5 nephrology following, recommended continuing IV fluids and monitor labs. 03/24. Patient seen and examined. Labs reviewed showing WBC 6.63, hemoglobin 9.9, platelet count 150, sodium 138, potassium 3.9, BUN 24, creatinine 1.10. Vital signs stable REVIEW OF SYSTEMS: CONSTITUTIONAL: No fever, no malaise,. CARDIOVASCULAR: No chest pain, no palpitations, no syncope. PULMONARY: No shortness of breath, no cough, GASTROINTESTINAL: No diarrhea, no nausea, no vomiting, no abdominal pain. NEUROLOGICAL: No headaches, no weakness, PHYSICAL EXAMINATION: GENERAL: The patient is alert and oriented x3, not in any acute distress. Well developed, well nourished. HEENT: Pupils are round and equally reacting to light. EOMI. No scleral icterus. No conjunctival pallor. Normocephalic, atraumatic. No pharyngeal erythema. No thyromegaly. CARDIOVASCULAR: S1 and S2 present. No murmurs, rubs, or gallops. PULMONARY: Chest is clear to auscultation, no wheezing or crackles. ABDOMEN: Soft, nontender, nondistended, normoactive bowel sounds. No palpable organomegaly. MUSCULOSKELETAL: No joint swelling or deformity. EXTREMITIES: No cyanosis, clubbing, or pedal edema. NEUROLOGICAL: Gross neurological examination did not reveal any focal deficits. SKIN: No rashes. 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 Consulted cardiology Check orthostatics Pending AM cortisol level --- 6.5 PT OT consultation Labs and medication were reviewed.. Continue same treatment. Continue with symptomatic treatment. Resume home medication. Monitor labs and vitals. DVT and GI prophylaxis. Further recommendations as per clinical course of the patient Dictation was produced using [employer] dictation software. please excuse any grammatical, word or spelling errors. Objective - Vital Signs Vital signs: Vital Signs Temp 98.2 F 03/24/25 09:52 Pulse 62 03/24/25 09:52 Resp 16 03/24/25 02:00 BP 99/62 03/24/25 09:52 Pulse Ox 97 03/24/25 09:52 FiO2 Intake & Output 03/23/25 03/24/25 03/24/25 18:59 06:59 18:59 Intake Total 480 540 Balance 480 540 Weight 90.1 kg Intake: Oral 480 540 Other: Voiding Method Toilet Toilet Toilet # Voids 1 1 - Labs CBC & Chem 7: 03/24/25 08:24 03/24/25 08:24 Labs: Abnormal Lab Results - Last 24 Hours (Table) 03/24/25 03/24/25 Range/Units 08:24 08:24 RBC 3.70 L (4.10-5.20) 10*6/uL Hgb 9.9 L (12.0-15.0) g/dL Hct 31.0 L (37.2-46.3) % MCH 26.8 L (27.0-32.0) pg MCHC 31.9 L (32.0-37.0) g/dL BUN 24 H (7-17) mg/dL Creatinine 1.10 H (0.52-1.04) mg/dL
--- NOTE | 2025-03-24 15:53 | P.PN ---
Subjective Patient is seen for follow-up for acute kidney injury. Renal function has improved with IV hydration. Serum creatinine down to 1.1 No complaints today Blood pressure remains low with systolic as low as 87 mmHg noted. Cortisol level was 6.5. Patient should get A Cortrosyn stimulation test Objective - Vital Signs Vital signs: Vital Signs Temp 98.2 F 03/24/25 09:52 Pulse 62 03/24/25 09:52 Resp 16 03/24/25 02:00 BP 99/62 03/24/25 09:52 Pulse Ox 97 03/24/25 09:52 FiO2 Intake & Output 03/23/25 03/24/25 03/24/25 18:59 06:59 18:59 Intake Total 480 540 0 Balance 480 540 0 Weight 90.1 kg Intake: Oral 480 540 0 Other: Voiding Method Toilet Toilet Toilet # Voids 1 1 - Exam Patient is awake, comfortable, no acute distress Examination of the heart S1 and S2 Examination of the lungs bilateral breath sounds are heard Abdomen is soft nontender Examination of lower extremities shows no evidence of edema 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 Acute kidney injury, ATN from hypotension, improved with IV hydration. UA is completely benign. Ultrasound shows severe left hydronephrosis which appears to be chronic and right-sided nephrolithiasis calculus of about 1 cm 2. Nephrolithiasis with previous history of left hydronephrosis noted on CAT scan thousand 24. Patient has had urological procedures previously. 3. Chronic kidney disease stage II with previous creatinine 0.9-1.1 mg/dL mostly secondary to nephrolithiasis. 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 Patient has severe chronic left hydronephrosis and renal atrophy. 4. A. fib with controlled well particularly response 5. Hypotension most likely associated with hypovolemia. Random cortisol level is low at 6.5. Obtain Cortrosyn stimulation test 6. Hypokalemia secondary to diuretics status post replacement Plan: continue to hold diuretics Check Cortrosyn stimulation test to rule out adrenal insufficiency as serum cortisol is low Continue with IV fluids Repeat labs in a.m.
[2025-03-24] MEDS: COSYNTROPIN 0.25 MG VIAL IVP ONE (17:58)
--- NOTE | 2025-03-25 12:07 | P.PN ---
Subjective Patient is seen for follow-up for acute kidney injury. Renal function has improved with IV hydration. Serum creatinine down to 1.1 yesterday Patient is complaining of swelling in her legs. Cortrosyn stimulation test was performed which did show an increase in the cortisol level and no evidence of adrenal insufficiency. Objective - Vital Signs Vital signs: Vital Signs Temp 98.3 F 03/25/25 08:30 Pulse 62 03/25/25 08:30 Resp 17 03/25/25 08:30 BP 106/65 03/25/25 08:30 Pulse Ox 98 03/25/25 08:30 FiO2 Intake & Output 03/24/25 03/25/25 03/25/25 18:59 06:59 18:59 Intake Total 240 540 500 Balance 240 540 500 Weight 90.1 kg 90 kg Intake: IV 20 Invasive Line 3 10 Invasive Line 4 10 Oral 240 540 480 Other: Voiding Method Toilet Toilet Toilet # Voids 1 2 1 - Exam Patient is awake, comfortable, no acute distress Examination of the heart S1 and S2 Examination of the lungs bilateral breath sounds are heard Abdomen is soft nontender Examination of lower extremities shows trace edema 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 Acute kidney injury, ATN from hypotension, improved with IV hydration. UA is completely benign. Ultrasound shows severe left hydronephrosis which appears to be chronic and right-sided nephrolithiasis calculus of about 1 cm 2. Nephrolithiasis with previous history of left hydronephrosis noted on CAT scan thousand 24. Patient has had urological procedures previously. 3. Chronic kidney disease stage II with previous creatinine 0.9-1.1 mg/dL mostly secondary to nephrolithiasis. 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 Patient has severe chronic left hydronephrosis and renal atrophy. 4. A. fib with controlled ventricular response 5. Hypotension most likely associated with hypovolemia. Random cortisol level is low at 6.5. Cortrosyn stimulation test was negative with no evidence of adrenal insufficiency. 6. Hypokalemia secondary to diuretics status post replacement Plan: continue off of IV fluids IV Lasix 1 resume home dose of Lasix upon discharge Stable for discharge from nephrology standpoint Follow-up as outpatient for CK D in about 2 weeks
[2025-03-25] MEDS: FUROSEMIDE 10 MG/ML 4 ML VIAL IV STA (12:36)
--- NOTE | 2025-03-25 14:21 | P.PN ---
Subjective Progress Note Date: 03/25/25 This is an 79-year-old female with medical history significant for atrial fibrillation, corneal dystrophy, former smoker. Patient comes into the hospital after having a fall at home states that she essentially fell into a divot in the ground and rolled her left ankle which caused her to fall on her left side after her right knee buckled. She states that she has no pain from the fall her main concern was that she was unable to get herself up off the ground after falling. She reports no recent illness no shortness of breath or chest pain. She is not having any fever or chills. No nausea vomiting or diarrhea. She does state that her appetite has been fair and she feels that she has been eating and drinking enough lately. She had multiple x-rays on admission which revealed no acute fracture or dislocation. Her brain CT was completed which reveals no acute intracranial process no intracranial hemorrhage lesion or mass effect. White blood cell count of 6.68, hemoglobin 10.4, sodium level of 131 potassium 2.4, BUN of 97 creatinine of 2.03, troponin level of 0.015. Urinalysis is negative for infection. Patient will be admitted for IV hydration and electrolyte replacement as well as PT OT consultation. 03/21/2025 Patient is evaluated in follow-up in the medical floor. Patient continues on normal saline at 75 mL/h. Renal function is slightly improved with a BUN of 82 creatinine of 1.72. Her sodium level is 134. Potassium is better at 3.9. 03/22/2025 evaluated in follow-up on the cardiac stepdown unit. Blood pressure is mildly improved currently 90/56. She is receiving normal saline at 75 mL/h. However renal function has improved with a BUN of 48 and a creatinine of 1.34. TSH is normal at 4.350. Troponin level has been negative. Currently pending a.m. cortisol. Nephrology was also consulted. Patient continues to report feelings of lightheadedness like she is going to pass out. She does see skaf on an outpatient basis has been on oral amiodarone and oral metoprolol which was recently cut back to 12.5 mg. Cardiology will be consulted for evaluation. 03/23/25--patient was seen and examined today. Dizziness is improving. Blood pressure still soft 93/62, heart rate in the low 60s. Patient is afebrile. WBCs 4.7 hemoglobin 9.8, platelet 126 yesterday. No repeat labs today. TSH yesterday 4.35. Cortisol 6.5 nephrology following, recommended continuing IV fluids and monitor labs. 03/24. Patient seen and examined. Labs reviewed showing WBC 6.63, hemoglobin 9.9, platelet count 150, sodium 138, potassium 3.9, BUN 24, creatinine 1.10. Vital signs stable 03/25. Patient seen and examined. Patient tried back on Lasix. Stated that she is still having swelling of lower extremities. Denies any shortness of breath REVIEW OF SYSTEMS: CONSTITUTIONAL: No fever, no malaise,. CARDIOVASCULAR: No chest pain, no palpitations, no syncope. PULMONARY: No shortness of breath, no cough, GASTROINTESTINAL: No diarrhea, no nausea, no vomiting, no abdominal pain. NEUROLOGICAL: No headaches, no weakness, PHYSICAL EXAMINATION: GENERAL: The patient is alert and oriented x3, not in any acute distress. Well developed, well nourished. HEENT: Pupils are round and equally reacting to light. EOMI. No scleral icterus. No conjunctival pallor. Normocephalic, atraumatic. No pharyngeal erythema. No thyromegaly. CARDIOVASCULAR: S1 and S2 present. No murmurs, rubs, or gallops. PULMONARY: Chest is clear to auscultation, no wheezing or crackles. ABDOMEN: Soft, nontender, nondistended, normoactive bowel sounds. No palpable organomegaly. MUSCULOSKELETAL: No joint swelling or deformity. EXTREMITIES: No cyanosis, clubbing, or pedal edema. NEUROLOGICAL: Gross neurological examination did not reveal any focal deficits. SKIN: No rashes. 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 Consulted cardiology Check orthostatics Pending AM cortisol level --- 6.5 PT OT consultation Labs and medication were reviewed.. Continue same treatment. Continue with symptomatic treatment. Resume home medication. Monitor labs and vitals. DVT and GI prophylaxis. Further recommendations as per clinical course of the patient Dictation was produced using [employer] dictation software. please excuse any gram matical, word or spelling errors. Objective - Vital Signs Vital signs: Vital Signs Temp 98.1 F 03/25/25 12:00 Pulse 60 03/25/25 12:00 Resp 17 03/25/25 12:00 BP 140/77 03/25/25 12:00 Pulse Ox 97 03/25/25 12:00 FiO2 Intake & Output 03/24/25 03/25/25 03/25/25 18:59 06:59 18:59 Intake Total 240 540 732 Balance 240 540 732 Weight 90.1 kg 90 kg Intake: IV 30 Invasive Line 3 10 Invasive Line 4 20 Oral 240 540 702 Other: Voiding Method Toilet Toilet Toilet # Voids 1 2 1 - Labs CBC & Chem 7: 03/24/25 08:24 03/24/25 08:24 Labs: Abnormal Lab Results - Last 24 Hours (Table) 03/24/25 Range/Units 19:24 Cortisol 25.0 H (3.1-22.4) UG/DL
[2025-03-26 11:55] LABS: African American GFR (CKD) 56 (>60 ml/min/1.73 sqM); Anion Gap 9 mmol/L; Blood Urea Nitrogen 20 mg/dL (7-17); Calcium 9.1 mg/dL (8.4-10.2); Carbon Dioxide 23 mmol/L (22-30); Chloride 107 mmol/L (98-107); Glucose 77 mg/dL (74-99); Non-African American GFR(CKD) 48 (>60 ml/min/1.73 sqM); Potassium 3.9 mmol/L (3.5-5.1); Sodium 139 mmol/L (137-145)
--- NOTE | 2025-03-26 12:04 | P.PN ---
Subjective Patient is seen for follow-up for acute kidney injury. Renal function has improved with IV hydration. However patient complained of significant leg swelling yesterday and she received 1 dose of IV Lasix. No complaints of shortness of breath Edema has improved significantly. Serum creatinine down to 1.0 today Objective - Vital Signs Vital signs: Vital Signs Temp 97.7 F 03/26/25 11:31 Pulse 57 L 03/26/25 11:31 Resp 17 03/26/25 11:31 BP 97/60 03/26/25 11:31 Pulse Ox 98 03/26/25 11:31 FiO2 Intake & Output 03/25/25 03/26/25 03/26/25 18:59 06:59 18:59 Intake Total 850 540 250 Balance 850 540 250 Weight 88.4 kg Intake: IV 30 10 Invasive Line 3 10 Invasive Line 4 20 10 Oral 820 540 240 Other: Voiding Method Toilet Toilet Toilet # Voids 1 3 - Exam Patient is awake, comfortable, no acute distress Examination of the heart S1 and S2 Examination of the lungs bilateral breath sounds are heard Abdomen is soft nontender Examination of lower extremities shows trace edema 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 Acute kidney injury, ATN from hypotension, improved with IV hydration. UA is completely benign. Ultrasound shows severe left hydronephrosis which appears to be chronic and right-sided nephrolithiasis calculus of about 1 cm 2. Nephrolithiasis with previous history of left hydronephrosis noted on CAT scan thousand 24. Patient has had urological procedures previously. 3. Chronic kidney disease stage II with previous creatinine 0.9-1.1 mg/dL mostly secondary to nephrolithiasis. 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 Patient has severe chronic left hydronephrosis and renal atrophy. 4. A. fib with controlled ventricular response 5. Hypotension most likely associated with hypovolemia. Random cortisol level is low at 6.5. Cortrosyn stimulation test was negative with no evidence of adrenal insufficiency. 6. Hypokalemia secondary to diuretics status post replacement Plan: resume home dose of Lasix Stable for discharge from nephrology standpoint Follow-up as outpatient for CK D in about 2 weeks
[2025-03-26] MEDS: FUROSEMIDE 10 MG/ML 2 ML VIAL IV STA (16:21)
--- NOTE | 2025-03-26 16:55 | P.PN ---
Subjective Progress Note Date: 03/26/25 This is an 79-year-old female with medical history significant for atrial fibrillation, corneal dystrophy, former smoker. Patient comes into the hospital after having a fall at home states that she essentially fell into a divot in the ground and rolled her left ankle which caused her to fall on her left side after her right knee buckled. She states that she has no pain from the fall her main concern was that she was unable to get herself up off the ground after falling. She reports no recent illness no shortness of breath or chest pain. She is not having any fever or chills. No nausea vomiting or diarrhea. She does state that her appetite has been fair and she feels that she has been eating and drinking enough lately. She had multiple x-rays on admission which revealed no acute fracture or dislocation. Her brain CT was completed which reveals no acute intracranial process no intracranial hemorrhage lesion or mass effect. White blood cell count of 6.68, hemoglobin 10.4, sodium level of 131 potassium 2.4, BUN of 97 creatinine of 2.03, troponin level of 0.015. Urinalysis is negative for infection. Patient will be admitted for IV hydration and electrolyte replacement as well as PT OT consultation. 03/21/2025 Patient is evaluated in follow-up in the medical floor. Patient continues on normal saline at 75 mL/h. Renal function is slightly improved with a BUN of 82 creatinine of 1.72. Her sodium level is 134. Potassium is better at 3.9. 03/22/2025 evaluated in follow-up on the cardiac stepdown unit. Blood pressure is mildly improved currently 90/56. She is receiving normal saline at 75 mL/h. However renal function has improved with a BUN of 48 and a creatinine of 1.34. TSH is normal at 4.350. Troponin level has been negative. Currently pending a.m. cortisol. Nephrology was also consulted. Patient continues to report feelings of lightheadedness like she is going to pass out. She does see skaf on an outpatient basis has been on oral amiodarone and oral metoprolol which was recently cut back to 12.5 mg. Cardiology will be consulted for evaluation. 03/23/25--patient was seen and examined today. Dizziness is improving. Blood pressure still soft 93/62, heart rate in the low 60s. Patient is afebrile. WBCs 4.7 hemoglobin 9.8, platelet 126 yesterday. No repeat labs today. TSH yesterday 4.35. Cortisol 6.5 nephrology following, recommended continuing IV fluids and monitor labs. 03/24. Patient seen and examined. Labs reviewed showing WBC 6.63, hemoglobin 9.9, platelet count 150, sodium 138, potassium 3.9, BUN 24, creatinine 1.10. Vital signs stable 03/25. Patient seen and examined. Patient tried back on Lasix. Stated that she is still having swelling of lower extremities. Denies any shortness of breath 03/26. Patient seen and examined. No lower extremity has improved. Nephrology started patient back on Lasix REVIEW OF SYSTEMS: CONSTITUTIONAL: No fever, no malaise,. CARDIOVASCULAR: No chest pain, no palpitations, no syncope. PULMONARY: No shortness of breath, no cough, GASTROINTESTINAL: No diarrhea, no nausea, no vomiting, no abdominal pain. NEUROLOGICAL: No headaches, no weakness, PHYSICAL EXAMINATION: GENERAL: The patient is alert and oriented x3, not in any acute distress. Well developed, well nourished. HEENT: Pupils are round and equally reacting to light. EOMI. No scleral icterus. No conjunctival pallor. Normocephalic, atraumatic. No pharyngeal erythema. No thyromegaly. CARDIOVASCULAR: S1 and S2 present. No murmurs, rubs, or gallops. PULMONARY: Chest is clear to auscultation, no wheezing or crackles. ABDOMEN: Soft, nontender, nondistended, normoactive bowel sounds. No palpable organomegaly. MUSCULOSKELETAL: No joint swelling or deformity. EXTREMITIES: No cyanosis, clubbing, or pedal edema. NEUROLOGICAL: Gross neurological examination did not reveal any focal deficits. SKIN: No rashes. 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 Nephrology following Labs and medication were reviewed.. Continue same treatment. Continue with symptomatic treatment. Resume home medication. Monitor labs and vitals. DVT and GI prophylaxis. Further recommendations as per clinical course of the patient Dictation was produced using [employer]ón[employer] dictation software. please excuse any grammatical, word or spelling errors. Objective - Vital Signs Vital signs: Vital Signs Temp 97.9 F 03/26/25 16:25 Pulse 54 L 03/26/25 16:25 Resp 17 03/26/25 16:25 BP 113/80 03/26/25 16:25 Pulse Ox 98 03/26/25 16:25 FiO2 Intake & Output 03/25/25 03/26/25 03/26/25 18:59 06:59 18:59 Intake Total 850 540 482 Balance 850 540 482 Weight 88.4 kg Intake: IV 30 20 Invasive Line 3 10 Invasive Line 4 20 20 Oral 820 540 462 Other: Voiding Method Toilet Toilet Toilet # Voids 1 3 - Labs CBC & Chem 7: 03/24/25 08:24 03/26/25 11:15 Labs: Abnormal Lab Results - Last 24 Hours (Table) 03/26/25 Range/Units 11:15 BUN 20 H (7-17) mg/dL Creatinine 1.09 H (0.52-1.04) mg/dL
[2025-03-26] MEDS: ONDANSETRON 4 MG/2 ML VIAL IVP PRN (20:55)
[2025-03-27] MEDS ORDERED: ZINC OXIDE PASTE (Z-GUARD) 1 APPLIC TOPICAL PRN (02:49)
[2025-03-27 08:41] VITALS: BP 98/60; PULSE 59; RESP 18; TEMP 98.2
[2025-03-27] MEDS: FUROSEMIDE 40 MG TAB PO SCH (08:44)
--- NOTE | 2025-03-27 10:23 | P.PN ---
Subjective Patient is seen in follow-up for acute kidney injury on chronic kidney disease. Renal function stable. Denies chest pain or shortness of breath. On room air. Vital signs are stable. General: No acute distress. HEENT: Head exam is unremarkable. LUNGS: No audible rhonchi or wheezes. HEART: Rate and Rhythm are regular. ABDOMEN: Nontender. EXTREMITITES: No edema. Objective - Vital Signs Vital signs: Vital Signs Temp 98.2 F 03/27/25 08:40 Pulse 59 L 03/27/25 08:40 Resp 18 03/27/25 08:40 BP 98/60 03/27/25 08:40 Pulse Ox 99 03/27/25 08:40 FiO2 Intake & Output 03/26/25 03/27/25 03/27/25 18:59 06:59 18:59 Intake Total 722 10 240 Balance 722 10 240 Intake: IV 20 10 Invasive Line 4 20 10 Oral 702 240 Other: Voiding Method Toilet Toilet # Voids 2 # Bowel Movements 1 - Labs CBC & Chem 7: 03/24/25 08:24 03/26/25 19:25 Labs: Abnormal Lab Results - Last 24 Hours (Table) 03/26/25 Range/Units 11:15 BUN 20 H (7-17) mg/dL Creatinine 1.09 H (0.52-1.04) mg/dL Assessment and Plan Plan: Assessment: 1. Acute kidney injury secondary to ATN. UA benign. GFR at baseline. 2. Chronic kidney disease stage II with baseline creatinine near 1 secondary to obstructive uropathy. 3. Nephrolithiasis with history of left-sided hydronephrosis. 4. Hypokalemia from diuresis. Replaced. Plan: Maintain home dose Lasix. Avoid nephrotoxins. Follow-up outpatient 1 to 2 weeks postdischarge. Repeat BMP and magnesium level 2 to 3 days postdischarge.
[2025-03-27] MEDS ORDERED: POTASSIUM CHLORIDE ER 10 MEQ TAB.ER.PRT PO SCH (10:30)
--- NOTE | 2025-03-27 14:05 | P.DS ---
Providers Date of admission: 03/20/25 12:10 Expected date of discharge: 03/27/25 Attending physician: Eliane Garner Consults: 03/21/25 14:45 Consult Physician Routine Consulting Provider: Viv Joshi Consult Reason/Comments: NIKITA/ATN Do you want consulting provider notified?: Yes Primary care physician: [facility] Course: Discharge diagnoses; Mechanical fall Generalized weakness Hyponatremia hypovolemic Hypokalemia from hypovolemia Lightheadedness likely from the hypotension with episode of jaw parasthesias yesterday Acute kidney injury prerenal dehydrational History of paroxysmal atrial fibrillation; anticoagulated with eliquis History of breast cancer with mastectomy in the right side 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 Patient comes into the hospital after having a fall at home states that she essentially fell into a divot in the ground and rolled her left ankle which caused her to fall on her left side after her right knee buckled. She states that she has no pain from the fall her main concern was that she was unable to get herself up off the ground after falling. She reports no recent illness no shortness of breath or chest pain. She is not having any fever or chills. No nausea vomiting or diarrhea. She does state that her appetite has been fair and she feels that she has been eating and drinking enough lately. She had multiple x-rays on admission which revealed no acute fracture or dislocation. Her brain CT was completed which reveals no acute intracranial process no intracranial hemorrhage lesion or mass effect. White blood cell count of 6.68, hemoglobin 10.4, sodium level of 131 potassium 2.4, BUN of 97 creatinine of 2.03, troponin level of 0.015. Urinalysis is negative for infection. Patient will be admitted for IV hydration and electrolyte replacement as well as PT OT consultation. 03/21/2025 Patient is evaluated in follow-up in the medical floor. Patient continues on normal saline at 75 mL/h. Renal function is slightly improved with a BUN of 82 creatinine of 1.72. Her sodium level is 134. Potassium is better at 3.9. 03/22/2025 evaluated in follow-up on the cardiac stepdown unit. Blood pressure is mildly improved currently 90/56. She is receiving normal saline at 75 mL/h. However renal function has improved with a BUN of 48 and a creatinine of 1.34. TSH is normal at 4.350. Troponin level has been negative. Currently pending a.m. cortisol. Nephrology was also consulted. Patient continues to report feelings of lightheadedness like she is going to pass out. She does see skaf on an outpatient basis has been on oral amiodarone and oral metoprolol which was recently cut back to 12.5 mg. Cardiology will be consulted for evaluation. 03/23/25--patient was seen and examined today. Dizziness is improving. Blood pressure still soft 93/62, heart rate in the low 60s. Patient is afebrile. WBCs 4.7 hemoglobin 9.8, platelet 126 yesterday. No repeat labs today. TSH yesterday 4.35. Cortisol 6.5 nephrology following, recommended continuing IV fluids and monitor labs. 03/24. Patient seen and examined. Labs reviewed showing WBC 6.63, hemoglobin 9.9, platelet count 150, sodium 138, potassium 3.9, BUN 24, creatinine 1.10. Vital signs stable 03/25. Patient seen and examined. Patient tried back on Lasix. Stated that she is still having swelling of lower extremities. Denies any shortness of breath 03/26. Patient seen and examined. No lower extremity has improved. Nephrology started patient back on Lasix 03/27. Patient seen and examined. Nephrology cleared the patient for discharge on home regimen of Lasix. Outpatient follow-up with PCP and nephrology PHYSICAL EXAMINATION: GENERAL: The patient is alert and oriented x3, not in any acute distress. Well developed, well nourished. HEENT: Pupils are round and equally reacting to light. EOMI. No scleral icterus. No conjunctival pallor. Normocephalic, atraumatic. No pharyngeal erythema. No thyromegaly. CARDIOVASCULAR: S1 and S2 present. No murmurs, rubs, or gallops. PULMONARY: Chest is clear to auscultation, no wheezing or crackles. ABDOMEN: Soft, nontender, nondistended, normoactive bowel sounds. No palpable organomegaly. MUSCULOSKELETAL: No joint swelling or deformity. EXTREMITIES: No cyanosis, clubbing, or pedal edema. NEUROLOGICAL: Gross neurological examination did not reveal any focal deficits. SKIN: No rashes. Dictation was produced using [email or web address] dictation software. please excuse any grammatical, word or spelling errors. Patient Condition at Discharge: Fair Plan - Discharge Summary Discharge Rx Participant: No New Discharge Prescriptions: Continue Cyanocobalamin (Vitamin B-12) [Vitamin B-12] 1,000 mcg PO MOFR Furosemide [Lasix] 40 mg PO DAILY Potassium Chloride [Klor-Con M20] 20 meq PO SUMOWETHSA@2100 HYDROcodone/APAP 5-325MG [Wenden 5-325] 1 tab PO Q6H PRN PRN Reason: Pain Potassium Chloride [Klor-Con M20] 40 meq PO TUFR@2100 Amiodarone [Cordarone] 100 mg PO DAILY metOLazone 2.5 mg PO TUFR Apixaban [Eliquis] 2.5 mg PO BID Multivit-Min/Iron/Folic/Lutein [Centrum Silver Women Tablet] 2 tab PO DAILY Pregabalin [Lyrica] 50 mg PO BID #6 cap Acetaminophen Tab [Tylenol] 1,000 mg PO BID Metoprolol Succinate (ER) [Toprol XL] 12.5 mg PO DAILY Discharge Medication List Cyanocobalamin (Vitamin B-12) [Vitamin B-12] 1,000 mcg PO MOFR 06/22/17 [History] Multivit-Min/Iron/Folic/Lutein [Centrum Silver Women Tablet] 2 tab PO DAILY 12/09/22 [History] Furosemide [Lasix] 40 mg PO DAILY 09/30/24 [History] Potassium Chloride [Klor-Con M20] 20 meq PO SUMOWETHSA@2100 09/30/24 [History] Pregabalin [Lyrica] 50 mg PO BID #6 cap 10/11/24 [Rx] Acetaminophen Tab [Tylenol] 1,000 mg PO BID 03/20/25 [History] Amiodarone [Cordarone] 100 mg PO DAILY 03/20/25 [History] Apixaban [Eliquis] 2.5 mg PO BID 03/20/25 [History] HYDROcodone/APAP 5-325MG [Wenden 5-325] 1 tab PO Q6H PRN 03/20/25 [History] Metoprolol Succinate (ER) [Toprol XL] 12.5 mg PO DAILY 03/20/25 [History] Potassium Chloride [Klor-Con M20] 40 meq PO TUFR@2100 03/20/25 [History] metOLazone 2.5 mg PO TUFR 03/20/25 [History] Follow up Appointment(s)/Referral(s): Shantel Thomas MD [Primary Care Provider] - 1-2 days Viv Joshi MD [STAFF PHYSICIAN] - 1 Week Discharge Disposition: HOME SELF-CARE
== END 2025-03-27 13:23 | disposition home or self-care (01) | DRG 640 ==
LOC: EC 10:13 → 5NMEDONC 12:10 → 3SCARD 03-21 17:25
PROVIDERS: ADMIT Hospitalist; ATTEND Hospitalist
DX: E87.6 Hypokalemia (principal); N17.0 Acute kidney failure with tubular necrosis; E86.0 Dehydration; N13.2 Hydronephrosis with renal and ureteral calculous obstruction; E87.1 Hypo-osmolality and hyponatremia; I48.0 Paroxysmal atrial fibrillation; E86.1 Hypovolemia; H18.509 Unspecified hereditary corneal dystrophies, unspecified eye; T50.2X5A Adverse effect of carbonic-anhydrase inhibitors, benzothiadiazides and other diuretics, initial encounter; G62.9 Polyneuropathy, unspecified; N18.2 Chronic kidney disease, stage 2 (mild); Z85.3 Personal history of malignant neoplasm of breast; Z90.11 Acquired absence of right breast and nipple; Z85.89 Personal history of malignant neoplasm of other organs and systems; Z87.891 Personal history of nicotine dependence; Z79.01 Long term (current) use of anticoagulants; Z88.0 Allergy status to penicillin; Z88.2 Allergy status to sulfonamides; Z85.810 Personal history of malignant neoplasm of tongue
CPT/HCPCS: 36410; 36415; 70450; 71045; 71046; 76770; 76937; 80048; 80053; 81003; 82533; 82550; 83605; 83735; 83880; 84132; 84443; 84484; 85025; 85610; 85730; 93005; 96361; 96365; 96366; 99285